=== PATIENT | male | born 1935 ===

== ENCOUNTER 2021-11-11 11:36 | Day surgery (SDC) | payer OTHER ==
[2021-11-06 13:01] LABS: Protime INR 2.13
[2021-11-06 13:19] LABS: Absolute Lymphocytes (CBC) 0.7 K/uL (0.7-4.9); Hematocrit 40.4 % (39.6-49.0); Lymphocytes % 16.7 % (15.3-44.8); MPV 7.4 fL (7.6-11.3); RBC Red Blood Cell Count 4.27 M/uL (4.33-5.43)
--- NOTE | 2021-11-06 13:26 | RAD REPORT ---
EXAM DESCRIPTION: RAD - Chest Pa And Lat (2 Views) - 11/06/2021 1:14 pm CLINICAL HISTORY: pre procedure screening Chest pain. COMPARISON: No comparisons FINDINGS: Prominent diffuse COPD is present. The heart is mildly prominent. Multi lead pacer/defibri llator device. Sternotomy wires present. IMPRESSION: Mild to moderate diffuse COPD.
[2021-11-06 14:21] LABS: Urine Appearance CLEAR (Clear); Urine Bilirubin NEGATIVE (Negative); Urine Color YELLOW (Yellow); Urine Glucose NEGATIVE (Negative)
[2021-11-06 14:22] LABS: Urine Blood NEGATIVE (Negative); Urine Microscopic Reflex NO UMIC; Urine Protein NEGATIVE (Negative)
[2021-11-11] MEDS ORDERED: Ringers Lactate 1,000 ML IV ONE (12:04)
[2021-11-11] MEDS ORDERED: CIPROFLOXACIN HCL 500 MG TAB ONE (14:29)
[2021-11-11] MEDS ORDERED: propofoL 200 MG/20 ML VIAL IV ONE (15:58)
[2021-11-11] MEDS ORDERED: FENTANYL CITR 100 MCG/2 ML ONE (15:58)
[2021-11-11] MEDS ORDERED: LIDOCAINE 1% MPF 5 ML VIAL ONE (15:58)
[2021-11-11] MEDS ORDERED: KETOROLAC 30 MG/ML INJ ONE (16:30)
[2021-11-11] MEDS ORDERED: dexAMETHasone 10 MG/ML VIAL ONE (16:30)
[2021-11-11] MEDS ORDERED: ONDANSETRON 4 MG/2 ML VIAL ONE (16:32)
[2021-11-11] MEDS ORDERED: CODEINE 30MG/APAP 300MG TAB PO PRN (17:36)
[2021-11-11] MEDS ORDERED: OPIUM/BELLADONNA SUPPOS (30-16.2 MG) PR ONE ×2 (17:36→17:50)
[2021-11-11 18:33] VITALS: BP 139/72; O2SAT 100
[2021-11-11] MEDS ORDERED: CODEINE 30MG/APAP 300MG TAB ONE (18:41)
[2021-11-11 19:22] VITALS: TEMP 97
--- NOTE | 2021-11-12 10:31 | OP ---
Surgeon: ALEISHA DACOSTA Preoperative Diagnosis: Benign prostatic hypertrophy with lower urinary tract obstruction. Incontinence, both urge and a sensory incontinence. Postoperative Diagnoses: Benign prostatic hypertrophy with lower urinary tract obstruction. Incontinence, both urge and a sensory incontinence. Principle Procedures: Cystoscopy with bipolar transurethral resection of the prostate. Indication For Procedure: Mr. Lynn is an 86-year-old gentleman with COPD, hypertension, hypercholes terolemia, status post CABG with pacemaker/defibrillator on amiodarone and Xarelto 15 mg as well as a spirin 81 mg and a recent history of endoscopic gastric tumor removed with BPH with lower urinary sym ptoms refractory to finasteride and severe fecal and urinary incontinence with both an urge component as well as lack of sensation. He underwent cystoscopy revealing significant intravesical projecting median lobe along with a mild to moderately trabeculated detrusor which was likely underlying source of his obstruction and incontinence. As a result, I counseled him to improve his incontinence, harmony gement of the obstruction would need to take place first, followed by further treatment of any bladde r dysfunction present. Ultimately, because of the intravesical component of his median lobe, bipolar TURP was recommended. Procedure Note: The patient was consented in the preoperative holding area before being transferred to the operative suite where general anesthesia was induced. He had been given a dose of ciprofloxac in 500 mg orally prior to the procedure for antimicrobial prophylaxis. Pneumo boots were provided fo r DVT prophylaxis. He was placed in the lithotomy position, padded and secured to the table appropri ately. His genitalia were prepped with Hibiclens and draped in standard fashion. His urethral meatu s was dilated using sounds to 30-Turkish, and then I utilized a visual diesel roller operator and a 26-Turkish resect oscope to traverse the urethra and into the bladder. As previously noted on the outpatient cystoscop y, there was a massive intravesical projecting median lobe with elevated median bar and some lateral lobar hypertrophy. So, I began by identifying the ureteral orifices bilaterally and resecting the in travesical component of the median lobe down to the level of the bladder neck with the ureteral orifi jak in direct vision. I then resected the remainder of the median lobe that was intravesically proje cting before then resecting the elevated median trough down to the level of the verumontanum. Once a nice trough had been created, I then continued to resect some of the lateral lobar hypertrophy that was intraluminally projecting beginning at the bladder neck and then extending that to the apex. Thi s was done bilaterally, and with a mild degree of anterior overhang observed, that was similarly rese cted. In the end, there was a widely patent channel from the verumontanum through to the bladder nec k and the lateral lobar tissue with no longer kissing. As a result, I removed all prostate chips fro m his bladder using an Ellik and direct vision grasping of some of the chips before making a careful search for bleeding with his bladder completely decompressed and fulgurating any residual venous ooze . Fulguration was performed along the course of the resection, so there was minimal significant blee ding throughout the entirety of the case. In the end, with his bladder completely decompressed, ther e was a widely patent channel from the verumontanum into the bladder, and there was no bleeding; so, I removed the resectoscope and passed a 22-Turkish 3-way Esparza catheter into his bladder with ease. I placed 40 cc of sterile water in the balloon and connected the catheter to slow drip CBI. The retur nadine efflux was completely clear. I placed the catheter to moderate traction and the patient was elvia en out of the lithotomy position. He was then awakened from general anesthesia, transferred to a multicare healther, and then transferred to the recovery room in good condition. Complications: None. Discharge Disposition: The patient should follow up in the [facility] on Wednesday of next week for active voiding trial. I have given him a prescription for Macrobid to take until after the catheter was removed because of his multiple medications that prohibited more traditional drugs, specifically the amiodarone conflicts with the ciprofloxacin, the JOHNNY inhibitors/ARB conflict with the Bactrim an d he has a penicillin allergy, so our options were limited. Subsequent followup may be established w carlos 1 to 3 months, if he has significant incontinence following the procedure, so that we might manage his anticholinergics. Otherwise, I would see him back in followup in 3 months. PATY/MODL Voice ID: [id number] Report ID: [id number]
== END 2021-11-11 19:10 | disposition home or self-care (01) ==
LOC: OR 11:36
PROVIDERS: ATTEND Urology
PROC: 0VT08ZZ Resection of Prostate, Via Natural or Artificial Opening Endoscopic (ICD-10-PCS; principal; 2021-11-11 14:00)
DX: N40.1 Benign prostatic hyperplasia with lower urinary tract symptoms (principal); N39.41 Urge incontinence; J44.9 Chronic obstructive pulmonary disease, unspecified; I10 Essential (primary) hypertension; E78.00 Pure hypercholesterolemia, unspecified; Z95.1 Presence of aortocoronary bypass graft; Z20.822 Contact with and (suspected) exposure to COVID-19
CPT/HCPCS: 93005; 87088; 85025; 87086; 80048; 36415; 85610; 88305; 85730; 81003; 71046; 52601; U0003; J2704; J3010; J1100; J7120; J2405

== ENCOUNTER 2023-03-29 04:39 | Emergency (ER) | payer OTHER ==
--- OUTSIDE RECORDS SUMMARY | 2023-03-29 04:49 | XMS REPORT | Continuity of Care Document ---
:[address] [facility] t Address [address] [facility]. [address] [place] [address] Care Team Providers Name Role Phone Maggie Hauser Primary Care Physician MATILDA JIMENEZ Attending Clinician Unavailable JUSTIN CAMPBELL Attending Clinician Unavailable Tanner West MD Attending Clinician Ventrua AYOUB, Ida Camacho Attending Clinician Pritesh Ospina Attending Clinician Unavailable Sonu Saez MD Attending Clinician Willie Hollins Attending Clinician Unavailable ANDREW LOFTON Attending Clinician Unavailable Tamiko Farris MD Attending Clinician Colette Caldwell MD Attending Clinician Andrew Lofton MD Attending Clinician PAM JAIN Attending Clinician Unavailable Philippe AYOUB, Clarice Attending Clinician Ahmet AYOUB, Gaye Grimaldo Attending Clinician [phone] Pam Jain MD Attending Clinician [phone] MYLA VARNER Attending Clinician Unavailable Myla Varner MD Attending Clinician IHDE_G Attending Clinician Unavailable Vince AYOUB, Brandi Joel Attending Clinician BRANDI CLARKE Attending Clinician Unavailable Devan Mathew MD Attending Clinician LAURA, GONZALESCARIE ELI Attending Clinician Unavailable Laura, Gonzalescarie Eli Attending Clinician Enrico Taylor MD Attending Clinician Bhavana Alvarado CRNA Attending Clinician [phone] DON, ANSON YORK Attending Clinician Unavailable TAMMI LANDEROS Attending Clinician Unavailable MD TANNER WEST Attending Clinician Unavailable FADY QUINTANILLA Attending Clinician Unavailable MARILIA HOGAN Attending Clinician Unavailable LUX PRATT Attending Clinician Unavailable PIERRE DC Attending Clinician Unavailable Eric Attending Clinician Unavailable CAMDEN AGUILLON Attending Clinician Unavailable MATILDA JIMENEZ Admitting Clinician Unavailable CAMPBELL, JUSTIN Admitting Clinician Unavailable Bhavesh, Mantachie Admitting Clinician Unavailable Willie Hollins Admitting Clinician Unavailable COLETTE CALDWELL Admitting Clinician Unavailable PAM JAIN Admitting Clinician Unavailable MYLA VARNER Admitting Clinician Unavailable IHDE_G Admitting Clinician Unavailable BRANDI CLARKE Admitting Clinician Unavailable LAURA GONZALESCARIE ELI Admitting Clinician Unavailable ANSON RAMIREZ Admitting Clinician Unavailable TANNER WEST Admitting Clinician Unavailable MD TANNER WEST Admitting Clinician Unavailable Eric Admitting Clinician Unavailable CAMDEN AGUILLON Admitting Clinician Unavailable Payers Payer Name Policy Type Policy Number Effective Date Expiration Date Robin moe AETJENNIFER MEDICARE [id number] 2021 HMO POS PPO 00:00:00 AETJENNIFER (MEDICARE [id number] 2021 REPLACEMENT PPO) 00:00:00 AETNA 53 [id number] [facility] AETNA 53 [id number] [facility] Problems Condition Condition Condition Status Onset Resolution Last Treating Co mments Source Name Details Category Date Date Treatment Clinician Date Rectal Rectal Disease Active [facility] Lower Lower Disease Active [facility] gastrointe gastrointe 8-04 Suzanne kes stinal stinal 00:00: Medical bleeding bleeding 00 Center GIB GIB Disease Active [facility] (gastroint (gastroint 8-03 Suzanne kes estinal estinal 00:00: Medical bleeding) bleeding) 00 Cent er Pneumonia Pneumonia Disease Active [facility] due to due to 6 [facility] COVID-19 COVID-19 00:00: Medica l virus virus 00 Center Gastric Gastric Disease Active [facility] polyp polyp 5-27 [facility] 00:[facility]: Medical 00 Center Gastric Gastric Disease Active [facility] lesion lesion 5-27 [facility] 00[facility] Medical 00 Center Status 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 Added automatic ally from request for surgery [id number] OAB Problem Active Common (overactiv Spirit e bladder) [facility] [id number] Urinary Problem Active Commo n incontinen Spirit ce without - [facility] sensory [facility] [id number] Incontinen Problem Active Com mon ce of Spirit feces, - [facility] fecal [facility] incontinen Medica l ce type Center [id number] BPH loc w Problem Active Com mon urin Spirit obs/LUTS [facility] [id number] Urge Problem Active Common incontinen Spirit [facility] Allergies, Adverse Reactions, Alerts Allergy Allergy Status Severity Reaction(s) Onset Inactive Treating Comm ents Source Name Type Date Date Clinician Penicill Propensi Active Rash Method i ins ty to 04-30 st adverse 00:00: Hospita reaction 00 l s to drug Penicill DA Active SV facial 2013-08 [facility] ins 'tightening' 08-23 [facility] with 00:00: Nur generalized 00 Medic al whelps. Center PENICILL Allergy Active High Hives [facility]SL INS 02-16 00:00: 00 Penicill Drug Active Hives, Other [facility] ins Allergy (See 02-16 GetOutfitted Comments), 00:00: Medica l Rash 00 Center Penicill Drug Active Hives, Other [facility] ins Allergy (See 02-16 GetOutfitted Comments), 00:00: Medica l Rash 00 Center penicill penicill Active Unknown Commo n in V in V [facility] Family History Family Member Diagnosis Comments Start Date Stop Date Source Natural father No Known Problems [facility] Natural mother No Known Problems [facility] Natural brother Cancer [facility] Social History Social Habit Start Date Stop Date Quantity Comments Source Gender identity 2020-01-15 Identifies as male M ethodist 10:49:44 gender (finding) [facility] Sexual orientation 2020-01-15 Heterosexual Meth odist 10:49:44 (finding) Hospital History of Tobacco [facility] History SDOH [facility] Alcohol Comment Medical C enter History SDOH [facility] Alcohol Std Drinks Medica l Center History SDOH [facility] Alcohol [facility]inge Medical [facility] History [facility] Transport Non-Med Medical Center History of Social 2023-03-15 2023-03-[address] function 00:00:00 00:00:00 Hospital History [facility] 2022-04-03 2022-04-[address] [facility] Transport Med 00:00:00 00:00:[address] [facility] 2022-04-03 2022-04-[address] [facility] Housing Unable to 00:00:00 00:00:00 Medical Center Pay History [facility] 2022-04-03 2022-04-03 1 BENNY [facility] Places 00:00:00 00:00:00 Medical Ce nter Lived History [facility] 2022-04-03 2022-04-[address] [facility] Homeless 00:00:00 00:00:00 Medical Center Last Year Alcohol intake 2022-04-02 2022-04-02 Ex-drinker BENNY Kellyk es 00:00:00 00:00:00 (finding) Medical Center History [facility] 2021-01-06 2021-01-06 [address] [facility] [address] [place] Alcohol Frequency 00:00:00 00:00:00 Medical Center Cigarettes smoked 2018-07-21 2018-07-[address] current (pack per 00:00:00 00:00:00 Hospita l day) - Reported Cigarette 2018-07-21 2018-07-21 [facility] pack-years 00:00:00 00:00:00 Hospital Tobacco use and 2018-07-21 2018-07-21 Smokeless tobacco Me thodist exposure 00:00:00 00:00:00 non-user Hospital Tobacco Comment 2018-03-17 2018-03-17 Have developed COPD [facility] 00:00:00 00:00:00 Hospital Sex Assigned At [birth year] M BENNY Seguras 00:00:00 00:00:00 [facility] Center Smoking Status Start Date Stop Date Source Never Smoker [facility] Ex-smoker 2018-07-21 00:00:00 2018-07-21 00:00:00 [facility] Medications Ordered Filled Start Stop Current Ordering Indication Dosage Frequency Signature Comments Components Source Medication Medication Date Date Medication? Clinician (SIG) Name Name rivaroxaban Yes Take by [facility] (XARELTO) 8-20 [facility] 15 mg Tab 14:47: daily with Me dical tablet 25 dinner. Center amiodarone Yes 200mg QD Take [address] (PACERONE) 8-20 mg by [facility] 200 MG 14:47: mouth Medical tablet 25 daily. [place] levocetiriz Yes 5mg QD Take [address] ine (XYZAL) 8-20 by mouth Luke s 5 MG tablet 14:47: every Medic al 25 evening. [place] montelukast Yes 10mg QD Take [address] (SINGULAIR) 8-20 by mouth Luke s 10 mg 14:47: daily. Medical tablet 25 [place] TURMERIC Yes 500mg QD Take [address] ORAL 8-20 mg by [facility]ukes 14:47: mouth Medical 25 daily . [place] niacin Yes 1000mg QD Take 1,[address] (NIASPAN) 8-20 mg by [facility] 1000 MG CR 14:47: mouth Medica l tablet 25 nightly. [place] docusate Yes 240mg Q.5D Take [address] calcium 8-20 mg by [facility]ukes (SURFAK) 14:47: mouth 2 Medica l 240 mg 25 (two) Center capsule times daily. lisinopriL Yes 2.5mg QD Take 2.[address] (PRINIVIL,Z 8-20 mg by [facility]ukes ESTRIL) 2.5 14:47: mouth Medic al MG tablet 25 daily. [place] multivitami Yes 1{tbl} QD Take [address] n per 8-20 tablet by [facility] tablet 14:47: mouth Medical 25 daily. [place] finasteride Yes 5mg QD Take [address] (PROSCAR) 5 8-20 by mouth Luke s mg tablet 14:47: daily. Medica l 25 [place] omeprazole Yes 40mg Take [address] (PriLOSEC) 8-20 by mouth [facility] 40 MG 14:47: daily with Medica l capsule 25 breakfast. [place] rosuvastati Yes 10mg QD Take [address] n (CRESTOR) 8-20 by mouth Luke s 10 MG 14:47: nightly. Medical tablet 25 [place] calcium Yes 1{tbl} QD Take [address] carbonate-v 8-20 tablet by Maday es itamin D3 14:47: mouth Medical (calcium-vi 25 daily. [place] tamin D) 500 mg(1,250mg) -200 unit per tablet aspirin 81 Yes 81mg Take [address] MG EC 8-20 by mouth [facility] tablet 14:47: every Medical 25 other day. [place] carvediloL Yes 3.125mg QD Take 3.[address] (COREG) 8-20 mg by [facility]ukes 3.125 MG 14:47: mouth Medical tablet 25 daily. Center ipratropium 0 Yes 3mL QD Take [address] -albuteroL 8-20 by [facility] (DUO-NEB) 14:47: nebulizati Me dical 0.5 mg-3 25 on daily. Center mg(2.5 mg base)/3 mL nebulizer solution tiotropium- Yes 2{puff} QD Inhale [address] olodateroL 8-20 puffs by [facility]ukes (Stiolto 14:47: mouth via Medi breana Respimat) 25 inhaler Center 2.5-2.5 daily. mcg/actuati on Mist cyanocobala Yes QD Place [facility] min, 8-20 under the [facility] vitamin 14:47: tongue Medical B-12, 25 daily Center (VITAMIN 100mcg to B-12 SL) 5000mcg . linaCLOtide Yes Take by [facility] (LINZESS) 8-20 mouth [facility]ukes 145 mcg Cap 14:47: every Medic al 25 morning Center before breakfast. MAGNESIUM 0 Yes 140mg QD Take [address] OXIDE ORAL 8-20 mg by [facility]ukes 14:47: mouth Medical 25 daily. Center nitroglycer Yes .4mg Place 0.[address] in 8-20 mg under [facility]ukes (NITROSTAT) 14:47: the tongue Medical 0.4 MG SL 25 every 5 Center tablet (five) minutes as needed for Chest pain Put 1 pill under tongue every 5min as needed for chest pain.No more than 3 doses in 15min.Call 911 if pain unrelieved 5min after 1st dose . psyllium Yes .52g QD Take 0.[address] 0.52 gram 8-20 g by mouth Luke s capsule 14:47: daily. Medical 25 Center tamsulosin Yes .4mg QD Take 0.[address] (FLOMAX) 8-20 mg by [facility] 0.4 mg Cap 14:47: mouth Medica l 24 hr 25 daily. Center capsule solifenacin 2022-0 Yes 10mg QD Take [address] (VESIcare) 8-20 by mouth [facility]ukes 10 MG 14:47: nightly . Medical tablet 25 [place] cholecalcif Yes 5000U QD Take 5,[address] adry, 8-20 Units by [facility]ukes vitamin D3, 14:47: mouth Medic al 125 mcg 25 daily. [place] (5,000 unit) Tab vitamin E Yes 1000U QD Take 1,[address] 1000 UNIT 8-20 Units by [facility]ukes capsule 14:47: mouth Medical 25 daily. [place] lipase-prot Yes [id number]{ [id number] Take [facility] ease-amylas 8-20 lipase} [id number] 36,000 [facility] e (Creon) 14:47: 3D units of Medi breana 36,000-114, [address] 000- mouth 3 180,000 (three) unit CpDR times capsule daily. ascorbic Yes 500mg QD Take [address] acid, 8-20 mg by [facility] vitamin C, 14:47: mouth Medica l (VITAMIN C) 25 daily. [place] 500 MG tablet fluticasone Yes 1{puff} Q.5D Inhale [address] propionate 8-20 puff by Lukes (FLOVENT 14:47: mouth via Medi breana DISKUS) 50 25 inhaler 2 Cent er mcg/actuati (two) on diskus times inhaler daily. psyllium Yes 1{packe QD Take [address] (METAMUCIL) 8-20 t} packet by Maday es powder 14:47: mouth Medical 25 daily. [place] rivaroxaban Yes Take by [facility] (XARELTO) 8-20 mouth [facility] 15 mg Tab 14:47: daily with Me dical tablet 25 dinner. [place] amiodarone Yes 200mg QD Take [address] (PACERONE) 8-20 mg by [facility] 200 MG 14:47: mouth Medical tablet 25 daily. [place] levocetiriz Yes 5mg QD Take [address] ine (XYZAL) 8-20 by mouth Luke s 5 MG tablet 14:47: every Medic al 25 evening. [place] montelukast Yes 10mg QD Take [address] (SINGULAIR) 8-20 by mouth Luke s 10 mg 14:47: daily. Medical tablet 25 [place] TURMERIC Yes 500mg QD Take [address] ORAL 8-20 mg by Lukes 14:47: mouth Medical 25 daily . [place] niacin Yes 1000mg QD Take 1,[address] (NIASPAN) 8-20 mg by [facility] 1000 MG CR 14:47: mouth Medica l tablet 25 nightly. [place] docusate Yes 240mg Q.5D Take [address] calcium 8-20 mg by Lukes (SURFAK) 14:47: mouth 2 Medica l 240 mg 25 (two) Center capsule times daily. lisinopriL Yes 2.5mg QD Take 2.[address] (PRINIVIL,Z 8-20 mg by Lukes ESTRIL) 2.5 14:47: mouth Medic al MG tablet 25 daily. [place] multivitami Yes 1{tbl} QD Take [address] n per 8-20 tablet by [facility]ukes tablet 14:47: mouth Medical 25 daily. [place] finasteride Yes 5mg QD Take [address] (PROSCAR) 5 8-20 by mouth Luke s mg tablet 14:47: daily. Medica l 25 [place] omeprazole Yes 40mg Take [address] (PriLOSEC) 8-20 by mouth [facility]ukes 40 MG 14:47: daily with Medica l capsule 25 breakfast. [place] rosuvastati Yes 10mg QD Take [address] n (CRESTOR) 8-20 by mouth Luke s 10 MG 14:47: nightly. Medical tablet 25 [place] calcium Yes 1{tbl} QD Take [address] carbonate-v 8-20 tablet by Maday es itamin D3 14:47: mouth Medical (calcium-vi 25 daily. [place] tamin D) 500 mg(1,250mg) -200 unit per tablet aspirin 81 Yes 81mg Take [address] MG EC 8-20 by mouth [facility]ukes tablet 14:47: every Medical 25 other day. [place] carvediloL Yes 3.125mg QD Take 3.[address] (COREG) 8-20 mg by Lukes 3.125 MG 14:47: mouth Medical tablet 25 daily. Center ipratropium 2021-0 Yes 3mL QD Take [address] -albuteroL 8-20 by [facility]ukes (DUO-NEB) 14:47: nebulizati Me dical 0.5 mg-3 25 on daily. Center mg(2.5 mg base)/3 mL nebulizer solution tiotropium- 0 Yes 2{puff} QD Inhale [address] olodateroL 8-20 puffs by [facility]ukes (Stiolto 14:47: mouth via Medi breana Respimat) 25 inhaler Center 2.5-2.5 daily. mcg/actuati on Mist cyanocobala 2021-[address] [facility] min, 8-20 under the [facility]ukes vitamin 14:47: tongue Medical B-12, 25 daily Center (VITAMIN 100mcg to B-12 SL) 5000mcg . linaCLOtide 2021-0 Yes Take by [facility] (LINZESS) 8-20 mouth [facility]ukes 145 mcg Cap 14:47: every Medic al 25 morning Center before breakfast. MAGNESIUM 2021-0 Yes 140mg QD Take [address] OXIDE ORAL 8-20 mg by [facility]ukes 14:47: mouth Medical 25 daily. Center nitroglycer [address] 0[address] in 8-20 mg under Lukes (NITROSTAT) 14:47: the tongue Medical 0.4 MG SL 25 every 5 Center tablet (five) minutes as needed for Chest pain Put 1 pill under tongue every 5min as needed for chest pain.No more than 3 doses in 15min.Call 911 if pain unrelieved 5min after 1st dose . psyllium 2021-0 Yes .52g QD Take 0.[address] 0.52 gram 8-20 g by mouth Luke s capsule 14:47: daily. Medical 25 Center tamsulosin 2021-0 Yes .4mg QD Take 0.[address] (FLOMAX) 8-20 mg by [facility]ukes 0.4 mg Cap 14:47: mouth Medica l 24 hr 25 daily. Center capsule solifenacin 2021-0 Yes 10mg QD Take [address] (VESIcare) 8-20 by mouth Lukes 10 MG 14:47: nightly . Medical tablet 25 Center cholecalcif Yes 5000U QD Take 5,[address] adry, 8-20 Units by Lukes vitamin D3, 14:47: mouth Medic al 125 mcg 25 daily. [place] (5,000 unit) Tab vitamin E Yes 1000U QD Take 1,[address] 1000 UNIT 8-20 Units by Lukes capsule 14:47: mouth Medical 25 daily. [place] lipase-prot Yes [id number]{ [id number] Take [facility] ease-amylas 8-20 lipase} [id number] 36,000 [facility] e (Creon) 14:47: 3D units of Medi breana 36,000-114, [address] 000- mouth 3 180,000 (three) unit CpDR times capsule daily. ascorbic Yes 500mg QD Take [address] acid, 8-20 mg by Lukes vitamin C, 14:47: mouth Medica l (VITAMIN C) 25 daily. [place] 500 MG tablet fluticasone Yes 1{puff} Q.5D Inhale [address] propionate 8-20 puff by Lukes (FLOVENT 14:47: mouth via Medi breana DISKUS) 50 25 inhaler 2 Cent er mcg/actuati (two) on diskus times inhaler daily. psyllium Yes 1{packe QD Take [address] (METAMUCIL) 8-20 t} packet by Maday es powder 14:47: mouth Medical 25 daily. [place] fluticasone Yes 1{puff} Q.5D Inhale [address] propionate 8-20 puff by Lukes (FLOVENT 14:47: mouth via Medi breana DISKUS) 50 25 inhaler 2 Cent er mcg/actuati (two) on diskus times inhaler daily. psyllium Yes 1{packe QD Take [address] (METAMUCIL) 8-20 t} packet by Maday es powder 14:47: mouth Medical 25 daily. [place] rivaroxaban Yes Take by [facility] (XARELTO) 8-20 mouth [facility]ukes 15 mg Tab 14:47: daily with Me dical tablet 25 dinner. [place] amiodarone Yes 200mg QD Take [address] (PACERONE) 8-20 mg by [facility]ukes 200 MG 14:47: mouth Medical tablet 25 daily. [place] levocetiriz Yes 5mg QD Take [address] ine (XYZAL) 8-20 by mouth Luke s 5 MG tablet 14:47: every Medic al 25 evening. [place] montelukast Yes 10mg QD Take [address] (SINGULAIR) 8-20 by mouth Luke s 10 mg 14:47: daily. Medical tablet 25 [place] TURMERIC Yes 500mg QD Take [address] ORAL 8-20 mg by Lukes 14:47: mouth Medical 25 daily . [place] niacin Yes 1000mg QD Take 1,[address] (NIASPAN) 8-20 mg by [facility]ukes 1000 MG CR 14:47: mouth Medica l tablet 25 nightly. [place] docusate Yes 240mg Q.5D Take [address] calcium 8-20 mg by Lukes (SURFAK) 14:47: mouth 2 Medica l 240 mg 25 (two) Center capsule times daily. lisinopriL Yes 2.5mg QD Take 2.[address] (PRINIVIL,Z 8-20 mg by Lukes ESTRIL) 2.5 14:47: mouth Medic al MG tablet 25 daily. [place] multivitami Yes 1{tbl} QD Take [address] n per 8-20 tablet by Lukes tablet 14:47: mouth Medical 25 daily. [place] finasteride Yes 5mg QD Take [address] (PROSCAR) 5 8-20 by mouth Luke s mg tablet 14:47: daily. Medica l 25 [place] omeprazole Yes 40mg Take [address] (PriLOSEC) 8-20 by mouth Lukes 40 MG 14:47: daily with Medica l capsule 25 breakfast. [place] rosuvastati Yes 10mg QD Take [address] n (CRESTOR) 8-20 by mouth Luke s 10 MG 14:47: nightly. Medical tablet 25 [place] calcium Yes 1{tbl} QD Take [address] carbonate-v 8-20 tablet by Maday es itamin D3 14:47: mouth Medical (calcium-vi 25 daily. [place] tamin D) 500 mg(1,250mg) -200 unit per tablet aspirin 81 0 Yes 81mg Take [address] MG EC 8-20 by mouth Lukes tablet 14:47: every Medical 25 other day. Center carvediloL Yes 3.125mg QD Take 3.[address] (COREG) 8-20 mg by [facility]ukes 3.125 MG 14:47: mouth Medical tablet 25 daily. Center ipratropium 0 Yes 3mL QD Take [address] -albuteroL 8-20 by [facility] (DUO-NEB) 14:47: nebulizati Me dical 0.5 mg-3 25 on daily. Center mg(2.5 mg base)/3 mL nebulizer solution tiotropium- Yes 2{puff} QD Inhale [address] olodateroL 8-20 puffs by [facility]ukes (Stiolto 14:47: mouth via Medi breana Respimat) 25 inhaler Center 2.5-2.5 daily. mcg/actuati on Mist cyanocobala [address] [facility] min, 8-20 under the [facility] vitamin 14:47: tongue Medical B-12, 25 daily Center (VITAMIN 100mcg to B-12 SL) 5000mcg . linaCLOtide Yes Take by [facility] (LINZESS) 8-20 mouth [facility]ukes 145 mcg Cap 14:47: every Medic al 25 morning Center before breakfast. MAGNESIUM 0 Yes 140mg QD Take [address] OXIDE ORAL 8-20 mg by [facility]ukes 14:47: mouth Medical 25 daily. Center nitroglycer Yes .4mg Place 0.[address] in 8-20 mg under Lukes (NITROSTAT) 14:47: the tongue Medical 0.4 MG SL 25 every 5 Center tablet (five) minutes as needed for Chest pain Put 1 pill under tongue every 5min as needed for chest pain.No more than 3 doses in 15min.Call 911 if pain unrelieved 5min after 1st dose . psyllium 0 Yes .52g QD Take 0.[address] 0.52 gram 8-20 g by mouth Luke s capsule 14:47: daily. Medical 25 Center tamsulosin 0 Yes .4mg QD Take 0.[address] (FLOMAX) 8-20 mg by [facility]ukes 0.4 mg Cap 14:47: mouth Medica l 24 hr 25 daily. [place] capsule solifenacin 0 Yes 10mg QD Take [address] (VESIcare) 8-20 by mouth Lukes 10 MG 14:47: nightly . Medical tablet 25 [place] cholecalcif 0 Yes 5000U QD Take 5,[address] adry, 8-20 Units by Lukes vitamin D3, 14:47: mouth Medic al 125 mcg 25 daily. [place] (5,000 unit) Tab vitamin E Yes 1000U QD Take 1,[address] 1000 UNIT 8-20 Units by [facility]ukes capsule 14:47: mouth Medical 25 daily. [place] lipase-prot Yes [id number]{ Q.[id number] Take [facility] ease-amylas 8-20 lipase} [id number] 36,000 [facility] e (Creon) 14:47: 3D units of Medi breana 36,000-114, [address] 000- mouth 3 180,000 (three) unit CpDR times capsule daily. ascorbic 0 Yes 500mg QD Take [address] acid, 8-20 mg by Lukes vitamin C, 14:47: mouth Medica l (VITAMIN C) 25 daily. [place] 500 MG tablet levoFLOXaci 0 Yes 500mg QD Take [address] n 6-26 tablet [facility]ukes (LEVAQUIN) 00:00: (500 mg Medi breana 500 MG 00 total) by Center tablet mouth daily. levoFLOXaci 2021-0 Yes 500mg QD Take [address] n 6-26 tablet [facility] (LEVAQUIN) 00:00: (500 mg Medi breana 500 MG 00 total) by Center tablet mouth daily. levoFLOXaci 2021-0 Yes 500mg QD Take [address] n 6-26 tablet [facility] (LEVAQUIN) 00:00: (500 mg Medi breana 500 MG 00 total) by Center tablet mouth daily. Finasteride Finasteride 2021-0 2021- No 1{table QD 5 MG 5 MG 09-18 t} 00:00: 00:00 00 :00 Finasteride Finasteride 2021-0 2022- No 1{table QD Finasterid 5 MG 5 MG 09-18 t} e 5 MG 00:00: 00:00 00 :00 Finasteride Finasteride 2021- No 1{table QD Finasterid 5 MG 5 MG 09-18 t} e 5 MG 00:00: 00:00 00 :00 fluticasone 2021- No Q.5D by Nasal [facility] propionate 08-27 route 2 [facility] (FLONASE 12:04: 00:00 (two) Medical NASAL) 40 :00 times Center daily. fluticasone 2021- No Q.5D by Nasal [facility] propionate 08-27 route 2 [facility] (FLONASE 12:04: 00:00 (two) Medical NASAL) 40 :00 times Center daily. traMADoL 2020-08 50mg Q6H Take 1 Metho di (ULTRAM) 50 10-07 tablet (50 s t mg tablet 00:00: 05:59 mg total) Ho spita 00 :00 by mouth l every 6 (six) hours as needed for moderate pain for up to 30 days .acute pain. traMADoL 2020-0828 50mg Q6H Take 1 Metho di (ULTRAM) 50 10-07- tablet (50 s t mg tablet 00:00: 05:59 mg total) Ho spita 00 :00 by mouth l every 6 (six) hours as needed for moderate pain for up to 30 days .acute pain. traMADoL 2020-08 50mg Q6H Take 1 Metho di (ULTRAM) 50 09-13 tablet (50 s t mg tablet 00:00: 00:00 mg total) Ho spita 00 :00 by mouth l every 6 (six) hours as needed for moderate pain for up to 30 days .acute pain. Flomax 0.4 Flomax 0.4 2020-08- No 1{capsu QD MG MG 08-18 le} 00:00: 00:00 00 :00 Flomax 0.4 Flomax 0.4 2020-08- No 1{capsu QD Flomax 0.4 MG MG 08-18 le} MG 00:00: 00:00 00 :00 Flomax 0.4 Flomax 0.4 2020-08- No 1{capsu QD Flomax 0.4 MG MG 08-18 le} MG 00:00: 00:00 00 :00 VESIcare 5 VESIcare 5 2020-08- No 1{table QD MG MG 08-18 t} 00:00: 00:00 00 :00 rivaroxaban 2019-08 Yes 15mg QD Take 15 mg Methodi (XARELTO) 1-[address] 15 mg 12:40: every Hospita tablet 09 morning. l tiotropium- 2019-08 Yes QD Take 2 Meth monie olodaterol 1-[address] (STIOLTO 12:40: s by mouth Hos dago RESPIMAT) 09 every l 2.5-2.5 evening. mcg/actuati on inhalation solution TURMERIC 2019-08 Yes 500mg Q.5D Take 500 Meth monie ORAL 1-[address] 12:40: mouth 2 Hospita 09 (two) l times a day. cyanocobala 2019-08 Yes 5000ug QD Take 5,000 [facility]i min, 1-[address] vitamin 12:40: mouth Hospita B-12, 09 every l (VITAMIN morning. B-12 ORAL) magnesium 2019-08 Yes 1{tbl} QD Take 1 Meth monie oxide 1-[address] (MAGOX 12:40: mouth Hospita ORAL) 09 every l morning. multivitami 2019-08 Yes 1{tbl} QD Take 1 Me thodi n with 1-[address] minerals 12:40: mouth Hospita tablet 09 daily. l montelukast 2019-08 Yes 10mg QD Take 10 mg Methodi (SINGULAIR) 1-[address] 10 mg 12:40: every Hospita tablet 09 morning. l levocetiriz 2019-08 Yes 1{tbl} QD Take 1 Me thodi ine 1-[address] dihydrochlo 12:40: mouth Hospi ta ride 09 every l (LEVOCETIRI evening. ZINE ORAL) aspirin 2019-08 Yes 81mg Q2D Take 81 mg Meth monie (ECOTRIN) 1-[address] 81 MG 12:40: every Hospita enteric 09 other day. l coated tablet vitamin E 2019-08 Yes 1000U QD Take 1,000 M ethodi acetate 1-[address] (VITAMIN E 12:40: mouth Hospit a ORAL) 09 every l evening. docusate 2020 Yes 100mg Q.5D Take 100 Meth monie sodium 1-[address] (COLACE) 12:40: mouth 2 Hospit a 100 MG 09 (two) l capsule times a day. cholecalcif 2020 Yes 1{tbl} QD Take 1 Me [facility] adry, 1-[address] vitamin D3, 12:40: mouth Hospi ta (Vitamin 09 every l D3) 125 mcg morning. (5,000 unit) tablet calcium 2020 Yes 1{tbl} QD Take 1 Method i carbonate/v 1-[address] itamin D3 12:40: mouth [facility]ospita (CALCIUM 09 every l 600 + D,3, morning. ORAL) simethicone 2019-08 Yes 1{tbl} Q.5D Take 1 Me thodi (GAS-X 1-[address] ORAL) 12:40: mouth 2 Hospita 09 (two) l times a day. ascorbic 2019-08 Yes 500mg QD Take 500 Meth monie acid, 1-[address] vitamin C, 12:40: mouth Hospit a (VITAMIN C) 09 every l 500 MG evening. tablet cycloSPORIN 2019-08 Yes 1[drp] Q.5D Administer Methodi E 1-[address] (RESTASIS) 12:40: both eyes Ho spita 0.05 % 09 2 (two) l ophthalmic times a emulsion day. rivaroxaban 2019-08 Yes 15mg QD Take 15 mg Methodi (XARELTO) 1-[address] 15 mg 12:40: every Hospita tablet 09 morning. l tiotropium- 2020- Yes QD Take 2 Meth monie olodaterol 1-[address] (STIOLTO 12:40: s by mouth Hos dago RESPIMAT) 09 every l 2.5-2.5 evening. mcg/actuati on inhalation solution TURMERIC 2020- Yes 500mg Q.5D Take 500 Meth monie ORAL 1-[address] 12:40: mouth 2 Hospita 09 (two) l times a day. cyanocobala 2020 Yes 5000ug QD Take 5,000 Methodi min, 1-[address] vitamin 12:40: mouth Hospita B-12, 09 every l (VITAMIN morning. B-12 ORAL) magnesium 2020- Yes 1{tbl} QD Take 1 Meth monie oxide 1-20 tablet by (MAGOX 12:40: mouth [facility]ospita ORAL) 09 every l morning. multivitami 2020- Yes 1{tbl} QD Take 1 Me thodi n with 1-20 tablet by minerals 12:40: mouth Hospita tablet 09 daily. l montelukast 2019-08 Yes 10mg QD Take 10 mg Methodi (SINGULAIR) 1-[address] 10 mg 12:40: every Hospita tablet 09 morning. l levocetiriz 2019-08 Yes 1{tbl} QD Take 1 Me thodi ine 1-20 tablet by dihydrochlo 12:40: mouth Hospi ta ride 09 every l (LEVOCETIRI evening. ZINE ORAL) aspirin 2019- Yes 81mg Q2D Take 81 mg Meth monie (ECOTRIN) 1-[address] 81 MG 12:40: every [facility]ospita enteric 09 other day. l coated tablet vitamin E 2019-08 Yes 1000U QD Take 1,000 M ethodi acetate 1-20 Units by (VITAMIN E 12:40: mouth Hospit a ORAL) 09 every l evening. docusate 2019-08 Yes 100mg Q.5D Take 100 Meth monie sodium 1-20 mg by (COLACE) 12:40: mouth 2 Hospit a 100 MG 09 (two) l capsule times a day. cholecalcif 2019-08 Yes 1{tbl} QD Take 1 Me thodi adry, 1-20 tablet by vitamin D3, 12:40: mouth Hospi ta (Vitamin 09 every l D3) 125 mcg morning. (5,000 unit) tablet calcium 2020- Yes 1{tbl} QD Take 1 Method i carbonate/v 1-20 tablet by itamin D3 12:40: mouth Hospita (CALCIUM 09 every l 600 + D,3, morning. ORAL) simethicone 2020- Yes 1{tbl} Q.5D Take 1 Me thodi (GAS-X 1-[address] ORAL) 12:40: mouth 2 Hospita 09 (two) l times a day. ascorbic 2020- Yes 500mg QD Take 500 Meth monie acid, 1-[address] vitamin C, 12:40: mouth Hospit a (VITAMIN C) 09 every l 500 MG evening. tablet cycloSPORIN 2019-08 Yes 1[drp] Q.5D Administer Methodi E 1-[address] (RESTASIS) 12:40: both eyes Ho spita 0.05 % 09 2 (two) l ophthalmic times a emulsion day. rivaroxaban 2019-08 Yes 15mg QD Take 15 mg Methodi (XARELTO) 1-[address] 15 mg 12:40: every Hospita tablet 09 morning. l tiotropium- 2019-08 Yes QD Take 2 Meth monie olodaterol 1-[address] (STIOLTO 12:40: s by mouth Hos dago RESPIMAT) 09 every l 2.5-2.5 evening. mcg/actuati on inhalation solution TURMERIC 2019-08 Yes 500mg Q.5D Take 500 Meth monie ORAL 1-[address] 12:40: mouth 2 [facility]ospita 09 (two) l times a day. cyanocobala 2019-08 Yes 5000ug QD Take 5,000 Methodi min, 1-[address] vitamin 12:40: mouth [facility]ospita B-12, 09 every l (VITAMIN morning. B-12 ORAL) magnesium 2019-08 Yes 1{tbl} QD Take 1 Meth monie oxide 1-[address] (MAGOX 12:40: mouth [facility]ospita ORAL) 09 every l morning. multivitami 2019-08 Yes 1{tbl} QD Take 1 Me thodi n with 1-[address] minerals 12:40: mouth [facility]ospita tablet 09 daily. l montelukast 2019-08 Yes 10mg QD Take 10 mg Methodi (SINGULAIR) 1-[address] 10 mg 12:40: every [facility]ospita tablet 09 morning. l levocetiriz 2019-08 Yes 1{tbl} QD Take 1 Me thodi ine 1-[address] dihydrochlo 12:40: mouth Hospi ta ride 09 every l (LEVOCETIRI evening. ZINE ORAL) aspirin 2019-08 Yes 81mg Q2D Take 81 mg Meth monie (ECOTRIN) 1-[address] 81 MG 12:40: every [facility] enteric 09 other day. l coated tablet vitamin E 2019-08 Yes 1000U QD Take 1,000 M ethodi acetate 1-20 Units by (VITAMIN E 12:40: mouth Hospit a ORAL) 09 every l evening. docusate 2020-1 Yes 100mg Q.5D Take 100 Meth monie sodium 1-20 mg by (COLACE) 12:40: mouth 2 Hospit a 100 MG 09 (two) l capsule times a day. cholecalcif 2020-1 Yes 1{tbl} QD Take 1 Me thodi adry, 1-20 tablet by vitamin D3, 12:40: mouth Hospi ta (Vitamin 09 every l D3) 125 mcg morning. (5,000 unit) tablet calcium 2020-1 Yes 1{tbl} QD Take 1 Method i carbonate/v 1-20 tablet by itamin D3 12:40: mouth Hospita (CALCIUM 09 every l 600 + D,3, morning. ORAL) simethicone 2020-1 Yes 1{tbl} Q.5D Take 1 Me thodi (GAS-X 1-20 tablet by ORAL) 12:40: mouth 2 Hospita 09 (two) l times a day. ascorbic 2020-1 Yes 500mg QD Take 500 Meth monie acid, 1-20 mg by vitamin C, 12:40: mouth Hospit a (VITAMIN C) 09 every l 500 MG evening. tablet cycloSPORIN 2020-1 Yes 1[drp] Q.5D Administer Methodi E 1-[address] (RESTASIS) 12:40: both eyes Ho spita 0.05 % 09 2 (two) l ophthalmic times a emulsion day. amIODarone 2020-0 Yes 200mg QD Take 200 Me thodi (PACERONE) 9-[address] 200 MG 00:00: mouth [facility]osp[facility] tablet 00 every l morning. amIODarone 2020-0 Yes 200mg QD Take 200 Me th[facility] (PACERONE) 9-[address] 200 MG 00:00: mouth [facility]osp[facility] tablet 00 every l morning. amIODarone 2020-0 Yes 200mg QD Take 200 Me th[facility] (PACERONE) 9-[address] 200 MG 00:00: mouth [facility]osp[facility] tablet 00 every l morning. ipratropium 2020-0 Yes 3mL Q.5D Take 3 mL M ethodi -albuteroL 9-10 by (DUO-NEB) 00:00: nebulizati Ho spita 0.5-2.5 00 on 2 (two) l mg/3 mL times a nebulizer day. ipratropium 2020-0 Yes 3mL Q.5D Take 3 mL M ethodi -albuteroL 9-[address] (DUO-NEB) 00:00: nebulizati Ho spita 0.5-2.5 00 on 2 (two) l mg/3 mL times a nebulizer day. ipratropium 2020-0 Yes 3mL Q.5D Take 3 mL M ethodi -albuteroL 9-[address] (DUO-NEB) 00:00: nebulizati Ho spita 0.5-2.5 00 on 2 (two) l mg/3 mL times a nebulizer day. rosuvastati 2018-0 Yes 10mg QD Take 10 mg Methodi n (CRESTOR) 7-[address] 10 MG 00:00: every Hospita tablet 00 evening. l rosuvastati 2018-0 Yes 10mg QD Take 10 mg Methodi n (CRESTOR) 7-[address] 10 MG 00:00: every [facility]ospita tablet 00 evening. l rosuvastati 2018-0 Yes 10mg QD Take 10 mg Methodi n (CRESTOR) 7-[address] 10 MG 00:00: every Hospita tablet 00 evening. l finasteride 2018-0 Yes 5mg QD Take 5 mg M ethodi (PROSCAR) 5 7-[address] mg tablet 00:00: every Hospita 00 morning. l niacin 2018-0 Yes 1000mg QD Take 1,000 Met hodi (NIASPAN) 7-[address] 1000 MG CR 00:00: mouth Hospit a tablet 00 nightly. l finasteride 2018-0 Yes 5mg QD Take 5 mg M ethodi (PROSCAR) 5 7-[address] mg tablet 00:00: every Hospita 00 morning. l niacin 2018-0 Yes 1000mg QD Take 1,000 Met hodi (NIASPAN) 7-[address] 1000 MG CR 00:00: mouth Hospit a tablet 00 nightly. l finasteride 2018-0 Yes 5mg QD Take 5 mg M ethodi (PROSCAR) 5 7-[address] mg tablet 00:00: every Hospita 00 morning. l niacin 2018-0 Yes 1000mg QD Take 1,000 Met hodi (NIASPAN) 7-[address] 1000 MG CR 00:00: mouth Hospit a tablet 00 nightly. l lisinopril 2018-0 Yes 2.5mg QD Take 2.5 Me thodi (PRINIVIL,Z 6-[address] ESTRIL) 2.5 00:00: mouth Hospi ta mg tablet 00 every l morning. lisinopril 2018-0 Yes 2.5mg QD Take 2.5 Me thodi (PRINIVIL,Z 6-[address] ESTRIL) 2.5 00:00: mouth Hospi ta mg tablet 00 every l morning. lisinopril 2018-0 Yes 2.5mg QD Take 2.5 Me thodi (PRINIVIL,Z 6-[address] ESTRIL) 2.5 00:00: mouth Hospi ta mg tablet 00 every l morning. carvedilol 2018-0 Yes 3.125mg QD Take 3.125 Methodi (COREG) 5-[address] 3.125 MG 00:00: mouth [facility]ospita tablet 00 every l morning. carvedilol 2018-0 Yes 3.125mg QD Take 3.125 Methodi (COREG) 5-[address] 3.125 MG 00:00: mouth [facility]ospita tablet 00 every l morning. carvedilol 2018-0 Yes 3.125mg QD Take 3.125 Methodi (COREG) 5-[address] 3.125 MG 00:00: mouth [facility]ospita tablet 00 every l morning. Amiodarone Amiodarone No 1{table QD Amiodarone HCl 200 MG HCl 200 MG t} HCl 200 MG Crestor 10 Crestor 10 No 1{table QD Crestor 10 MG MG t} MG Xarelto 15 Xarelto 15 No 1{table QD Xarelto 15 MG MG t_with_ MG food} Fluticasone Fluticasone No 1{puff} QD Fluticason Furoate 100 Furoate 100 e Furoate MCG/ACT MCG/ACT 100 MCG/ACT Carvedilol Carvedilol No 1{table BID Carvedilol 3.125 MG 3.125 MG t_with_ 3.125 MG food} Finasteride Finasteride No 1{table QD Finasterid 5 MG 5 MG t} e 5 MG Vitamin C Vitamin C No Vitamin C 500 MG 500 MG 500 MG Montelukast Montelukast No 1{table QD Montelukas Sodium 10 Sodium 10 t} t Sodium MG MG 10 MG Vitamin B12 Vitamin B12 No Vitamin 100 MCG 100 MCG B12 100 MCG Omeprazole Omeprazole No QD Omeprazole 40 MG 40 MG 40 MG Lisinopril Lisinopril No 1{table QD Lisinopril 2.5 MG 2.5 MG t} 2.5 MG Fluticasone Fluticasone No 1{puff} QD Fluticason Furoate 100 Furoate 100 e Furoate MCG/ACT MCG/ACT 100 MCG/ACT Multivitami Multivitami No 1{table QD Multivitam n - n - t} in - Stool Stool No 1{capsu QD Stool Softener Softener le_as_n Softener 100 MG 100 MG eeded} 100 MG Lisinopril Lisinopril No 1{table QD Lisinopril 2.5 MG 2.5 MG t} 2.5 MG Restasis Restasis No 1{drop_ BID Restasis 0.05 % 0.05 % into_af 0.05 % fected_ eye} Amiodarone Amiodarone No 1{table QD Amiodarone HCl 200 MG HCl 200 MG t} HCl 200 MG Crestor 10 Crestor 10 No 1{table QD Crestor 10 MG MG t} MG Nitroglycer Nitroglycer No Nitroglyce in 0.3 MG in 0.3 MG rin 0.3 MG Niacin ER Niacin ER No 1{table QD Niacin ER 1000 MG 1000 MG t_with_ 1000 MG food} Vitamin B12 Vitamin B12 No Vitamin 100 MCG 100 MCG B12 100 MCG Magnesium Magnesium No 1{table QD Magnesium Oxide 250 Oxide 250 t_as_ne Oxide 250 MG MG eded} MG Calcium + Calcium + No 1{table QD Calcium + D3 600-800 D3 600-800 t_with_ D3 600-800 MG-UNIT MG-UNIT a_meal} MG-UNIT Montelukast Montelukast No 1{table QD Montelukas Sodium 10 Sodium 10 t} t Sodium MG MG 10 MG Vitamin D3 Vitamin D3 No Vitamin D3 [id number] UNIT/GM UNIT/GM UNIT/GM Omeprazole Omeprazole No QD Omeprazole 40 MG 40 MG 40 MG Vitamin C Vitamin C No Vitamin C 500 MG 500 MG 500 MG Xarelto 15 Xarelto 15 No 1{table QD Xarelto 15 MG MG t_with_ MG food} Finasteride Finasteride No 1{table QD Finasterid 5 MG 5 MG t} e 5 MG Stiolto Stiolto No 2{puffs QD Stiolto Respimat Respimat } Respimat 2.5mcg/2.5m 2.5mcg/2.5m 2.5mcg/2.5 cg cg mcg Carvedilol Carvedilol No 1{table BID Carvedilol 3.125 MG 3.125 MG t_with_ 3.125 MG food} Vitamin E Vitamin E No 1{capsu QD Vitamin E 1000 UNIT 1000 UNIT le} 1000 UNIT Magnesium Magnesium No 1{table QD Oxide 250 Oxide 250 t_as_ne MG MG eded} Lisinopril Lisinopril No 1{table QD 2.5 MG 2.5 MG t} Stiolto Stiolto No 2{puffs QD Respimat Respimat } 2.5mcg/2.5m 2.5mcg/2.5m cg cg Nitroglycer Nitroglycer No in 0.3 MG in 0.3 MG Xarelto 15 Xarelto 15 No 1{table QD MG MG t_with_ food} Niacin ER Niacin ER No 1{table QD 1000 MG 1000 MG t_with_ food} Omeprazole Omeprazole No QD 40 MG 40 MG Montelukast Montelukast No 1{table QD Sodium 10 Sodium 10 t} MG MG Calcium + Calcium + No 1{table QD D3 600-800 D3 600-800 t_with_ MG-UNIT MG-UNIT a_meal} Carvedilol Carvedilol No 1{table BID 3.125 MG 3.125 MG t_with_ food} Vitamin C Vitamin C No 500 MG 500 MG Crestor 10 Crestor 10 No 1{table QD MG MG t} Vitamin B12 Vitamin B12 No 100 MCG 100 MCG Restasis Restasis No 1{drop_ BID 0.05 % 0.05 % into_af fected_ eye} Vitamin E Vitamin E No 1{capsu QD 1000 UNIT 1000 UNIT le} Fluticasone Fluticasone No 1{puff} QD Furoate 100 Furoate 100 MCG/ACT MCG/ACT Stool Stool No 1{capsu QD Softener Softener le_as_n 100 MG 100 MG eeded} Finasteride Finasteride No 1{table QD 5 MG 5 MG t} Amiodarone Amiodarone No 1{table QD HCl 200 MG HCl 200 MG t} Vitamin D3 Vitamin D3 No [id number] UNIT/GM UNIT/GM Multivitami Multivitami No 1{table QD n - n - t} Stiolto Stiolto No 2{puffs QD Stiolto Respimat Respimat } Respimat 2.5mcg/2.5m 2.5mcg/2.5m 2.5mcg/2.5 cg cg mcg Calcium + Calcium + No 1{table QD Calcium + D3 600-800 D3 600-800 t_with_ D3 600-800 MG-UNIT MG-UNIT a_meal} MG-UNIT Multivitami Multivitami No 1{table QD Multivitam n - n - t} in - Restasis Restasis No 1{drop_ BID Restasis 0.05 % 0.05 % into_af 0.05 % fected_ eye} Vitamin D3 Vitamin D3 No Vitamin D3 [id number] UNIT/GM UNIT/GM UNIT/GM Nitroglycer Nitroglycer No Nitroglyce in 0.3 MG in 0.3 MG rin 0.3 MG Vitamin E Vitamin E No 1{capsu QD Vitamin E 1000 UNIT 1000 UNIT le} 1000 UNIT Stool Stool No 1{capsu QD Stool Softener Softener le_as_n Softener 100 MG 100 MG eeded} 100 MG Magnesium Magnesium No 1{table QD Magnesium Oxide 250 Oxide 250 t_as_ne Oxide 250 MG MG eded} MG Niacin ER Niacin ER No 1{table QD Niacin ER 1000 MG 1000 MG t_with_ 1000 MG food} Immunizations Ordered Immunization Filled Immunization Date Status Commen ts Source Name Name [facility] COVID-19 MRNA 2021-05-30 Completed [facility] VACC[facility]ATION 00:00:00 [facility] COVID-19 MRNA 2021-05-30 Completed [facility]ist VACCINATION 00:00:00 [facility] COVID-19 MRNA 2021-05-30 Completed [facility] VACCINATION 00:00:00 [facility] COVID-19 MRNA 2020-09-25 Completed [facility] VACCINATION 00:00:00 [facility] COVID-19 MRNA 2020-09-25 Completed [facility] MRNA 2020-09-25 Completed [facility] VACC[facility]ATION 00:00:00 [facility] COVID-19 MRNA 2020-09-04 Completed [facility] odist VACCINATION 00:00:00 [facility] PFIZER COVID-19 MRNA 2020-09-04 Completed Meth odist VACCINATION 00:00:00 [facility] PFIZER COVID-19 MRNA 2020-09-04 Completed [facility]ist VACCINATION 00:00:00 Hospital Pneumococcal 2020-07-05 Completed [facility] Polys[facility] 00:[facility]:00 [facility] Pneumococcal 2020-07-05 Completed [facility] Polysaccharide 00:00:00 [facility] Pneumococcal 2020-07-05 Completed [facility] Polysaccharide 00:00:00 [facility] Influenza Trivalent 2020-04-23 Completed Meth[facility] dist 00:00:00 [facility] Influenza Trivalent 2020-04-23 Completed [facility] dist 00:00:00 [facility] Influenza Trivalent 2020-04-23 Completed [facility] dist 00:00:00 Hospital Vital Signs Vital Name Observation Time Observation Value Comments Source HEIGHT 2022-04-02 15:11:00 182.9 cm WEIGHT 2022-04-02 15:11:00 64.411 kg HEIGHT 2022-04-02 15:11:00 182.9 cm WEIGHT 2022-04-02 15:11:00 64.411 kg HEIGHT 2022-04-02 15:11:00 182.9 cm WEIGHT 2022-04-02 15:11:00 64.411 kg HEIGHT 2022-03-18 17:09:00 188 cm WEIGHT 2022-03-18 17:09:00 61.553 kg HEIGHT 2022-03-18 17:09:00 188 cm WEIGHT 2022-03-18 17:09:00 61.553 kg HEIGHT 2022-02-03 00:05:00 188 cm WEIGHT 2022-02-03 00:05:00 64.275 kg HEIGHT 2022-02-03 00:05:00 188 cm WEIGHT 2022-02-03 00:05:00 64.275 kg height 2021-10-23 09:00:00 72 [in_i] [facility] weight 2021-10-23 09:00:00 147.6 [lb_av] [facility] temperature 2021-10-23 09:00:00 97.6 [degF] Common [facility] bmi 2021-10-23 09:00:00 20.02 kg/m2 [facility] oximetry 2021-10-23 09:00:00 99 % [facility] respiratory rate 2021-10-23 09:00:00 18 /min [facility] blood pressure 2021-10-23 09:00:00 104 mm[Hg] Common [facility] - systolic [facility] blood pressure 2021-10-23 09:00:00 60 mm[Hg] Common [facility] diastolic [facility] HEIGHT 2021-07-28 14:00:00 188 cm WEIGHT 2021-07-28 14:00:00 65.318 kg HEIGHT 2021-07-28 14:00:00 188 cm WEIGHT 2021-07-28 14:00:00 65.318 kg height 2021-07-24 15:30:00 72 [in_i] [facility] weight 2021-07-24 15:30:00 147 [lb_av] [facility] temperature 2021-07-24 15:30:00 98.4 [degF] [facility] bmi 2021-07-24 15:30:00 19.93 kg/m2 [facility] oximetry 2021-07-24 15:30:00 96 % [facility] respiratory rate 2021-07-24 15:30:00 18 /min [facility] on [facility] blood pressure 2021-07-24 15:30:00 104 mm[Hg] Common [facility] - systolic [facility] blood pressure 2021-07-24 15:30:00 55 mm[Hg] Common [facility] diastolic [facility] HEIGHT 2021-05-22 08:37:00 188 cm WEIGHT 2021-05-22 08:37:00 64.547 kg HEIGHT 2021-05-22 08:37:00 188 cm WEIGHT 2021-05-22 08:37:00 64.547 kg HEIGHT 2021-01-09 14:24:00 180.3 cm WEIGHT 2021-01-09 14:24:00 61.326 kg HEIGHT 2021-01-06 14:20:00 185.4 cm WEIGHT 2021-01-06 14:20:00 61.236 kg HEIGHT 2021-01-09 14:24:00 180.3 cm WEIGHT 2021-01-09 14:24:00 61.326 kg HEIGHT 2021-01-06 14:20:00 185.4 cm WEIGHT 2021-01-06 14:20:00 61.236 kg Systolic blood 2022-04-04 11:35:00 152 mm[Hg] [facility] Diastolic blood 2022-04-04 11:35:00 70 mm[Hg] [facility] Heart rate 2022-04-04 11:35:00 66 /min [facility] Body temperature 2022-04-04 11:35:[address] [facility] Respiratory rate 2022-04-04 11:35:00 18 /min [facility] Oxygen saturation in 2022-04-04 11:35:00 100 /min [facility] Arterial blood by Medical Ce [facility]ter Pulse oximetry Body height 2022-04-02 15:11:00 182.9 cm [facility] Body weight 2022-04-02 15:11:00 64.411 kg [facility] BMI 2022-04-02 15:11:00 19.26 kg/m2 [facility] Systolic blood 2021-08-06 15:14:00 115 mm[Hg] [facility] 2021-08-06 15:14:00 67 mm[Hg[facility] pressure Heart rate 2021-08-06 15:14:00 89 /min [facility] Respiratory rate 2021-08-06 15:14:00 20 /min [facility] Body weight 2021-08-06 15:14:00 66.679 kg [facility] BMI 2021-08-06 15:14:00 19.94 kg/m2 [facility] Procedures Procedure Date / Time Performing Clinician Source Performed [id number] 2023-01-05 00:00:00 [facility] CBC WITH PLATELET AND 2022-10-14 17:45:00 [facility] DIFFERENTIAL COMPREHENSIVE METABOLIC 2022-10-14 17:45:00 [facility] PANEL LDH 2022-10-14 17:45:00 [facility] spital SERUM ELECTROPHORESIS 2022-10-14 17:45:00 [facility] KAPPA LAMBDA FREE LIGHT 2022-10-14 17:45:00 [facility] CHAIN WITH RATIO ESTIMATED GFR 2022-10-14 17:45:00 [facility] spital [id number] 2022-07-01 00:00:00 [facility] [id number] 2022-07-01 00:00:00 [facility] US ABDOMEN COMPLETE 2022-06-29 19:16:00 [facility] COMPREHENSIVE METABOLIC 2022-06-10 21:05:00 [facility] PANEL VITAMIN B12 LEVEL 2022-06-10 21:05:00 [facility] RETICULOCYTE COUNT 2022-06-10 21:05:00 [facility] SERUM ELECTROPHORESIS 2022-06-10 21:05:00 [facility] FOLATE LEVEL 2022-06-10 21:05:00 [facility] spital ESTIMATED GFR 2022-06-10 21:05:00 [facility] spital IMMUNOFIXATION, SERUM 2022-06-10 21:05:00 [facility] CBC WITH PLATELET AND 2022-06-10 21:05:00 [facility] DIFFERENTIAL ECG 12-LEAD 2022-04-03 05:30:20 [facility] ECG 12-LEAD 2022-04-03 05:30:20 Unknown, [facility] ECG 12-LEAD 2022-04-03 05:30:20 Unknown, [facility] BASIC METABOLIC PANEL 2022-04-03 03:55:00 [facility] FUNCTION PANEL 2022-04-03 03:55:00 [facility] PROTHROMBIN TIME/INR 2022-04-03 03:55:00 [facility] MAGNESIUM 2022-04-03 03:55:00 [facility] PHOSPHORUS 2022-04-03 03:55:00 [facility] CBC W/PLT COUNT & AUTO 2022-04-03 03:55:00 [facility] CBC W/PLT COUNT & AUTO 2022-04-03 03:55:00 [facility] CT ABDOMEN/PELVIS WITHOUT 2022-04-02 19:34:00 Tamiko F[facility] SARS-COV2/RT-PCR ([facility] & 2022-04-02 17:55:00 Jamal Kiser [facility] REF LABS) [facility] TYPE AND SCREEN, AUTOMATED 2022-04-02 17:55:00 Jamal Kiser [facility] CBC W/PLT COUNT & AUTO 2022-04-02 17:49:00 Jamal Kiser [facility] DIFFERENTIAL [facility] COMPREHENSIVE METABOLIC 2022-04-02 17:49:00 Jamal Kiser [facility] PANEL [facility] PT/APTT 2022-04-02 17:49:00 Jamal Kiser [facility] HEPATIC FUNCTION PANEL 2022-04-02 17:49:00 Tamiko Farris [facility] CBC W/PLT COUNT & AUTO 2022-04-02 17:49:00 Jamal Kiser [facility] EKG-SCANNED 2022-04-02 00:00:00 Fredy Pineda [facility] CBC W/PLT COUNT & AUTO 2022-03-20 10:13:00 Adilson Guardado [facility] CBC W/PLT COUNT & AUTO 2022-03-20 10:13:00 Adilson Guardado [facility] BASIC METABOLIC PANEL 2022-03-19 03:26:00 Ahmet [facility] CBC W/PLT COUNT & AUTO 2022-03-19 03:26:00 Ahmet [facility] CBC W/PLT COUNT & AUTO 2022-03-19 03:26:00 Ahmet [facility] ABORH, MANUAL 2022-03-18 19:30:[address] [facility] COMPREHENSIVE METABOLIC 2022-03-18 18:41:00 Ahmet [facility] CBC W/PLT COUNT & AUTO 2022-03-18 18:41:00 Ahmet [facility] PROTHROMBIN TIME/INR 2022-03-18 18:41:00 Ahmet [facility] MAGNESIUM 2022-03-18 18:41:[address] [facility] TYPE AND SCREEN, AUTOMATED 2022-03-18 18:41:00 Ahmet [facility] CBC W/PLT COUNT & AUTO 2022-03-18 18:41:00 Ahmet [facility] EKG-SCANNED 2022-03-18 00:00:00 Provider, Fredy [facility] XR CHEST 1 VIEW PORTABLE / 2022-02-06 15:26:00 Shawn [facility] COMPREHENSIVE METABOLIC 2022-02-06 04:53:[address] [facility] CBC W/PLT COUNT & AUTO 2022-02-06 04:53:00 Avery [facility] CBC W/PLT COUNT & AUTO 2022-02-06 04:53:00 [facility] DIFFER[facility] US ABDOMEN COMPLETE 2022-02-05 17:10:00 Suzy, Dora [facility] HEPATITIS A ANTIBODY, IGM 2022-02-05 10:59:00 Suzy, Dora I [facility] HEPATITIS B SURFACE 2022-02-05 10:59:00 Suzy, [facility] ANTIGEN [facility] HEPATITIS B SURFACE 2022-02-05 10:59:00 Suzy, [facility] ANTIBODY [facility] HEPATITIS C ANTIBODY 2022-02-05 10:59:00 Suzy, Dora [facility] COMPREHENSIVE METABOLIC 2022-02-05 03:58:00 [facility] PANEL [facility] CBC W/PLT COUNT & AUTO 2022-02-05 03:58:00 [facility]NY [facility] DIFFERENTIAL [facility] CBC W/PLT COUNT & AUTO 2022-02-05 03:58:00 [place] [facility] DIFFERENTIAL [facility] D-DIMER 2022-02-04 08:54:00 [facility] C-REACTIVE PROTEIN 2022-02-04 08:54:00 [facility] XR CHEST 1 VIEW PORTABLE / 2022-02-04 08:32:00 [facility] SARS-COV2/RT-PCR ([facility] & 2022-02-04 03:50:00 [facility] REF LABS) [facility] HEPATIC FUNCTION PANEL 2022-02-04 03:43:00 BENNY Varela S [facility] PROTHROMBIN TIME/INR 2022-02-04 03:43:[address] [facility] LIPID PANEL 2022-02-04 03:43:[address] [facility] COMPREHENSIVE METABOLIC 2022-02-04 03:43:[address] [facility] PANEL [facility] CBC W/PLT COUNT & AUTO 2022-02-04 03:43:00 Pongdonny [facility]ENNY [facility] DIFFERENTIAL [facility] CBC W/PLT COUNT & AUTO 2022-02-04 03:43:00 PongBENNY hines [facility] DIFFERENTIAL [facility] EKG-SCANNED 2022-02-04 00:00:00 Provider, Default [facility] MANOMETRY, ANORECTAL 2021-08-27 11:44:00 Brandi Clarke [facility] REPORT OF PROCEDURE - 2021-07-30 12:51:44 Laura, [facility] ENDOSCOPY [facility] TISSUE EXAM 2021-07-30 12:09:00 Laura, Gonzales [facility] SIGMOIDOSCOPY, WITH 2021-07-30 11:44:00 Laura, Gonzales [facility] ENDOSCOPIC [facility] SIGMOIDOSCOPY, WITH BIOPSY 2021-07-30 11:44:00 Laura, Gonzales C [facility] XR CERVICAL SPINE 2 OR 3 2021-07-14 16:52:53 Devan Mathew [facility] KATHRYN A. Plan of Care Planned Activity Planned Date Details Comments Source Future Scheduled 2023-04-16 Influenza Vaccine (#1) [facility] 00:00:00 [code = Influenza Medical Ce nter Vaccine (#1)] Future Scheduled 2023-04-02 Tobacco Cessation [facility] 00:00:00 [facility] r Screening (12+) [code = Tobacco Cessation Counseling and Screening (12+)] Future Scheduled 2023-04-[address] [facility] Test 00:00:00 [facility] r Screening (12+) [code = Tobacco Cessation Counseling and Screening (12+)] Future Scheduled 2023-03-17 SHINGLES VACCINES (1 Met [facility] Test 22:07:39 of 2) [code = SHINGLES VACCINES (1 of 2)] Future Scheduled 2023-03-17 65+ PNEUMOCOCCAL Methodi [facility] Test 22:07:39 VACCINE (2 - PCV) [code = 65+ PNEUMOCOCCAL VACCINE (2 - PCV)] Future Scheduled 2023-03-17 COVID-19 VACCINE (6 - Me [facility] Hospital Test 22:07:39 Pfizer series) [code = COVID-19 VACCINE (6 - Pfizer series)] Future Scheduled 2023-03-17 INFLUENZA VACCINE Method [facility] Hospital Test 22:07:39 [code = INFLUENZA VACCINE] Future Scheduled 2022-08-27 SHINGLES VACCINES (1 Met [facility] Hospital Test 11:06:38 of 2) [code = SHINGLES VACCINES (1 of 2)] Future Scheduled 2022-08-27 65+ PNEUMOCOCCAL Methodi Hospital Test 11:06:38 VACCINE (2 - PCV) [code = 65+ PNEUMOCOCCAL VACCINE (2 - PCV)] Future Scheduled 2022-08-27 INFLUENZA VACCINE Method [facility] Hospital Test 11:06:38 [code = INFLUENZA VACCINE] Future Scheduled 2022-08-[address] [facility] Test 00:00:00 (12+) [code = Medical Center DEPRESSION SCREENING (12+)] Future Scheduled 2022-08-16 FALLS RISK SCREENING [facility] Test 00:00:00 [code = FALLS RISK Medical C enter SCREENING] Future Scheduled 2022-08-[address] [facility] Test 00:00:00 (12+) [code = Medical Center DEPRESSION SCREENING (12+)] Future Scheduled 2022-08-16 FALLS RISK SCREENING [facility] Test 00:00:00 [code = FALLS RISK Medical C enter SCREENING] Future Scheduled 2022-07-01 HEPATITIS B VACCINES [facility] Hospital Test 17:16:27 (1 of 3 - 3-dose series) [code = HEPATITIS B VACCINES (1 of 3 - 3-dose series)] Future Scheduled 2022-07-01 SHINGLES VACCINES (1 Met [facility] Hospital Test 17:16:27 of 2) [code = SHINGLES VACCINES (1 of 2)] Future Scheduled 2022-07-01 65+ PNEUMOCOCCAL Methodi Hospital Test 17:16:27 VACCINE (2 - PCV) [code = 65+ PNEUMOCOCCAL VACCINE (2 - PCV)] Future Scheduled 2022-07-01 INFLUENZA VACCINE Method [facility] Hospital Test 17:16:27 [code = INFLUENZA VACCINE] Future Scheduled 2022-04-16 INFLUENZA VACCINE (#1) [facility] 00:00:00 [code = INFLUENZA Medical Ce nter VACCINE (#1)] Future Scheduled 2022-04-16 INFLUENZA VACCINE (#1) [facility] 00:00:00 [code = INFLUENZA Medical Ce nter VACCINE (#1)] Future Scheduled 2021-09-30 COVID-19 VACCINE (4 - [facility] 00:00:00 Booster for Pfizer Medical C enter series) [code = COVID-19 VACCINE (4 - Booster for Pfizer series)] Future Scheduled 2021-09-30 COVID-19 VACCINE (4 - [facility] Test 00:00:00 Booster for Pfizer Medical C enter series) [code = COVID-19 VACCINE (4 - Booster for Pfizer series)] Future Scheduled 2021-08-[address] [facility] Test 00:00:00 (12+) [code = Medical Center DEPRESSION SCREENING (12+)] Future Scheduled 2021-08-16 FALLS RISK SCREENING [facility] Test 00:00:00 [code = FALLS RISK Medical C enter SCREENING] Future Scheduled 2021-07-25 COVID-19 VACCINE (4 - [facility] Test 00:00:00 Booster for Pfizer Medical C enter series) [code = COVID-19 VACCINE (4 - Booster for Pfizer series)] Future Scheduled 2021-07-05 PNEUMOCOCCAL 65+ [facility] Test 00:00:00 (2 - PCV) [code = Medical Ce nter PNEUMOCOCCAL 65+ YRS (2 - PCV)] Future Scheduled 2021-07-05 PNEUMOCOCCAL 65+ [facility] Test 00:00:00 (2 - PCV) [code = Medical Ce nter PNEUMOCOCCAL 65+ YRS (2 - PCV)] Future Scheduled 2017-08-[address] [facility] Test 00:00:00 WELLNESS (YEAR 2 or Medical Center FIRST YEAR if no IPPE) [code = MEDICARE ANNUAL WELLNESS (YEAR 2 or FIRST YEAR if no IPPE)] Future Scheduled 2017-08-[address] [facility] 00:00:00 WELLNESS (YEAR 2 or Medical Center FIRST YEAR if no IPPE) [code = MEDICARE ANNUAL WELLNESS (YEAR 2 or FIRST YEAR if no IPPE)] Future Scheduled 2017-08-[address] [facility] 00:00:00 WELLNESS (YEAR 2 or Medical Center FIRST YEAR if no IPPE) [code = MEDICARE ANNUAL WELLNESS (YEAR 2 or FIRST YEAR if no IPPE)] Future Scheduled 1985 SHINGLES VACCINES ([address] [facility] Test 00:00:00 of 2) [code = SHINGLES Medic al Center VACCINES (1 of 2)] Future Scheduled 1985 SHINGLES VACCINES ([address] [facility] Test 00:00:00 of 2) [code = SHINGLES Medic al Center VACCINES (1 of 2)] Future Scheduled 1983 SHINGLES VACCINES ([address] [facility] Test 00:00:00 of 2) [code = SHINGLES Medic al Center VACCINES (1 of 2)] Future Scheduled 1954 DTAP/TDAP/TD VACCINES [facility] 00:00:00 (1 - Tdap) [code = Medical C enter DTAP/TDAP/TD VACCINES (1 - Tdap)] Future Scheduled 1954 DTAP/TDAP/TD VACCINES [facility] 00:00:00 (1 - Tdap) [code = Medical C enter DTAP/TDAP/TD VACCINES (1 - Tdap)] Future Scheduled 1954 DTAP/TDAP/TD VACCINES [facility] 00:00:00 (1 - Tdap) [code = Medical C enter DTAP/TDAP/TD VACCINES (1 - Tdap)] Encounters Start End Encounter Admission Attending Care Care Encounter Source Date/Time Date/Time Type Type Clinicians Facility Department ID 2022-07-28 Outpatient , [facility] [id number] [facility] 12:42:59 MATILDA 2022-04-28 Outpatient JUSTIN BOYER [facility] Surgery [id number] [facility] 14:05:32 2021-11-13 Outpatient [facility] [id number] Common 09:27:03 [facility] 2021-10-23 Outpatient [facility] [id number] Common 08:38:01 [facility] 2021-09-10 Outpatient [facility] [id number] Common 14:23:05 [id number] [facility] 2021-09-10 Outpatient STLMLC [facility] [id number] Common 14:08:12 [id number] [facility] 2023-03-15 2023-03-15 Office [place] 1.2.840.1 [id number] Methodi 14:50:00 14:50:[address] 27699[address]1.[address] 3.430.2.7 Hospit a .3.392875 l .8 2023-03-15 2023-03-15 Outpatient [facility] [id number] [place] 00:00:00 00:00:[address] 2023-02-05 2023-02-05 Telephone [place], 1.2.840.1 [id number] 2100 [id number] Methodi 00:00:00 00:00:[address] Doug 3.430.2.7 Hospit a .3.521994 l .8 2022-12-31 2023-01-06 Inpatient [facility] [id number] [facility] 12:35:00 21:04:[address] [facility] 2023-01-04 2023-01-04 Travel 1.2.840.1 1.2.737.815 [id number] Methodi 00:00:00 00:00:[address] 3.430.2.7 0.2.7.3.698 Ho spita .3.162388 084.8 l .8 2022-10-14 2022-10-14 Lab Nadja, 1.2.840.1 [id number] Methodi 11:40:00 11:45:[address] 3.430.2.7 Hospit a .3.365378 l .8 2022-10-14 2022-10-14 Outpatient NADJA [facility] [id number] [place] 00:00:00 00:00:00 SONU [address] 2022-10-14 2022-10-14 Travel 1.2.840.1 1.2.327.841 [id number] [id number] Methodi 00:00:00 00:00:[address] 3.430.2.7 0.2.7.3.698 Ho spita .3.257202 084.8 l .8 2022-08-27 2022-08-27 Outpatient BEATRIZ IzaguirreWU SURG [id number] [facility] 11:03:00 11:03:[address] [facility] 2022-07-01 2022-07-02 Inpatient SOLITARIO Malloy TELE [id number] [facility] 18:11:00 12:49:[address] [facility] 2022-06-29 2022-06-29 [facility], 1.2.840.1 [id number] 2100 [id number] Methodi 12:13:42 23:59:00 Encounter Sonu 34833.1.[address] 3.430.2.7 Hospit a .3.646120 l .8 2022-06-29 2022-06-29 [facility], 1.2.840.1 [id number] 2100 [id number] Methodi 12:13:42 23:59:00 Encounter Sonu 48906.1.[address] 3.430.2.7 Hospit a .3.406577 l .8 2022-06-29 2022-06-29 Travel 1.2.840.1 1.2.533.212 0125 [id number] Methodi 00:00:00 00:00:[address] 3.430.2.7 0.2.7.3.698 Ho spita .3.449518 084.8 l .8 2022-06-29 2022-06-29 Travel 1.2.840.1 1.2.011.383 1718 177715 Methodi 00:00:00 00:00:[address] 3.430.2.7 0.2.7.3.698 Ho spita .3.683390 084.8 l .8 2022-06-11 2022-06-11 Transcribe Qurashi, 1.2.840.1 [id number] Methodi 00:00:00 00:00:00 Orders Sonu 40790.1.[address] 3.430.2.7 Hospit a .3.809171 l .8 2022-06-11 2022-06-11 Transcribe Qurashi, 1.2.840.1 [id number] Methodi 00:00:00 00:00:00 Orders Sonu 99541.1.[address] 3.430.2.7 Hospit a .3.298106 l .8 2022-06-10 2022-06-10 Lab Qurashi, 1.2.840.1 [id number] Methodi 15:55:00 16:00:[address] 3.430.2.7 Hospit a .3.147613 l .8 2022-06-10 2022-06-10 Lab Qurashi, 1.2.840.1 [id number] Methodi 15:55:00 16:00:[address] 3.430.2.7 Hospit a .3.641542 l .8 2022-06-10 2022-06-10 Travel 1.2.840.1 1.2.560.372 5780 179283 Methodi 00:00:00 00:00:[address] 3.430.2.7 0.2.7.3.698 Ho spita .3.259653 084.8 l .8 2022-06-10 2022-06-10 Travel 1.2.840.1 1.2.393.725 8326 [id number] Methodi 00:00:00 00:00:[address] 3.430.2.7 0.2.7.3.698 Ho spita .3.025064 084.8 l .8 2022-04-02 2022-04-04 Outpatient ER ROLLY, ANDREW [facility] Emergency 20 [id number] [facility] 15:36:00 14:18:00 2022-04-02 2022-04-04 Emergency ER Tamiko Farris [facility] [id number] 15:36:00 14:18:00 [facility] Rolly, Andrew [facility] 2022-04-02 2022-04-04 Emergency Tamiko Farris [facility] [id number] [facility] 15:36:00 14:18:00 [facility] Rolly, Andrew Medic [facility] 2022-04-03 2022-04-03 Orders [facility] [id number] 00:00:00 00:00:00 Only [facility] 2022-04-03 2022-04-03 Travel [facility] [id number] [facility] 00:[facility]00 00[facility]00 [facility] 2022-04-03 2022-04-03 Orders [facility] [id number] 00:00:00 00:00:00 Only [facility] 2022-04-03 2022-04-03 Travel [facility] [id number] [facility] 00:00:00 00:00[facility]00 [facility] 2022-04-02 2022-04-02 Travel [facility] [id number] [facility] 00:00[facility]00 00:00[facility]00 [facility] 2022-04-02 2022-04-02 Travel [facility] [id number] [facility] 00:00:00 00:00[facility]00 [facility] 2022-03-18 2022-03-20 Outpatient ER MARCO ANTONIO, [facility] [id number] SLE 16:53:00 13:15:00 [facility] 2022-03-18 2022-03-20 [facility] ER Jesika Paezr [facility] [id number] 16:53:00 13:15:00 [facility] 2022-03-18 2022-03-18 Travel [facility] [id number] [facility] 00:00:00 00:00:00 [facility] 2022-02-04 2022-02-08 Inpatient MYLA SHAY [facility] Med [id number] [facility] 00:05:00 14:11:00 2022-02-04 2022-02-08 [facility] Myla Shay [facility] [id number] [id number] 00:05:00 14:11:00 Encounter [facility] 2022-02-04 2022-02-04 Travel [facility] [id number] [facility] 00:00:00 00:00[facility]00 [facility] 2021-10-23 2021-10-23 Outpatient IHDE_G MMG MMG [id number] [place] 12:15:00 12:15:00 0310 [facility] 2021-10-23 2021-10-23 [facility] [id number] Co mmon 00:00:00 00:00:00 VISIT [facility] - CHI LEVEL 4 [facility] 2021-09-18 2021-09-18 (TEL) [facility] [id number] Co mmon 00:00:00 00:00:00 [facility] 2021-08-27 2021-08-27 Surgery [facility] [id number] 11:30:00 13:20:00 [facility] 2021-08-27 2021-08-27 Outpatient [facility], [facility] Surgery [id number] SLE 10:03:00 13:10:00 [facility] 2021-08-27 2021-08-27 [facility] [id number] 10:03:00 13:10:00 Encounter [facility] 2021-08-06 2021-08-06 Office Braunreiter 1.2.840.1 [id number] [place] 09:20:00 10:05:03 Visit Devan. 67456.1.1 525 s t 3.430.2.7 Hospit a .3.473108 l .8 2021-08-06 2021-08-06 Travel 1.2.840.1 1.2.267.519 8654 [id number] Methodi 00:00:00 00:00:[address] 3.430.2.7 0.2.7.3.698 Ho spita .3.888305 084.8 l .8 2021-07-30 2021-07-30 Outpatient [facility], [facility] Surgery [id number] [facility] 10:26:00 13:40:00 [facility] 2021-07-30 2021-07-30 Hospital [facility] [id number] 10:26:00 13:40:[address] [facility] 2021-07-30 2021-07-30 Surgery [facility] [id number] 12:30:00 13:25:00 [facility] 2021-07-30 2021-07-30 Anesthesia [facility], Enrico Gustafsonoine [facility] [id number] 11:59:00 12:40:00 Event Christiano Bhavna[facility] 2021-07-30 2021-07-30 Travel [facility] [id number] [facility] 00:00:00 00:00[facility]00 [facility] 2021-07-28 2021-07-28 Outpatient EL [facility] SLE [id number] [facility]H 14:23:12 23:59:00 2021-07-28 2021-07-28 [facility] [id number] 13:35:00 23:59:00 Encounter [facility] 2021-07-28 2021-07-28 Travel [facility] [id number] [facility] 00:00:00 00:00:00 [facility] 2021-07-24 2021-07-24 OFFICE [facility] [id number] Co mmon 00:00:00 00:00:00 VISIT Rashid ESTAB PT - CHI LEVEL 2 [facility] 2021-07-14 2021-07-14 Office Margot 1.2.840.1 [id number] Methodi 09:50:00 11:18:33 Visit Devan 71943.1.1 175 s t 3.430.2.7 Hospit a .3.008456 l .8 2021-07-14 2021-07-14 Outpatient MARGOT [facility] [id number] [place] 00:00:00 00:00:00 , DEVAN [address] 2021-07-14 2021-07-14 Travel 1.2.840.1 1.2.466.589 9641 [id number] Methodi 00:00:00 00:00:[address] 3.430.2.7 0.2.7.3.698 Ho spita .3.033419 084.8 l .8 2021-05-30 2021-05-30 Outpatient [facility] [id number] [place] 00:00:00 00:00:[address] 2021-05-22 2021-05-22 Outpatient CINDA RAMIREZ, [facility] Surgery [id number] [facility] 08:13:00 11:57:00 MOHAMED 2021-05-19 2021-05-19 Outpatient [facility] [id number] SLE 14:53:17 23:59:00 2021-01-22 2021-01-22 Outpatient TANNER [facility] [id number] [place] 00:00:00 00:00:[address] 2021-01-22 2021-01-22 Outpatient [facility] [id number] [place] 00:00:00 00:00:[address] 2021-01-09 2021-01-09 Outpatient EL MARCO ANTONIO, [facility] Surgery [id number] SLE 13:37:00 13:37:00 PAM 2021-01-06 2021-01-06 Outpatient [facility] [id number] SLE 00:00:00 00:00:00 2020-10-24 2020-10-24 Outpatient LETI, [facility] [id number] [place] 00:00:00 00:00:[address] TAMMI [address] 2020-10-09 2020-10-09 Outpatient WEST, TANNER [facility] [id number] [place] 00:00:00 00:00:[address] 2020-09-25 2020-09-25 Outpatient [facility] [id number] [place] 00:00:00 00:00:[address] 2020-09-04 2020-09-04 Outpatient [facility] [id number] [place] 00:00:00 00:00:[address] 2020-08-19 2020-08-19 Outpatient WEST, TANNER [facility] [id number] [place] 00:00:00 00:00:[address] 2020-07-15 2020-07-15 Outpatient WEST, TANNER [facility] [id number] [place] 00:00:00 00:00:[address] 2020-07-15 2020-07-15 Outpatient WEST, TANNER [facility] [id number] [place] 00:00:00 00:00:[address] 2020-07-02 2020-07-05 Inpatient WEST, [place]NER [place] [id number] [place] 00:00:00 00:00:[address] 2020-06-27 2020-06-27 Outpatient WEST, TANNER [facility] [id number] [place] 00:00:00 00:00:[address] 2020-05-29 2020-05-29 Outpatient WEST, TANNER [facility] [id number] [place] 00:00:00 00:00:[address] 2020-05-29 2020-05-29 Outpatient WEST, TANNER [facility] [id number] [place] 00:00:00 00:00:[address] 2020-03-26 2020-03-26 Outpatient QUINTANILLA, FADY [facility] [id number] [place] 00:00:00 00:00:[address] 2020-03-20 2020-03-20 Outpatient WEST, TANNER [facility] [id number] [place] 00:00:00 00:00:[address] 2020-03-20 2020-03-20 Outpatient TANNER [facility] [id number] [place] 00:00:00 00:00:00 231 Method i 2020-03-08 2020-03-08 Outpatient SAMIRA, [facility] [id number] [place] 00:00:00 00:00:00 MARILIA 715 Method i 2020-03-07 2020-03-07 Outpatient SANTA, [facility] [id number] [place] 00:00:00 00:00:00 LUX 768 Method i 2020-01-16 2020-01-16 Outpatient VANDA, [facility] [id number] [place] 00:00:00 00:00:00 PIERRE 908 Method i 2020-01-16 2020-01-16 Outpatient VANDA [facility] [id number] [place] 00:00:00 00:00:00 PIERRE 291 Method i 2019-12-14 2019-12-14 Outpatient Shield MMG MMG [id number] [place] 11:37:00 11:37:00 0430 Medical Group 2016-10-27 2016-11-27 Outpatient C YAGABO, [facility] [id number] [facility] 10:30:00 23:59:00 [facility] Results Test Description Test Time Test Comments Results Result Comments Source COVID 19 Asymptomatic IH AG 2023-01-06 16:58:00 Test Item Value Reference Range Interpretation Comme nts COVID 19 Asymptomatic IH AG NEGATIVE Negative "Negative results from patients (test code = COVNONPUIAG) wi th symptom onset beyondfive days, should be treat ed as presumptive, andconfirmation with a molecular assay, if neces anthony forpatient management may be performed. Negative result s do notrule out COVID-19 and sh ould not be used as the sole basisf or treatment or patient managem ent decisions, includinginfect ion control decisions. Nega tive results should beconsidered in the context of a patients recent exposures,history, and the presenc e of clinical signs and symptomscon sistent with COVID-19.This t est detects both viable andnon-v iable SARS-CoV and SARS CoV-2.Test performance dependson the a mount of virus (antigen) in th e sample." - XR [id number] 15:58:00 [facility] 1935 Sex: M PatientName: ROM LYNN Unit No: [id number] EXAMS: CPT CODE: [id number] XR ESOPHAGUS [id number] EXAMINATION: - XR ESOPHAGUS. LOCATION: B2. HISTORY: dysphagia, esophageal stricture. COMPARISON: None. TECHNIQUE: Esophagram examination was performed with the oral administration of barium. Fluoroscopy time was 2.5 minutes with a total of 12 saved frames. FINDINGS: The esophagus has a corkscrew appearance with significantly delayed esophageal motility. There was no evidence of focal mass or stricture. Gastroesophageal reflux was identified during the examination. IMPRESSION: Corkscrew esophagus consistent withdiffuse esophageal spasm. Delayed esophageal motility. Gastroesophageal reflux. at 1558 Reported and signed by: Nai Roche MD CC: Pritesh Ospina MD; Armida Deluca MD; Willie Hollins Technologist: Kim Caputo RT (R) Transcrpt Date/Tm/Trnsp: 01/06/2023 (1558) [email or web address] Orig Print D/T: S: 01/06/2023 (0572) [facility] NAME: ROM LYNN [id number] PHYS: SUZANNETArmida Cantrell MD [address] [place] [address] : 1935 AGE: 87 SEX: M LOC: [id number] A PHONE #: [phone] EXAM DATE: 01/06/2023 STATUS: ADM IN FAX #: [phone] RADIOLOGY NO: PAGE 1 Signed ReportCOMPREHENSIVE METABOLIC [id number] 07:54:00 Test Item Value Reference Range Interpretation Comments SODIUM (test code 134 MMOL/L 137-145 L = NA) POTASSIUM (test 4.5 MMOL/L 3.5-5.1 N code = K) CHLORIDE (test 102 MMOL/L 98-107 N code = CL) CARBON DIOXIDE 28 MMOL/L 22-30 N (test code = CO2) ANION GAP (test 9 MMOL/L 14-24 L code = GAP) GLUCOSE (test 98 MG/DL 74-106 N code = GLU) BLOOD UREA 18 MG/DL 9-20 N NITROGEN (test code = BUN) GLOMERULAR > 60 The Glomerular Filtration FILTRATION RATE Rate is a ca lculated (test code = GFR) parameterb ased on serum Creatinine, pat ient age and sex. GFR values less than 60 mL/min/1.73 squ are meters are indicative ofChronic Kidney Disease. Values less than 15 mL/min/ 1.73square meters indicate Kidney failure. The ca lculation forGFR is based on the CKD-EPI (2020) calculation. This formulais race indifferent and is the recommended for shiv for GFRby the [facility] for Adults.The GFR will not ca lculate if the sex is unkn own or if thepatient's ag e is <18 years. CREATININE (test 0.70 MG/DL 0.66-1.25 N code = CREAT) TOTAL PROTEIN 6.1 G/DL 6.2-7.6 L [facility] Clinical Diagnostic (test code = has made us autumn re of PROT) newinformation regarding the potential i nterference ofEltrombopag ( a bone marrow stimulan t used to treatthrombocyt onmenia and aplastic anemia ) with specific assays on the Vitros 5600 of which Total Protein is one of thoseassays per formed in our lab.Interfe rence testing perform ed at Ortho determined that Eltrombopag does interfere with Vitros Total Protein asfollowsEltrom bopag Interference fo r Vitros Product Total Protein:======= Eltrombopag Max Observed Av g. BiasConcentrati on Concentration Concentration== ==== 2.5 mg/dl 6.0 g/dl +0.41 +0.34 3.5 mg/dl 6.0 g /dl +0.50 +0.45 5 mg/dl 6.0 g/dl +0.73 +0.65 2.5 mg/dl 8.0 g/dl +0.44 +0.4 1 3.5 mg/dl 8.0 g/dl +0.55 +0.52 5 mg/dl 8.0 g/dl +0.86 +0.77 ALBUMIN (test 3.3 G/DL 3.5-5.0 L code = ALB) CALCIUM (test 8.6 MG/DL 8.4-10.2 N code = CA) BILIRUBIN TOTAL 1.0 MG/DL 0.2-1.3 N Eltrombopag Interference (test code = for Vitros Prod uct TBil, BILT) BuBc: Assa y Eltrombopag Dalia lyte/ Max Observed Avg. B ias Concentration C oncentration Concentration== ====TBil 7mg/dl TBil/ 1. 2mg/dl +0.23mg.dl +0.2 0mg/dlBuBc 3.5mg/dl Bu/0.8 mg/dl +0.25mg/dl +0.2 4mg/dlBuBc 7 mg/dl Bu/14.2mg /dl +0.38mg/dl +0.2 5mg/dlBuBc 5mg/dl Bc/0mg/d l +0.25mg/dl +0.15mg/dlBuBc 3.5mg/dl Bc/2.8mg/dl +0. 25mg/dl +0.23mg/dl SGOT/AST (test 96 UNITS/L 17-59 H code = AST) SGPT/ALT (test 155 UNITS/L 0-49 H code = ALT) ALKALINE 189 UNITS/L 38-126 H PHOSPHATASE (test code = ALKP) COMPREHENSIVE METABOLIC [id number] 07:27:00 Test Item Value Reference Range Interpretation Comments SODIUM (test code 137 MMOL/L 137-145 N = NA) POTASSIUM (test 4.4 MMOL/L 3.5-5.1 N code = K) CHLORIDE (test 103 MMOL/L 98-107 N code = CL) CARBON DIOXIDE 28 MMOL/L 22-30 N (test code = CO2) ANION GAP (test 10 MMOL/L 14-24 L code = GAP) GLUCOSE (test 92 MG/DL 74-106 N code = GLU) BLOOD UREA 16 MG/DL 9-20 N NITROGEN (test code = BUN) GLOMERULAR > 60 The Glomerular Filtration FILTRATION RATE Rate is a ca lculated (test code = GFR) parameterb ased on serum Creatinine, pat ient age and sex. GFR values less than 60 mL/min/1.73 squ are meters are indicative ofChronic Kidney Disease. Values less than 15 mL/min/ 1.73square meters indicate Kidney failure. The ca lculation forGFR is based on the CKD-EPI (202) calculation. This formulais race indifferent and is the recommended for shiv for GFRby the [facility] for Ad[facility].The GFR will not ca lculate if the sex is unkn own or if thepatient's ag e is <18 years. CREATININE (test 0.60 MG/DL 0.66-1.25 L code = CREAT) TOTAL PROTEIN 6.3 G/DL 6.2-7.6 N [facility] Clinical Diagnostic (test code = has made us autumn re of PROT) newinformation regarding the potential i nterference ofEltrombopag ( a bone marrow stimulan t used to treatthrombocyt onmenia and aplastic anemia ) with specific assays on the Vitros 5600 of which Total Protein is one of thoseassays per formed in our lab.Marse margy testing perform ed at Ortho determined that Eltrombopag does interfere with Vitros Total Protein asfollowsEltrom bopag Interference fo r Vitros Product Total Protein:======= Eltrombopag Max Observed Av g. BiasConcentrati on Concentration Concentration== ==== 2.5 mg/dl 6.0 g/dl +0.41 +0.34 3.5 mg/dl 6.0 g /dl +0.50 +0.45 5 mg/dl 6 .0 g/dl +0.73 +0.65 2.5 mg/dl 8.0 g/dl +0.44 +0.4 1 3.5 mg/dl 8.0 g/dl +0.55 +0.52 5 mg/dl 8.0 g/dl +0.86 +0.77 ALBUMIN (test 3.4 G/DL 3.5-5.0 L code = ALB) CALCIUM (test 8.9 MG/DL 8.4-10.2 N code = CA) BILIRUBIN TOTAL 0.9 MG/DL 0.2-1.3 N Eltrombopag Interference (test code = for Vitros Prod uct TBil, BILT) BuBc: Assa y Eltrombopag Dalia lyte/ Max Observed Avg. B ias Concentration C oncentration Concentration== ====TBil 7mg/dl TBil/ 1. 2mg/dl +0.23mg.dl +0.2 0mg/dlBuBc 3.5mg/dl Bu/0.8 mg/dl +0.25mg/dl +0.2 4mg/dlBuBc 7 mg/dl Bu/14.2mg /dl +0.38mg/dl +0.2 5mg/dlBuBc 5mg/dl Bc/0mg/d l +0.25mg/dl +0.15mg/dlBuBc 3.5mg/dl Bc/2.8mg/dl +0. 25mg/dl +0.23mg/dl SGOT/AST (test 131 UNITS/L 17-59 H code = AST) SGPT/ALT (test 181 UNITS/L 0-49 H code = ALT) ALKALINE 229 UNITS/L 38-126 H PHOSPHATASE (test code = ALKP) - MRI BRAIN W/O [id number] 13:44:00 [facility] 1935 Sex: M Patient Name: ROM LYNN Unit No: [id number] EXAMS: CPT CODE: [id number] MRI BRAIN W/O CONTRAST 26861 EXAM: - MRI BRAIN W/O CONTRAST CLINICAL INDICATION: weakness, concern for stroke TECHNIQUE: Multiplanar,multisequence MR imaging of the brain was performed utilizing the following imaging sequences: AxialT1, T2, FLAIR, GRE, and DWI; sagittal and coronal T1-weighted images. COMPARISON: CT head 01/02/2023 LOCATION: H65 FINDINGS: Few punctate areas of restricted diffusion are noted in the right parietal subcortical and deep white matter areas. No acute intracranial hemorrhage or extra-axial fluid collections identified. Mild periventricular and scattered deep white matter T2 hyperintensities are present, representing sequelae of chronic microvascular ischemic disease. No cerebral volume loss or hydrocephalus. No space-occupying mass, midline shift, or herniation. The major arterial vessel T2 flow-voidsare well-maintained throughout the brain. There is loss of the left internal jugular vein flow void, which is a nonspecific finding and may represent slow flow versus occlusion. The globes are intact and symmetric in volume with evidence of prior cataract surgery. The paranasal sinuses and mastoid air cells are clear. IMPRESSION: Few punctate areas of restricted diffusion noted in the right parietalsubcortical and deep white matter areas, representing acute infarct. This may represent watershed ischemic event. No hemorrhagic transformation. Mild sequelae of chronic microvascular ischemic disease noted. There is loss of the left internal jugular vein flow void, which is a nonspecific finding and may represent slow flow versus occlusion. The arterial flow-voids are well- maintained. at 1344 Reported and signed by: Pratik Bean MD [facility] NAME: ROM LYNN [address] PHYS: [id number] - Armida Deluca MD [address] [place] [address] : 1935 AGE: 87 SEX: M LOC: Z.350 A PHONE #: [phone] EXAM DATE: 01/04/2023 STATUS: ADM IN FAX #: [phone] RADIOLOGY NO: PAGE 1 Signed Report (CONTINUED) Patient Name: ROM LYNN Unit No: [id number] EXAMS: CPT CODE: [id number] MRI BRAIN W/O CONTRAST 56868 (Continued) CC: Armida Deluca MD; Willie Hollins Technologist: Leigh Castaneda (RT)(R) Transcrpt Date/Tm/T rnsp: 01/04/2023 (1344) [id number] Orig Print D/T: S: 01/04/2023 (9731) [facility] NAME: ROM LYNN [address] PHYS: [id number] Armida Pollard MD [address] [address] : 1935 AGE: 87 SEX: M LOC: Z.350 A PHONE #: [phone] EXAM DATE: 01/04/2023 STATUS: ADM IN FAX #: [phone] RADIOLOGY NO: PAGE 2 Signed Report- XR C-SPINE 2-3 [id number] 15:39:00 [facility] 1935 Sex: M Patient Name: ROM LYNN Unit No: [id number] EXAMS: CPT CODE: [id number] XR C-SPINE 2-3 VIEWS 93209 Cervical spine 3 views Location code: B2 CLINICAL INDICATION: Neck pain FINDINGS: There is normal alignment of the cervical spine without fractures or subluxations. There is reversal of the cervical lordosis. Degenerative retrolisthesis of C3 on 4. The vertebral body heights are unremarkable. Moderate multilevel disc space narrowing throughout with uncinate arthrosis. The prevertebral soft tissues and atlanto-dental interspace are normal. The facet joint, spinolaminar line and spinous process alignment is normal. OPINION: 1. Moderate multilevel spondylotic changes throughout. 2. No definite acute osseous abnormality detected. at 1539 Reported and signed by: Stalin Perdomo M.D. CC: Sandip Cespedes MD; Willie Hollins Technologist: Leila Bar (RTR) Transcrpt Date/Tm/Trnsp: 01/03/2023 (6459) [email or web address] Orig Print D/T: S: 01/03/2023 (1784) [facility] NAME: ROM LYNN [address] PHYS: KHSandip Mcneil MD [address] [address] : 1935 AGE: 87 SEX: M LOC: Z.350 A PHONE #: [phone] EXAM DATE: 01/03/2023 STATUS: ADM IN FAX #: [phone] RADIOLOGY NO: PAGE 1 Signed Report- CT HEAD/BRAIN W/O [id number] 11:19:00 [facility] 1935 Sex: M Patient Name: ROM LYNN Unit No: [id number] EXAMS: CPT CODE: [id number] CT HEAD/BRAIN W/O CONT 95725 EXAM: CT Head without contrast Location: T18 HISTORY: CVA, weakness COMPARISON: None available. TECHNIQUE: Multiple transaxial images of the brain were obtained without intravenous contrast. Images were reformatted to create coronal and sagittal reconstructions. One or more of the following dose reductiontechniques were used: Automated exposure control, adjustment of the mA and/or kV according to patient size, and/or utilization of iterative reconstruction technique. DLP: 727 mGy-cm. FINDINGS: There isno acute intracranial hemorrhage. There is no mass, mass effect, midline shift or extra- axial fluid collection. Brain parenchymal volume and ventricular caliber are within normal limits. Roberts-white differentiation is maintained. There is no evidence for acute major vessel infarct. There are areas of decreased attenuation within subcortical and deep white matter which are nonspecific. Paranasal sinuses, mastoid air cells and visualized orbital contents are within normal limits. Note is made of bilateral lens replacements. Osseous structures are within normal limits. IMPRESSION: 1. No acute intracranial abnormality. No acute hemorrhage, mass lesion or infarct. 2. Chronic small vessel ischemic white matter disease. at 1119 Reported and signed by: Goyo Interiano M.D. CC: Qing Daley MD; Willie Hollins Technologist: Cody Lafleur (RT) (R) CTDI: DLP: Trnscrpt: 01/02/2023 (1119) [email or web address] [facility] NAME: ROM LYNN [address] PHYS:[place] [address] : 1935 AGE: 87 SEX: M LOC:Z.350 A PHONE #: [phone] EXAM DATE: 01/02/2023 STATUS: ADM IN FAX #: [phone] RAD #: D/C DT PAGE 1 Signed Report Patient Name: ROM LYNN Unit No: [id number] EXAMS: CPT CODE: [id number] CT HEAD/BRAIN W/O CONT 84648 (Continued) Orig Print D/T: S: 01/02/2023 (1439) [facility] NAME: ROM LYNN [address] PHYS: [place] [address] : 1935 AGE: 87 SEX:M LOC: Z.350 A PHONE #: [phone] EXAM DATE: 01/02/2023 STATUS: ADM IN FAX #: [phone] RAD #: D/C DT PAGE 2 Signed [id number] 15:45:00 Test Item Value Reference Range Interpretation Comments TROPONIN-I (test code = TROPI) < 0.012 NG/ML 0.012-0.033 L [id number] 11:27:00 Test Item Value Reference Range Interpretation Comments PHOSPHOROUS (test code = PHOS) 3.6 MG/DL 2.5-4.5 N Comments to Property Disposal Officer: use blood sample collected from this morningMAGNESIUM 2023-01-01 11:27:00 Test Item Value Reference Range Interpretation Comments MAGNESIUM (test code = MAG) 2.0 MG/DL 1.6-2.3 N Comments to Property Disposal Officer: use blood sample collected from this morningTROPONIN-I 2023-01-01 11:27:00 Test Item Value Reference Range Interpretation Comments TROPONIN-I (test code = TROPI) < 0.012 NG/ML 0.012-0.033 L Comments to Property Disposal Officer: use blood sample collected from this morningURINALYSIS [id number] 07:04:00 Test Item Value Reference Range Interpretation Comments UA COLOR (test code = COLU) YELLOW YELLOW UA APPEARANCE (test code = CLEAR CLEAR APPU) UA GLUCOSE DIPSTICK (test code NORMAL MG/DL NORMAL = DGLUU) UA BILIRUBIN DIPSTICK (test NEGATIVE MG/DL NEGATIVE code = BILU) UA KETONE DIPSTICK (test code 5 MG/DL NEGATIVE = KETU) UA SPECIFIC GRAVITY (test code 1.020 1.003-1.030 N = SGU) UA BLOOD DIPSTICK (test code = 250 Chaka/mm3 NEGATIVE A RYNE) UA PH DIPSTICK (test code = 5.0 5.0-9.0 N SULTANA) UA PROTEIN DIPSTICK (test code 30 MG/DL NEGATIVE A = PROU) UA UROBILINIOGEN DIPSTICK 1 MG/DL NORMAL A (test code = URO) UA NITRITE DIPSTICK (test code NEGATIVE NEGATIVE = SALUD) UA LEUKOCYTE ESTERASE DIPSTICK NEGATIVE /mm3 NEGATIVE (test code = LEUU) SOURCE OF URINE: CLEAN CATCHUA [id number] 07:04:00 Test Item Value Reference Range Interpretation Comments UA RBC (test code = RBCU) 40-50 RBC/HPF 0-3 A UA WBC (test code = XWBCU) 0-3 WBC/HPF 0-5 UA EPITHELIAL CELLS (test code RARE EPI/HPF FEW = EPIU) UA BACTERIA (test code = XBACU) RARE NONE SOURCE OF URINE: CLEAN CATCHCOMPREHENSIVE METABOLIC [id number] 06:21:00 Test Item Value Reference Range Interpretation Comments SODIUM (test code 136 MMOL/L 137-145 L = NA) POTASSIUM (test 4.2 MMOL/L 3.5-5.1 N code = K) CHLORIDE (test 105 MMOL/L 98-107 N code = CL) CARBON DIOXIDE 26 MMOL/L 22-30 N (test code = CO2) ANION GAP (test 9 MMOL/L 14-24 L code = GAP) GLUCOSE (test 87 MG/DL 74-106 N code = GLU) BLOOD UREA 15 MG/DL 9-20 N NITROGEN (test code = BUN) GLOMERULAR > 60 The Glomerular Filtration FILTRATION RATE Rate is a ca lculated (test code = GFR) parameterb ased on serum Creatinine, pat ient age and sex. GFR values less than 60 mL/min/1.73 squ are meters are indicative ofChronic Kidney Disease. Values less than 15 mL/min/ 1.73square meters indicate Kidney failure. The ca lculation forGFR is based on the CKD-EPI (2020) calculation. This formulais race indifferent and is the recommended for hsiv for GFRby the [facility] for Ad[facility].The GFR will not ca lculate if the sex is unkn own or if thepatient's ag e is <18 years. CREATININE (test 0.60 MG/DL 0.66-1.25 L code = CREAT) TOTAL PROTEIN 6.0 G/DL 6.2-7.6 L [facility] Clinical Diagnostic (test code = has made us autumn re of PROT) newinformation regarding the potential i nterference ofEltrombopag ( a bone marrow stimulan t used to treatthrombocyt onmenia and aplastic anemia ) with specific assays on the Vitros 5600 of which Total Protein is one of thoseassays per formed in our lab.Interfe rence testing perform ed at Ortho determined that Eltrombopag does interfere with Vitros Total Protein asfollowsEltrom bopag Interference fo r Vitros Product Total Protein:======= Eltrombopag Max Observed Av g. BiasConcentrati on Concentration Concentration== ==== 2.5 mg/dl 6.0 g/dl +0.41 +0.34 3.5 mg/dl 6.0 g /dl +0.50 +0.45 5 mg/dl 6 .0 g/dl +0.73 +0.65 2.5 mg/dl 8.0 g/dl +0.44 +0.4 1 3.5 mg/dl 8.0 g/dl +0.55 +0.52 5 mg/dl 8.0 g/dl +0.86 +0.77 ALBUMIN (test 3.4 G/DL 3.5-5.0 L code = ALB) CALCIUM (test 8.7 MG/DL 8.4-10.2 N code = CA) BILIRUBIN TOTAL 1.0 MG/DL 0.2-1.3 Eltrombopag Interference (test code = for Vitros Prod uct TBil, BILT) BuBc: Assa y Eltrombopag Dalia lyte/ Max Observed Avg. B ias Concentration C oncentration Concentration== ====TBil 7mg/dl TBil/ 1. 2mg/dl +0.23mg.dl +0.2 0mg/dlBuBc 3.5mg/dl Bu/0.8 mg/dl +0.25mg/dl +0.2 4mg/dlBuBc 7 mg/dl Bu/14.2mg /dl +0.38mg/dl +0.2 5mg/dlBuBc 5mg/dl Bc/0mg/d l +0.25mg/dl +0.15mg/dlBuBc 3.5mg/dl Bc/2.8mg/dl +0. 25mg/dl +0.23mg/dl SGOT/AST (test 63 UNITS/L 17-59 H code = AST) SGPT/ALT (test 56 UNITS/L 0-49 H code = ALT) ALKALINE 75 UNITS/L 38-126 N PHOSPHATASE (test code = ALKP) LIPID PROFILE (CORONARY RISK)2023-01-01 06:21:00 Test Item Value Reference Range Interpretation Comments TRIGLYCERIDES (test 105 MG/DL 150-199 L TRIGLYCE RIDES code = TRIG) REFERENCE RANGE:Normal: < 150 mg/dLBorderline High: 150-199 mg/dLHi gh: 200-499 mg/dLVe ry High: >=500 mg/ dL CHOLESTEROL (test code 119 MG/DL <200 = CHOL) HDL CHOLESTEROL (test 44 MG/DL 40-59 N code = HDL) LIPOPROTEIN LDL (test 37 MG/DL 0-99 N OPTIM AL.........<100 code = LDL) mg/dLNEAR OPTIMAL/ABOVE OPTIMAL........ .100-12 9 mg/dL BORDERL INE HIGH.........13 0-159 mg/dL HIGH.........16 0-189 mg/dL VERY HIGH.........>/ = 190 mg/dL GLYCOSYLATED HEMOGLOBIN [id number] 06:05:00 Test Item Value Reference Range Interpretation Comments GLYCOSYLATED 5.3 % 4.8-5.9 N Any condition t hat HEMOGLOBIN (HA1C) shortens e rythocyte (test code = survival or dec reasesmean GLYHGB) erythrocyte age (e.g., recovery from a cute blood loss,hemolytic anemia) will falsely lo wer HGBA1c resultsregardle ss of the method used. HG BA1c results from [place] HbSS, HbCC, and HbSc must be interpreted with cautiongiven th e pathological pr ocesses, including anemia,increase d red cell turnover, trans fusion requirements, thatadversely i mpact HGBA1c as a mar ker of long-term glycemiccontrol . Alternative for ms of testing such as fructosaminesho uld be considered for these patients. MEAN BLOOD GLUCOSE 105 MG/DL 70-110 N (test code = MBG) CBC W/AUTO [id number] 06:01:00 Test Item Value Reference Range Interpretation Comments WHITE BLOOD CELL (test code = 5.9 K/MM3 3.8-9.8 N WBC) RED BLOOD CELL (test code = 4.14 M/MM3 3.95-5.67 N RBC) HEMOGLOBIN (test code = HGB) 12.8 G/DL 12.4-16.7 N HEMATOCRIT (test code = HCT) 38.4 % 35.9-49.5 N MEAN CELL VOLUME (test code = 93 fL 81.7-96.1 N MCV) MEAN CELL HGB (test code = MCH) 30.9 pg 27.6-33.2 N MEAN CELL HGB CONCETRATION 33.3 % 32.9-35.5 N (test code = MCHC) RED CELL DISTRIBUTION WIDTH 15.1 % 12.1-15.2 N (test code = RDW) PLATELET COUNT (test code = 119 K/MM3 129-368 L PLT) MEAN PLATELET VOLUME (test code 9.1 fl 7.4-10.4 N = MPV) NEUTROPHIL % (test code = NT%) 73.7 % 43-75 N IMMATURE GRANULOCYTE % (test 0.3 % 0.0-2.0 N code = IG%) LYMPHOCYTE % (test code = LY%) 12.6 % 14-44 L MONOCYTE % (test code = MO%) 10.9 % 4-13 N EOSINOPHIL % (test code = EO%) 2.0 % 0-6 N BASOPHIL % (test code = BA%) 0.5 % 0-2 N NUCLEATED RBC % (test code = 0.0 % 0-1.0 N NRBC%) NEUTROPHIL # (test code = NT#) 4.37 K/mm3 2.0-7.6 N IMMATURE GRANULOCYTE # (test 0.02 x10 3/uL 0-0.03 N code = IG#) LYMPHOCYTE # (test code = LY#) 0.75 K/mm3 1.0-3.8 L MONOCYTE # (test code = MO#) 0.65 K/mm3 0.1-0.8 N EOSINOPHIL # (test code = EO#) 0.12 K/mm3 0.0-0.2 N BASOPHIL # (test code = BA#) 0.03 K/mm3 0.0-0.2 N NUCLEATED RBC # (test code = 0.00 K/mm3 0.0-0.1 N NRBC#) - CT ANGIO NECK W WO [id number] 19:14:00 [facility] 1935 Sex: M Patient Name: ROM LYNN Unit No: [id number] EXAMS: CPT CODE: [id number] CT ANGIO NECK W WO CONT 23357 Location: [facility] Exam: CT ANGIO HEAD, - CT ANGIO NECK W WO CONT HISTORY: ischemic stroke TECHNIQUE: AxialCT images were obtained from the aortic arch to the skull vertex after intravenous contrast utilizing CTA protocol. Maximum intensity projection images were created from the data set. One or more of the following dose reduction techniques were used: Automated exposure control, adjustment of the mA and/or kV according to patient size, and/or iterative reconstruction. COMPARISON: None FINDINGS: CTA NECK: Bovine arch.. The origins of the brachiocephalic, bilateral common carotid, bilateral subclavian, and bilateral vertebral arteries demonstrate no significant stenosis. The bilateral internal and external carotid arteries are patent. There is mixed plaque at the origin of the right ICA resulting in approximately 60% stenosis by NASCET criteria. There is mixed plaque in the left carotid bulb with no s ignificant stenosis. There is high-grade stenosis in the proximal left ICA, approximately 2 cm fromits origin. The cervical vertebral arteries are patent. The left vertebral artery is dominant. CTA HEAD: The petrous, cavernous, and supraclinoid segments of the bilateral internal carotid arteries are patent. Atheromatous calcification of the carotid siphons.. The ophthalmic artery origins are visualized and normal. origin of the left DISTILLERY MILLER. Anterior and middle cerebral arteries are normal bilaterally. The anterior communicating artery is patent. Both posterior cerebral arteries are normal. The vertebral arteries are patent and codominant. The basilar artery and origins of the bilateral posterior inferior cerebellar arteries, anterior inferior cerebellar arteries, and superior cerebellar arteries are normal. No AV malformation or aneurysms.. 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 [facility] NAME: ROM LYNN [address] [address] PHYS: Armida Bourgeois MD [address] [address] : 1935 AGE: 87 SEX: M LOC: Z.350 A PHONE #: [phone] EXAM DATE: 12/31/2022 STATUS: ADM IN FAX #: [phone] RAD #: D/C DT PAGE 1 Signed Report (CONTINUED) Patient Name: ROM LYNN Unit No: [id number] EXAMS: CPT CODE: [id number] CT ANGIO NECK W WO CONT 16332 (Continued) High-grade stenosis in the proximal left ICA (above the carotid bulb). No intracranial proximal branch occlusion or flow- limiting stenosis. All qualitative and quantitative assessments of carotid bifurcation and proximal internal carotid artery stenosis are made referencing the distal internal carotid artery {NASCET criteria}.) at 1914 Reported and signed by: Val Rosario MD CC: Armida Deluca MD; Willie Hollins Technologist: RT Gentry(R)(CT); Brando Sandoval CTDI: DLP: Trnscrpt: 12/31/2022(1913) [facility] NAME: ROM LYNN [address] [address] PHYS: Armida Bourgeois MD [address] [address] : 1935 AGE: 87 SEX: M LOC: Z.350 A PHONE #: [phone] EXAM DATE: 12/31/2022 STATUS: ADM IN FAX #: [phone] RAD #: D/C DT PAGE 2 Signed Report Patient Name: ROM LYNN Unit No: [id number] EXAMS: CPT CODE: [id number] CT ANGIO NECK W WO CONT 93681 ( Continued) Orig Print D/T: S: 12/31/2022 (8) [facility] NAME: ROM LYNN [address] [address] PHYS: Armida Bourgeois MD [address] [address] : 1935 AGE: 87 SEX: M [facility] NO: [id number] LOC: Z.350 A PHONE #: [phone] EXAM DATE: 12/31/2022 STATUS: ADM IN FAX #: [phone] RAD #: D/C DT PAGE 3 Signed Report- CT ANGIO [id number] 19:14:00 [facility] 1935 Sex: M Patient Name: ROM LYNN Unit No: [id number] EXAMS: CPT CODE: [id number] CT ANGIO HEAD [address] Location: H77 Exam: CT ANGIO HEAD, - CT ANGIO NECK W WO CONT HISTORY: ischemic stroke TECHNIQUE: Axial CT images were obtained from the aortic arch to the skull vertex after intravenous contrast utilizing CTA protocol. Maximum intensity projection images were created from the data set. One or more of the following dose reduction techniques were used: Automated exposure control, adjustment of the mA and/or kV according to patient size, and/or iterative reconstruction. COMPARISON: None FINDINGS: CTA NECK: Bovinearch.. The origins of the brachiocephalic, bilateral common carotid, bilateral subclavian, and bilate ral vertebral arteries demonstrate no significant stenosis. The bilateral internal and external carotid arteries are patent. There is mixed plaque at the origin of the right ICA resulting in approximately 60% stenosis by NASCET criteria. There is mixed plaque in the left carotid bulb with no significant stenosis. There is high-grade stenosis in the proximal left ICA, approximately 2 cm from its origin. The cervical vertebral arteries are patent. The left vertebral artery is dominant. CTA HEAD: Thepetrous, cavernous, and supraclinoid segments of the bilateral internal carotid arteries are patent.Atheromatous calcification of the carotid siphons.. The ophthalmic artery origins are visualized andnormal. origin of the left DISTILLERY MILLER. Anterior and middle cerebral arteries are normal bilaterally.The anterior communicating artery is patent. Both posterior cerebral arteries are normal. The vertebral arteries are patent and codominant. The basilar artery and origins of the bilateral posterior inferior cerebellar arteries, anterior inferior cerebellar arteries, and superior cerebellar arteries are normal. No AV malformation or aneurysms.. IMPRESSION: 60% stenosis by NASCET criteria in the rightcarotid bulb. [facility] NAME: ROM LYNN [id number] [address] PHYS: [id number] - Armida Deluca [place] [facility] [address] : 1935 AGE: 87 SEX: M [facility] [id number] LOC: ZSujey350 A PHONE #: [phone] DATE: 12/31/2022 STATUS: ADM IN FAX #: [phone] RAD #: D/C DT PAGE 1 Signed Report (CONTINUED) Patient Name: ROM LYNN Unit No: [id number] EXAMS: CPT CODE: [id number] CT ANGIO HEAD [address](Continued) High-grade stenosis in the proximal left ICA (above the carotid bulb). No intracranial proximal branch occlusion or flow-limiting stenosis. All qualitative and quantitative assessments ofcarotid bifurcation and proximal internal carotid artery stenosis are made referencing the distal internal carotid artery {NASCET criteria}.) at 1914 Reported and signed by: Val Rosario MD CC: Armida Deluca MD; Willie Hollins Technologist: Lily Warren, RT(R)(CT); Brando Sandoval CTDI: DLP: Trnscrpt: 12/31/2022 (1913) [facility] NAME: ROM LYNN [address] [address] PHYS: Armida Bourgeois MD [address] [address] : 1935 AGE: 87 SEX: M LOC: Z.350 A PHONE #: [phone] EXAM DATE: 12/31/2022 STATUS: ADM IN FAX #: [phone] RAD #: D/C DT PAGE 2 Signed Report Patient Name: RAMON LYNN Unit No: [id number] EXAMS: CPT CODE: [id number] CT ANGIO HEAD [address] (Continued) Orig Print D/T:S: 12/31/2022 (1917) [facility] NAME: ROM LYNN [address] [address] Station PHYS: Armida Bourgeois [place] [id number] : 1935 AGE: 87 SEX: M LOC: Z.350 A PHONE #: [phone] EXAM DATE: 12/31/2022 STATUS: ADM IN FAX #: [phone] RAD #: D/C DT PAGE 3 Signed ReportCOMPREHENSIVE METABOLIC [id number] 16:32:00 Test Item Value Reference Range Interpretation Comments SODIUM (test code 138 MMOL/L 137-145 N = NA) POTASSIUM (test 3.9 MMOL/L 3.5-5.1 N code = K) CHLORIDE (test 104 MMOL/L 98-107 N code = CL) CARBON DIOXIDE 26 MMOL/L 22-30 N (test code = CO2) ANION GAP (test 12 MMOL/L 14-24 L code = GAP) GLUCOSE (test 83 MG/DL 74-106 N code = GLU) BLOOD UREA 14 MG/DL 9-20 N NITROGEN (test code = BUN) GLOMERULAR > 60 The Glomerular Filtration FILTRATION RATE Rate is a ca lculated (test code = GFR) parameterb ased on serum Creatinine, pat ient age and sex. GFR values less than 60 mL/min/1.73 squ are meters are indicative ofChronic Kidney Disease. Values less than 15 mL/min/ 1.73square meters indicate Kidney failure. The ca lculation forGFR is based on the CKD-EPI (2021) calculation. This formulais race indifferent and is the recommended for shiv for GFRby the [facility] for Adults.The GFR will not ca lculate if the sex is unkn own or if thepatient's ag e is <18 years. CREATININE (test 0.60 MG/DL 0.66-1.25 L code = CREAT) TOTAL PROTEIN 6.5 G/DL 6.2-7.6 N [facility] Clinical Diagnostic (test code = has made us autumn re of PROT) newinformation regarding the potential i nterference ofEltrombopag ( a bone marrow stimulan t used to treatthrombocyt onmenia and aplastic anemia ) with specific assays on the Vitros 5600 of which Total Protein is one of thoseassays per formed in our lab.Interfe rence testing perform ed at Ortho determined that Eltrombopag does interfere with Vitros Total Protein asfollowsEltrom bopag Interference fo r Vitros Product Total Protein:======= Eltrombopag Max Observed Av g. BiasConcentrati on Concentration Concentration== ==== 2.5 mg/dl 6.0 g/dl +0.41 +0.34 3.5 mg/dl 6.0 g /dl +0.50 +0.45 5 mg/dl 6 .0 g/dl +0.73 +0.65 2.5 mg/dl 8.0 g/dl +0.44 +0. 41 3.5 mg/dl 8.0 g/dl +0.55 +0.52 5 mg/dl 8.0 g/dl +0.86 +0.77 ALBUMIN (test 3.4 G/DL 3.5-5.0 L code = ALB) CALCIUM (test 8.7 MG/DL 8.4-10.2 N code = CA) BILIRUBIN TOTAL 0.9 MG/DL 0.2-1.3 N Eltrombopag Interference (test code = for Vitros Prod uct TBil, BILT) BuBc: Assa y Eltrombopag Dalia lyte/ Max Observed Avg. B ias Concentration C oncentration Concentration== ====TBil 7mg/dl TBil/ 1. 2mg/dl +0.23mg.dl +0.2 0mg/dlBuBc 3.5mg/dl Bu/0.8 mg/dl +0.25mg/dl +0.2 4mg/dlBuBc 7 mg/dl Bu/14.2mg /dl +0.38mg/dl +0.2 5mg/dlBuBc 5mg/dl Bc/0mg/ dl +0.25mg/dl +0.1 5mg/dlBuBc 3.5mg/dl Bc/2.8 mg/dl +0.25mg/dl +0.2 3mg/dl SGOT/AST (test 42 UNITS/L 17-59 N code = AST) SGPT/ALT (test 41 UNITS/L 0-49 N code = ALT) ALKALINE 80 UNITS/L 38-126 N PHOSPHATASE (test code = ALKP) CBC W/AUTO [id number] 16:26:00 Test Item Value Reference Range Interpretation Comments WHITE BLOOD CELL (test code = 6.1 K/MM3 3.8-9.8 N WBC) RED BLOOD CELL (test code = 4.05 M/MM3 3.95-5.67 N RBC) HEMOGLOBIN (test code = HGB) 12.7 G/DL 12.4-16.7 N HEMATOCRIT (test code = HCT) 38.6 % 35.9-49.5 N MEAN CELL VOLUME (test code = 95 fL 81.7-96.1 N MCV) MEAN CELL HGB (test code = MCH) 31.4 pg 27.6-33.2 N MEAN CELL HGB CONCETRATION 32.9 % 32.9-35.5 N (test code = MCHC) RED CELL DISTRIBUTION WIDTH 15.4 % 12.1-15.2 H (test code = RDW) PLATELET COUNT (test code = 114 K/MM3 129-368 L PLT) MEAN PLATELET VOLUME (test code 8.9 fl 7.4-10.4 N = MPV) NEUTROPHIL % (test code = NT%) 69.7 % 43-75 N IMMATURE GRANULOCYTE % (test 0.3 % 0.0-2.0 N code = IG%) LYMPHOCYTE % (test code = LY%) 16.1 % 14-44 N MONOCYTE % (test code = MO%) 12.0 % 4-13 N EOSINOPHIL % (test code = EO%) 1.6 % 0-6 N BASOPHIL % (test code = BA%) 0.3 % 0-2 N NUCLEATED RBC % (test code = 0.0 % 0-1.0 N NRBC%) NEUTROPHIL # (test code = NT#) 4.25 K/mm3 2.0-7.6 N IMMATURE GRANULOCYTE # (test 0.02 x10 3/uL 0-0.03 N code = IG#) LYMPHOCYTE # (test code = LY#) 0.98 K/mm3 1.0-3.8 L MONOCYTE # (test code = MO#) 0.73 K/mm3 0.1-0.8 N EOSINOPHIL # (test code = EO#) 0.10 K/mm3 0.0-0.2 N BASOPHIL # (test code = BA#) 0.02 K/mm3 0.0-0.2 N NUCLEATED RBC # (test code = 0.00 K/mm3 0.0-0.1 N NRBC#) GLUCOSE BEDSIDE [id number] 15:35:00 Test Item Value Reference Range Interpretation Comments GLUCOSE BEDSIDE TESTING (test code = 83 MG/DL 60-99 N GLUBED) BASIC METABOLIC [id number] 12:00:00 Test Item Value Reference Range Interpretation Comments SODIUM (test code = 139 MMOL/L 137-145 N NA) POTASSIUM (test code 4.0 MMOL/L 3.5-5.1 N = K) CHLORIDE (test code 106 MMOL/L 98-107 N = CL) CARBON DIOXIDE (test 30 MMOL/L 22-30 N code = CO2) ANION GAP (test code 7 MMOL/L 14-24 L = GAP) GLUCOSE (test code = 88 MG/DL 74-106 N GLU) BLOOD UREA NITROGEN 16 MG/DL 9-20 N (test code = BUN) GLOMERULAR > 60 The Glomerular FILTRATION RATE Filtration R ate is a (test code = GFR) calculated parameterbased on serum Creatinine, pat ient age and sex. GFR va luesless than 60 mL/min/ 1.73 square meters a re indicative ofCh ronic Kidney Disease. Values less than 15 mL/min/1.73squa re meters indicate Kidney failure. The calculation for GFR is based on the CK D-EPI (2020) calculat ion. This formulais race indifferent and is the recommended for shiv for GFRby the [facility] for Ad[facility].The GFR will not calculate if th e sex is unknown or if thepatient's ag e is <18 years. CREATININE (test 0.80 MG/DL 0.66-1.25 N code = CREAT) CALCIUM (test code = 9.3 MG/DL 8.4-10.2 N CA) [id number] 12:00:00 Test Item Value Reference Range Interpretation Comments MAGNESIUM (test code = MAG) 2.1 MG/DL 1.6-2.3 N PROTHROMBIN [id number] 11:57:00 Test Item Value Reference Range Interpretation Comments PROTHROMBIN TIME 12.5 SECONDS 9.4-12.7 N PATIENT (test code = PTP) INTERNATIONAL NORMAL 1.1 0.86-1.14 N The INR is to be RATIO (test code = used only for INR) monitoring oral anticoagulantth erap y. INDICATION I NR VALUE ---- ---- ---- -------1. Prophylaxis, de ep venous thrombos is, including high risk surgery. 2.0 - 3.0 2. Prophylaxis, deep venous thrombosis, hip surgery, treatm ent for deep venous thrombosis or pulmonary prevention of systemic emboli sm in patients wit h valvular heart disease, atrial fibrillation, tissue heart va lve, or acute myocar dial infarction. 2.0 - 3.[address] Vendor al prosthesis hear t valves, recurre nt systemic emboli sm. 3.0 - 4.5 PTT [id number] 11:57:00 Test Item Value Reference Range Interpretation Comments PTT ACTIVATED (test code = APTT) 33.2 SECONDS 26.2-35.4 N CBC W/AUTO [id number] 11:41:00 Test Item Value Reference Range Interpretation Comments WHITE BLOOD CELL (test code = 7.7 K/MM3 3.8-9.8 N WBC) RED BLOOD CELL (test code = 4.32 M/MM3 3.95-5.67 N RBC) HEMOGLOBIN (test code = HGB) 13.4 G/DL 12.4-16.7 N HEMATOCRIT (test code = HCT) 41.4 % 35.9-49.5 N MEAN CELL VOLUME (test code = 96 fL 81.7-96.1 N MCV) MEAN CELL HGB (test code = MCH) 31.0 pg 27.6-33.2 N MEAN CELL HGB CONCETRATION 32.4 % 32.9-35.5 L (test code = MCHC) RED CELL DISTRIBUTION WIDTH 14.9 % 12.1-15.2 N (test code = RDW) PLATELET COUNT (test code = 144 K/MM3 129-368 N PLT) MEAN PLATELET VOLUME (test code 8.7 fl 7.4-10.4 N = MPV) NEUTROPHIL % (test code = NT%) 69.3 % 43-75 N IMMATURE GRANULOCYTE % (test 0.4 % 0.0-2.0 N code = IG%) LYMPHOCYTE % (test code = LY%) 14.6 % 14-44 N MONOCYTE % (test code = MO%) 10.1 % 4-13 N EOSINOPHIL % (test code = EO%) 4.9 % 0-6 N BASOPHIL % (test code = BA%) 0.7 % 0-2 N NUCLEATED RBC % (test code = 0.0 % 0-1.0 N NRBC%) NEUTROPHIL # (test code = NT#) 5.33 K/mm3 2.0-7.6 N IMMATURE GRANULOCYTE # (test 0.03 x10 3/uL 0-0.03 N code = IG#) LYMPHOCYTE # (test code = LY#) 1.12 K/mm3 1.0-3.8 N MONOCYTE # (test code = MO#) 0.78 K/mm3 0.1-0.8 N EOSINOPHIL # (test code = EO#) 0.38 K/mm3 0.0-0.2 H BASOPHIL # (test code = BA#) 0.05 K/mm3 0.0-0.2 N NUCLEATED RBC # (test code = 0.00 K/mm3 0.0-0.1 N NRBC#) CBC W/AUTO [id number] 05:51:00 Test Item Value Reference Range Interpretation Comments WHITE BLOOD CELL (test code = 6.3 K/MM3 3.8-9.8 N WBC) RED BLOOD CELL (test code = 3.69 M/MM3 3.95-5.67 L RBC) HEMOGLOBIN (test code = HGB) 11.6 G/DL 12.4-16.7 L HEMATOCRIT (test code = HCT) 35.9 % 35.9-49.5 MEAN CELL VOLUME (test code = 97 fL 81.7-96.1 H MCV) MEAN CELL HGB (test code = MCH) 31.4 pg 27.6-33.2 N MEAN CELL HGB CONCETRATION 32.3 % 32.9-35.5 L (test code = MCHC) RED CELL DISTRIBUTION WIDTH 14.1 % 12.1-15.2 N (test code = RDW) PLATELET COUNT (test code = 100 K/MM3 129-368 L PLT) MEAN PLATELET VOLUME (test code 9.4 fl 7.4-10.4 N = MPV) NEUTROPHIL % (test code = NT%) 78.3 % 43-75 H IMMATURE GRANULOCYTE % (test 0.2 % 0.0-2.0 N code = IG%) LYMPHOCYTE % (test code = LY%) 12.0 % 14-44 L MONOCYTE % (test code = MO%) 8.6 % 4-13 N EOSINOPHIL % (test code = EO%) 0.6 % 0-6 N BASOPHIL % (test code = BA%) 0.3 % 0-2 N NUCLEATED RBC % (test code = 0.0 % 0-1.0 N NRBC%) NEUTROPHIL # (test code = NT#) 4.90 K/mm3 2.0-7.6 N IMMATURE GRANULOCYTE # (test 0.01 x10 3/uL 0-0.03 N code = IG#) LYMPHOCYTE # (test code = LY#) 0.75 K/mm3 1.0-3.8 L MONOCYTE # (test code = MO#) 0.54 K/mm3 0.1-0.8 N EOSINOPHIL # (test code = EO#) 0.04 K/mm3 0.0-0.2 N BASOPHIL # (test code = BA#) 0.02 K/mm3 0.0-0.2 N NUCLEATED RBC # (test code = 0.00 K/mm3 0.0-0.1 N NRBC#) [id number] 17:36:00 Test Item Value Reference Range Interpretation Comments ACT-ISTAT (test code = ACTI) 233 SEC 74-137 H [id number] 16:15:00 Test Item Value Reference Range Interpretation Comments ACT-ISTAT (test code = ACTI) 305 SEC 74-137 H BASIC METABOLIC [id number] 09:42:00 Test Item Value Reference Range Interpretation Comments SODIUM (test code = 142 MMOL/L 137-145 N NA) POTASSIUM (test code 4.3 MMOL/L 3.5-5.1 N = K) CHLORIDE (test code 105 MMOL/L 98-107 N = CL) CARBON DIOXIDE (test 28 MMOL/L 22-30 N code = CO2) GLUCOSE (test code = 98 MG/DL 74-106 N GLU) BLOOD UREA NITROGEN 18 MG/DL 9-20 N (test code = BUN) GLOMERULAR > 60 The Glomerular FILTRATION RATE Filtration R ate is a (test code = GFR) calculated parameterbased on serum Creatinine, pat ient age and sex. GFR va luesless than 60 mL/min/ 1.73 square meters a re indicative ofCh ronic Kidney Disease. Values less than 15 mL/min/1.73squa re meters indicate Kidney failure. The calculation for GFR is based on the CK D-EPI (2020) calculat ion. This formulais race indifferent and is the recommended for shiv for GFRby the [facility] Ad[facility].The GFR will not calculate if th e sex is unknown or if thepatient's ag e is <18 years. CREATININE (test 0.80 MG/DL 0.66-1.25 N code = CREAT) CALCIUM (test code = 9.0 MG/DL 8.4-10.2 N CA) [id number] 09:42:00 Test Item Value Reference Range Interpretation Comments MAGNESIUM (test code = MAG) 2.3 MG/DL 1.6-2.3 N PROTHROMBIN [id number] 09:29:00 Test Item Value Reference Range Interpretation Comments PROTHROMBIN TIME 12.9 SECONDS 9.4-12.7 H PATIENT (test code = PTP) INTERNATIONAL NORMAL 1.1 0.86-1.14 N The INR is to be RATIO (test code = used only for INR) monitoring oral anticoagulantth erap y. INDICATION I NR VALUE ---- ---- ---- -------1. Prophylaxis, de ep venous thrombos is, including high risk surgery. 2.0 - 3.0 2. Prophylaxis, deep venous thrombosis, hip surgery, treatm ent for deep venous thrombosis or pulmonary prevention of systemic emboli sm in patients wit h valvular heart disease, atrial fibrillation, tissue heart va lve, or acute myocar dial infarction. 2.0 - 3.[address] Vendor al prosthesis hear t valves, recurre nt systemic emboli sm. 3.0 - 4.5 PTT [id number] 09:29:00 Test Item Value Reference Range Interpretation Comments PTT ACTIVATED (test code = APTT) 33.0 SECONDS 26.2-35.4 N CBC W/AUTO [id number] 09:08:00 Test Item Value Reference Range Interpretation Comments WHITE BLOOD CELL (test code = 6.2 K/MM3 3.8-9.8 N WBC) RED BLOOD CELL (test code = 4.55 M/MM3 3.95-5.67 N RBC) HEMOGLOBIN (test code = HGB) 14.0 G/DL 12.4-16.7 N HEMATOCRIT (test code = HCT) 44.5 % 35.9-49.5 N MEAN CELL VOLUME (test code = 98 fL 81.7-96.1 H MCV) MEAN CELL HGB (test code = MCH) 30.8 pg 27.6-33.2 N MEAN CELL HGB CONCETRATION 31.5 % 32.9-35.5 L (test code = MCHC) RED CELL DISTRIBUTION WIDTH 14.5 % 12.1-15.2 N (test code = RDW) PLATELET COUNT (test code = 119 K/MM3 129-368 L PLT) MEAN PLATELET VOLUME (test code 9.1 fl 7.4-10.4 N = MPV) NEUTROPHIL % (test code = NT%) 71.2 % 43-75 N IMMATURE GRANULOCYTE % (test 0.3 % 0.0-2.0 N code = IG%) LYMPHOCYTE % (test code = LY%) 17.4 % 14-44 N MONOCYTE % (test code = MO%) 9.3 % 4-13 N EOSINOPHIL % (test code = EO%) 1.5 % 0-6 N BASOPHIL % (test code = BA%) 0.3 % 0-2 N NUCLEATED RBC % (test code = 0.0 % 0-1.0 N NRBC%) NEUTROPHIL # (test code = NT#) 4.39 K/mm3 2.0-7.6 N IMMATURE GRANULOCYTE # (test 0.02 x10 3/uL 0-0.03 N code = IG#) LYMPHOCYTE # (test code = LY#) 1.07 K/mm3 1.0-3.8 N MONOCYTE # (test code = MO#) 0.57 K/mm3 0.1-0.8 N EOSINOPHIL # (test code = EO#) 0.09 K/mm3 0.0-0.2 N BASOPHIL # (test code = BA#) 0.02 K/mm3 0.0-0.2 N NUCLEATED RBC # (test code = 0.00 K/mm3 0.0-0.1 N NRBC#) [id number] 04:35:50 Test Item Value Reference Range Interpretation Comments PHOSPHORUS (BEAKER) (test code = 3.5 mg/dL 2.3-4.7 604) Glass Mechanic ID - MACKENZIE EPATIC FUNCTION [id number] 04:35:50 Test Item Value Reference Range Interpretation Comments TOTAL PROTEIN (BEAKER) (test code = 6.0 gm/dL 6.0-8.3 770) ALBUMIN (BEAKER) (test code = 1145) 3.4 g/dL 3.5-5.0 L BILIRUBIN TOTAL (BEAKER) (test code 0.5 mg/dL 0.2-1.2 = 377) BILIRUBIN DIRECT (BEAKER) (test 0.3 mg/dL 0.1-0.5 code = 706) ALKALINE PHOSPHATASE (BEAKER) (test 90 U/L 40-150 code = 346) AST (SGOT) (BEAKER) (test code = 21 U/L 5-34 353) ALT (SGPT) (BEAKER) (test code = 16 U/L 6-55 347) Glass Mechanic ID - MACKENZIE MBASIC METABOLIC [id number] 04:35:49 Test Item Value Reference Range Interpretation Comments SODIUM (BEAKER) 138 meq/L 136-145 (test code = 381) POTASSIUM 4.0 meq/L 3.5-5.1 (BEAKER) (test code = 379) CHLORIDE (BEAKER) 106 meq/L 98-107 (test code = 382) CO2 (BEAKER) 25 meq/L 22-29 (test code = 355) BLOOD UREA 16 mg/dL 7-21 NITROGEN (BEAKER) (test code = 354) CREATININE 0.69 mg/dL 0.57-1.25 (BEAKER) (test code = 358) GLUCOSE RANDOM 104 mg/dL 70-105 (BEAKER) (test code = 652) CALCIUM (BEAKER) 8.8 mg/dL 8.4-10.2 (test code = 697) EGFR (BEAKER) 89 Interpretatio n of eGFR (test code = mL/min/1.73 values Stage De scription 1092) sq m Result G1 Mimi l or high >=90 G2 Mildly decreased 60-89 G3a Mildl y to moderately 45-5 9 G3b Moderately to s everely 30-44 G4 Severl y decreased 15-29 G5 Kidney failure <15Reported eGF R is based on the CKD-EPI 2020 equation that d oes not use a race coefficientEsti mated GFR is not as accur ate as Creatinine Lizett simon in predicting glom erular filtration rate . Estimated GFR is not appl icable for dialysis patien ts Glass Mechanic ID - MACKENZIE [id number] 04:35:49 Test Item Value Reference Range Interpretation Comments MAGNESIUM (BEAKER) (test code = 2.0 mg/dL 1.6-2.6 627) Glass Mechanic ID - MACKENZIE MPROTHROMBIN [id number] 04:18:01 Test Item Value Reference Range Interpretation Comments PROTIME (BEAKER) 17.9 seconds 11.9-14.2 H (test code = 759) INR (BEAKER) (test 1.52 See_Comment [Automat ed message] code = 370) The system [employer] generated this result transmitted ref erence range: <=5.90. The reference range was not used to int erpret this result as normal/abnormal . RECOMMENDED COUMADIN/WARFARIN INR THERAPY RANGESSTANDARD DOSE: 2.0 - 3.0 Includes: PROPHYLAXIS for venous thrombosis, systemic embolization; TREATMENT for venous thrombosis and/or pulmonary embolus.HIGH RISK: Target INR is 2.5-3.5 for patients with mechanical heart valves.CBC W/PLT COUNT & AUTO [id number] 04:13:20 Test Item Value Reference Range Interpretation Comments WHITE BLOOD CELL COUNT (BEAKER) 5.7 K/ L 3.5-10.5 (test code = 775) RED BLOOD CELL COUNT (BEAKER) 3.98 M/ L 4.63-6.08 L (test code = 761) HEMOGLOBIN (BEAKER) (test code = 12.4 GM/DL 13.7-17.5 L 410) HEMATOCRIT (BEAKER) (test code = 38.2 % 40.1-51.0 L 411) MEAN CORPUSCULAR VOLUME (BEAKER) 96.0 fL 79.0-92.2 H (test code = 753) MEAN CORPUSCULAR HEMOGLOBIN 31.2 pg 25.7-32.2 (BEAKER) (test code = 751) MEAN CORPUSCULAR HEMOGLOBIN CONC 32.5 GM/DL 32.3-36.5 (BEAKER) (test code = 752) RED CELL DISTRIBUTION WIDTH 15.5 % 11.6-14.4 H (BEAKER) (test code = 412) PLATELET COUNT (BEAKER) (test 126 K/CU MM 150-450 L code = 756) MEAN PLATELET VOLUME (BEAKER) 9.2 fL 9.4-12.4 L (test code = 754) NUCLEATED RED BLOOD CELLS 0 /100 WBC 0-0 (BEAKER) (test code = 413) NEUTROPHILS RELATIVE PERCENT 69 % (BEAKER) (test code = 429) LYMPHOCYTES RELATIVE PERCENT 18 % (BEAKER) (test code = 430) MONOCYTES RELATIVE PERCENT 10 % (BEAKER) (test code = 431) EOSINOPHILS RELATIVE PERCENT 3 % (BEAKER) (test code = 432) BASOPHILS RELATIVE PERCENT 0 % (BEAKER) (test code = 437) NEUTROPHILS ABSOLUTE COUNT 3.89 K/ L 1.78-5.38 (BEAKER) (test code = 670) LYMPHOCYTES ABSOLUTE COUNT 0.99 K/ L 1.32-3.57 L (BEAKER) (test code = 414) MONOCYTES ABSOLUTE COUNT (BEAKER) 0.58 K/ L 0.30-0.82 (test code = 415) EOSINOPHILS ABSOLUTE COUNT 0.17 K/ L 0.04-0.54 (BEAKER) (test code = 416) BASOPHILS ABSOLUTE COUNT (BEAKER) 0.02 K/ L 0.01-0.08 (test code = 417) IMMATURE GRANULOCYTES-RELATIVE 0 % 0-1 PERCENT (BEAKER) (test code = 2801) HEPATIC FUNCTION [id number] 20:58:28 Test Item Value Reference Range Interpretation Comments TOTAL PROTEIN (BEAKER) (test code = 7.0 gm/dL 6.0-8.3 770) ALBUMIN (BEAKER) (test code = 1145) 3.9 g/dL 3.5-5.0 BILIRUBIN TOTAL (BEAKER) (test code 0.7 mg/dL 0.2-1.2 = 377) BILIRUBIN DIRECT (BEAKER) (test 0.3 mg/dL 0.1-0.5 code = 706) ALKALINE PHOSPHATASE (BEAKER) (test 101 U/L 40-150 code = 346) AST (SGOT) (BEAKER) (test code = 26 U/L 5-34 353) ALT (SGPT) (BEAKER) (test code = 17 U/L 6-55 347) Glass Mechanic ID - [place], [id number] 20:18:00Unlisted Reason for Exam - Click Yes and Enter Reason Below->YesUnlisted Reason for Exam->BRPR, weaknessIs this for enterography?->NoPlease specify:->LiverWill this procedure require oral contrast?->No [facility] 1935 Sex: MFINAL REPORT CLINICAL HISTORY: Unlisted Reason for ExamBRPR, weakness FINDINGS: Multiple axial images of the abdomen and pelvis were performed without intravenous contrast. Oral contrast was not given. This exam was performed according to our departmental dose-optimization program, which includes automated exposure control, adjustment of the mA and/or kV according to patient size and/or use of the iterative reconstruction technique. The examination is limited by lack of IV contrast. Comparison:None. Lower chest: Trace left pleural effusion. Curvilinear atelectasis versus scarring in the lung bases. Cardiomegaly. Partially visualized ICD leads. Subcentimeter calcified granuloma in the left lower lobe. Liver: Multiple punctate calcified granulomas. Gallbladder and biliary tree: Previous cholecystectomy. Severe intrahepatic biliary ductal dilatation. Dilated common bile duct, measuringgreater than 2 cm in diameter. No radiopaque choledocholithiasis. Spleen: Multiple calcified granulomas in the spleen. Adrenal Glands: No significant findings. Kidneys and ureters: Punctate calcified stone in the inferior right kidney. No hydronephrosis. Stomach and Duodenum: Small hiatal hernia. Pancreas: No significant findings. Bowel: Moderate fecal burden in normal caliber colon. No bowel obstruction or pneumatosis intestinalis. Left colonic diverticulosis without evidence for diverticulitis. Appendix: Nonvisualized Bladder: No significant findings. Major vascular structures: Atherosclerotic calcifications. Reproductive organs: Previous hysterectomy. Other: Postsurgical changes of right lower quadrant hernia repair. No free air, fluid or adenopathy Skeleton: Diffuse osteopenia. Age indeterminate compression deformity of the vertebral body of L3. Rotary levoscoliosis of the thoracolumbar spine. Extensive spinal degenerative changes. Partially visualized right hip arthroplasty hardware. IMPRESSION: Examination is limited by lack of IV and enteric contrast. Moderate fecal burden, possibly reflecting constipation or a high output state. Left colonic diverticulosis without CT evidence for diverticulitis. Severe ileus or ductal dilatation. No radiopaque choledocholithiasis. The degree of ductal dilatation appears more than expected for postcholecystectomy reservoir effect. An obstructing lesion, including the possibility of neoplasm, is not excluded. Please correlate with LFTs. The patient may not be due to for MRCP given the presence of an AICD. ERCP can be performed, if indicated. Cardiomegaly. Trace left pleural effusion. Evidence of previous granulomatous exposure. Small hiatal hernia.Atherosclerosis. Age indeterminate compression deformity of the vertebral body of L3. Please correlate with history. Comparison to previous imaging would be helpful, if available elsewhere. Signed: Carlos Manuel Dacosta MDReport Verified Date/Time: 04/02/2022 20:18:08 SARS-CoV2/RT-PCR (Asymptomatic ONLY)2022-04-02 19:19:11 Test Item Value Reference Interpretation Comments Range SARS-COV2/RT-PCR Negative Negative The SARS-Co V-2 (test code = target nucleic 84462-5) acids are not detected in thi s specimen. Negat lucy results do not preclude SARS-C oV-2 infection and should not be u sed as the sole bas is for patient management decisions. Nega tive results must be combined with clinical observations, patient history , and epidemiolog ical information. A false negative result may occu r if a specimen is improperly collected, transported or handled. This S ARS CoV-2 test is a rapid, real-isreal e RT-PCR test intended for e qualitative detection of nucleic acid fr om SARS-CoV-2 in a nasopharyngeal swab specimen collec bridget from individual s suspected of COVID-19 by the ir healthcare provider. EVER (test code = This test has been EVER) authorized by FDA under an EUA for use by authorized laboratories. This test is only authorized for the duration of the declaration that circumstances exist justifying the authorization of emergency use of in vitro diagnostic tests for detection and/or diagnosis of COVID-19 under Section 564(b)(1) of the Federal Food, Drug and Cosmetic Act, 21 U.S.C. 360bbb-3(b)(1), unless the authorization is terminated or revoked sooner. Fact Sheet for Healthcare Providers: https://www.[employer]/Documents/Xp ert%20Xpress%20SAR S%20CoV-2/Fact%20S heets/302-3802%20S ARS-COV-2%20HEALTH CARE%20PROVIDERS%2 0FACT%20SHEET.pdf Fact Sheet for Healthcare Patients: https://www.[employer]/Documents/Xp ert%20Xpress%20SAR S%20CoV-2/Fact%20S heets/302-3801%20S ARS-COV-2%20PATIEN T%20FACT%20SHEET.p df Lab Interpretation Normal (test code = 58284-4) [facility]-02 19:19:11 Test Item Value Reference Interpretation Comments Range SARS-COV2/RT-PCR Negative Negative The SARS-Co V-2 (test code = target nucleic 90403-5) acids are not detected in thi s specimen. Negat lucy results do not preclude SARS-C oV-2 infection and should not be u sed as the sole bas is for patient management decisions. Nega tive results must be combined with clinical observations, patient history , and epidemiolog ical information. A false negative result may occu r if a specimen is improperly collected, transported or handled. This S ARS CoV-2 test is a rapid, real-isreal e RT-PCR test intended for th e qualitative detection of nucleic acid fr om SARS-CoV-2 in a nasopharyngeal swab specimen collec bridget from individual s suspected of COVID-19 by the ir healthcare provider. EVER (test code = This test has been EVER) authorized by FDA under an EUA for use by authorized laboratories. This test is only authorized for the duration of the declaration that circumstances exist justifying the authorization of emergency use of in vitro diagnostic tests for detection and/or diagnosis of COVID-19 under Section 564(b)(1) of the Federal Food, Drug and Cosmetic Act, 21 U.S.C. 360bbb-3(b)(1), unless the authorization is terminated or revoked sooner. Fact Sheet for Healthcare Providers: https://www.[employer]/Documents/Xp ert%20Xpress%20SAR S%20CoV-2/Fact%20S heets/302-3802%20S ARS-COV-2%20HEALTH CARE%20PROVIDERS%2 0FACT%20SHEET.pdf Fact Sheet for Healthcare Patients: https://wwwBiddingForGood/Documents/Xp ert%20Xpress%20SAR S%20CoV-2/Fact%20S heets/302-3801%20S ARS-COV-2%20PATIEN T%20FACT%20SHEET.p df Lab Interpretation Normal (test code = 14369-9) [facility] 19:19:11 Test Item Value Reference Interpretation Comments Range SARS-COV2/RT-PCR Negative Negative The SARS-Co V-2 (test code = target nucleic 91221-9) acids are not detected in thi s specimen. Negat lucy results do not preclude SARS-C oV-2 infection and should not be u sed as the sole bas is for patient management decisions. Nega tive results must be combined with clinical observations, patient history , and epidemiolog ical information. A false negative result may occu r if a specimen is improperly collected, transported or handled. This S ARS CoV-2 test is a rapid, real-isreal e RT-PCR test intended for th e qualitative detection of nucleic acid fr om SARS-CoV-2 in a nasopharyngeal swab specimen collec bridget from individual s suspected of COVID-19 by the ir healthcare provider. EVER (test code = This test has been EVER) authorized by FDA under an EUA for use by authorized laboratories. This test is only authorized for the duration of the declaration that circumstances exist justifying the authorization of emergency use of in vitro diagnostic tests for detection and/or diagnosis of COVID-19 under Section 564(b)(1) of the Federal Food, Drug and Cosmetic Act, 21 U.S.C. 360bbb-3(b)(1), unless the authorization is terminated or revoked sooner. Fact Sheet for Healthcare Providers: https://www.[employer]/Documents/Xp ert%20Xpress%20SAR S%20CoV-2/Fact%20S heets/302-3802%20S ARS-COV-2%20HEALTH CARE%20PROVIDERS%2 0FACT%20SHEET.pdf Fact Sheet for Healthcare Patients: https://www.[employer]/Documents/Xp ert%20Xpress%20SAR S%20CoV-2/Fact%20S heets/302-3801%20S ARS-COV-2%20PATIEN T%20FACT%20SHEET.p df Lab Interpretation Normal (test code = 01303-9) [facility]2022-04-02 19:19:11 Test Item Value Reference Range Interpretation Comments SARS-COV2/RT-PCR Negative Negative The SARS-Co V-2 target (test code = nucleic acids a re not 5104500) detected in thi s specimen. Negative result s do not preclude SARS-C oV-2 infection and s hould not be used as the jadyn e basis for patient managem ent decisions. Nega tive results must be combine d with clinical observ ations, patient history , and epidemiological information. A false negativ e result may occur if a spec imen is improperly johan ected, transported or handled. This SARS CoV-2 test is a rapid, real-time RT-PC R test intended for th e qualitative detection of nu cleic acid from SARS-CoV-2 in a nasopharyngeal swab specimen collected from individuals suspected of CO VID-19 by their healthcar e provider. This test has been authorized by FDA under an EUA for use by authorized laboratories. This test is only authorized for the duration of the declaration that circumstances exist justifying the authorization of emergency use of in vitro diagnostic tests for detection and/or diagnosis of COVID-19 under Section 564(b)(1) of the Federal Food, Drug and Cosmetic Act, 21 U.S.C. 360bbb-3(b)(1), unless the authorization is terminated or revoked sooner. Fact Sheet for Healthcare Providers: https://www.[employer]/Documents/Xpert%20Xpress%20SARS%20CoV-2/Fact%20Sheets/302-3802%09FIUD-AGO-6%20 HEALTHCARE%20PROVIDERS%20FACT%20SHEET.pdf Fact Sheet for Healthcare Patients: https://www.[employer]/Documents/Xpert%20Xp ress%20SARS%20CoV-2/Fact%20Sheets/302-3801%49AYLB-SHP-4%20PATIENT%20FACT%20SHEET .pdfCOMPREHENSIVE METABOLIC [id number] 19:08:50 Test Item Value Reference Range Interpretation Comments TOTAL PROTEIN 6.9 gm/dL 6.0-8.3 Specimen sligh tly (BEAKER) (test hemolyzed code = 770) ALBUMIN (BEAKER) 3.9 g/dL 3.5-5.0 Specimen sl ightly (test code = 1145) hemolyzed ALKALINE 90 U/L 40-150 PHOSPHATASE (BEAKER) (test code = 346) BILIRUBIN TOTAL 0.7 mg/dL 0.2-1.2 Specimen sli ghtly (BEAKER) (test hemolyzed code = 377) SODIUM (BEAKER) 140 meq/L 136-145 (test code = 381) POTASSIUM (BEAKER) 4.5 meq/L 3.5-5.1 Specimen slightly (test code = 379) hemolyzed CHLORIDE (BEAKER) 105 meq/L 98-107 (test code = 382) CO2 (BEAKER) (test 25 meq/L 22-29 code = 355) BLOOD UREA 18 mg/dL 7-21 NITROGEN (BEAKER) (test code = 354) CREATININE 0.82 mg/dL 0.57-1.25 Specimen slight ly (BEAKER) (test hemolyzed code = 358) GLUCOSE RANDOM 95 mg/dL 70-105 (BEAKER) (test code = 652) CALCIUM (BEAKER) 9.5 mg/dL 8.4-10.2 (test code = 697) AST (SGOT) 26 U/L 5-34 Specimen slight ly (BEAKER) (test hemolyzed code = 353) ALT (SGPT) 18 U/L 6-55 Specimen slight ly (BEAKER) (test hemolyzed code = 347) EGFR (BEAKER) 85 Interpretatio n of eGFR (test code = 1092) mL/min/1.[address] age Description sq m Result G1 Mimi l or high >=90 G2 Mildly decreased 60-89 G3a Mildl y to moderately 45-5 9 G3b Moderately to s everely 30-44 G4 Severl y decreased 15-29 G5 Kidney failure <15Reported eGF R is based on the CKD-EPI 2020 equation that d oes not use a race coefficientEsti mated GFR is not as accur ate as Creatinine Lizett alfred in predicting glom erular filtration rate . Estimated GFR is not appl icable for dialysis patien ts Glass Mechanic ID - ONDINA DCBC W/PLT COUNT & AUTO [id number] 18:20:18 Test Item Value Reference Range Interpretation Comments WHITE BLOOD CELL COUNT (BEAKER) 7.3 K/ L 3.5-10.5 (test code = 775) RED BLOOD CELL COUNT (BEAKER) 4.36 M/ L 4.63-6.08 L (test code = 761) HEMOGLOBIN (BEAKER) (test code = 13.5 GM/DL 13.7-17.5 L 410) HEMATOCRIT (BEAKER) (test code = 40.9 % 40.1-51.0 411) MEAN CORPUSCULAR VOLUME (BEAKER) 93.8 fL 79.0-92.2 H (test code = 753) MEAN CORPUSCULAR HEMOGLOBIN 31.0 pg 25.7-32.2 (BEAKER) (test code = 751) MEAN CORPUSCULAR HEMOGLOBIN CONC 33.0 GM/DL 32.3-36.5 (BEAKER) (test code = 752) RED CELL DISTRIBUTION WIDTH 15.7 % 11.6-14.4 H (BEAKER) (test code = 412) PLATELET COUNT (BEAKER) (test 140 K/CU MM 150-450 L code = 756) MEAN PLATELET VOLUME (BEAKER) 9.5 fL 9.4-12.4 (test code = 754) NUCLEATED RED BLOOD CELLS 0 /100 WBC 0-0 (BEAKER) (test code = 413) NEUTROPHILS RELATIVE PERCENT 74 % (BEAKER) (test code = 429) LYMPHOCYTES RELATIVE PERCENT 15 % (BEAKER) (test code = 430) MONOCYTES RELATIVE PERCENT 9 % (BEAKER) (test code = 431) EOSINOPHILS RELATIVE PERCENT 2 % (BEAKER) (test code = 432) BASOPHILS RELATIVE PERCENT 0 % (BEAKER) (test code = 437) NEUTROPHILS ABSOLUTE COUNT 5.35 K/ L 1.78-5.38 (BEAKER) (test code = 670) LYMPHOCYTES ABSOLUTE COUNT 1.06 K/ L 1.32-3.57 L (BEAKER) (test code = 414) MONOCYTES ABSOLUTE COUNT (BEAKER) 0.66 K/ L 0.30-0.82 (test code = 415) EOSINOPHILS ABSOLUTE COUNT 0.13 K/ L 0.04-0.54 (BEAKER) (test code = 416) BASOPHILS ABSOLUTE COUNT (BEAKER) 0.03 K/ L 0.01-0.08 (test code = 417) IMMATURE GRANULOCYTES-RELATIVE 0 % 0-1 PERCENT (BEAKER) (test code = 2801) [id number] 18:20:02 Test Item Value Reference Range Interpretation Comments PROTIME (BEAKER) (test 25.1 seconds 11.9-14.2 H code = 759) INR (BEAKER) (test 2.46 See_Comment [Automat ed code = 370) message] The sy stem which generated this result transmitted reference range : <=5.90. The reference range was not used to interpret this result as normal/abnormal . PARTIAL THROMBOPLASTIN 42.4 seconds 22.5-36.0 H TIME (BEAKER) (test code = 760) RECOMMENDED COUMADIN/WARFARIN INR THERAPY RANGESSTANDARD DOSE: 2.0 - 3.0 Includes: PROPHYLAXIS for venous thrombosis, systemic embolization; TREATMENT for venous thrombosis and/or pulmonary embolus.HIGH RISK: Target INR is 2.5-3.5 for patients with mechanical heart valves.CBC W/PLT COUNT & AUTO [id number] 10:31:52 Test Item Value Reference Range Interpretation Comments WHITE BLOOD CELL COUNT (BEAKER) 4.8 K/ L 3.5-10.5 (test code = 775) RED BLOOD CELL COUNT (BEAKER) 3.69 M/ L 4.63-6.08 L (test code = 761) HEMOGLOBIN (BEAKER) (test code = 11.6 GM/DL 13.7-17.5 L 410) HEMATOCRIT (BEAKER) (test code = 35.9 % 40.1-51.0 L 411) MEAN CORPUSCULAR VOLUME (BEAKER) 97.3 fL 79.0-92.2 H (test code = 753) MEAN CORPUSCULAR HEMOGLOBIN 31.4 pg 25.7-32.2 (BEAKER) (test code = 751) MEAN CORPUSCULAR HEMOGLOBIN CONC 32.3 GM/DL 32.3-36.5 (BEAKER) (test code = 752) RED CELL DISTRIBUTION WIDTH 16.4 % 11.6-14.4 H (BEAKER) (test code = 412) PLATELET COUNT (BEAKER) (test code 99 K/CU MM 150-450 L = 756) MEAN PLATELET VOLUME (BEAKER) 9.2 fL 9.4-12.4 L (test code = 754) NUCLEATED RED BLOOD CELLS (BEAKER) 0 /100 WBC 0-0 (test code = 413) NEUTROPHILS RELATIVE PERCENT 74 % (BEAKER) (test code = 429) LYMPHOCYTES RELATIVE PERCENT 14 % (BEAKER) (test code = 430) MONOCYTES RELATIVE PERCENT 9 % (BEAKER) (test code = 431) EOSINOPHILS RELATIVE PERCENT 3 % (BEAKER) (test code = 432) BASOPHILS RELATIVE PERCENT 0 % (BEAKER) (test code = 437) NEUTROPHILS ABSOLUTE COUNT 3.58 K/ L 1.78-5.38 (BEAKER) (test code = 670) LYMPHOCYTES ABSOLUTE COUNT 0.67 K/ L 1.32-3.57 L (BEAKER) (test code = 414) MONOCYTES ABSOLUTE COUNT (BEAKER) 0.43 K/ L 0.30-0.82 (test code = 415) EOSINOPHILS ABSOLUTE COUNT 0.12 K/ L 0.04-0.54 (BEAKER) (test code = 416) BASOPHILS ABSOLUTE COUNT (BEAKER) 0.01 K/ L 0.01-0.08 (test code = 417) IMMATURE GRANULOCYTES-RELATIVE 0 % 0-1 PERCENT (BEAKER) (test code = 2801) BASIC METABOLIC [id number] 04:39:18 Test Item Value Reference Range Interpretation Comments SODIUM (BEAKER) 139 meq/L 136-145 (test code = 381) POTASSIUM 3.9 meq/L 3.5-5.1 (BEAKER) (test code = 379) CHLORIDE (BEAKER) 107 meq/L 98-107 (test code = 382) CO2 (BEAKER) 25 meq/L 22-29 (test code = 355) BLOOD UREA 8 mg/dL 7-21 NITROGEN (BEAKER) (test code = 354) CREATININE 0.73 mg/dL 0.57-1.25 (BEAKER) (test code = 358) GLUCOSE RANDOM 84 mg/dL 70-105 (BEAKER) (test code = 652) CALCIUM (BEAKER) 8.4 mg/dL 8.4-10.2 (test code = 697) EGFR (BEAKER) 87 Interpretatio n of eGFR (test code = mL/min/1.73 values Stage De scription 1092) sq m Result G1 Mimi l or high >=90 G2 Mildly decreased 60-89 G3a Mildl y to moderately 45-5 9 G3b Moderately to s everely 30-44 G4 Severl y decreased 15-29 G5 Kidney failure <15Reported eGF R is based on the CKD-EPI 2020 equation that d oes not use a race coefficientEsti mated GFR is not as accur ate as Creatinine Lizett simon in predicting glom erular filtration rate . Estimated GFR is not appl icable for dialysis patien ts Glass Mechanic ID - MACKENZIE MCBC W/PLT COUNT & AUTO [id number] 04:34:32 Test Item Value Reference Range Interpretation Comments WHITE BLOOD CELL COUNT (BEAKER) 5.1 K/ L 3.5-10.5 (test code = 775) RED BLOOD CELL COUNT (BEAKER) 3.87 M/ L 4.63-6.08 L (test code = 761) HEMOGLOBIN (BEAKER) (test code = 12.0 GM/DL 13.7-17.5 L 410) HEMATOCRIT (BEAKER) (test code = 37.7 % 40.1-51.0 L 411) MEAN CORPUSCULAR VOLUME (BEAKER) 97.4 fL 79.0-92.2 H (test code = 753) MEAN CORPUSCULAR HEMOGLOBIN 31.0 pg 25.7-32.2 (BEAKER) (test code = 751) MEAN CORPUSCULAR HEMOGLOBIN CONC 31.8 GM/DL 32.3-36.5 L (BEAKER) (test code = 752) RED CELL DISTRIBUTION WIDTH 16.5 % 11.6-14.4 H (BEAKER) (test code = 412) PLATELET COUNT (BEAKER) (test 105 K/CU MM 150-450 L code = 756) MEAN PLATELET VOLUME (BEAKER) 9.3 fL 9.4-12.4 L (test code = 754) NUCLEATED RED BLOOD CELLS 0 /100 WBC 0-0 (BEAKER) (test code = 413) NEUTROPHILS RELATIVE PERCENT 65 % (BEAKER) (test code = 429) LYMPHOCYTES RELATIVE PERCENT 22 % (BEAKER) (test code = 430) MONOCYTES RELATIVE PERCENT 10 % (BEAKER) (test code = 431) EOSINOPHILS RELATIVE PERCENT 3 % (BEAKER) (test code = 432) BASOPHILS RELATIVE PERCENT 0 % (BEAKER) (test code = 437) NEUTROPHILS ABSOLUTE COUNT 3.28 K/ L 1.78-5.38 (BEAKER) (test code = 670) LYMPHOCYTES ABSOLUTE COUNT 1.10 K/ L 1.32-3.57 L (BEAKER) (test code = 414) MONOCYTES ABSOLUTE COUNT (BEAKER) 0.50 K/ L 0.30-0.82 (test code = 415) EOSINOPHILS ABSOLUTE COUNT 0.15 K/ L 0.04-0.54 (BEAKER) (test code = 416) BASOPHILS ABSOLUTE COUNT (BEAKER) 0.01 K/ L 0.01-0.08 (test code = 417) IMMATURE GRANULOCYTES-RELATIVE 0 % 0-1 PERCENT (BEAKER) (test code = 2801) COMPREHENSIVE METABOLIC [id number] 19:24:55 Test Item Value Reference Range Interpretation Comments TOTAL PROTEIN 6.0 gm/dL 6.0-8.3 (BEAKER) (test code = 770) ALBUMIN (BEAKER) 3.4 g/dL 3.5-5.0 L (test code = 1145) ALKALINE 94 U/L 40-150 PHOSPHATASE (BEAKER) (test code = 346) BILIRUBIN TOTAL 0.8 mg/dL 0.2-1.2 (BEAKER) (test code = 377) SODIUM (BEAKER) 142 meq/L 136-145 (test code = 381) POTASSIUM (BEAKER) 3.6 meq/L 3.5-5.1 (test code = 379) CHLORIDE (BEAKER) 109 meq/L 98-107 H (test code = 382) CO2 (BEAKER) (test 27 meq/L 22-29 code = 355) BLOOD UREA 10 mg/dL 7-21 NITROGEN (BEAKER) (test code = 354) CREATININE 0.77 mg/dL 0.57-1.25 (BEAKER) (test code = 358) GLUCOSE RANDOM 106 mg/dL 70-105 H (BEAKER) (test code = 652) CALCIUM (BEAKER) 8.7 mg/dL 8.4-10.2 (test code = 697) AST (SGOT) 20 U/L 5-34 (BEAKER) (test code = 353) ALT (SGPT) 20 U/L 6-55 (BEAKER) (test code = 347) EGFR (BEAKER) 86 Interpretatio n of eGFR (test code = 1092) mL/min/1.[address] age Description sq m Result G1 Mimi l or high >=90 G2 Mildly decreased 60-89 G3a Mildl y to moderately 45-5 9 G3b Moderately to s everely 30-44 G4 Severl y decreased 15-29 G5 Kidney failure <15Reported eGF R is based on the CKD-EPI 2020 equation that d oes not use a race coefficientEsti mated GFR is not as accur ate as Creatinine Lizett alfred in predicting glom erular filtration rate . Estimated GFR is not appl icable for dialysis patien ts Glass Mechanic ID - [id number] 19:24:55 Test Item Value Reference Range Interpretation Comments MAGNESIUM (BEAKER) (test code = 1.9 mg/dL 1.6-2.6 627) Glass Mechanic ID - BSPROTHROMBIN [id number] 19:11:51 Test Item Value Reference Range Interpretation Comments PROTIME (BEAKER) 25.0 seconds 11.9-14.2 H (test code = 759) INR (BEAKER) (test 2.44 See_Comment [Automat ed message] code = 370) The system [employer] generated this result transmitted ref erence range: <=5.90. The reference range was not used to int erpret this result as normal/abnormal . RECOMMENDED COUMADIN/WARFARIN INR THERAPY RANGESSTANDARD DOSE: 2.0 - 3.0 Includes: PROPHYLAXIS for venous thrombosis, systemic embolization; TREATMENT for venous thrombosis and/or pulmonary embolus.HIGH RISK: Target INR is 2.5-3.5 for patients with mechanical heart valves.CBC W/PLT COUNT & AUTO [id number] 19:03:12 Test Item Value Reference Range Interpretation Comments WHITE BLOOD CELL COUNT (BEAKER) 5.6 K/ L 3.5-10.5 (test code = 775) RED BLOOD CELL COUNT (BEAKER) 3.99 M/ L 4.63-6.08 L (test code = 761) HEMOGLOBIN (BEAKER) (test code = 12.7 GM/DL 13.7-17.5 L 410) HEMATOCRIT (BEAKER) (test code = 38.9 % 40.1-51.0 L 411) MEAN CORPUSCULAR VOLUME (BEAKER) 97.5 fL 79.0-92.2 H (test code = 753) MEAN CORPUSCULAR HEMOGLOBIN 31.8 pg 25.7-32.2 (BEAKER) (test code = 751) MEAN CORPUSCULAR HEMOGLOBIN CONC 32.6 GM/DL 32.3-36.5 (BEAKER) (test code = 752) RED CELL DISTRIBUTION WIDTH 16.8 % 11.6-14.4 H (BEAKER) (test code = 412) PLATELET COUNT (BEAKER) (test 124 K/CU MM 150-450 L code = 756) MEAN PLATELET VOLUME (BEAKER) 9.3 fL 9.4-12.4 L (test code = 754) NUCLEATED RED BLOOD CELLS 0 /100 WBC 0-0 (BEAKER) (test code = 413) NEUTROPHILS RELATIVE PERCENT 67 % (BEAKER) (test code = 429) LYMPHOCYTES RELATIVE PERCENT 21 % (BEAKER) (test code = 430) MONOCYTES RELATIVE PERCENT 9 % (BEAKER) (test code = 431) EOSINOPHILS RELATIVE PERCENT 3 % (BEAKER) (test code = 432) BASOPHILS RELATIVE PERCENT 0 % (BEAKER) (test code = 437) NEUTROPHILS ABSOLUTE COUNT 3.71 K/ L 1.78-5.38 (BEAKER) (test code = 670) LYMPHOCYTES ABSOLUTE COUNT 1.16 K/ L 1.32-3.57 L (BEAKER) (test code = 414) MONOCYTES ABSOLUTE COUNT (BEAKER) 0.51 K/ L 0.30-0.82 (test code = 415) EOSINOPHILS ABSOLUTE COUNT 0.17 K/ L 0.04-0.54 (BEAKER) (test code = 416) BASOPHILS ABSOLUTE COUNT (BEAKER) 0.01 K/ L 0.01-0.08 (test code = 417) IMMATURE GRANULOCYTES-RELATIVE 0 % 0-1 PERCENT (BEAKER) (test code = 2801) RAD, CHEST, 1 VIEW, NON [id number] 15:37:00Reason for exam:->pnaShould this be performed at the bedside?->Yes [facility] 1935 Sex: MFINAL REPORT Chest, 1 view. History: Pneumonia. Comparison: 02/04/2022. IMPRESSION: Left-sided AICD identified in stable position. Postsurgical changes from median sternotomy again noted. Stable appearing left basilar opacities noted suggestive of atelectasis. There is no evidence for new large focal consolidation, pneumothorax, or significant volume pleural effusion. The cardiomediastinal silhouette is stable in appearance. No acute osseous abnormalities identified. Signed: Jose Eduardo Avila MDReport Verified Date/Time: 02/06/2022 15:37:28 Reading Location: [facility] Radiology Reading Room Elec tronically signed by: JOSE EDUARDO AVILA MD on 02/06/2022 03:37 PMCOMPREHENSIVE METABOLIC [id number] 05:39:04 Test Item Value Reference Range Interpretation Comments TOTAL PROTEIN 5.6 gm/dL 6.0-8.5 L (BEAKER) (test code = 770) ALBUMIN (BEAKER) 3.0 g/dL 3.5-5.0 L (test code = 1145) ALKALINE PHOSPHATASE 165 U/L 30-115 H (BEAKER) (test code = 346) BILIRUBIN TOTAL 1.2 mg/dL 0.1-1.2 (BEAKER) (test code = 377) SODIUM (BEAKER) (test 137 meq/L 135-148 code = 381) POTASSIUM (BEAKER) 3.8 meq/L 3.6-5.5 (test code = 379) CHLORIDE (BEAKER) 104 meq/L 98-106 (test code = 382) CO2 (BEAKER) (test 26 meq/L 20-29 code = 355) BLOOD UREA NITROGEN 17 mg/dL 10-26 (BEAKER) (test code = 354) CREATININE (BEAKER) 0.66 mg/dL 0.50-1.20 (test code = 358) GLUCOSE RANDOM 110 mg/dL 70-110 (BEAKER) (test code = 652) CALCIUM (BEAKER) 8.5 mg/dL 8.5-10.5 (test code = 697) AST (SGOT) (BEAKER) 99 U/L 5-40 H (test code = 353) ALT (SGPT) (BEAKER) 304 U/L 5-50 H (test code = 347) EGFR (BEAKER) (test 114 ESTIMATE D GFR IS code = 1092) mL/min/1.73 sq NOT ACCURA TE m CREATININE CLEARANCE IN PREDICTING GLOMERULAR FILTRATION RATE . ESTIMATED GFR I S NOT APPLICABLE FOR DIALYSIS PATIEN TS. Glass Mechanic ID - LITOOperator ID - LITOOperator ID - LITOOperator ID - LITOOperator ID - LITOOperator ID - LITOOperator ID - LITOOperator ID - LITOOperator ID - LITOOperator ID - LITOOperator ID - LITOOperator ID - LITOOperator ID - LITOOperator ID - LITOOperator ID - LITOOperator ID - LITOOperator ID - L ITOOperator ID - LITOOperator ID - LITOCBC W/PLT COUNT & AUTO DIFFERENTIAL 2022-02-06 05:10:53 Test Item Value Reference Range Interpretation Comments WHITE BLOOD CELL COUNT (BEAKER) 4.9 K/ L 4.0-10.0 (test code = 775) RED BLOOD CELL COUNT (BEAKER) 3.75 M/ L 4.20-5.80 L (test code = 761) HEMOGLOBIN (BEAKER) (test code = 11.6 GM/DL 13.0-16.8 L 410) HEMATOCRIT (BEAKER) (test code = 35.0 % 36.0-50.0 L 411) MEAN CORPUSCULAR VOLUME (BEAKER) 93.3 fL 82.0-99.0 (test code = 753) MEAN CORPUSCULAR HEMOGLOBIN 30.9 pg 27.0-33.0 (BEAKER) (test code = 751) MEAN CORPUSCULAR HEMOGLOBIN CONC 33.1 GM/DL 32.0-36.0 (BEAKER) (test code = 752) RED CELL DISTRIBUTION WIDTH 14.2 % 12.0-15.0 (BEAKER) (test code = 412) PLATELET COUNT (BEAKER) (test code 89 K/CU MM 150-430 L = 756) MEAN PLATELET VOLUME (BEAKER) 9.0 fL 6.0-11.5 (test code = 754) NUCLEATED RED BLOOD CELLS (BEAKER) 0 /100 WBC 0-0 (test code = 413) NEUTROPHILS RELATIVE PERCENT 73 % (BEAKER) (test code = 429) LYMPHOCYTES RELATIVE PERCENT 14 % (BEAKER) (test code = 430) MONOCYTES RELATIVE PERCENT 10 % (BEAKER) (test code = 431) EOSINOPHILS RELATIVE PERCENT 2 % (BEAKER) (test code = 432) BASOPHILS RELATIVE PERCENT 0 % (BEAKER) (test code = 437) NEUTROPHILS ABSOLUTE COUNT 3.59 K/ L 1.80-8.00 (BEAKER) (test code = 670) LYMPHOCYTES ABSOLUTE COUNT 0.69 K/ L 1.48-4.50 L (BEAKER) (test code = 414) MONOCYTES ABSOLUTE COUNT (BEAKER) 0.50 K/ L 0.00-1.30 (test code = 415) EOSINOPHILS ABSOLUTE COUNT 0.10 K/ L 0.00-0.50 (BEAKER) (test code = 416) BASOPHILS ABSOLUTE COUNT (BEAKER) 0.01 K/ L 0.00-0.20 (test code = 417) IMMATURE GRANULOCYTES-RELATIVE 0 % 0-0 PERCENT (BEAKER) (test code = 2801) U/S, ABDOMINAL, [id number] 02:32:00Reason for exam:->abnormal LFTs [facility] 1935 Sex: MFINAL REPORT History: abnormal LFTs Abdominal ultrasound dated 02/05/2022 Comparison: None Comment: Real-time transabdominal ultrasound of the abdomen was performed. Liver: 15.7 cm , normal. Normal echogenicity. No focal lesions. Gallbladder: Absent. Biliary tree: Intrahepatic biliary ductal dilatation. CBD: Dilated to 1.6 cm. No visualized choledocholithiasis. MPV: 1.1 cm Spleen: Normal size and echogenicity. Pancreas: Obscured by overlying bowel gas. Right kidney: 9.7 x 3.8 x 4.8 cm. Normal echogenicity.Left kidney: 10.9 x 4.8 x 4.5 cm. Normal echogenicity. No ascites is present in the abdomen. The visualized abdominal aorta is normal in caliber. The IVC and Hepatic veins are patent.Impression: Previous cholecystectomy. Intrahepatic biliary ductal dilatation and dilated common bileduct. No visualized choledocholithiasis. Findings could relate to a nonvisualized obstructing commonbile duct stone, a ductal lesion or an extrinsic obstructing lesion. Further evaluation with MRCP orERCP is recommended. Signed: Carlos Manuel Dacosta MDReport Verified Date/Time: 02/06/2022 02:32:41 HEPATITIS C ANTIBODY 2022-02-05 17:02:39 Test Item Value Reference Range Interpretation Comments HEPATITIS C ANTIBODY (BEAKER) Nonreactive Nonreactive (test code = 367) Glass Mechanic ID - BSHEPATITIS A ANTIBODY, [id number] 17:02:39 Test Item Value Reference Range Interpretation Comments HEPATITIS A IGM ANTIBODY (BEAKER) Nonreactive Nonreactive (test code = 498) Glass Mechanic ID - BSHEPATITIS B SURFACE [id number] 17:02:38 Test Item Value Reference Range Interpretation Comments HEPATITIS B SURFACE ANTIBODY 247.0 mIU/mL <8.0 H (BEAKER) (test code = 647) Glass Mechanic ID - BSHEPATITIS B SURFACE [id number] 11:52:18 Test Item Value Reference Range Interpretation Comments HEPATITIS B SURFACE ANTIGEN (2) Nonreactive Nonreactive (BEAKER) (test code = 2585) Glass Mechanic ID - DSENSONCOMPREHENSIVE METABOLIC [id number] 05:07:32 Test Item Value Reference Range Interpretation Comments TOTAL PROTEIN 5.9 gm/dL 6.0-8.5 L Specimen moder ately (BEAKER) (test code = hemoly zed 770) ALBUMIN (BEAKER) 3.0 g/dL 3.5-5.0 L Specimen mo derately (test code = 1145) hemolyzed ALKALINE PHOSPHATASE 170 U/L 30-115 H (BEAKER) (test code = 346) BILIRUBIN TOTAL 1.6 mg/dL 0.1-1.2 H Specimen mod erately (BEAKER) (test code = hemoly zed 377) SODIUM (BEAKER) (test 136 meq/L 135-148 code = 381) POTASSIUM (BEAKER) 4.2 meq/L 3.6-5.5 Specimen moderately (test code = 379) hemolyzed CHLORIDE (BEAKER) 103 meq/L 98-106 (test code = 382) CO2 (BEAKER) (test 24 meq/L 20-29 code = 355) BLOOD UREA NITROGEN 16 mg/dL 10-26 (BEAKER) (test code = 354) CREATININE (BEAKER) 0.69 mg/dL 0.50-1.20 Specimen moderately (test code = 358) hemolyzed GLUCOSE RANDOM 91 mg/dL 70-110 (BEAKER) (test code = 652) CALCIUM (BEAKER) 8.3 mg/dL 8.5-10.5 L (test code = 697) AST (SGOT) (BEAKER) 228 U/L 5-40 H Specimen moderately (test code = 353) hemolyzed ALT (SGPT) (BEAKER) 383 U/L 5-50 H Specimen moderately (test code = 347) hemolyzed EGFR (BEAKER) (test 108 ESTIMATE D GFR IS code = 1092) mL/min/1.73 sq NOT ACCURA TE m CREATININE CLEARANCE IN PREDICTING GLOMERULAR FILTRATION RATE . ESTIMATED GFR I S NOT APPLICABLE FOR DIALYSIS PATIEN TS. Glass Mechanic ID - [id number] ID - [id number] ID - [id number] ID - [id number] ID - [id number] ID - [id number] ID - [id number] ID - [id number] ID - [id number] ID - [id number] ID - [id number] ID - [id number] ID - [id number] ID - [id number] ID - [id number] ID - [id number] ID - [id number] ID - [id number] ID - [id number] W/PLT COUNT & AUTO [id number] 04:40:08 Test Item Value Reference Range Interpretation Comments WHITE BLOOD CELL COUNT (BEAKER) 5.4 K/ L 4.0-10.0 (test code = 775) RED BLOOD CELL COUNT (BEAKER) 3.73 M/ L 4.20-5.80 L (test code = 761) HEMOGLOBIN (BEAKER) (test code = 11.6 GM/DL 13.0-16.8 L 410) HEMATOCRIT (BEAKER) (test code = 34.8 % 36.0-50.0 L 411) MEAN CORPUSCULAR VOLUME (BEAKER) 93.3 fL 82.0-99.0 (test code = 753) MEAN CORPUSCULAR HEMOGLOBIN 31.1 pg 27.0-33.0 (BEAKER) (test code = 751) MEAN CORPUSCULAR HEMOGLOBIN CONC 33.3 GM/DL 32.0-36.0 (BEAKER) (test code = 752) RED CELL DISTRIBUTION WIDTH 14.3 % 12.0-15.0 (BEAKER) (test code = 412) PLATELET COUNT (BEAKER) (test 113 K/CU MM 150-430 L code = 756) MEAN PLATELET VOLUME (BEAKER) 10.4 fL 6.0-11.5 (test code = 754) NUCLEATED RED BLOOD CELLS 0 /100 WBC 0-0 (BEAKER) (test code = 413) NEUTROPHILS RELATIVE PERCENT 73 % (BEAKER) (test code = 429) LYMPHOCYTES RELATIVE PERCENT 16 % (BEAKER) (test code = 430) MONOCYTES RELATIVE PERCENT 10 % (BEAKER) (test code = 431) EOSINOPHILS RELATIVE PERCENT 1 % (BEAKER) (test code = 432) BASOPHILS RELATIVE PERCENT 0 % (BEAKER) (test code = 437) NEUTROPHILS ABSOLUTE COUNT 3.98 K/ L 1.80-8.00 (BEAKER) (test code = 670) LYMPHOCYTES ABSOLUTE COUNT 0.84 K/ L 1.48-4.50 L (BEAKER) (test code = 414) MONOCYTES ABSOLUTE COUNT (BEAKER) 0.52 K/ L 0.00-1.30 (test code = 415) EOSINOPHILS ABSOLUTE COUNT 0.05 K/ L 0.00-0.50 (BEAKER) (test code = 416) BASOPHILS ABSOLUTE COUNT (BEAKER) 0.01 K/ L 0.00-0.20 (test code = 417) IMMATURE GRANULOCYTES-RELATIVE 0 % 0-0 PERCENT (BEAKER) (test code = 2801) [id number] 10:15:26 Test Item Value Reference Range Interpretation Comments D-DIMER QUANTITATIVE 1.53 MG/L FEU <0.50 H Final Information (BEAKER) (test code = (Auto Output) 671) REGARDING D-DIMER RESULTS: The 98% NPV (Negative Predictive Value) for DVT/PE exclusion is 0.50 mg/LFEU as suggested by the supervisor print line and as approved by the FDA.C-REACTIVE [id number] 09:45:15 Test Item Value Reference Range Interpretation Comments C-REACTIVE PROTEIN (BEAKER) (test 9.39 mg/dL 0.00-0.50 H code = 676) Glass Mechanic ID - LITORAD, CHEST, 1 VIEW, NON [id number] 08:30:00Reason for exam:->pnaShould this be performed at the bedside?->Yes [facility] 1935 Sex: MFINAL REPORT CHEST AP PORTABLE SEMIERECT History provided: Pneumonia Heart size normal. Left subclavian ICD in place. Lungs grossly free of acute disease and vascularity normal. Signed: Matt Banda Verified Date/Time: 02/04/2022 08:30:38 Reading Location: [facility] Diagnostic Imaging Reading Room [place] [address] HEPATIC FUNCTION [id number] 06:23:09 Test Item Value Reference Range Interpretation Comments TOTAL PROTEIN (BEAKER) 5.9 gm/dL 6.0-8.5 L Speci men slightly (test code = 770) hemolyzed ALBUMIN (BEAKER) (test 3.2 g/dL 3.5-5.0 L Speci men slightly code = 1145) hemolyzed BILIRUBIN TOTAL 3.0 mg/dL 0.1-1.2 H Specimen sli ghtly (BEAKER) (test code = hemoly zed 377) BILIRUBIN DIRECT 1.9 mg/dL 0.0-0.4 H Specimen sl ightly (BEAKER) (test code = hemoly zed 706) ALKALINE PHOSPHATASE 185 U/L 30-115 H (BEAKER) (test code = 346) AST (SGOT) (BEAKER) 520 U/L 5-40 H Specimen slightly (test code = 353) hemolyzed ALT (SGPT) (BEAKER) 598 U/L 5-50 H Specimen slightly (test code = 347) hemolyzed Glass Mechanic ID - LITOOperator ID - LITOOperator ID - LITOOperator ID - LITOOperator ID - LITOOperator ID - LITOOperator ID - LITOSpecimen slightly icteric COMPREHENSIVE METABOLIC [id number] 06:22:57 Test Item Value Reference Range Interpretation Comments TOTAL PROTEIN 5.9 gm/dL 6.0-8.5 L Specimen sligh tly (BEAKER) (test code = hemoly zed 770) ALBUMIN (BEAKER) 3.2 g/dL 3.5-5.0 L Specimen sl ightly (test code = 1145) hemolyzed ALKALINE PHOSPHATASE 185 U/L 30-115 H (BEAKER) (test code = 346) BILIRUBIN TOTAL 3.0 mg/dL 0.1-1.2 H Specimen sli ghtly (BEAKER) (test code = hemoly zed 377) SODIUM (BEAKER) (test 137 meq/L 135-148 code = 381) POTASSIUM (BEAKER) 4.1 meq/L 3.6-5.5 Specimen slightly (test code = 379) hemolyzed CHLORIDE (BEAKER) 103 meq/L 98-106 (test code = 382) CO2 (BEAKER) (test 25 meq/L 20-29 code = 355) BLOOD UREA NITROGEN 16 mg/dL 10-26 (BEAKER) (test code = 354) CREATININE (BEAKER) 0.67 mg/dL 0.50-1.20 Specimen slightly (test code = 358) hemolyzed GLUCOSE RANDOM 86 mg/dL 70-110 (BEAKER) (test code = 652) CALCIUM (BEAKER) 8.1 mg/dL 8.5-10.5 L (test code = 697) AST (SGOT) (BEAKER) 520 U/L 5-40 H Specimen slightly (test code = 353) hemolyzed ALT (SGPT) (BEAKER) 598 U/L 5-50 H Specimen slightly (test code = 347) hemolyzed EGFR (BEAKER) (test 112 ESTIMATE D GFR IS code = 1092) mL/min/1.73 sq NOT ACCURA TE m CREATININE CLEARANCE IN PREDICTING GLOMERULAR FILTRATION RATE . ESTIMATED GFR I S NOT APPLICABLE FOR DIALYSIS PATIEN TS. Glass Mechanic ID - LITOOperator ID - LITOOperator ID - LITOOperator ID - LITOOperator ID - LITOOperator ID - LITOOperator ID - LITOOperator ID - LITOOperator ID - LITOOperator ID - LITOSpecimen slightly ictericLIPID [id number] 06:20:18 Test Item Value Reference Range Interpretation Comments TRIGLYCERIDES (BEAKER) 59 mg/dL Speci men slightly (test code = 540) hemolyzed CHOLESTEROL (BEAKER) 99 mg/dL Specime n slightly (test code = 631) hemolyzed HDL CHOLESTEROL (BEAKER) 43 mg/dL (test code = 976) LDL CHOLESTEROL 44 mg/dL CALCULATED (BEAKER) (test code = 633) Triglyceride Reference Range: Low Risk <150 Borderline 150-199 High Risk 200- 499 Very High Risk >=500Cholesterol Reference Range: Low Risk <200 Borderline 200-239 High Risk >240HDL Cholesterol Reference Range: Low Risk >=60 High Risk <40LDL Cholesterol Reference Range: Optimal <100 Near Optimal 100-129 Borderline 130-159 High 160-189 Very High >=190 Glass Mechanic ID - LITOOperatorID - LITOOperator ID - LITOOperator ID - LITOOperator ID - LITOOperator ID - LITOSpecimen slightly ictericCBC W/PLT COUNT & AUTO [id number] 05:56:02 Test Item Value Reference Range Interpretation Comments WHITE BLOOD CELL COUNT (BEAKER) 5.8 K/ L 4.0-10.0 (test code = 775) RED BLOOD CELL COUNT (BEAKER) 3.81 M/ L 4.20-5.80 L (test code = 761) HEMOGLOBIN (BEAKER) (test code = 11.9 GM/DL 13.0-16.8 L 410) HEMATOCRIT (BEAKER) (test code = 35.2 % 36.0-50.0 L 411) MEAN CORPUSCULAR VOLUME (BEAKER) 92.4 fL 82.0-99.0 (test code = 753) MEAN CORPUSCULAR HEMOGLOBIN 31.2 pg 27.0-33.0 (BEAKER) (test code = 751) MEAN CORPUSCULAR HEMOGLOBIN CONC 33.8 GM/DL 32.0-36.0 (BEAKER) (test code = 752) RED CELL DISTRIBUTION WIDTH 14.5 % 12.0-15.0 (BEAKER) (test code = 412) PLATELET COUNT (BEAKER) (test code 94 K/CU MM 150-430 L = 756) MEAN PLATELET VOLUME (BEAKER) 10.4 fL 6.0-11.5 (test code = 754) NUCLEATED RED BLOOD CELLS (BEAKER) 0 /100 WBC 0-0 (test code = 413) NEUTROPHILS RELATIVE PERCENT 72 % (BEAKER) (test code = 429) LYMPHOCYTES RELATIVE PERCENT 16 % (BEAKER) (test code = 430) MONOCYTES RELATIVE PERCENT 12 % (BEAKER) (test code = 431) EOSINOPHILS RELATIVE PERCENT 0 % (BEAKER) (test code = 432) BASOPHILS RELATIVE PERCENT 0 % (BEAKER) (test code = 437) NEUTROPHILS ABSOLUTE COUNT 4.20 K/ L 1.80-8.00 (BEAKER) (test code = 670) LYMPHOCYTES ABSOLUTE COUNT 0.92 K/ L 1.48-4.50 L (BEAKER) (test code = 414) MONOCYTES ABSOLUTE COUNT (BEAKER) 0.67 K/ L 0.00-1.30 (test code = 415) EOSINOPHILS ABSOLUTE COUNT 0.01 K/ L 0.00-0.50 (BEAKER) (test code = 416) BASOPHILS ABSOLUTE COUNT (BEAKER) 0.01 K/ L 0.00-0.20 (test code = 417) IMMATURE GRANULOCYTES-RELATIVE 0 % 0-0 PERCENT (BEAKER) (test code = 2801) PROTHROMBIN TIME/[id number] 05:55:07 Test Item Value Reference Range Interpretation Comments PROTIME (BEAKER) 13.4 seconds 9.3-12.0 H Final Infor mation (test code = 759) (Auto Outp ut) INR (BEAKER) (test 1.24 See_Comment Final Inf ormation code = 370) (Auto Output) [Automated mess age] The system [facility] [employer] generated this result transmitted ref erence range: <=5.90. The reference range was not used to int erpret this result as normal/abnormal . RECOMMENDED COUMADIN/WARFARIN INR THERAPY RANGESSTANDARD DOSE: 2.0 - 3.0 Includes: PROPHYLAXIS for venous thrombosis, systemic embolization; TREATMENT for venous thrombosis and/or pulmonary embolus.HIGH RISK: Target INR is 2.5-3.5 for patients with mechanical heart valves.SARS-COV2/RT-PCR ([facility]) 2022-02-04 05:04:31 Test Item Value Reference Range Interpretation Comments SARS-COV2/RT-PCR Positive Negative AA The SARS-Co V-2 target (test code = nucleic acids a re detected [id number]) in this specime n. The presence SARS-C oV-2 nucleic acids cannot ru le out co-infections o r disease caused by other viral or bacterial patho gens. As with any molecular t est, mutations withi n the target regions of the Xpert Xpress SARS-CoV-2 test could affect primer and/or p robe binding resulting in fa ilure to detect the pres ence of virus or the virus be ing detected less predictabl y. False negative result s may occur if virus is pre sent at levels below th e analytical limit of detect ion. This SARS CoV-2 test is a rapid, real-time RT-PC R test intended for e qualitative detection of nu cleic acid from SARS-CoV-2 in a nasopharyngeal swab specimen collected from individuals suspected of CO VID-19 by their [facility] provider. Results from e Xpert Xpress SARS-CoV -2 test should be corre lated with the clinical hi story, epidemiological data, and other data avai lable to the clinician evalu ating the patient. Viral nucleic acid may persist in vivo, independent of virus viability. Dete ction of analyte target( s) does not imply that the corresponding virus(es) are i nfectious or are the causati ve agents for clinical sympto ms. This test has been authorized by FDA under an EUA for use by authorized laboratories. This test is only authorized for the duration of the declaration that circumstances exist justifying the authorization of emergency use of in vitro diagnostic tests for detection and/or diagnosis of COVID-19 under Section 564(b)(1) of the Federal Food, Drug and Cosmetic Act, 21 U.S.C. 360bbb-3(b)(1), unless the authorization is terminated or revoked sooner. Fact Sheet for Healthcare Providers: https://www.cepheid.co m/Documents/Xpert%20Xpress%20SARS%20CoV-2/Fact%20Sheets/696-4795%02KYZX-PZX-2%20 HEALTHCARE%20PROVIDERS%20FACT%20SHEET.pdf Fact Sheet for Healthcare Patients: https://www.[employer]/Documents/Xpert%20Xp ress%20SARS%20CoV-2/Fact%20Sheets/3023801%99NJEI-CYV-1%20PATIENT%20FACT%20SHEET .pdfTissue [id number] 14:01:26 Test Item Value Reference Range Interpretation Comments Case Report (test code Surgical Pathology = 104) Report Case: [id number] Authorizing Provider: Gonzales Sanchez Collected: 07/30/2021 12:09 PM Ordering Location: [facility] Endoscopy Received: 07/30/2021 04:04 PM Services Pathologist: Priscilla Mark MD Specimens: A) - Large Intestine, Colon - Sigmoid, bxs B) - Rectum, bxs DIAGNOSIS (test code = [id number] 3220) FuZzEwMzNcZnRuYmpcdWMx IHtccnRmMVxlcGljOTYwMV evsuNpSHIcpHOmI3Rzcxyd ADdlYX0dZQ5qfTycaJTwjS NxUMSzHnLgj8zjh472fVVh x6hxIWCGroipcKu5aBpkD7 1wh7H9NxugG8qyNWUyPKzy whQcrtO1TXVarKLqUKw8PG BhcGVydzEyMjQwXHBhcGVy bDZ9WDJhII0rvuboUZxeAI khRXVuxcT8WPPrmEJiA0Pf JTHbET5lyikvVPB9TJuvKF QbXXL1RqEvEOLxp9Rgtoc1 MjBccGFyZFxwbGFpblxmcz HxJAWkZWXYUD6AMNYUUUjM I5kUVGLRCI6ZJ2f5LYCrru SrAUTxECSFI4rMVtnLDF9P P41QBXKZCUWTILmiErSiYl 3zV0bUHbbXCNYKAvOnCJmB V56BB2XDBiMWUBLJMnHYSF 8FYujuYIKkZ9NxKDYpIMTf AJ4NI4THUMYJHWZNEyEACY FIYHYTLJOcE5OkYCJHIWkD JK1XXM2wqXXxKCJnxgVVPz JPFUZVVZ4cCEUJE0YEQUzb jQGcPXGaCKVqSLDYS7ZOBN HBOCJSL8XjA6kRTREkZ1Pr FVhQQ8sENGxELIVTKGNLOk YRNxicDTAxM1XpKUUkXNSg IK7EG2DSJNRVFLCYQjUJOT ERWXDJFFJyC6PnUBRFOVpM PL7ANJ5meTYdfPtqspArQF hzr9AfNWtuLMNwRF4fiPad UEJwBY9yEWGtH3svgN8ldh z9QzIbPRXvSvX7QFNzveY0 Gwr1VBLfRLoiz2jdh8NiEK QlDSk1jErlPoWtNIFzl1ll cyBcZmNoYXJzZXQwIEFyaW HeK749s7hjg1ycaxNdvZP5 IJYfTVQ8CMmzotCmvaX6YL xqeKFkShP8LAszvwNmNKum hhLqzhYmOhu0WYYaH323IJ N8xSnpp2umPEL2WGUfNUNy SbIqNw5tyKRhI025OWYaOB JMAENarGd6PWCtrcVvokUa kOTGk726Y829e5elKXQjob PaoFxKuwilf4aeJ975NBYn cGVydzEyMjQwXHBhcGVyaD F3ZQAwWU5gucqfNDarEInb VVRjptG8BDVojASgW6MyZG HtMV6fflbvVLX5XCrsGQYa OGK1LuKqLILnz7Moevk1No Junm4mij58AQA6s7CbbPop UAL0KAG4WgTiJi5goHPaAM VgAT1mIeEvxGNsYZOkjl77 rJprLDbnJCH2KLStzrVbw3 Iiu7jmMmLkaaWsT5efJ7Nq ZHJoZWFkXHBnYnJkcmZvb3 Avj3FwrXFnpJz9q4jbICWh QOFbbXrzo6ikCOY8JMUbnC QvS0qscP9gJZLkPS0vbnhq l7ecFHahUBwvLPTanGG6jv Y4ZUSjnNNtZ6BtkB8dHPWv MPsoHHKghmm0MyOwOx4dpA VyeTcyMFxzYmtwYWdlXHBn bmNvbnRccGduZGVjXHBsYW luXHBsYWluXGYwXGZzMjRc cWxcbGFuZzEwMzNcaGljaF pnUWozCiUcWFZnKExtK6ij UvJeXwFjMsy5MLCddIVcPJ UoXot7ORGqgTCvFEAOkRxg hN7mRDCdqZpqiA7cbZA2BU VsmiZgiWLVqY0qEHINnD6u GpU0AnMqUbE1MSU5ROpeuB FyfX0= COMMENT (test code = q6wxcMSfIZFlbGB4KdMnGN 1557) Uan1vlb6QiiKCxcHLiEUmz jNLjjpCzez27zIC2aJ36MU 6kOFVxVoF4PQGgrsK6Ess0 UTLcFMRlmGFpH892m1aco0 uvazTroYM5aLvsQASveloh VdO1ULcpBVVwuthmMUp2JS hjLICsaBZ0CDXsjDZhM6Vp PMIxNT1gpdl9MDT2VPczNY LgEbF9KJSrhCOlFOGiqDba MXabd864RML4XlOcVGLyuu LsgJcbeF7bDoZyWUQRTBU6 TSCnXSDlI4Eil59cFGAmx1 cfwYSzsYGetFAtaFKzn7Cr rESmqPPrL5GtYUihlClxIy 9jYWwgcHNldWRvbWVtYnJh ouWuMq7ljBZ9iQ2lEzUNtG YvHCjhEdVbHY47bEEaLFob T6r7YEZhGEsvN3nejZpgBS XufAp1fAPwRL3rHHApj1U4 jwchvTAmTJHlVwJsS7tkMV Yuf9thsEtnSbNLmMyfiBNw zLCkn6FqLCjtrHfhssYkav TuuKkhQPO1VJXdWPOyob2= CPT Code(s) (test code l6buhRUdNNTgsNP6TgVzJB = 3357) Bbe2svi7XtyANoaOZhWMpu sCZlieUyam92sQZ9rA69MZ 8yJIPfJuI4XVVkxoE6Ezb9 HKDjRHBrfUWfU064l8cdm9 xolfNnhEE5zNfaRQEnapcb ZbI7JLuiGAKkpytlZRy3KI zaEHAjyFP8ZPKkiZQdV6Nb HVUbNQ3awkh9VOW6ELsyQM LrKvN4DRWxzIAnEZGxnEqv VGeti587LBU0SlIgWSMhfv YqzNmcvQ9rBaBaJDH5ZNZb NSBYIDJccGFyfQ== CLINICAL HISTORY (test q6skhVWsQVTseOO2IqWxKL code = 3356) Fwv1oid2MwwDShgNLmPSna qWQgclAwsv44xNQ5iN08KL 4qXDFnWaJ2MHVervZ7Ymx0 NGPuOTAwaYStB092p7tmd8 bjzgGpmMU3jGflYYLeuein IeQ9DQjfSVQnuilkSQr9VI cmGKWsmGS5YHDisGNkT2Jj CWYnAF4ycvx4SAQ7YHfhZZ ArJgF6SIKdcYVaFCMyvFqk BSqrk734WPI6FtQnSFPngj PmyRkjlB6fXlMjFXZDwIal LBmnV31thDtnPD0vNPNgQy PjZKIko0xqYXG4 SPECIMEN SOURCE (test m7stwNLtGSGlcIQ9OeWeZB code = 3377) Pcr1knz7VlrORnzYElMIps fQAmdwTtai56gLE1iD02XN 5uGNExNdH0SLPnpjM8Iya2 YAOiEAEkqOZuL727q7xie5 umtqXlfFW2wZhbWRNomrhy LgO2HDosDLImfqiuKDv6QF roKDEcbKU4ACOhpDTdK8Xw ZPYqMD9sxsq1ZLI3ZMoiSI CzOeO6RVJepWDvULDpyAvu VEmon597TBO5InPuRENwxq OzyOdtiL8qYqCjDROGDqTu I78ic37eFTPhIAAOIFN0gX 1ccGFyfQ== GROSS DESCRIPTION (test v7frtQUlVBBppYS8QuIqZH code = 3366) Qbx3nyj0FmyWBwbCDdIYaj uFUcgsKxlx62gAE6iW15ZS 9tVOJmWwX3HKRmlrG5Wwm1 WSLdQKOfcCAcR816e6eax9 dcwpBisPR4kFrsCYCmqhap PmU2KPgmGIGwbqnqJFo0KP kfIDHjxWU8PVMytHBbV8Ee OIRfBQ6zxfx3FQX3ISmeFJ TyXgX1DGXfrKXeLZOqbTgk VZayo266TKH5DaIfNBJrns SjfMrtoV2xRoAwSCGAQhYW IEMfaJTfORVyzfTxu5CeND xpbiBsYWJlbGVkIHdpdGgg dOkjOOWuhCirvwDxG6T5ic YoXJ5kNZQfMNEyP6VhKAQh K16lLPRfqJ8bJWHkEA6lPF LspPaxa2vvTZAvvF1vJARm f0MdfQVoOG1jLFRfuuBqz8 QlCF8oHXCkYWT5FHFaNZN7 SHXkVcWoxUEhY1quFYvyyV Umc8DkChJifEQtUKYjo4Fp xQKvWRNlXpJcoSizc2CxEY K6Rc0pgXGwULHnlcW1y3Cp IGluIEExLlxwYXJccGFyIE FnBMYtU8WlzbUgEQpfPLLa ir3qoWklVCevNmRbVKHwb7 w9mWO2lMWetQV0dMNntJwj TbCsRF1twYPrOK4nIYvqJC ialgQlu3SeUO59dOTyfiUt voDlLnRyH3O1bVAnjW7dr9 cdahHwJN1pCKNbioLol9Pl JB5sSKCiQmJ0KHGaUcH2OC JjFsSgfCEwZ8kmRRwwzARy b2RfWlVwaSKeDZKgy2DpfT YhZIMeDiJyjYsrj1EnZAU6 Wd8bcTVhCIXvtpD2i5CmIC luIEIxLlxwYXJccGFyZFxw VRZiD7Qcg4T7GHk2gW0gpO jlZN4ksMFgxO== MICROSCOPIC DESCRIPTION k5rvlCTfWEDhqQD9WzDhBS (test code = 3371) Azq0tli0QszYYufNNiHDvb dNApwiRmzz77nWA8vF26XX 7jBWDjTiS7SMAzsxK5Bdr5 GFThXJOjsIJrQ471q1pxo9 wiobNewMZ2kAefQRYbfjbt QkD6MLavGGMspsryTPt6GV wbCRCyqAP4HDKpoASwZ3Qd EJEtGG6mmnp3VVV1NSkmAX FzXeN5QQIcgACiJWDodLnh VBqyj134BHK9YuIjIRZkvx EutTmxsG9uRhLxGDJJMRCw q4TcTPSuDUIatm0= Gross assessment was [facility] performed at ([facility], = 3268) Department of Pathology, [address] [place], [place] [address], Technical component was [facility] performed at ([facility], = 1226) Department of Pathology, [address] [place], [place] [address], Professional component [facility]'s was performed at ([facility], code = 2779) Department of Pathology, [address] [place] [address], [address] [id number] 14:01:26Surgical Pathology Report Case: [id number] Authorizing Provider: Gonzales Sanchez Collected: 07/30/2021 12:09 PM Ordering Location: [facility] Endoscopy Received: 07/30/2021 04:04 PM Services Pathologist: Priscilla Mark MD Specimens: A) - Large Intestine, Colon - Sigmoid, bxs B) - Rectum, bxs A. COLON, SIGMOID, BIOPSY: - COLONIC MUCOSA WITH NO SIGNIFICANT DIAGNOSTIC ALTERATION. - NEGATIVE FOR DYSPLASIA OR MALIGNANCY.B. RECTUM, BIOPSY: - RECTAL MUCOSA WITH ISCHEMIC FEATURES. - NEGATIVE FOR DYSPLASIA OR MALIGNANCY. Signing Pathologist Direct Phone Line: [phone] signed by Priscilla Mark MD on 07/31/2021 at 2:01 PMPart B. Sections show ischemic mucosal changes with focal pseudomembrane formation. The differential includes ischemic colitis and Clostridium difficile colitis. Clinicalcorrelation is suggested.[id number] X 2Full incontinence of fecesA. Colon, B. RectumA. Received in formalin labeled with the patient's name, medical record number and "sigmoid colon biopsy" and consists of 0.4 x 0.4 x 0.3 cm aggregate of 3 pieces of gonzalez soft tissue submitted in toto in A1.B. Received in formalin labeled with the patient's name, medical record number and "rectum biopsies" and consists of 0.3 x 0.3 x 0.2 cm aggregate of 3 pieces of gonzalez soft tissue submitted in toto in B1.Leti Landeros.[facility], Department of Pathology, [address] [place] [address], [facility], [address] [place] [address], [facility], [facility] of [facility]ology, [address] [place], [place] [address], NZISKI [id number] 18:51:56Surgical Pathology Report Case: [id number] Authorizing Provider: Anson Ramirez Collected: 05/22/2021 09:27 AM MD Franci Ordering Location: [facility] Endoscopy Received: 05/22/2021 11:33 AM Services Pathologist: Barbra Katz MD Specimens: A) - Stomach, Body, bx of scar of prior emr B) - Biopsy, Gastric, biopsy of polyp next to the scar of prior emr C) - Duodenum, bx of duodenal papilla A. STOMACH, BODY, SCAR OF PRIOR EMR, BIOPSY- CHRONIC INACTIVE GASTRITIS, MINIMAL-MILD- NO INTESTINAL METAPLASIA, DYSPLASIA OR CARCINOMA IDENTIFIED- NO HELICOBACTER PYLORI LIKE ORGANISMS IDENTIFIED ON WARTHIN STARRY STAINB. STOMACH, POLYP NEAR SCAR OF PRIOR EMR, BIOPSY- ACUTE AND CHRONIC INFLAMMATION, MODERATE- NO INTESTINAL METAPLASIA, DYSPLASIA OR CARCINOMA IDENTIFIED- NO HELICOBACTER PYLORI LIKE ORGANISMS IDENTIFIED ON WARTHIN STARRY OR IMMUNOHISTOCHEMICAL STAINSC. DUODENUM, PAPILLA, BIOPSY- NO DIAGNOSTIC ALTERATION Signing Pathologist Direct Phone Line: [phone] signed by Barbra Katz MD on 05/23/2021 at 6:51 [id number] X 3, [id number] X 2, [id number] adenocarcinoma A. Stomach, bodyB. GastricC. DuodenumA. Received in formalin labeled the patient's name, accession number and "stomach, body" are 2 gonzalez soft tissue fragments measuring up to 0.3 cm in greatest dimension which are filteredand submitted in toto in A1.B. Received in formalin labeled the patient's name, accession number and"gastric biopsy" are 2 gonzalez soft tissue fragments measuring up to 0.2 cm in greatest dimension which are filtered and submitted in toto in B1.C. Received in formalin labeled the patient's name, accession number and "duodenum" are 2 gonzalez soft tissue fragments measuring up to 0.2 cm in greatest dimension which are filtered and submitted in toto in C1.AZALIA Murdock, HT (ASCP)Performed.The interpretation of this case included the use of immunohistochemistry or special stains.Control Slides Examined:In-house known positive controls were evaluated along with the test tissue. These control slides runalongside of the patients sample show appropriate staining. Internal positive and negative controls when available are evaluated Immunohistochemistry technical testing was performed at [facility], [facility]ology Laboratory where it was developed and its performance characteristics were determined. It has not been cleared or approved by the U.S. Food and Drug Administration. The FDA has determined that such clearance or approval is not necessary. The test is used for clinical purposes. It should not be regarded as investigational or for research. This laboratory is certified under the Clinical Laboratory Improvement Amendments of 1988 (CLIA-88) as qualified to perform high complexity clinical laboratory testing.[facility], Department of Pathology, [address] [place] [id number], [facility] , [address] [place] [id number], [facility], [address] [place] [id number], ZMPPCO [id number] 21:06:00Surgical Pathology Report Case: [id number] Authorizing Provider: Anson Ramirez Collected: 01/09/2021 07:50 PM MD Franci Ordering Location: [facility] Received: 01/10/2021 09:05 AM Pathologist: Lili Mcclure MD Specimen: Gastric, gastric mass via EMR in saline A. GASTRIC MASS, ENDOSCOPIC SUBMUCOSAL DISSECTION: - MUCOSAL LAYER WITH MARKED AUTOLYSIS - NO TUMOR CELLS SEEN IN THE SUBMUCOSA - PLEASE SEE IN THE COMMENT SECTION Signing Pathologist Direct Phone Line: [phone] lly signed by Lili Mcclure MD on 01/20/2021 at 9:06 PMPreliminary result electronically signed by Lili Mcclure MD on 01/20/2021 at 12:50 PMThe case show features of marked autolysis which hamper the accurate evaluation of dysplasia or superficial carcinoma. No tumor cell are identified in submucosa.Clinician notified: The findings were discussed with on 01/17/21 on telephonic call SJ/ew [id number] t3Upmifwm adenocarcinomaStomachA. Received in saline labeled with the patient's name, medical record number and "gastric" is a 3.1 x 3.0 x 0.1 cm irregular portion of pink mucosa pinned to a piece of foam. The surface of the mucosa displays an ill-defined, slightly raised, gonzalez-pink to maroon polypoid lesion measuring 2.7 x 1.7 x 0.2 cm. The lesion approaches the radial margin and abuts the deep margin.A gross photograph is taken. Ink code:Blue: Radial marginBlack: Deep marginSection code:A1-A 11: 1 cross-section in each cassetteA 12-A 15: Lesion to closest radial margin, perpendicular sections, radial margin only on one edge of each pieceALETHA Moura PA ([facility])cmPerformedPOCT-GLUCOSE [id number] 05:46:00 Test Item Value Reference Range Interpretation Comments POC-GLUCOSE METER 76 mg/dL 70-110 : TESTED A T [facility] 6720 (BEAKER) (test code = LANCE NUR SD, 1538) [address]: Glass Mechanic/Techni ac ID = [id number] for Quks Neris jordan HEMOGLOBIN AND [id number] 04:23:00 Test Item Value Reference Range Interpretation Comments HEMOGLOBIN (BEAKER) (test code = 12.2 GM/DL 13.7-17.5 L 410) HEMATOCRIT (BEAKER) (test code = 38.8 % 40.1-51.0 L 411) Glass Mechanic ID - [id number] (COVID-19) RNA [Presence] in Respiratory specimen by DANA with probe [id number] 18:46:39 Test Item Value Reference Range Interpretation Comments SARS-CoV-2 (COVID-19) RNA Not detected Not-Detected [Presence] in Respiratory specimen by DANA with probe detection (test code = 53848-8) [facility] Notes Date/Time Note Provider Source 2023-01-06 HCAWU 17:05:00-00:00 [facility] ([facility]) Hospitalist Discharge Summary REPORT#:[id number] REPORT STATUS: Signed DATE:01/06/23 TIME: 1705 PATIENT: ROM LYNN UNIT #: [id number] ROOM/BED: [address] : [birth year] AGE: 87 SEX: M ATTEND: Pritesh Ospina MD ADM AUTHOR: Armida Deluca MD R1 * ALL edits or amendments must be made on the el ectronic/computer document * Armida Deluca 01/06/23 1705: General Information Problem List/A P: 1. Acute ischemic stroke 2. Left-sided weakness 3. Carotid artery stenosis 4. Unstable angina 5. Chronic systolic heart failure 6. Paroxysmal atrial fibrillation 7. Osteoarthritis, multiple sites 8. BPH (benign prostatic hyperplasia) 9. Coronary artery disease 10. HLD (hyperlipidemia) 11. HTN (hypertension) 12. H/O two vessel coronary artery bypass graft 13. S/P implantation of automatic cardioverter/ defibrillator (AICD) 14. Thrombocytopenia 15. Dysphonia Date of admission: Observation Start Date: Date of admission: 12/31/22 Discharge date: 01/06/23 Admission diagnosis: Left sided weakness Discharge diagnosis: see problem list above Hospital course: The patient is an 87-year-old male with a PMH of coronary artery disease s/p cardiac bypass, CHF s/p AICD placement, BPH, paroxysmal atrial fibrillation s/p watchmen, HLD, HTN, COPD, former smoker, and osteoarthritis who presented from an outside facility with left sided weakness. Th e patient also had dysphonic voice on arrival, but explained that this s tarted in November and is being evaluated by his ENT. He was admitted for stroke work-up and evaluation. The patient was given full dose aspirin and atorvast atin on arrival and continued aspirin 81, plavix and atorvastatin. The patient 's CT scan at the outside facility did not reveal any acute abnorm alities. CTA head/neck 60% stenosis in the right carotid bulb and high-grade st enosis in the proximal left ICA (above the carotid bulb).Neurology, CV surgery, and car diology (Dr. Nguyen) were consulted. PT/OT and speech therapy were consulted. CV surgery recommended that patient recover from stoke b efore left carotid endarterectomy. Of note, carotid ultrasound was done later in hospitalization and revealed no evidence of stenosis involving the right common carotid veronica ry, right internal carotid artery, left common carotid artery, and left int ernal carotid artery. Echocardiogram revealed EF od 40-44%, grade I di astolic dysfunction, mild to moderate aortic regurgitation, moderate to sever e calfication of the mitral valve with severe regurgitation, and mil d to moderate tricuspid regurgitation. The patient did have an epis ode of chest pain on day 2, but serial troponin were negative. EKG did not show a ny acute ST changes. The patient underwent repeat CT head while awaiting MRI. MRI was delayed due to patient's pacemaker which needed evaluation by [employer] rep to be placed in MRI safe mode. Repeat CT on day 3 showed no acute intracranial abnormality and no acute hemorrhage, mass lesion or infarct. It did show chronic small vesse l ischemic white matter disease. Brain MRI showed acute infarctt of right parietal subc ortical and deep white matter areas as well as mild sequel ae of chronic microvascular ischemic disease. There was a concern for embolic stroke. Dr. Hollins att empted to do KRISTY to evaluate watchman device. However, attempt was unsuccessf ul; there was a concern for esophageal stricture. Esophagram revealed corksc rew esophagus consistent with diffuse esophageal spasm, delayed esophageal mot lity, and gastroesophageal reflux. The patient was on PPI during hospitaliz ation. Throughout the hospitalization, patient continued aspirin and p lavix daily. However, atorvastatin was later discontinued due to eleva tion of liver enzymes. The patient participated in PT, OT, and ST and made significant improvements in his left sided weakness. Of note, the patient endors ed neck pain due to chronic osteoarthritis. The patient's x-ray revealed mod erate multilevel spondylotic changes throughout, but no definite acut e osseous abnormality. The patient was given PRN pain medications as well as li doderm patch which helped. The patient and his expressed karine e to go to fpc facility ([facility] ) to continue rehab/therapy for stroke r ecovery. Case management was consulted to arrange SNF. The patient was discharged to [facility] in stable and improved condition. Consultants: cardiology, cardiovascular surgery, neurology Pt. condition on discharge: improved, stable Allergies: Allergies: Penicillins (Coded, Severe, facial 'tightening' with generalized whelps., ) Med Rec Med Rec Discharge meds: Stop taking the following medications: ROSUVASTATIN (CRESTOR) 10 MG TAB 10 MILLIGRAM ORAL BEDTIME. Continue taking these medications: MULTIVITAMIN (MULTIPLE VITAMIN) 1 TAB TAB 1 TABLET ORAL DAILY. ASCORBIC ACID (VITAMIN C) 500 MG TAB 500 MILLIGRAM ORAL DAILY. CHOLECALCIFEROL (VITAMIN D3) (VITAMIN D3) 125 MC G (5,000 UNIT) TAB 5,000 UNITS ORAL DAILY. CARVEDILOL (COREG) 3.125 MG TAB 3.125 MILLIGRAM ORAL TWICE DAILY. ASPIRIN (ASPIRIN) 81 MG TAB.CHEW 81 MILLIGRAM ORAL EVERY OTHER DAY VITAMIN E (VITAMIN E) 450 MG (1,000 UNIT) CAP 1,000 UNITS ORAL DAILY. MAGNESIUM OXIDE (MAG-OXIDE) 400 MG TAB 400 MILLIGRAM ORAL DAILY. DOCUSATE SODIUM (COLACE) 100 MG CAP 100 MILLIGRAM ORAL DAILY. as needed for CONSTIP ATION IPRATROPIUM (ATROVENT 0.06% NASAL) 15 ML SPRAY 2 SPRAY NASAL THREE TIMES A DAY. as needed for ALLERGIES AMIODARONE (PACERONE) 200 MG TAB 200 MILLIGRAM ORAL TWICE DAILY. NIACIN ER (NIACIN ER) 1,000 MG TAB.SA 1,000 MILLIGRAM ORAL DAILY. FEXOFENADINE (BRETT ALLERGY) 180 MG TAB 180 MILLIGRAM ORAL DAILY. LISINOPRIL (ZESTRIL) 2.5 MG TAB 2.5 MILLIGRAM ORAL DAILY. SOLIFENACIN (VESICARE) 10 MG TAB 10 MILLIGRAM ORAL DAILY. MONTELUKAST (SINGULAIR) 10 MG TAB 10 MILLIGRAM ORAL DAILY. OMEPRAZOLE ER (PriLOSEC) 40 MG CAP.DR 40 MILLIGRAM ORAL DAILY. Qty = 90 Comments: Please disregard the previous Rx CALCIUM CARBONATE/VIT D3 (CALTRATE-600 + D 600 MG/800 UNITS) 600 MG CALCIUM-20 MCG (800 UNIT) TAB 1 TABLET ORAL DAILY. TIOTROPIUM BR/OLODATEROL HCL (STIOLTO RESPIMAT (4 GM)) 2.5 MCG-2.5 MCG/ACTUATION INHALER 2 PUFF INHALATION RT - DAILY. CLOPIDOGREL (PLAVIX) 75 MG TAB 75 MILLIGRAM ORAL DAILY. Qty = 60 cycloSPORINE (RESTASIS 0.05% OPHTH EMULSION) 0.0 5 % OPHTH.EMUL 1 DROPS EACH EYE EVERY 12 HOURS. IPRATROPIUM/ALBUTEROL (DUONEB 0.5 MG-3/3 ML) 0.5 MG-3 MG (2.5 MG BASE)/3 ML NEB 3 MILLILITERS NEB RT - EVERY 6 HOURS NEEDED. as needed for shortness of breath FINASTERIDE (PROSCAR) 5 MG TAB 5 MILLIGRAM ORAL DAILY. Objective VS/I O Last Documented: Result Date Time Pulse Ox 97 01/06 1513 B/P 144/74 01/06 1513 B/P Mean 97.3 01/06 1513 O2 Delivery Room air 01/06 151 Temp 36.7 01/06 1513 Pulse 59 01/06 1513 Resp 16 01/06 1513 FiO2 21 01/05 1854 O2 Flow Rate 5 01/04 0809 24 hour I O ending at 0700: 01/06 0700 01/05 1900 Intake Total Output Total 720 Balance -720 Output, Urine 720 General appearance: alert, awake, no acute distr ess, pleasant, no respiratory distress Head/Eyes: atraumatic, clear cornea, normocephal ic ENT: moist mucosal membranes, normal nose, mimi l pharynx Cardiovascular: pacemaker, normal heart sounds, regular rate rhythm Respiratory: aerating well, clear to auscultatio n, symmetric expansion, no distress Abdomen: non-tender, soft, no distention Extremities: moves all, no cyanosis, no edema Neuro/RV REPAIRER: abnormal speech (soft and hoarse; dys phonic), alert, oriented X 3, normal sensation to light touch in all extremiti es. 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 4/5 strength in LLE, 5/5 strength in RLE 5/5 strength in BUE Skin: dry, normal temperature Psychiatry: normal affect, normal judgment/insig ht Discharge Instructions PCP PCP follow-up: PCP: Willie Hollins MD Discharge to: Snf Facility Additional Discharge Routines: PCP Follow-Up, Co nsultant Follow-Up Diet: Cardiac Activity: As Tolerated Prescriptions: on chart Discharge management: greater than 30 mins, face to face encounter Time spent: Time spent on patient care (minutes): 38 Follow-up Appointments PCP follow-up: PCP: Willie Hollins MD PCP follow up timeframe: In 1-2 weeks Consulting provider 1: Provider 1: Kali Nguyen MD Cardiology Specialty: CardiologyInterventional Consulting provider 2: Provider 2: Joesph Kruse MD Specialty: Thoracic Surgery Quality: Discharge Advanced Care Plan 65 or Older Discussed with: patient, other (family) Current Medications Current medication review: I attest that the foregoing medication list in t he medical record is true, accurate, and complete to the best of my knowled ge. Ischemic Stroke/IVThrombolytic Presented w/in 2 hrs of last known normal: no; t marian: Received IV Thrombolytics: no: rationale (> 4 ho urs after symptom onset) Attestations Attestation needed: teaching physician Pritesh Ospina 01/06/231951: Quality: Discharge Advanced Care Plan 65 or Older Discussion included: code status Attestations Teaching Physician Attestation F/U visit w/ resident: I saw the patient with the resident, Juanjose Guerra, PGY1 during rounds on 2022 and agree with the resident's findings and plan. Electronically Signed by Armida Deluca MD R1 on 0 01/06/23 at 1837 Electronically Signed by Pritesh Ospina MD on 01/06 at 1953 RPT #:[id number] END OF REPORT 2023-01-06 [facility] 06:18:00-00:00 [facility] ([facility] Hospitalist Progress Note REPORT#:[id number] REPORT STATUS: Signed DATE:01/06/23 TIME: 617 PATIENT: ROM LYNN UNIT #: [id number] ROOM/BED: [address] : [birth year] AGE: 87 SEX: M ATTEND: Pritesh Ospina MD ADM AUTHOR: Armida Deluca MD R1 * ALL edits or amendments must be made on the Deenty/computer document * Armida Deluca 01/06/23 0618: Subjective Chief complaint: L sided weakness HPI: There were no acute overnight events. KRISTY was at tempted yesterday, but the procedure was not successful . The patient's left sided weakness has improved. He had bowel movements yesterday. He denies chest p ain, SOB, and abdominal pain. Review of Systems Constitutional: Denies: chills, fatigue, fever, generalized weak ness, lethargy, malaise. Respiratory: Denies: MIR (dyspnea on exertion), hemoptysis, n on productive cough, parox nocturnal dyspnea, pleurisy, pleuritic pain, pneumonia, productive cough (sputum ), SOB, wheezing. Cardiovascular: Denies: chest pain, edema. GI: Reports: dysphagia. Denies: abdominal pain, cons tipation, nausea, vomiting. All systems rev neg: except as noted Objective General VS/I O: Vital Signs: Date Time Temp Pulse Resp B/P B/P Pulse O2 O2 F low FiO2 Mean Ox Delivery Rate 01/06 1139 36.7 78 16 121/71 87.4 98 Room air 01/06 0706 36.6 59 16 127/70 89.2 96 Room air 01/06 0435 36.6 60 16 132/56 81.4 96 Room air 01/06 0131 36.6 60 16 123/67 85.9 97 Room air 01/05 1955 36.3 60 16 109/62 77.3 98 Room air 01/05 1854 94 Room air 21 01/05 1709 36.7 61 11 120/63 82 98 Room air 24 hour I O ending at 0700: 01/06 0700 01/05 1900 Intake Total Output Total 720 Balance -720 Output, Urine 720 PATIENT WEIGHT: Weight (lb): 140 Weight (oz): 3.42 Weight (kg): 63.503 Medications: Active Meds + DC'd Last 24 Hrs Atropine Sulfate (ATROPINE SULFATE) 0 .STK-MED O NE .ROUTE (DC) Lidocaine HCl (LIDOCAINE HCL) 0 .STK-MED ONE .RO [place] (DC) Lidocaine HCl (Glydo 2% JELLY) 0 .STK-MED ONE .R OUTE (DC) Benzocaine (HURRICAINE) 0 .STK-MED ONE .ROUTE (D C) Fentanyl Citrate (SUBLIMAZE (C-II)) 0 .STK-MED O NE .ROUTE (DC) Flumazenil (ROMAZICON) 0 .STK-MED ONE .ROUTE (DC ) Lidocaine HCl (Lidocaine 2% Viscous) 0 .STK-MED ONE .ROUTE (DC) Midazolam HCl (VERSED (C-IV)) 0 .STK-MED ONE .RO [place] (DC) Naloxone HCl (NARCAN) 0 .STK-MED ONE .ROUTE (DC) Pantoprazole (PROTONIX) 40 MG DAILY PO Hydrocodone Bitart/Acetaminophen (NORCO 5/325 TA BLET (C-II)) 1 TAB Q4H PRN PRN PO Lactulose (CHRONULAC) 20 GM BID PO Nitroglycerin (NITROSTAT) 0.4 MG Q5M PRN PRN SL Lidocaine (LIDODERM 5% PATCH) 1 PATCH DAILY TOPI BREANA Polyethylene Glycol (MIRALAX) 17 GM DAILY PO Docusate Sodium (COLACE) 100 MG DAILY PO Meloxicam (MOBIC) 7.5 MG DAILY PO Ascorbic Acid (ASCORBIC ACID, VIT C) 500 MG BILLY Y PO Aspirin (CHILDREN'S ASPIRIN) 81 MG DAILY PO Clopidogrel Bisulfate (PLAVIX) 75 MG DAILY PO Finasteride (PROSCAR) 5 MG DAILY PO Lisinopril (PRINIVIL) 2.5 MG DAILY PO Loratadine (CLARITIN) 10 MG DAILY PO Enoxaparin Sodium (LOVENOX) 40 MG 0600 SUBQ Amiodarone HCl (CORDARONE) 200 MG BID PO Carvedilol (COREG) 3.125 MG BID PO Hydralazine HCl (APRESOLINE) 10 MG Q4H PRN PRN I V Albuterol/Ipratropium (DUONEB 2.5-0.5 MG/[address]) 3 ML RTQ6H PRN PRN INH Acetaminophen (TYLENOL) 650 MG Q6H PRN PRN PO Acetaminophen (TYLENOL) 650 MG Q6H PRN PRN RECTA L Sodium Chloride (SODIUM CHLORIDE 0.9%) 250 ML HORACE AMANDA PRN IV Dietitian nutrition assessment The data set between the solid lines has been im ported from the dietitian's assessment. BMI Calculated: 20.1 Nutrition related diagnosis: Nutrition diagnosis details: Nutrition problem: Nutrition etiology: Nutrition signs and symptoms: Nutrition prescription: Dietitian name: Assessment completed: Physical Exam General appearance: alert, awake, no acute distr ess, no respiratory distress Head/Eyes: atraumatic, clear cornea, normocephal ic ENT: moist mucosal membranes, normal nose, mimi l pharynx Cardiovascular: pacemaker, normal heart sounds, regular rate rhythm Respiratory: aerating well, clear to auscultatio n, symmetric expansion, no distress Abdomen: non-tender, soft, no distention Extremities: moves all, no cyanosis, no edema Neuro/RV REPAIRER: abnormal speech (soft and hoarse; dys phonic), alert, oriented X 3, normal sensation to light touch in all extremiti es. 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 4/5 strength in LLE, 5/5 strength in RLE 5/5 strength in BUE Skin: dry, normal temperature Psychiatry: normal affect, normal judgment/insig ht Results Findings/Data: Laboratory Tests 01/06 0710 Chemistry Sodium (137 - 145 MMOL/L) 134 L Potassium (3.5 - 5.1 MMOL/L) 4.5 Chloride (98 - 107 MMOL/L) 102 Carbon Dioxide (22 - 30 MMOL/L) 28 Anion Gap (14 - 24 MMOL/L) 9 L BUN (9 - 20 MG/DL) 18 Creatinine (0.66 - 1.25 MG/DL) 0.70 Glomerular Filtr Rate > 60 Glucose (74 - 106 MG/DL) 98 Calcium (8.4 - 10.2 MG/DL) 8.6 Total Bilirubin (0.2 - 1.3 MG/DL) 1.0 AST (17 - 59 UNITS/L) 96 H ALT (0 - 49 UNITS/L) 155 H Total Alk Phosphatase (38 - 126 UNITS/L) 189 H Total Protein (6.2 - 7.6 G/DL) 6.1 L Albumin (3.5 - 5.0 G/DL) 3.3 L Results: labs reviewed, vital signs reviewed Diagnosis, Assessment Plan Problem List/A P: 1. Acute ischemic stroke 2. Left-sided weakness 3. Carotid artery stenosis 4. Unstable angina 5. Chronic systolic heart failure 6. Paroxysmal atrial fibrillation 7. Osteoarthritis, multiple sites 8. BPH (benign prostatic hyperplasia) 9. Coronary artery disease 10. HLD (hyperlipidemia) 11. HTN (hypertension) 12. H/O two vessel coronary artery bypass graft 13. S/P implantation of automatic cardioverter/ defibrillator (AICD) 14. Thrombocytopenia 15. Dysphonia Free Text DxA P Notes Free text DxA P notes: The patient is an 87-year-old male with a PMH of coronary artery disease s/p cardiac bypass, CHF s/p AICD placement, BPH, paroxysmal atrial fibrillation s/p watchmen, HLD, HTN, COPD, former smoker, and ost eoarthritis who is presenting with L sided weakness. He was admitted for strok e work-up and evaluation. Plan: 12/31/2022 - admit to IMU with telemetry monitoring - CT head at outside facility did not reveal any acute abnormalities - MRI brain and CTA head/neck ordered and pendin g - echo and carotid doppler ultrasound ordered an d pending - Neurology, Dr. Paredes, and cardiology, Dr. Ibarra consulted - full dose asprin 325 and statin ordered - PT/OT/ST consulted - Lipid profile and HbA1c pending - continue home medications 01/01/2023 - episode of chest pain this morning, possibly u nstable angina - troponin negative, follow-up on repeat troponi n - EKG revealed no ST changes - will hold off on giving full dose therapeutic lovenox due to concern for possible ischemic stroke - CTA head/neck 60% stenosis in the righ t carotid bulb and high-grade stenosis in the proximal left ICA (above the carotid bulb ). - continue aspirin, reduce dose of atorvasatin t o 40 mg daily due to elevated liver enzymes - Dr. Kruse consulted for possible carotid end arartectomy - MRI brain, carotid doppler and echocardiogram pending - Dr. Paredes (neurology) following - miralax and colace ordered for constipation - lidoderm patch ordered for neck pain 01/02/2023: - patient continues to have some L sided weakness, but has improved on physical examination - no additional episodes of chest pain today, se rial troponins negative, EKG showed no acute changes - Repeat CT ordered by neurology and it showed n o acute intracranial abnormality. No acute hemorrhage, mass l esion or infarct; chronic small vessel ischemic white matter disease. - MRI pending, [employer]tronic rep coming on Wednesday si nce patient has a pacemaker - carotid ultrasound pending - lactulose x1 for constipation, continue colace and miralax - dc esparza and place condom cath to mini angelica infection risk; patient unsure if will be able to void in urinal due to weakness - CM consulted for SNF; would like for henry ent to go to [facility] - continue aspirin, statin, and plavix - continue PT/OT - appreciate any additional recommendations from neurology Dr. Paredes 01/03/2023: - Patient still constipated. Will start Lactulos e BID. - Will start [place] PRN for neck pain - Left sided weakness improving but still presen t (now 11/18) - MRI tomorrow pending changing AICD to MRI mode by rep - Esparza discontinued yesterday with normal voids today. - Pending Carotid US - Did not work with PT/OT. Will give [place] and e ncourage PT. - Anticipiate d/c to SNF 01/04/2023: - Patient still constipated. continue lactulose. milk of magnesia and mag citarate ordered, continue lactulose BID, colace daily, and miralax daily. Consider enema if patient still not able to have a B< - left sided weakness improved since admission - Neck x-ray showed moderate multilevel spondylotic changes throughout, but no definite acute osseous abnormality - Brain MRI showed acute infart of right parietl al subcortical and deep white matter areas as well as mild sequelae of chronic microvascular ischemic disease - pending carotid US - continue PT/OT 01/05/2023: - condom catheter removed du ring transfer from IMU to 5th floor, ordered new one to be placed as patient is not able to urinate i n urinal independently - KRISTY by Dr. Hollins today to assess watchmen - carotid ultrasound pending - discontinue atorvastatin due to elevated LFTs, will consider resuming or switching to another statin upon improvement of liver function - continue PT/OT/ST and all other treatments 01/06/2023 - left sided weakness improved - Carotid ultrasound reveale d no evidence of stenosis involving the right common carotid artery, right internal carotid a rtery, left common carotid artery, and left internal carotid artery. - KRISTY attempted yesterday, but unsuccessful; pos sible esophageal stricture?, esophagram ordered to further evaluate - improvement in liver enzymes - pending approval for SNF, will dc once insuran ce approves Diet: cardiac (minced and moist) DVT prophylaxis: lovenox Code: DNI Dispo: d/c to SNF ([facility]) Quality: Gen Med Crit Care VTE Prophylaxis VTE prophylaxis initiated: yes Current Medications Current medication review: I attest that the foregoing medication list in t he medical record is true, accurate, and complete to the best of my knowled ge. Advanced Care Plan 65 or Older Discussed with: patient, other (family) Discussion included: code status Attestations Attestation needed: teaching physician Pritesh Ospina 01/06/23 1424: Attestations Teaching Physician Attestation F/U visit w/ resident: I saw the patient with the resident, Juanjose Guerra, PGY1 during rounds on 2022 and agree with the resident's findings and plan. Electronically Signed by Armida Deluca MD R1 on 0 01/06/23 at 1502 Electronically Signed by Pritesh Ospina MD on 01/06 at 1951 RPT #:[id number] END OF REPORT 2023-01-06 [facility] 05:47:00-00:00 [facility] ([facility] Cardiology Progress Note REPORT#:[id number] REPORT STATUS: Signed DATE:01/06/23 TIME: 0547 PATIENT: ROM LYNN UNIT #: [id number] ROOM/BED: [address] : [birth year] AGE: 87 SEX: M ATTEND: Pritesh Ospina MD ADM AUTHOR: Willie Hollins MD * ALL edits or amendments must be made on the Deenty/computer document * Subjective Chief complaint: stroke Patient reports: No: chest pain, palpitations, shortness of breat h. Objective General VS/I O: 24 hour I O ending at 0700: 01/06 0700 01/05 1900 Intake Total Output Total 720 Balance -720 Output, Urine 720 Vital Signs: Date Time Temp Pulse Resp B/P B/P Pulse O2 O2 F low FiO2 Mean Ox Delivery Rate 01/06 0435 97.9 60 16 132/56 81.4 96 Room air 01/06 0131 97.9 60 16 123/67 85.9 97 Room air 01/05 1955 97.3 60 16 109/62 77.3 98 Room air 01/05 1854 94 Room air 01/05 1709 98.1 61 11 120/63 82 98 Room air 01/05 1124 97.7 60 18 126/64 84.6 99 01/05 0757 98.8 59 18 111/61 77.5 97 PATIENT WEIGHT: Weight (lb): 140 Weight (oz): 3.42 Weight (kg): 63.503 Medications: Active Meds + DC'd Last 24 Hrs Atropine Sulfate (ATROPINE SULFATE) 0 .STK-MED O NE .ROUTE (DC) Lidocaine HCl (LIDOCAINE HCL) 0 .STK-MED ONE .RO [place] (DC) Lidocaine HCl (Glydo 2% JELLY) 0 .STK-MED ONE .R OUTE (DC) Benzocaine (HURRICAINE) 0 .STK-MED ONE .ROUTE (D C) Fentanyl Citrate (SUBLIMAZE (C-II)) 0 .STK-MED O NE .ROUTE (DC) Flumazenil (ROMAZICON) 0 .STK-MED ONE .ROUTE (DC ) Lidocaine HCl (Lidocaine 2% Viscous) 0 .STK-MED ONE .ROUTE (DC) Midazolam HCl (VERSED (C-IV)) 0 .STK-MED ONE .RO [place] (DC) Naloxone HCl (NARCAN) 0 .STK-MED ONE .ROUTE (DC) Pantoprazole (PROTONIX) 40 MG DAILY PO Hydrocodone Bitart/Acetaminophen (NORCO 5/325 TA BLET (C-II)) 1 TAB Q4H PRN PRN PO Lactulose (CHRONULAC) 20 GM BID PO Nitroglycerin (NITROSTAT) 0.4 MG Q5M PRN PRN SL Atorvastatin Calcium (LIPITOR) 40 MG BEDTIME PO (DC) Lidocaine (LIDODERM 5% PATCH) 1 PATCH DAILY TOPI BREANA Polyethylene Glycol (MIRALAX) 17 GM DAILY PO Docusate Sodium (COLACE) 100 MG DAILY PO Meloxicam (MOBIC) 7.5 MG DAILY PO Ascorbic Acid (ASCORBIC ACID, VIT C) 500 MG BILLY Y PO Aspirin (CHILDREN'S ASPIRIN) 81 MG DAILY PO Clopidogrel Bisulfate (PLAVIX) 75 MG DAILY PO Finasteride (PROSCAR) 5 MG DAILY PO Lisinopril (PRINIVIL) 2.5 MG DAILY PO Loratadine (CLARITIN) 10 MG DAILY PO Enoxaparin Sodium (LOVENOX) 40 MG 0600 SUBQ Amiodarone HCl (CORDARONE) 200 MG BID PO Carvedilol (COREG) 3.125 MG BID PO Hydralazine HCl (APRESOLINE) 10 MG Q4H PRN PRN I V Albuterol/Ipratropium (DUONEB 2.5-0.5 MG/[address]) 3 ML RTQ6H PRN PRN INH Acetaminophen (TYLENOL) 650 MG Q6H PRN PRN PO Acetaminophen (TYLENOL) 650 MG Q6H PRN PRN RECTA L Sodium Chloride (SODIUM CHLORIDE 0.9%) 250 ML HORACE AMANDA PRN IV Physical Exam General appearance: alert, awake, oriented Head/Eyes: atraumatic, normocephalic ENT: moist mucosal membranes Neck: no JVD Cardiovascular: CV assessment: regular rate and rhythm Respiratory: clear to auscultation Lower extremity: LE assessment: no edema Musculoskeletal: full range of motion Neuro/RV REPAIRER: alert, oriented X 3, CN II-XII intact Skin: dry, intact Wound/incision: Site condition: dressing clean dry Psychiatry: normal affect, normal judgment/insig ht, normal mood Results Findings/Data: Laboratory Tests 01/06 644 Chemistry Sodium (137 - 145 MMOL/L) 137 Potassium (3.5 - 5.1 MMOL/L) 4.4 Chloride (98 - 107 MMOL/L) 103 Carbon Dioxide (22 - 30 MMOL/L) 28 Anion Gap (14 - 24 MMOL/L) 10 L BUN (9 - 20 MG/DL) 16 Creatinine (0.66 - 1.25 MG/DL) 0.60 L Glomerular Filtr Rate > 60 Glucose (74 - 106 MG/DL) 92 Calcium (8.4 - 10.2 MG/DL) 8.9 Total Bilirubin (0.2 - 1.3 MG/DL) 0.9 AST (17 - 59 UNITS/L) 131 H ALT (0 - 49 UNITS/L) 181 H Total Alk Phosphatase (38 - 126 UNITS/L) 229 H Total Protein (6.2 - 7.6 G/DL) 6.3 Albumin (3.5 - 5.0 G/DL) 3.4 L Diagnosis, Assessment Plan Free Text DxA P Notes Free Text DxA P Notes: The patient is an 87-year-old male with a histor y of coronary artery disease status post CABG, ischemic cardiomyopathy status post AICD, paroxysmal atrial fibrillation status post watchman in July 05, hypertension, COPD who is admitted for arm weakness concerning for stroke IMP: PAF s/p Watchman 06/2022 Ischemic CMP s/p AICD COPD HTN CVA Attempted KRISTY unsuccessful - ? esophogeal stricture PLAN: ASA/Plavix Continue other CV rx. at 0718 RPT #:[id number] END OF REPORT 2023-01-05 [id number] [facility] 21:42:00-00:[address] [place] [address] PATIENT NAME: ROM LYNN ADMIT DATE: ACCOUNT NO: [id number] ROOM NO: [id number] AGE: 87 REPORT TYPE: eCAROTID ULTRASOUND SEX: M ADMITTING PHYSICIAN:Pritesh Ospina MD ATTENDING PHYSICIAN:Pritesh Ospina MD *[facility]* [address] [place], [place] [id number] Carotid Duplex Study Patient: Rom Lynn Study Date: 01/05/2023 BP: Location: [facility] URN: [id number] : 1935 Age: 87 Height: 69.7 in / 177 cm Gender: M Weight: 138 .6 lb / 63 kg BMI/BSA: 20.1 kg/m 2 / 1.75 m 2 *Ordering Physician: * Kali Nguyen MD *Interpreting Physician: * Kali Nguyen MD Indications: Stroke. Study data: Carotid duplex study. Bilateral eval uation with grayscale 2D imaging, color Doppler imaging, and spectral Doppler analysis. Location: Bedside. Patient status: Inpatient. Azalia syed room number: 512. Procedure: A vascular evaluation was perfor med. Images were obtained using a ThromboVision vascular ultrasound machine. Study status: Routine. Arterial flow: Location PSV* EDV* PSV ratio Location PSV* EDV* PSV ratio R CCA, prox 96 9 --------- L CCA, prox 76 9 ---- ----- R CCA, mid 74 7 --------- L CCA, mid 67 10 ---- ----- R CCA, distal 46 ---- --------- L CCA, distal 48 11 --------- R carotid bulb 56 11 --------- L carotid bulb 52 12 --------- R ICA, prox 51 5 0.53 L ICA, prox 47 10 0.62 R ICA, mid 87 19 0.91 L ICA, mid 119 28 1.56 PATIENT NAME: ROM LYNN [id number] R ICA, distal 99 22 1.03 L ICA, distal 125 23 1. 65 R ECA 56 ---- --------- L ECA 93 6 --------- R vertebral 17 8 --------- L vertebral 94 17 --- ------ R vertebral, 63 ---- --------- L vertebral, 94 - --- --------- prox prox R vertebral, ---- 94 --------- - --- ---- --------- mid R vertebral, 17 ---- --------- - --- ---- --------- distal ---- ---- --------- L subclavian 8 ---- --------- *Velocities are expressed in cm/sec, Diameters are expressed in cm Conclusions 1. No evidence of stenosis involving the right c ommon carotid artery, right internal carotid artery, left common orantes tid artery, and left internal carotid artery. 2. Study suggests antegrade flow involving the r ight vertebral artery and left vertebral artery. Prepared and electronically signed by Kali Nguyen MD 01/05/2023 21:41 at 2142 PATIENT NAME: ROM LYNN [id number] 2023-01-05 [id number] [facility] 19:49:00-00:[address] [place] [address] PATIENT NAME: ROM LYNN ADMIT DATE: ACCOUNT NO: [id number] ROOM NO: [facility] AGE: 87 REPORT TYPE: PROGRESS NOTE SEX: M ADMITTING PHYSICIAN:Pritesh Ospina MD ATTENDING PHYSICIAN:Pritesh Ospina MD DATE: 01/05/2023 NEUROLOGY PROGRESS NOTE SUBJECTIVE: He is doing well, has no new complai nts. He had an attempted transesophageal echocardiogram today, but it was unsuccessful. It will be repeated tomorrow. Once completed, he will be di scharged to fpc. OBJECTIVE: Physical examination is otherwise ove rall unchanged. LABORATORY DATA: There have been no pertinent la bs since I last saw him. ASSESSMENT AND RECOMMENDATIONS: In summary, this 87-year-old man with past medical history of multiple medical problems, de veloped the sudden onset of left-sided weakness as he woke up on the day of admission. He has been slowly improving, very near his normal strength on the left. He was on clopidogrel at home and aspirin was added to his regimen. An MR I of the brain revealed scattered areas of acute isc hemia in the posterior aspect of the right parietal white matter, compatible with what seems to be an embolic phenomenon. I am not necessarily certain that swi tching to an anticoagulant at this time would be of any benefit, may have a risk of bleeding given his age, making him a high risk of falling. I will defer to the mid wife [facility] regarding that option. As already mentioned, I am comfortable keeping him on aspirin and clopidogrel at this time. From my standpoint, whenever cleared by Cardiology, he may be discharged to fpc. Dictated By: Qing Daley MD Date Dictated: 01/05/2023 19:49:52 Date Transcribed: 01/05/2023 19:56:18 /ISABELLA Receipt ID: [id number] Authenticated by Qing Daley MD On 09:35:20 PM Electronically Signed by Qing Daley MD on 0 02/14/23 at 0935 PATIENT NAME: ROM LYNN [id number] 2023-01-05 [id number] [facility] 17:19:00-00:[address] [place] [address] PATIENT NAME: ROM LYNN ADMIT DATE: ACCOUNT NO: [id number] ROOM NO: [facility] AGE: 87 REPORT TYPE: CARDIAC CATHETERIZATION REPORT SEX: M ADMITTING PHYSICIAN:Pritesh Ospina MD ATTENDING PHYSICIAN:Pritesh Ospina MD PROCEDURE DATE: 01/05/2023 Mr. Lynn was brought to the cardiac catheteriza tion holding area for transesophageal echocardiogram. Attempts at esophageal intubation for the echo were again unsuccessful. The procedure was termi nated. We will consider possible repeat of the procedure with video-assi sted laryngoscopy with anesthesia. Dictated By: Willie Hollins MD Date Dictated: 01/05/2023 17:19:38 Date Transcribed: 01/05/2023 17:41:26 P/ROV Receipt ID: [id number] Authenticated by Willie Hollins MD On 01/06/20 06:14:29 PM at 0614 PATIENT NAME: ROM LYNN [id number] 3067-05-23 [facility] 06:11:00-00:00 [facility] Hospitalist Progress Note REPORT#:[id number] REPORT STATUS: Signed DATE:01/05/23 TIME: 610 PATIENT: ROM LYNN UNIT #: [id number] ROOM/BED: [address] : [birth year] AGE: 87 SEX: M ATTEND: Pritesh Ospina MD ADM AUTHOR: Armida Deluca MD R1 * ALL edits or amendments must be made on the [email or web address] document * Armida Deluca 01/05/23 0611: Subjective Chief complaint: L sided weakness HPI: There were no acute overnigh t events. The patient is doing well and is currently NPO for KRISTY procedure by Dr. Kruse. His left sided weakness has improved since admission. He has been participating in PT/OT/ST . He was able to have a bowel movement after receiving the mag citrate and linus ma yesterday. He denies chest pain, SOB, and palpitations. Review of Systems Constitutional: Denies: chills, fever. Respiratory: Denies: SOB. Cardiovascular: Denies: chest pain, MIR (dyspnea on exer tion), edema, orthopnea, palpitations, parox nocturnal dyspnea. GI: Denies: abdominal pain, constipation, nausea, vo miting. Neuro: Reports: focal weakness (L-side). All systems rev neg: except as noted Objective General VS/I O: Vital Signs: Date Time Temp Pulse Resp B/P B/P Pulse O2 O2 F low FiO2 Mean Ox Delivery Rate 01/05 1124 36.5 60 18 126/64 84.6 99 01/05 0757 37.1 59 18 111/61 77.5 97 01/05 0422 36.7 60 14 113/59 76.7 96 01/05 0045 36.7 60 16 125/67 86.3 97 01/05 0009 36.8 01/04 2200 60 16 125/60 87 98 01/04 2101 60 95 99 01/04 2007 36.7 01/04 2000 60 19 126/60 87 100 01/04 1951 63 24 137/61 88 01/04 1815 60 26 136/64 92 99 01/04 1800 60 27 99 01/04 1700 60 26 99 01/04 1653 36.7 01/04 1600 60 16 99 01/04 1500 60 20 99 01/04 1448 61 27 136/68 94 99 01/04 1436 67 25 113/59 82 01/04 1429 60 32 118/58 83 97 01/04 1400 60 24 141/63 91 98 24 hour I O ending at 0700: 01/05 0700 01/04 1900 Intake Total 700 Output Total 850 Balance -150 Intake, Oral 700 Number 2 Bowel Movements Output, Urine 850 PATIENT WEIGHT: Weight (lb): 140 Weight (oz): 3.42 Weight (kg): 63.503 Medications: Active Meds + DC'd Last 24 Hrs Magnesium Citrate (CITRATE OF MAGNESIA) 300 ML N OW ONE PO (DC) Pantoprazole (PROTONIX) 40 MG DAILY PO Hydrocodone Bitart/Acetaminophen (NORCO 5/325 TA BLET (C-II)) 1 TAB Q4H PRN PRN PO Lactulose (CHRONULAC) 20 GM BID PO Nitroglycerin (NITROSTAT) 0.4 MG Q5M PRN PRN SL Atorvastatin Calcium (LIPITOR) 40 MG BEDTIME PO (DC) Lidocaine (LIDODERM 5% PATCH) 1 PATCH DAILY TOPI BREANA Polyethylene Glycol (MIRALAX) 17 GM DAILY PO Docusate Sodium (COLACE) 100 MG DAILY PO Meloxicam (MOBIC) 7.5 MG DAILY PO Ascorbic Acid (ASCORBIC ACID, VIT C) 500 MG BILLY Y PO Aspirin (CHILDREN'S ASPIRIN) 81 MG DAILY PO Clopidogrel Bisulfate (PLAVIX) 75 MG DAILY PO Finasteride (PROSCAR) 5 MG DAILY PO Lisinopril (PRINIVIL) 2.5 MG DAILY PO Loratadine (CLARITIN) 10 MG DAILY PO Enoxaparin Sodium (LOVENOX) 40 MG 0600 SUBQ Amiodarone HCl (CORDARONE) 200 MG BID PO Carvedilol (COREG) 3.125 MG BID PO Hydralazine HCl (APRESOLINE) 10 MG Q4H PRN PRN I V Albuterol/Ipratropium (DUONEB 2.5-0.5 MG/[address]) 3 ML RTQ6H PRN PRN INH Acetaminophen (TYLENOL) 650 MG Q6H PRN PRN PO Acetaminophen (TYLENOL) 650 MG Q6H PRN PRN RECTA L Sodium Chloride (SODIUM CHLORIDE 0.9%) 250 ML HORACE AMANDA PRN IV Dietitian nutrition assessment The data set between the solid lines has been im ported from the dietitian's assessment. BMI Calculated: 20.1 Nutrition related diagnosis: Nutrition diagnosis details: Nutrition problem: Nutrition etiology: Nutrition signs and symptoms: Nutrition prescription: Dietitian name: Assessment completed: Physical Exam General appearance: alert, awake, no acute distr ess, pleasant, no respiratory distress Head/Eyes: atraumatic, clear cornea, normocephal ic ENT: moist mucosal membranes, normal nose, mimi l pharynx Cardiovascular: pacemaker, normal heart sounds, regular rate rhythm Respiratory: aerating well, clear to auscultatio n, symmetric expansion, no distress Abdomen: non-tender, soft, no distention Extremities: moves all, no cyanosis, no edema Neuro/RV REPAIRER: abnormal speech (soft and hoarse; dys phonic), alert, oriented X 3, normal sensation to light touch in all extremiti es. 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 4/5 strength in LLE, 5/5 strength in RLE 5/5 strength in BUE Skin: dry, normal temperature Psychiatry: normal affect, normal judgment/insig ht Results Findings/Data: Laboratory Tests 01/05 0644 Chemistry Sodium (137 - 145 MMOL/L) 137 Potassium (3.5 - 5.1 MMOL/L) 4.4 Chloride (98 - 107 MMOL/L) 103 Carbon Dioxide (22 - 30 MMOL/L) 28 Anion Gap (14 - 24 MMOL/L) 10 L BUN (9 - 20 MG/DL) 16 Creatinine (0.66 - 1.25 MG/DL) 0.60 L Glomerular Filtr Rate > 60 Glucose (74 - 106 MG/DL) 92 Calcium (8.4 - 10.2 MG/DL) 8.9 Total Bilirubin (0.2 - 1.3 MG/DL) 0.9 AST (17 - 59 UNITS/L) 131 H ALT (0 - 49 UNITS/L) 181 H Total Alk Phosphatase (38 - 126 UNITS/L) 229 H Total Protein (6.2 - 7.6 G/DL) 6.3 Albumin (3.5 - 5.0 G/DL) 3.4 L Results: labs reviewed, vital signs reviewed Diagnosis, Assessment Plan Problem List/A P: 1. Acute ischemic stroke 2. Left-sided weakness 3. Carotid artery stenosis 4. Unstable angina 5. Chronic systolic heart failure 6. Paroxysmal atrial fibrillation 7. Osteoarthritis, multiple sites 8. BPH (benign prostatic hyperplasia) 9. Coronary artery disease 10. HLD (hyperlipidemia) 11. HTN (hypertension) 12. H/O two vessel coronary artery bypass graft 13. S/P implantation of automatic cardioverter/ defibrillator (AICD) 14. Thrombocytopenia 15. Dysphonia Free Text DxA P Notes Free text DxA P notes: The patient is an 87-year-old male with a PMH of coronary artery disease s/p cardiac bypass, CHF s/p AICD placement, BPH, paroxysmal atrial fibrillation s/p watchmen, HLD, HTN, COPD, former smoker, and ost eoarthritis who is presenting with L sided weakness. He was admitted for strok e work-up and evaluation. Plan: 12/31/2022 - admit to IMU with telemetry monitoring - CT head at outside facility did not reveal any acute abnormalities - MRI brain and CTA head/neck ordered and pendin g - echo and carotid doppler ultrasound ordered an d pending - Neurology, Dr. Paredes, and cardiology, Dr. Ibarra consulted - full dose asprin 325 and statin ordered - PT/OT/ST consulted - Lipid profile and HbA1c pending - continue home medications 01/01/2023 - episode of chest pain this morning, possibly u nstable angina - troponin negative, follow-up on repeat troponi n - EKG revealed no ST changes - will hold off on giving full dose therapeutic lovenox due to concern for possible ischemic stroke - CTA head/neck 60% stenosis in the righ t carotid bulb and high-grade stenosis in the proximal left ICA (above the carotid bulb ). - continue aspirin, reduce dose of atorvasatin t o 40 mg daily due to elevated liver enzymes - Dr. Kruse consulted for possible carotid end arartectomy - MRI brain, carotid doppler and echocardiogram pending - Dr. Paredes (neurology) following - miralax and colace ordered for constipation - lidoderm patch ordered for neck pain 01/02/2023: - patient continues to have some L sided weakness, but has improved on physical examination - no additional episodes of chest pain today, se rial troponins negative, EKG showed no acute changes - Repeat CT ordered by neurology and it showed n o acute intracranial abnormality. No acute hemorrhage, mass l esion or infarct; chronic small vessel ischemic white matter disease. - MRI pending, medtr[employer] rep coming on Wednesday si nce patient has a pacemaker - carotid ultrasound pending - lactulose x1 for constipation, continue colace and miralax - dc esparza and place condom cath to mini angelica infection risk; patient unsure if will be able to void in urinal due to weakness - CM consulted for SNF; would like for henry ent to go to [facility] - continue aspirin, statin, and plavix - continue PT/OT - appreciate any additional recommendations from neurology Dr. Paredes 01/03/2023: - Patient still constipated. Will start Lactulos e BID. - Will start [place] PRN for neck pain - Left sided weakness improving but still presen t (now 11/18) - MRI tomorrow pending changing AICD to MRI mode by rep - Esparza discontinued yesterday with normal voids today. - Pending Carotid US - Did not work with PT/OT. Will give [place] and e ncourage PT. - Anticipiate d/c to SNF 01/04/2023: - Patient still constipated. continue lactulose. milk of magnesia and mag citarate ordered, continue lactulose BID, colace daily, and miralax daily. Consider enema if patient still not able to have a B< - left sided weakness improved since admission - Neck x-ray showed moderate multilevel spondylotic changes throughout, but no definite acute osseous abnormality - Brain MRI showed acute infart of right parietl al subcortical and deep white matter areas as well as mild sequelae of chronic microvascular ischemic disease - pending carotid US - continue PT/OT 01/05/2023: - condom catheter removed du ring transfer from IMU to 5th floor, ordered new one to be placed as patient is not able to urinate i n urinal independently - KRISTY by Dr. Hollins today to assess watchmen - carotid ultrasound pending - discontinue atorvastatin due to elevated LFTs, will consider resuming or switching to another statin upon improvement of liver function - continue PT/OT/ST and all other treatments Diet: cardiac (minced and moist) DVT prophylaxis: lovenox Code: DNI Dispo: d/c to [facility] ([facility]) Quality: Gen Med Crit Care VTE Prophylaxis VTE prophylaxis initiated: yes Current Medications Current medication review: I attest that the foregoing medication list in t he medical record is true, accurate, and complete to the best of my knowled ge. Advanced Care Plan 65 or Older Discussed with: patient, other (family) Discussion included: code status Attestations Attestation needed: teaching physician Pritesh Ospina 01/05/23 1613: Attestations Teaching Physician Attestation F/U visit w/ resident: I saw the patient with the resident, Juanjose Guerra, PGY1 during rounds on 2022 and agree with the resident's findings and plan. Electronically Signed by Armida Deluca MD R1 on 0 01/05/23 at 1351 Electronically Signed by Pritesh Ospina MD on 01/05 at 1614 [facility] #:[id number] END OF REPORT 2023-01-04 [id number] [facility] 20:46:00-00:00 [address] [place] [address] PATIENT NAME: ROM LYNN ADMIT DATE: ACCOUNT NO: [id number] ROOM NO: Z.512 AGE: 87 REPORT TYPE: PROGRESS NOTE SEX: M ADMITTING PHYSICIAN:Pritesh Ospina MD ATTENDING PHYSICIAN:Pritesh Ospina MD DATE: 01/04/2023 NEUROLOGY PROGRESS NOTE SUBJECTIVE: There have been no new events since I last saw him. OBJECTIVE: His examination is otherwise overall unchanged. Pertinent labs since I last saw him include an M RI of the brain without contrast. I reviewed the images. There are scatt ered areas of acute ischemia in the posterior right parietal white matter, re presenting either a watershed ischemic event or also possibly an embolic event . ASSESSMENT AND RECOMMENDATIONS: In summary, this is an 87-year-old man with past medical history of mult iple medical problems, developed the sudden onset of left-sided weakness as he woke up on the day of admission. He has been slowly improving, very near his normal strength in the left. He was on clopidogrel at home and aspirin was added to the regimen. An MR I of the brain reveals scattered areas of acute isc hemia in the posterior aspect of the right parietal white matter, possibly an em bolic phenomenon. I am not necessarily certain that switching him to an anticoag ulant at this time would be of any benefit, may add to the risk bleeding from his high risk of falli ng. I will also defer to the mid wife input regarding that. I am comfortable keeping him on aspirin and clopidogrel at this time. Fr om my standpoint, he may be discharged to inpatient rehabilitation if approved. Dictated By: Qing Daley MD Date Dictated: 01/04/2023 20:46:45 Date Transcribed: 01/04/2023 20:59:03 /CHEO Receipt ID: [id number] Authenticated by Qing Daley MD On 3 09:35:17 PM Electronically Signed by Qing Daley MD on 0 02/14/23 at 0935 PATIENT NAME: ROM LYNN [id number] 2023-01-04 [facility] 18:31:00-00:00 [facility] ([facility]) Cardiology Progress Note REPORT#:[id number] REPORT STATUS: Signed DATE:01/04/23 TIME: 183 PATIENT: ROM LYNN UNIT #: [id number] ROOM/BED: [address] : [birth year] AGE: 87 SEX: M ATTEND: Pritesh Ospina MD ADM AUTHOR: Willie Hollins MD * ALL edits or amendments must be made on the [employer] document * See Addendum Subjective Chief complaint: stroke Patient reports: No: chest pain, palpitations, shortness of breat h. Objective General VS/I O: 24 hour I O ending at 0700: 01/04 0700 01/03 1900 Intake Total 482 Output Total 950 Balance -468 Intake, Oral 482 Output, Urine 950 Vital Signs: Date Time Temp Pulse Resp B/P B/P Pulse O2 O2 Fl ow FiO2 Mean Ox Delivery Rate 01/04 1653 98.1 01/04 1038 60 23 98 01/04 1000 60 8 136/70 97 100 01/04 0900 60 16 106/56 75 98 01/04 0809 98 5 28 Tracheostomy collar 01/04 0801 60 18 119/59 84 97 01/04 0751 97 Room air 21 01/04 0718 97.9 01/04 0700 60 13 130/61 88 97 01/04 0600 60 15 136/65 91 97 01/04 0500 60 30 116/65 86 99 01/04 0411 97.5 01/04 0400 60 16 107/59 79 96 01/04 0300 60 19 128/71 94 94 01/04 0200 60 15 131/71 96 97 01/04 0100 60 14 124/68 91 95 01/04 0000 60 15 130/69 94 95 01/03 2343 97.3 01/03 2200 60 20 141/71 98 95 01/03 2100 60 28 136/73 99 97 01/04 2000 60 19 149/76 106 95 01/03 1920 99.0 01/03 1900 60 17 143/75 103 95 PATIENT WEIGHT: Weight (lb): 140 Weight (oz): 3.42 Weight (kg): 63.503 Medications: Active Meds + DC'd Last 24 Hrs Magnesium Citrate (CITRATE OF MAGNESIA) 300 ML N OW ONE PO (DC) Pantoprazole (PROTONIX) 40 MG DAILY PO Magnesium Hydroxide (MILK OF MAGNESIA) 30 ML NOW ONE PO (DC) Hydrocodone Bitart/Acetaminophen (NORCO 5/325 TA BLET (C-II)) 1 TAB Q4H PRN PRN PO Lactulose (CHRONULAC) 20 GM BID PO Nitroglycerin (NITROSTAT) 0.4 MG Q5M PRN PRN SL Atorvastatin Calcium (LIPITOR) 40 MG BEDTIME PO Lidocaine (LIDODERM 5% PATCH) 1 PATCH DAILY TOPI BREANA Polyethylene Glycol (MIRALAX) 17 GM DAILY PO Docusate Sodium (COLACE) 100 MG DAILY PO Meloxicam (MOBIC) 7.5 MG DAILY PO Ascorbic Acid (ASCORBIC ACID, VIT C) 500 MG BILLY Y PO Aspirin (CHILDREN'S ASPIRIN) 81 MG DAILY PO Clopidogrel Bisulfate (PLAVIX) 75 MG DAILY PO Finasteride (PROSCAR) 5 MG DAILY PO Lisinopril (PRINIVIL) 2.5 MG DAILY PO Loratadine (CLARITIN) 10 MG DAILY PO Enoxaparin Sodium (LOVENOX) 40 MG 0600 SUBQ Amiodarone HCl (CORDARONE) 200 MG BID PO Carvedilol (COREG) 3.125 MG BID PO Hydralazine HCl (APRESOLINE) 10 MG Q4H PRN PRN I V Albuterol/Ipratropium (DUONEB 2.5-0.5 MG/[address]) 3 ML RTQ6H PRN PRN INH Acetaminophen (TYLENOL) 650 MG Q6H PRN PRN PO Acetaminophen (TYLENOL) 650 MG Q6H PRN PRN RECTA L Sodium Chloride (SODIUM CHLORIDE 0.9%) 250 ML HORACE AMANDA PRN IV Physical Exam General appearance: alert, awake, oriented Head/Eyes: atraumatic, normocephalic ENT: moist mucosal membranes Neck: no JVD Cardiovascular: CV assessment: regular rate and rhythm Respiratory: clear to auscultation Lower extremity: LE assessment: no edema Musculoskeletal: full range of motion Neuro/RV REPAIRER: alert, oriented X 3, CN II-XII intact Skin: dry, intact Wound/incision: Site condition: dressing clean dry Results Radiology data: Recent Impressions: MAGNETIC RESONANCE IMAGING - MRI BRAIN W/O CONTR AST 01/04 1120 Report Impression - Status: SIGNED Entered: 01/04/2023 1347 IMPRESSION: Few punctate areas of restricted diffusion noted in the right parietal subcortical and deep white matter areas, represe nting acute infarct. This may represent watershed ischemic event. No hemorrhagic transformation. Mild sequelae of chronic microvascular ischemic disease noted. There is loss of the left internal jugular vein flow void, which is a nonspecific finding and may represent slow flow versus occlusion. The arterial flow-voids are well-maintained. Impression By: [email or web address] Jesus Alberto Bean MD Diagnosis, Assessment Plan Free Text DxA P Notes Free Text DxA P Notes: The patient is an 87-year-old male with a histor y of coronary artery disease status post CABG, ischemic cardiomyopathy status post AICD, paroxysmal atrial fibrillation status post watchman in July 05, hypertension, COPD who is admitted for arm weakness concerning for stroke Patient no longer has any chest pain If the patient continues to have angina could c onsider increasing carvedilol to 6.25 mg twice daily Agree with antiplatelets and statin Continue amiodarone 200 mg twice daily at 1839 Addendum 1: 01/05/23 1515 by Willie Hollins MD KRISTY to evaluate Watchman. Procedure, risks, bene fits discussed. All questions answered, and he elects to proceed. at 1516 RPT #:[id number] END OF REPORT 2023-01-04 [id number] [facility] 10:17:00-00:[address] [place] [address] PATIENT NAME: ROM LYNN ADMIT DATE: ACCOUNT NO: [id number] ROOM NO: Z.512 AGE: 87 REPORT TYPE: PROGRESS NOTE SEX: M ADMITTING PHYSICIAN:Pritesh Ospina MD ATTENDING PHYSICIAN:Pritesh Ospina MD DATE: 01/03/2023 The patient is seen at the bedside in the IM. The patient currently is stable. The patient is status post left-sided CV A. The patient does have high-grade left internal carotid artery stenosis. The patient plans to go to a rehab facility near their home following when he recovers adequately. We will see the patient in the office as scheduled for a left carotid endarterectomy after that. I discussed with the patient and edwardo nolasco in detail at the bedside. Dictated By: Joesph Kruse MD Date Dictated: 01/04/2023 10:17:39 Date Transcribed: 01/04/2023 11:20:57 LENY/EVER Receipt ID: [id number] Authenticated by Joesph Kruse MD On 023 11:47:42 AM at 1147 PATIENT NAME: ROM LYNN [id number] 2023-01-04 [facility] 06[facility]26[facility]00-00:00 [facility] REPORT#:[id number] REPORT STATUS: Signed DATE:01/04/23 TIME: 625 PATIENT: ROM LYNN UNIT #: [id number] [facility] [birth year] AGE: 87 SEX: M ATTEND: Pritesh Ospina MD ADM AUTHOR: Armida Deluca MD R1 * ALL edits or amendments must be made on the [employer]/computer document * Armida Deluca 01/04/23 0626: Subjective Chief complaint: L sided weakness HPI: There were no acute overnight events. Th e patient is still constipated for the past week. He reports that h is left sided weakness has improved since admission. However, he still feels like he can't keep his left arm lifted for a long period of time. He continues to have some neck pain due to osteoarthritis, but the pain medication and lidoderm patch are h elping. The patient denies chest pain, shortness of breath, abdominal pain, nausea, and vomiting. Review of Systems Constitutional: Reports: recent wt loss. Denies: chills, fatigue, fever, generalized weakness, lethargy, malaise. Respiratory: Denies: SOB. Cardiovascular: Denies: chest pain. GI: Reports: constipation. Denies: abdominal pain, n ausea, vomiting. Neuro: Reports: focal weakness (L-sided). All systems rev neg: except as noted Objective General VS/I O: Vital Signs: Date Time Temp Pulse Resp B/P B/P Pulse O2 O2 F low FiO2 Mean Ox Delivery Rate 01/04 0411 36.4 01/04 0400 60 16 107/59 79 96 01/04 0300 60 19 128/71 94 94 01/04 0200 60 15 131/71 96 97 01/04 0100 60 14 124/68 91 95 01/04 0000 60 15 130/69 94 95 01/03 2343 36.3 01/03 2200 60 20 141/71 98 95 01/03 2100 60 28 136/73 99 97 01/03 2000 60 19 149/76 106 95 01/03 1920 37.2 01/03 1900 60 17 143/75 103 95 01/03 1800 60 20 137/70 96 91 / 1700 60 21 146/69 99 97 01/03 1611 36.5 01/03 1600 60 20 143/72 101 97 01/03 1500 60 27 128/70 91 96 01/03 1400 60 21 127/65 90 97 01/03 1300 60 27 108/57 78 97 / 1200 60 20 121/62 86 98 01/03 1109 36.4 01/03 1100 60 16 122/64 87 99 05/ 1000 60 16 124/62 88 99 01/03 0900 60 32 116/58 81 98 / 0800 60 22 122/63 86 95 01/03 0700 60 23 138/67 97 98 01/03 0653 36.4 24 hour I O ending at 0700: 01/04 0700 01/03 1900 Intake Total 482 Output Total 950 Balance -468 Intake, Oral 482 Output, Urine 950 PATIENT WEIGHT: Weight (lb): 140 Weight (oz): 3.42 Weight (kg): 63.503 Medications: Active Meds + DC'd Last 24 Hrs Magnesium Hydroxide (MILK OF MAGNESIA) 30 ML NOW ONE PO (DC) Hydrocodone Bitart/Acetaminophen (NORCO 5/325 TA BLET (C-II)) 1 TAB Q4H PRN PRN PO Lactulose (CHRONULAC) 20 GM BID PO Hydrocodone Bitart/Acetaminophen (NORCO 5/325 TA BLET (C-II)) 1 TAB NOW ONE PO (DC) Hydrocodone Bitart/Acetaminophen (NORCO 5/325 TA BLET (C-II)) 1 TAB Q8H PRN PRN PO (DC) Nitroglycerin (NITROSTAT) 0.4 MG Q5M PRN PRN SL Atorvastatin Calcium (LIPITOR) 40 MG BEDTIME PO Lidocaine (LIDODERM 5% PATCH) 1 PATCH DAILY TOPI BREANA Polyethylene Glycol (MIRALAX) 17 GM DAILY PO Docusate Sodium (COLACE) 100 MG DAILY PO Meloxicam (MOBIC) 7.5 MG DAILY PO Ascorbic Acid (ASCORBIC ACID, VIT C) 500 MG BILLY Y PO Aspirin (CHILDREN'S ASPIRIN) 81 MG DAILY PO Clopidogrel Bisulfate (PLAVIX) 75 MG DAILY PO Finasteride (PROSCAR) 5 MG DAILY PO Lisinopril (PRINIVIL) 2.5 MG DAILY PO Loratadine (CLARITIN) 10 MG DAILY PO Enoxaparin Sodium (LOVENOX) 40 MG 0600 SUBQ Amiodarone HCl (CORDARONE) 200 MG BID PO Carvedilol (COREG) 3.125 MG BID PO Hydralazine HCl (APRESOLINE) 10 MG Q4H PRN PRN I V Albuterol/Ipratropium (DUONEB 2.5-0.5 MG/[address]) 3 ML RTQ6H PRN PRN INH Acetaminophen (TYLENOL) 650 MG Q6H PRN PRN PO Acetaminophen (TYLENOL) 650 MG Q6H PRN PRN RECTA L Sodium Chloride (SODIUM CHLORIDE 0.9%) 250 ML HORACE AMANDA PRN IV Dietitian nutrition assessment The data set between the solid lines has been im ported from the dietitian's assessment. BMI Calculated: 20.1 Nutrition related diagnosis: Nutrition diagnosis details: Nutrition problem: Nutrition etiology: Nutrition signs and symptoms: Nutrition prescription: Dietitian name: Assessment completed: Physical Exam General appearance: alert, awake, no acu te distress, pleasant, conversational, no respiratory distress Head/Eyes: atraumatic, clear cornea, normocephal ic ENT: moist mucosal membranes, normal nose, mimi l pharynx Cardiovascular: pacemaker, normal heart sounds, regular rate rhythm Respiratory: aerating well, clear to auscultatio n, symmetric expansion, no distress Abdomen: non-tender, soft, no distention Extremities: moves all, no cyanosis, no edema Neuro/RV REPAIRER: abnormal speech (soft and hoarse; dys phonic), alert, oriented X 3, normal sensation to light touch in all extremiti es. 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 This may represent watershed ischemic event. No hemorrhagic transformation. Mild sequelae of chronic microvascular ischemic disease noted. There is loss of the left internal jugular vein flow void, which is a nonspecific finding and may represent slow flow versus occlusion. The arterial flow-voids are well-maintained. Impression By: [email or web address] Jesus Alberto Bean MD Results: vital signs reviewed Diagnosis, Assessment Plan Problem List/A P: 1. Acute ischemic stroke 2. Left-sided weakness 3. Carotid artery stenosis 4. Unstable angina 5. Chronic systolic heart failure 6. Paroxysmal atrial fibrillation 7. Osteoarthritis, multiple sites 8. BPH (benign prostatic hyperplasia) 9. Coronary artery disease 10. HLD (hyperlipidemia) 11. HTN (hypertension) 12. H/O two vessel coronary artery bypass graft 13. S/P implantation of automatic cardioverter/ defibrillator (AICD) 14. Thrombocytopenia 15. Dysphonia Orders: Procedure Date/time Status FUNCTIONAL TRAINING 15 M 64511 01/03 1627 Activ e SPEECH/LANG/VOICE TX COMP 01/03 1505 Active DYSPHAGIA TX COMPREHENSIVE 01/03 1505 Active Free Text DxA P Notes Free text DxA P notes: The patient is an 87-year-old male with a PMH of coronary artery disease s/p cardiac bypass, CHF s/p AICD placement, BPH, paroxysmal atrial fibrillation s/p watchmen, HLD, HTN, COPD, former smoker, and ost eoarthritis who is presenting with L sided weakness. He was admitted for strok e work-up and evaluation. Plan: 12/31/2022 - admit to IMU with telemetry monitoring - CT head at outside facility did not reveal any acute abnormalities - MRI brain and CTA head/neck ordered and pendin g - echo and carotid doppler ultrasound ordered an d pending - Neurology, Dr. Paredes, and cardiology, Dr. Ibarra consulted - full dose asprin 325 and statin ordered - PT/OT/ST consulted - Lipid profile and HbA1c pending - continue home medications 01/01/2023 - episode of chest pain this morning, possibly u nstable angina - troponin negative, follow-up on repeat troponi n - EKG revealed no ST changes - will hold off on giving full dose therapeutic lovenox due to concern for possible ischemic stroke - CTA head/neck 60% stenosis in the righ t carotid bulb and high-grade stenosis in the proximal left ICA (above the carotid bulb ). - continue aspirin, reduce dose of atorvasatin t o 40 mg daily due to elevated liver enzymes - Dr. Kruse consulted for possible carotid end arartectomy - MRI brain, carotid doppler and echocardiogram pending - Dr. Paredes (neurology) following - miralax and colace ordered for constipation - lidoderm patch ordered for neck pain 01/02/2023: - patient continues to have some L sided weakness, but has improved on physical examination - no additional episodes of chest pain today, se rial troponins negative, EKG showed no acute changes - Repeat CT ordered by neurology and it showed n o acute intracranial abnormality. No acute hemorrhage, mass l esion or infarct; chronic small vessel ischemic white matter disease. - MRI pending, [employer] rep coming on Wednesday si nce patient has a pacemaker - carotid ultrasound pending - lactulose x1 for constipation, continue colace and miralax - dc esparza and place condom cath to mini angelica infection risk; patient unsure if will be able to void in urinal due to weakness - CM consulted for SNF; would like for henry ent to go to [facility] - continue aspirin, statin, and plavix - continue PT/OT - appreciate any additional recommendations from neurology Dr. Paredes 01/03/2023: - Patient still constipated. Will start Lactulos e BID. - Will start [place] PRN for neck pain - Left sided weakness improving but still presen t (now 4/) - MRI tomorrow pending changing AICD to MRI mode by rep - Esparza discontinued yesterday with normal voids today. - Pending Carotid US - Did not work with PT/OT. Will give [place] and e ncourage PT. - Anticipiate d/c to SNF 01/04/2023: - Patient still constipated. continue lactulose. milk of magnesia and mag citarate ordered, continue lactulose BID, colace daily, and miralax daily. Consider enema if patient still not able to have a B< - left sided weakness improved since admission - Neck x-ray showed moderate multilevel spondylotic changes throughout, but no definite acute osseous abnormality - Brain MRI showed acute infart of right parietl al subcortical and deep white matter areas as well as mild sequelae of chronic microvascular ischemic disease - pending carotid US - continue PT/OT Diet: cardiac (minced and moist) DVT prophylaxis: lovenox Code: DNI Dispo: d/c to SNF ([facility]) Quality: Gen Med Crit Care VTE Prophylaxis VTE prophylaxis initiated: yes Current Medications Current medication review: I attest that the foregoing medication list in t he medical record is true, accurate, and complete to the best of my knowled ge. Advanced Care Plan 65 or Older Discussed with: patient, other (family) Discussion included: code status Attestations Attestation needed: teaching physician Pritesh Ospina 01/04/23 1726: Attestations Teaching Physician Attestation F/U visit w/ resident: I saw the patient with the resident, Juanjose Guerra, PGY1 during rounds on 2022 and agree with the resident's findings and plan. Electronically Signed by Armida Deluca MD R1 on 0 01/04/23 at 1625 Electronically Signed by Pritesh Ospina MD on 01/04 at 1726 RPT #:[id number] END OF REPORT 2023-01-03 [id number] [facility] 16:35:00-00:00 [id number] [place] [id number] PATIENT NAME: ROM LYNN ADMIT DATE: ACCOUNT NO: [id number] ROOM NO: Z.512 AGE: 87 REPORT TYPE: PROGRESS NOTE SEX: M ADMITTING PHYSICIAN:Pritesh Ospina MD ATTENDING PHYSICIAN:Pritesh Ospina MD DATE: 01/03/2023 NEUROLOGY PROGRESS NOTE SUBJECTIVE: He has remained overall unch anged. He tells me he took a few steps with physical therapy today. OBJECTIVE: On examination, t he weakness in upper extremity is nearly completely resolved. There remains minimal left lower extre mity weakness, graded 4+ to 5-/5. LABORATORY DATA: There have been no pertinent la bs since I last saw him. ASSESSMENT AND RECOMMENDATIONS: In summary, this 87-year-old man with past medical history of multiple medical problems, de veloped the sudden onset of left-sided weakness as he woke up on the day of admission. He has been slowly improving, very near his normal strength on the left. He was on clopidogrel at home and aspirin was added to his regimen. An MR I of the brain has been ordered, but has not been do ne, pending a legal technician from [employer] to come with the pacemaker in MRI safe mode. Repeat C T scan of the brain did not reveal any acute changes. The MRI hopefully be done tomorro w. If the MRI was delayed and the patient is accepted in inpatient jason abilitation, I suggest we transfer him out and not wait for the MRI as it will not nowak ge our management anyway. Dictated By: Qing Daley MD Date Dictated: 01/03/2023 16:35:35 Date Transcribed: 01/03/2023 17:18:27 /[facility] Receipt ID: [id number] Authenticated by Qing Daley MD On 09:35:12 PM Electronically Signed by Qing Daley MD on 0 02/14/23 at 0935 PATIENT NAME: ROM LYNN [id number] 2023-01-03 [facility] 12:55:00-00:00 [facility] ([facility]) Hospitalist Progress Note REPORT#:[id number] REPORT STATUS: Signed DATE:01/03/23 TIME: 1255 PATIENT: ROM LYNN UNIT #: [id number] ROOM/BED: [address] : [birth year] AGE: 87 SEX: M ATTEND: Pritesh Ospina MD ADM AUTHOR: Sandip Cespedes MD R1 * ALL edits or amendments must be made on the Deenty/computer document * Sandip Cespedes 01/03/23 1255: Subjective Chief complaint: L sided weakness HPI: No acute overnight events. P atient reports being constipated still and has left uppeer extremity weakness although it has improv ed. He also reports not being able to work with PT yesterd ay due to right sided neck pain. He reports the neck pain is due to osteoarthriti s and was evaluated by a neurosurgeon who recomended against surgery. Denies any headache, visual changes, new focal deficits. States his Esparza cath was taken out yesterday and he was able to pee without problems. Review of Systems Constitutional: Denies: chills, fever. Respiratory: Denies: productive cough (sputum), SOB, wheezing . GI: Denies: abdominal pain, constipation, vomiting. Musculoskeletal: Reports: neck pain. All systems rev neg: except as noted Objective General VS/I O: Vital Signs: Date Time Temp Pulse Resp B/P B/P Pulse O2 O2 F low FiO2 Mean Ox Delivery Rate 01/03 1109 36.4 01/03 0653 36.4 01/03 0600 60 15 135/71 97 97 01/03 0500 60 22 148/77 107 98 01/03 0400 59 12 138/70 98 95 01/03 0345 36.6 01/03 0300 60 17 146/76 105 97 01/03 0200 60 27 132/69 95 95 01/03 0100 60 26 135/71 97 95 01/03 0000 60 19 141/68 98 97 01/02 2339 36.5 01/02 2300 60 26 146/79 106 97 01/02 2200 60 16 152/78 109 97 01/02 2100 60 16 141/69 98 98 01/02 2000 60 2 142/73 102 97 01/02 1951 37.1 01/02 1900 60 12 149/72 100 93 01/02 1800 60 21 136/65 93 98 01/02 1700 60 20 133/64 90 81 / 1602 36.4 01/02 1600 60 27 127/58 84 99 05 1500 60 23 123/61 87 98 24 hour I O ending at 0700: 01/03 0700 01/02 1900 Intake Total 604 Output Total 500 1100 Balance -500 -496 Intake, Oral 604 Output, Urine 500 1100 PATIENT WEIGHT: Weight (lb): 140 Weight (oz): 3.42 Weight (kg): 63.503 Medications: Active Meds + DC'd Last 24 Hrs Lactulose (CHRONULAC) 20 GM BID PO Hydrocodone Bitart/Acetaminophen (NORCO 5/325 TA BLET (C-II)) 1 TAB NOW ONE PO (DC) Hydrocodone Bitart/Acetaminophen (NORCO 5/325 TA BLET (C-II)) 1 TAB Q8H PRN PRN PO Nitroglycerin (NITROSTAT) 0.4 MG Q5M PRN PRN SL Atorvastatin Calcium (LIPITOR) 40 MG BEDTIME PO Lidocaine (LIDODERM 5% PATCH) 1 PATCH DAILY TOPI BREANA Polyethylene Glycol (MIRALAX) 17 GM DAILY PO Docusate Sodium (COLACE) 100 MG DAILY PO Meloxicam (MOBIC) 7.5 MG DAILY PO Ascorbic Acid (ASCORBIC ACID, VIT C) 500 MG BILLY Y PO Aspirin (CHILDREN'S ASPIRIN) 81 MG DAILY PO Clopidogrel Bisulfate (PLAVIX) 75 MG DAILY PO Finasteride (PROSCAR) 5 MG DAILY PO Lisinopril (PRINIVIL) 2.5 MG DAILY PO Loratadine (CLARITIN) 10 MG DAILY PO Enoxaparin Sodium (LOVENOX) 40 MG 0600 SUBQ Amiodarone HCl (CORDARONE) 200 MG BID PO Carvedilol (COREG) 3.125 MG BID PO Hydralazine HCl (APRESOLINE) 10 MG Q4H PRN PRN I V Albuterol/Ipratropium (DUONEB 2.5-0.5 MG/[address]) 3 ML RTQ6H PRN PRN INH Acetaminophen (TYLENOL) 650 MG Q6H PRN PRN PO Acetaminophen (TYLENOL) 650 MG Q6H PRN PRN RECTA L Sodium Chloride (SODIUM CHLORIDE 0.9%) 250 ML HORACE AMANDA PRN IV Dietitian nutrition assessment The data set between the solid lines has been im ported from the dietitian's assessment. BMI Calculated: 20.1 Nutrition related diagnosis: Nutrition diagnosis details: Nutrition problem: Nutrition etiology: Nutrition signs and symptoms: Nutrition prescription: Dietitian name: Assessment completed: Physical Exam General appearance: frail, alert, awake, oriente d Head/Eyes: atraumatic, clear cornea, normocephal ic ENT: moist mucosal membranes, normal nose, mimi l pharynx Cardiovascular: pacemaker, normal heart sounds, regular rate rhythm Respiratory: aerating well, clear to auscultatio n, symmetric expansion, no distress Abdomen: non-tender, soft, no distention Extremities: moves all, no cyanosis, no edema Neuro/RV REPAIRER: abnormal speech (soft and hoarse; dys phonic), alert, oriented X 3, decreased sensation in LUE, LLE, and L side of the face; 5/5 strength in RUE. 3/ 5 in LUE. , 5-/5 strength in LLE, 5/5 strength i n RLE Skin: dry, normal temperature Psychiatry: normal affect, normal judgment/insig ht Diagnosis, Assessment Plan Problem List/A P: 1. Left-sided weakness 2. Carotid artery stenosis 3. Unstable angina 4. Chronic systolic heart failure 5. Paroxysmal atrial fibrillation 6. Osteoarthritis, multiple sites 7. BPH (benign prostatic hyperplasia) 8. Coronary artery disease 9. HLD (hyperlipidemia) 10. HTN (hypertension) 11. H/O two vessel coronary artery bypass graft 12. S/P implantation of automatic cardioverter/ defibrillator (AICD) 13. Thrombocytopenia Free Text DxA P Notes Free text DxA P notes: The patient is an 87-year-old male with a PMH of coronary artery disease s/p cardiac bypass, CHF s/p AICD placement, BPH, paroxysmal atrial fibrillation s/p watchmen, HLD, HTN, COPD, former smoker, and ost eoarthritis who is presenting with L sided weakness. He was admitted for strok e work-up and evaluation. Plan: 12/31/2022 - admit to IMU with telemetry monitoring - CT head at outside facility did not reveal any acute abnormalities - MRI brain and CTA head/neck ordered and pendin g - echo and carotid doppler ultrasound ordered an d pending - Neurology, Dr. Paredes, and cardiology, Dr. Ibarra consulted - full dose asprin 325 and statin ordered - PT/OT/ST consulted - Lipid profile and HbA1c pending - continue home medications 01/01/2023 - episode of chest pain this morning, possibly u nstable angina - troponin negative, follow-up on repeat troponi n - EKG revealed no ST changes - will hold off on giving full dose therapeutic lovenox due to concern for possible ischemic stroke - CTA head/neck 60% stenosis in the righ t carotid bulb and high-grade stenosis in the proximal left ICA (above the carotid bulb ). - continue aspirin, reduce dose of atorvasatin t o 40 mg daily due to elevated liver enzymes - Dr. Kruse consulted for possible carotid end arartectomy - MRI brain, carotid doppler and echocardiogram pending - Dr. Paredes (neurology) following - miralax and colace ordered for constipation - lidoderm patch ordered for neck pain 01/02/2023: - patient continues to have some L sided weakness, but has improved on physical examination - no additional episodes of chest pain today, se rial troponins negative, EKG showed no acute changes - Repeat CT ordered by neurology and it showed n o acute intracranial abnormality. No acute hemorrhage, mass l esion or infarct; chronic small vessel ischemic white matter disease. - MRI pending, [employer] rep coming on Wednesday si nce patient has a pacemaker - carotid ultrasound pending - lactulose x1 for constipation, continue colace and miralax - dc esparza and place condom cath to mini angelica infection risk; patient unsure if will be able to void in urinal due to weakness - CM consulted for SNF; would like for henry ent to go to [facility] - continue aspirin, statin, and plavix - continue PT/OT - appreciate any additional recommendations from neurology Dr. Paredes 01/03/2023: - Patient still constipated. Will start Lactulos e BID. - Will start [place] PRN for neck pain - Left sided weakness improving but still presen t (now 11/18) - MRI tomorrow pending changing AICD to MRI mode by rep - Esparza discontinued yesterday with normal voids today. - Pending Carotid US - Did not work with PT/OT. Will give [place] and e ncourage PT. - Anticipiate d/c to SNF Diet: cardiac (minced and moist) DVT prophylaxis: lovenox Code: DNI Quality: Gen Med Crit Care VTE Prophylaxis VTE prophylaxis initiated: yes Current Medications Current medication review: I attest that the foregoing medication list in t he medical record is true, accurate, and complete to the best of my knowled ge. Advanced Care Plan 65 or Older Discussed with: patient, other (family) Discussion included: code status Attestations Attestation needed: teaching physician Cuate Richard 01/03/23 1354: Attestations Teaching Physician Attestation F/U visit w/ resident: I saw the patient with the resident and . . . agree with the resident's findings and plan. CT head did nt show stroke on repeat scan, MRI head scheduled tomorrow w [employer]. Pt also C/O neck pain, not improved w Lidocaine pat ch or mobjemima bojorquez added. Apparently his Ortho says no injection or surgery poss ible at this time. DW therapist about getting pt out of bed as requested by the w nat. Awaiting SNF transfer. May transfer out of [facility] Electronically Signed by Sandip Cespedes MD R1 on at 1423 Electronically Signed by Cuate Richard MD on at 1409 RPT #:[id number] END OF REPORT 2023-01-03 [facility] 12:02:00-00:00 [facility] Cardiology Progress Note REPORT#:[id number] REPORT STATUS: Signed DATE:01/03/23 TIME: 1202 PATIENT: ROM LYNN UNIT #: [id number] ROOM/BED: [address] : [birth year] AGE: 87 SEX: M ATTEND: Cuate Richard MD ADM AUTHOR: Devan Batista MD * ALL edits or amendments must be made on the Deenty/computer document * Subjective Chief complaint: stroke HPI: The patient is an 87-year-old male with a histor y of coronary artery disease status post CABG, ischemic cardiomyopathy status post AICD, paroxysmal atrial fibrillation status post watchman in July 05, hypertension, COPD who is admitted for arm weakness concerning for stroke Free Text Subj Notes Free Text Subj Notes: No chest pain today Objective Physical Exam Cardiovascular: CV assessment: regular rate and rhythm Respiratory: clear to auscultation Lower extremity: LE assessment: no edema Wound/incision: Site condition: dressing clean dry Diagnosis, Assessment Plan Free Text DxA P Notes Free Text DxA P Notes: The patient is an 87-year-old male with a histor y of coronary artery disease status post CABG, ischemic cardiomyopathy status post AICD, paroxysmal atrial fibrillation status post watchman in July 05, hypertension, COPD who is admitted for arm weakness concerning for stroke Patient no longer has any chest pain If the patient continues to have angina could c onsider increasing carvedilol to 6.25 mg twice daily Agree with antiplatelets and statin Continue amiodarone 200 mg twice daily Electronically Signed by Devan Batista MD on 12/15 09/07 at 1203 RPT #:[id number] END OF REPORT 2023-01-03 [id number] [facility] 05:40:00-00:[address] [place] [id number] PATIENT NAME: ROM LYNN ADMIT DATE: ACCOUNT NO: [id number] ROOM NO: Z.350 AGE: 87 REPORT TYPE: ELECTROCARDIOGRAM SEX: M ADMITTING PHYSICIAN:Cuate Richard MD ATTENDING PHYSICIAN:Cuate Richard MD Order: [id number] Test Reason : CHEST PAIN Test Date/Time Stamp: WedJan 03 2023 05:40:38 Blood Pressure : / mmHG Vent. Rate : 060 BPM Atrial Rate : 061 BPM P-R Int : 122 ms QRS Dur : 194 ms QT Int : 546 ms P-R-T Axes : 000 -82 115 degree s QTc Int : 546 ms AV dual-paced rhythm Abnormal ECG When compared with ECG of 03-JAN-2023 05:39, No significant change was found Confirmed by KALI NGUYEN ([id number]) on 01/03/2023 9:12:45 AM Referred By: Self Referred Confirmed by:KALI CADE at 0912 PATIENT NAME: ROM LYNN [id number] 2023-01-03 [id number] [facility] 05:39:00-00:[address] [place] [address] PATIENT NAME: ROM LYNN ADMIT DATE: 12/31 ACCOUNT NO: [id number] ROOM NO: Z.350 AGE: 87 REPORT TYPE: ELECTROCARDIOGRAM SEX: M ADMITTING PHYSICIAN:Cuate Richard MD ATTENDING PHYSICIAN:Cuate Richard MD Order: [id number] Test Reason : CAD Test Date/Time Stamp: WedJan 03 2023 05:39:33 Blood Pressure : / mmHG Vent. Rate : 060 BPM Atrial Rate : 300 BPM P-R Int : 124 ms QRS Dur : 194 ms QT Int : 528 ms P-R-T Axes : 000 -83 115 degree s QTc Int : 528 ms AV dual-paced rhythm Abnormal ECG When compared with ECG of 02-JAN-2023 20:24, No significant change was found Confirmed by KALI NGUYEN ([id number]) on 01/03/2023 9:12:19 AM Referred By: Self Referred Confirmed by:KALI CADE at 0912 PATIENT NAME: ROM LYNN [id number] 2023-01-02 [id number] [facility] 20:24:00-00:[address] [place] [address] PATIENT NAME: ROM LYNN ADMIT DATE: ACCOUNT NO: [id number] ROOM NO: Z.350 AGE: 87 REPORT TYPE: ELECTROCARDIOGRAM SEX: M ADMITTING PHYSICIAN:Cuate Richard MD ATTENDING PHYSICIAN:Cuate Richard MD Order: [id number] Test Reason : CAD Test Date/Time Stamp: WedJan 02 2023 20:24:06 Blood Pressure : / mmHG Vent. Rate : 060 BPM Atrial Rate : 060 BPM P-R Int : 122 ms QRS Dur : 196 ms QT Int : 546 ms P-R-T Axes : 000 -67 124 degree s QTc Int : 546 ms AV dual-paced rhythm Abnormal ECG When compared with ECG of 01-JAN-2023 11:43, No significant change was found Confirmed by KALI NGUYEN ([id number]) on 01/03/2023 9:12:06 AM Referred By: Self Referred Confirmed by:KALI CADE at 0912 PATIENT NAME: ROM LYNN [id number] 2023-01-02 [id number] [facility] 15:21:00-00:[address] [place], [place] [id number] PATIENT NAME: ROM LYNN ADMIT DATE: ACCOUNT NO: [id number] ROOM NO: Z.512 AGE: 87 REPORT TYPE: PROGRESS NOTE SEX: M ADMITTING PHYSICIAN:Pritesh Ospina MD ATTENDING PHYSICIAN:Pritesh Ospina MD DATE: 01/02/2023 NEUROLOGY PROGRESS NOTE SUBJECTIVE: He continues to do well, has not had any new complaints. He did not work with physical therapy today as their ev aluation of him coincide with him going to CT scan of the brain. OBJECTIVE: On examination, his left side continu es to get better. He has now near normal strength in the left upper extremity , very mild weakness of left lower extremity, graded 4+/5. LABORATORY DATA: Pertinent labs since I last saw him include a CT scan of the brain. I reviewed the images. There continues to be no acute changes. ASSESSMENT AND RECOMMENDATIONS: In summary, this 87-year-old man with past medical history of multiple medical problems, de veloped the sudden onset of left-sided weakness as he woke up on the day of admission. He has been slowly improving, now near normal. He was on clopidogrel at home and aspirin was added to his regimen. An MRI of the brain has been ordered, but has not been done. I repeated a CT scan of the br ain to see if we can identify any new lacunar stroke to explain his symptoms, but none was found. I e xplained to him that if he remains here over the weekend, we will attempt t o get the MRI on Wednesday to document the stroke. Should there be no need to keep him in the hospital, I am fine with him being discharged to go home or to a rehab facility to remain on aspirin and Plavix for the time being. Dictated By: Qing Daley MD Date Dictated: 01/02/2023 15:21:26 Date Transcribed: 01/02/2023 16:10:41 /[facility] Receipt ID: [id number] Authenticated by Qing Daley MD On 3 09:35:08 PM at 0935 PATIENT NAME: ROM LYNN [id number] 2023-01-02 [facility] 11:35:00-00:00 [facility] ([facility]) Cardiology Progress Note REPORT#:[id number] REPORT STATUS: Signed DATE:01/02/23 TIME: 1135 PATIENT: ROM LYNN UNIT #: [id number] ROOM/BED: [facility] : [birth year] AGE: 87 SEX: M ATTEND: Cuate Richard MD ADM AUTHOR: Devan Batista MD * ALL edits or amendments must be made on the el [employer]/computer document * Subjective Chief complaint: stroke HPI: The patient is an 87-year-old male with a histor y of coronary artery disease status post CABG, ischemic cardiomyopathy status post AICD, paroxysmal atrial fibrillation status post watchman in July 05, hypertension, COPD who is admitted for arm weakness concerning for stroke Free Text Subj Notes Free Text Subj Notes: No further episodes of chest pain Objective General VS/I O: 24 hour I O ending at 0700: 01/02 0700 01/01 1900 Intake Total 690 Output Total 2049 Balance -1360 Intake, Oral 690 Number 0 Bowel Movements Output, Urine 2049 Patient 63.503 kg Weight Weight Bed scale Measurement Method Vital Signs: Date Time Temp Pulse Resp B/P B/P Pulse O2 O2 F low FiO2 Mean Ox Delivery Rate 01/02 0805 36.4 01/02 0600 60 29 145/72 97 96 01/02 0500 60 21 135/71 98 96 01/02 0400 60 16 137/72 99 96 01/02 0300 60 14 142/68 98 96 01/02 0200 60 21 137/67 96 96 01/02 0100 60 18 149/72 104 98 01/02 0000 60 32 152/77 109 98 01/01 2200 60 18 141/70 100 97 01/01 2100 60 27 145/68 98 98 05 2000 60 26 141/70 96 97 01/01 1950 36.6 05/ 1900 60 21 139/69 99 98 01/01 1800 60 31 141/70 99 97 01/01 1700 60 23 133/62 89 98 01/01 1620 36.6 / 1600 60 21 136/67 96 99 01/01 1500 60 20 152/76 108 100 05 1400 60 20 139/74 101 99 01/01 1300 60 20 127/61 88 98 01/01 1200 60 26 119/62 84 97 01/01 1148 98 Room air 21 PATIENT WEIGHT: Weight (lb): 140 Weight (oz): 3.42 Weight (kg): 63.503 Physical Exam General appearance: alert, awake Cardiovascular: CV assessment: regular rate and rhythm Respiratory: clear to auscultation Lower extremity: LE assessment: no edema Wound/incision: Site condition: dressing clean dry Diagnosis, Assessment Plan Free Text DxA P Notes Free Text DxA P Notes: The patient is an 87-year-old male with a histor y of coronary artery disease status post CABG, ischemic cardiomyopathy status post AICD, paroxysmal atrial fibrillation status post watchman in July 05, hypertension, COPD who is admitted for arm weakness concerning for stroke Patient no longer has any chest pain If the patient continues to have angina could c onsider increasing carvedilol to 6.25 mg twice daily Agree with antiplatelets and statin Continue amiodarone 200 mg twice daily Electronically Signed by Devan Batista MD on 12/15 at 1137 RPT #:[id number] END OF REPORT 2023-01-02 [facility] 07:22:00-00:00 [facility] ([facility] Hospitalist Progress Note REPORT#:[id number] REPORT STATUS: Signed DATE:01/02/23 TIME: 721 PATIENT: ROM LYNN UNIT #: [id number] ROOM/BED: [address] : [birth year] AGE: 87 SEX: M ATTEND: Cuate Richard MD ADM AUTHOR: Armida Deluca MD R1 * ALL edits or amendments must be made on the [employer]/computer document * Armida Deluca 01/02/23 0722: Subjective Chief complaint: L sided weakness HPI: The patient reports that he still has some L jan ed weakness. When he tries to lift his left arm, he is not able to keep it up for long. He has been participating in PT/OT He re ports that the lidoderm patches are helping with his neck pain. He has not had a bowel moveme nt despite the laxative medications he has been taking. He denies chest pain, SOB, abdo david pain, nausea, and vomiting. Review of Systems Constitutional: Denies: chills, fever. Respiratory: Denies: SOB. Cardiovascular: Denies: chest pain. GI: Reports: constipation. Denies: abdominal pain, n ausea, vomiting. All systems rev neg: except as noted Objective General VS/I O: Vital Signs: Date Time Temp Pulse Resp B/P B/P Pulse O2 O2 F low FiO2 Mean Ox Delivery Rate 01/02 1205 36.9 01/02 0805 36.4 01/02 0600 60 29 145/72 97 96 01/02 0500 60 21 135/71 98 96 01/02 0400 60 16 137/72 99 96 01/02 0300 60 14 142/68 98 96 01/02 0200 60 21 137/67 96 96 01/02 0100 60 18 149/72 104 98 01/02 0000 60 32 152/77 109 98 01/01 2200 60 18 141/70 100 97 01/01 2100 60 27 145/68 98 98 01/01 2000 60 26 141/70 96 97 01/01 1950 36.6 01/01 1900 60 21 139/69 99 98 01/01 1800 60 31 141/70 99 97 01/01 1700 60 23 133/62 89 98 01/01 1620 36.6 01/01 1600 60 21 136/67 96 99 01/01 1500 60 20 152/76 108 100 24 hour I O ending at 0700: 01/02 0700 01/01 1900 Intake Total 690 Output Total 2049 Balance -1360 Intake, Oral 690 Number 0 Bowel Movements Output, Urine 2049 Patient 63.503 kg Weight Weight Bed scale Measurement Method PATIENT WEIGHT: Weight (lb): 140 Weight (oz): 3.42 Weight (kg): 63.503 Medications: Active Meds + DC'd Last 24 Hrs Lactulose (CHRONULAC) 20 GM NOW ONE PO (DC) Nitroglycerin (NITROSTAT) 0.4 MG Q5M PRN PRN SL Atorvastatin Calcium (LIPITOR) 40 MG BEDTIME PO Lidocaine (LIDODERM 5% PATCH) 1 PATCH DAILY TOPI BREANA Polyethylene Glycol (MIRALAX) 17 GM DAILY PO Docusate Sodium (COLACE) 100 MG DAILY PO Meloxicam (MOBIC) 7.5 MG DAILY PO Ascorbic Acid (ASCORBIC ACID, VIT C) 500 MG BILLY Y PO Aspirin (CHILDREN'S ASPIRIN) 81 MG DAILY PO Clopidogrel Bisulfate (PLAVIX) 75 MG DAILY PO Finasteride (PROSCAR) 5 MG DAILY PO Lisinopril (PRINIVIL) 2.5 MG DAILY PO Loratadine (CLARITIN) 10 MG DAILY PO Enoxaparin Sodium (LOVENOX) 40 MG 0600 SUBQ Amiodarone HCl (CORDARONE) 200 MG BID PO Carvedilol (COREG) 3.125 MG BID PO Hydralazine HCl (APRESOLINE) 10 MG Q4H PRN PRN I V Albuterol/Ipratropium (DUONEB 2.5-0.5 MG/[address]) 3 ML RTQ6H PRN PRN INH Acetaminophen (TYLENOL) 650 MG Q6H PRN PRN PO Acetaminophen (TYLENOL) 650 MG Q6H PRN PRN RECTA L Sodium Chloride (SODIUM CHLORIDE 0.9%) 250 ML HORACE AMANDA PRN IV Dietitian nutrition assessment The data set between the solid lines has been im ported from the dietitian's assessment. BMI Calculated: 20.1 Nutrition related diagnosis: Nutrition diagnosis details: Nutrition problem: Nutrition etiology: Nutrition signs and symptoms: Nutrition prescription: Dietitian name: Assessment completed: Physical Exam General appearance: alert, awake, no acute distr ess, pleasant, conversational Head/Eyes: atraumatic, clear cornea, normocephal ic ENT: moist mucosal membranes, normal nose, mimi l pharynx Cardiovascular: pacemaker, normal heart sounds, regular rate rhythm Respiratory: aerating well, clear to auscultatio n, symmetric expansion, no distress Abdomen: non-tender, soft, no distention Extremities: moves all, no cyanosis, no edema Neuro/RV REPAIRER: abnormal speech (soft and hoarse; dys phonic), alert, oriented X 3, decreased sensation in LUE, LLE, and L side of the face; 5/5 strength in BUE, 5- /5 strength in LLE, 5/5 strength in RLE Skin: dry, normal temperature Psychiatry: normal affect, normal judgment/insig ht Results Findings/Data: Laboratory Tests 01/01 1512 Chemistry Troponin I (0.012 - 0.033 NG/ML) < 0.012 L Radiology data: Recent Impressions: CAT SCAN - CT HEAD/BRAIN W/O CONT 01/02 1100 Report Impression - Status: SIGNED Entered: 01/02/2023 2279 IMPRESSION: 1. No acute intracranial abnormality. No acute h emorrhage, mass lesion or infarct. 2. Chronic small vessel ischemic white matter di sease. Impression By: Alvarez Interiano M.D. Results: labs reviewed, vital signs reviewed Diagnosis, Assessment Plan Problem List/A P: 1. Left-sided weakness 2. Carotid artery stenosis 3. Unstable angina 4. Chronic systolic heart failure 5. Paroxysmal atrial fibrillation 6. Osteoarthritis, multiple sites 7. BPH (benign prostatic hyperplasia) 8. Coronary artery disease 9. HLD (hyperlipidemia) 10. HTN (hypertension) 11. H/O two vessel coronary artery bypass graft 12. S/P implantation of automatic cardioverter/ defibrillator (AICD) 13. Thrombocytopenia Free Text DxA P Notes Free text DxA P notes: The patient is an 87-year-old male with a PMH of coronary artery disease s/p cardiac bypass, CHF s/p AICD placement, BPH, paroxysmal atrial fibrillation s/p watchmen, HLD, HTN, COPD, former smoker, and ost eoarthritis who is presenting with L sided weakness. He was admitted for strok e work-up and evaluation. Plan: 12/31/2022 - admit to IMU with telemetry monitoring - CT head at outside facility did not reveal any acute abnormalities - MRI brain and CTA head/neck ordered and pendin g - echo and carotid doppler ultrasound ordered an d pending - Neurology, Dr. Paredes, and cardiology, Dr. Ibarra consulted - full dose asprin 325 and statin ordered - PT/OT/ST consulted - Lipid profile and HbA1c pending - continue home medications 01/01/2023 - episode of chest pain this morning, possibly u nstable angina - troponin negative, follow-up on repeat troponi n - EKG revealed no ST changes - will hold off on giving full dose therapeutic lovenox due to concern for possible ischemic stroke - CTA head/neck 60% stenosis in the righ t carotid bulb and high-grade stenosis in the proximal left ICA (above the carotid bulb ). - continue aspirin, reduce dose of atorvasatin t o 40 mg daily due to elevated liver enzymes - Dr. Kruse consulted for possible carotid end arartectomy - MRI brain, carotid doppler and echocardiogram pending - Dr. Paredes (neurology) following - miralax and colace ordered for constipation - lidoderm patch ordered for neck pain 01/02/2023: - patient continues to have some L sided weakness, but has improved on physical examination - no additional episodes of chest pain today, se rial troponins negative, EKG showed no acute changes - Repeat CT ordered by neurology and it showed n o acute intracranial abnormality. No acute hemorrhage, mass l esion or infarct; chronic small vessel ischemic white matter disease. - MRI pending, [employer] rep coming on Wednesday si nce patient has a pacemaker - carotid ultrasound pending - lactulose x1 for constipation, continue colace and miralax - dc esparza and place condom cath to mini angelica infection risk; patient unsure if will be able to void in urinal due to weakness - consulted for SNF; would like for henry ent to go to [facility] - continue aspirin, statin, and plavix - continue PT/OT - appreciate any additional recommendations from neurology Dr. Paredes Diet: cardiac (minced and moist) DVT prophylaxis: lovenox Code: DNI Quality: Gen Med Crit Care VTE Prophylaxis VTE prophylaxis initiated: yes Current Medications Current medication review: I attest that the foregoing medication list in t he medical record is true, accurate, and complete to the best of my knowled ge. Advanced Care Plan 65 or Older Discussed with: patient, other (family) Discussion included: code status Attestations Attestation needed: teaching physician Cuate Richard 01/02/23 1500: Objective Results Radiology data: Recent Impressions: CAT SCAN - CT HEAD/BRAIN W/O CONT 01/02 1100 Report Impression - Status: SIGNED Entered: 01/02/2023 6169 IMPRESSION: 1. No acute intracranial abnormality. No acute h emorrhage, mass lesion or infarct. 2. Chronic small vessel ischemic white matter di sease. Impression By: Alvarez Interiano M.D. Attestations Teaching Physician Attestation F/U visit w/ resident: I saw the patient with the resident and . . . agree with the resident's fi ndings and plan. MRI head could not be arranged due too [employer] tech's availability. Famil y wants SNF at [facility]. Repeat CT head no obvios stroke, but pt still has feeli ng of heaviness LUE.> LLE. Dysphonia stable, DW Electronically Signed by Armida Deluca MD R1 on 0 01/02/23 at 1457 Electronically Signed by Cuate Richard MD on at 1502 RPT #:[id number] END OF REPORT 2023-01-01 [id number] [facility] 20:35:00-00:00 [address] [place] [address] PATIENT NAME: ROM LYNN ADMIT DATE: ACCOUNT NO: [id number] ROOM NO: [facility] AGE: 87 REPORT TYPE: PROGRESS NOTE SEX: M ADMITTING PHYSICIAN:Pritesh Ospina MD ATTENDING PHYSICIAN:Pritesh Ospina MD DATE: 01/01/2023 SUBJECTIVE: He is doing well, seems slig htly improved, tells me his left-sided weakness is also improved. OBJECTIVE: On examination, he is indeed stronger on the left, now graded 4+/5. LABORATORY DATA: There have been no pertinent la bs since I last saw him. His MRI could not be completed a s the [employer] technicians could not come to assist with his pacemaker today. ASSESSMENT AND RECOMMENDATIONS: In summary, this 87-year-old man with a past medical history of multiple medical problems, de veloped the sudden onset of left-sided weakness as he woke up on the day of admission. He is slowly improving. He was on clopidogrel and aspirin was added to his regimen. An MRI of the brain has been ordered, but likely would not be done until 3 days from now when the [employer] rep can come and assist w ith the pacemaker. I will obtain a CT scan of the brai n. I am hoping that this will visualize the stroke. He and his seemed to be eager to return rasheeda e. He is doing well enough that I think we should be able to do that over t he weekend. His high-grade carotid stenosis can be managed as an outpatient . Dictated By: Qing Daley MD Date Dictated: 01/01/2023 20:35:05 Date Transcribed: 01/01/2023 21:21:12 /[facility] Receipt ID: [id number] Authenticated and Edited by Qing Daley MD O n 02/14/23 9:35:02 PM Electronically Signed by Qing Daley MD on 0 02/14/23 at 0937 PATIENT NAME: ROM LYNN [id number] 2023-01-01 [id number] [facility] 17:37:00-00:[address] [place] [address] PATIENT NAME: ROM LYNN ADMIT DATE: ACCOUNT NO: [id number] ROOM NO: [facility] AGE: 87 REPORT TYPE: ECHOCARDIOGRAM SEX: M ADMITTING PHYSICIAN:Cuate Richard MD ATTENDING PHYSICIAN:Cuate Richard MD *[facility]* [address] [place] [address] Transthoracic Echocardiogram Patient: Rom Lynn Study Date: 01/01/2023 BP: 139 / 67 Location: [facility] URN: [id number] : 1935 Age: 87 Height: / Gender: M Weight: / BMI/BSA: / *Ordering Physician: * Kali Nguyen MD *Interpreting Physician: * Kali Nguyen MD *Cullet Washer: Albertina Irwin Indications: CAD,CVA. Study data: Transthoracic echocardiogram. Proced ure: Transthoracic echocardiography was performed. Images were obta ined using a ThromboVision cardiac ultrasound machine. Image quality was adequate. M-mode, complete 2D, complete spectral Doppler, and color Doppler. Lo cation: Bedside. Patient status: Inpatient. Patient room number: 350. Study status: Routine. Findings Left ventricle: The cavity size is mildly dilate d. Wall thickness is normal. Systolic function is mildly reduced. The estimated ejection fraction is 40-44%. Mild diffuse hypokinesis. Do ppler parameters are consistent with abnormal left ventricular relaxa tion (grade 1 diastolic dysfunction). Right ventricle: Well visualized. The cavity siz e is normal. Wall thickness is normal. Systolic function is normal . Ventricular septum: Well visualized. PATIENT NAME: ROM LYNN [id number] Left atrium: Well visualized. The atrium is mild ly dilated. Right atrium: Well visualized. The atrium is mil dly dilated. Atrial septum: Well visualized. No defect or pat ent foramen ovale is identified. Aorta: The aorta is well visualized. Aortic valve: Well visualized. The valve is tril eaflet. The leaflets are severely calcified. There is no evidence of stenosis. There is mild to moderate regurgitation. Mitral valve: Well visualized. The annulus is mo derately to severely calcified. The leaflets are normal thickness. Th ere is no evidence of stenosis. There is severe regurgitation. Tricuspid valve: Well visualized. The leaflets a re normal thickness. There is no evidence of stenosis. There is mild- moderate regurgitation. Pulmonic valve: Well visualized. The leaflets ar e normal thickness. There is no evidence of stenosis. There is mild regurgitation. Pericardium: There is no pericardial effusion. N o evidence of pleural fluid accumulation. Systemic veins: Inferior vena cava: Poorly visualized. Measurements Left ventricle Value Ref GEMMA, LAX 5.9 cm 4.2 - 5.8 ESD, LAX 4.7 cm 2.5 - 4.0 FS, LAX 20 % 25 - 43 PW, ED 1.1 cm 0.6 - 1.0 PW, ES 1.5 cm IVS/PW, ED 1.05 EF 40 % 52 - 72 E/e', avg, TDI 24 <=14 LVOT Value Ref Diam, S 2.23 cm Area 3.9 cm 2 Peak jessica, S 0.75 m/sec Mean jessica, S 0.44 m/sec VTI, S 15.3 cm Peak grad, S 2 mm Hg Mean grad, S 1 mm Hg SV 60 ml Qs 3.52 L/min Ventricular septum Value Ref IVS, ED 1.2 cm 0.6 - 1.0 IVS, ES 1.5 cm Right ventricle Value Ref GEMMA, LAX 3.3 cm Pressure, S 10 mm Hg RVOT Value Ref PATIENT NAME: ROM LYNN [id number] Peak v, S 0.58 m/sec Peak grad, S 1 mm Hg Left atrium Value Ref AP dim, ES 4.17 cm 3.00 - 4.00 AP dim, ES MM 4.6 cm 3.0 - 4.0 LA/Ao root ratio, MM 1.25 Aortic valve Value Ref Leaflet sep, MM 1.99 cm Peak v, S 1.81 m/sec Mean v, S 1.22 m/sec VTI, S 42.4 cm Mean grad, S 6.7 mm Hg Peak grad, S 13.1 mm Hg LVOT/AV, VTI ratio 0.36 YAZMIN, VTI 1.41 cm 2 LVOT/AV, Vpeak ratio 0.42 YAZMIN, Vmax 1.62 cm 2 AR peak v 2.75 m/sec AR decel 228 cm/s 2 AR decel time 1204 ms AR PHT 349 ms AR peak grad 30 mm Hg Mitral valve Value Ref Peak E 1.2 m/sec Peak A 0.21 m/sec Mean v, D 0.61 m/sec VTI leaflet coapt 32.1 cm Decel time 327 ms PHT 85 ms Mean grad, D 1.9 mm Hg Peak grad, D 6.4 mm Hg Peak E/A ratio 5.8 MVA, PHT 2.6 cm 2 MR peak v 4.56 m/sec Pulmonic valve Value Ref GA peak v 2.37 m/sec GA peak grad 22 mm Hg GA v, ED 0.59 m/sec GA decel time 1239 ms GA PHT 359 ms Tricuspid valve Value Ref TR peak v 2.66 m/sec <=2.8 Peak RV-RA grad, S 28 mm Hg Aortic root Value Ref Root diam 3.7 cm Root diam, ED MM 3.68 cm Pulmonary artery Value Ref PATIENT NAME: ROM LYNN [id number] Pressure, S 3.9 mm Hg Systemic veins Value Ref Estimated CVP 10 mm Hg Conclusions Summary: 1. Left ventricle: The cavity size is mildly dil ated. Wall thickness is normal. Systolic function is mildly reduced. Th e estimated ejection fraction is 40-44%. Mild diffuse hypokinesis. D oppler parameters are consistent with abnormal left ventricular relax ation (grade 1 diastolic dysfunction). 2. Left atrium: The atrium is mildly dilated. 3. Right atrium: The atrium is mildly dilated. 4. Atrial septum: No defect or patent foramen ov emil is identified. 5. Aortic valve: There is mild to moderate regur gitation. 6. Mitral valve: The annulus is moderately to se verely calcified. The leaflets are normal thickness. There is severe regurgitation. 7. Tricuspid valve: There is mild-moderate regur gitation. Prepared and electronically signed by Kali Nguyen MD 01/01/2023 17:36 at 1737 PATIENT NAME: ROM LYNN [id number] 2023-01-01 [id number] [facility] 11:43:00-00:[address] [place], [place] [id number] PATIENT NAME: ROM LYNN ADMIT DATE: ACCOUNT NO: [id number] ROOM NO: Z.350 AGE: 87 REPORT TYPE: ELECTROCARDIOGRAM SEX: M ADMITTING PHYSICIAN:Cuate Richard MD ATTENDING PHYSICIAN:Cuate Richard MD Order: [id number] Test Reason : CAD Test Date/Time Stamp: WedJan 01 2023 11:43:39 Blood Pressure : / mmHG Vent. Rate : 060 BPM Atrial Rate : 051 BPM P-R Int : 122 ms QRS Dur : 184 ms QT Int : 556 ms P-R-T Axes : 000 -76 122 degree s QTc Int : 556 ms AV dual-paced rhythm Abnormal ECG No significant change was found Confirmed by KALI NGUYEN ([id number]) on 01/01/2023 2:01:42 PM Referred By: Cuate Richard Confirmed by:KALI EAST at 1401 PATIENT NAME: ROM LYNN [id number] 2023-01-01 [id number] [facility] 08:20:00-00:[address] [place] [address] PATIENT NAME: ROM LYNN ADMIT DATE: ACCOUNT NO: [id number] ROOM NO: Z.350 AGE: 87 REPORT TYPE: CONSULTATION REPORT SEX: M ADMITTING PHYSICIAN:Pritesh Ospina MD ATTENDING PHYSICIAN:Pritesh Ospina MD CONSULTATION DATE: 01/01/2023 REFERRING PHYSICIAN: Cuate Richard MD REASON FOR CONSULTATION: I was asked to evaluate this patient for cardiac issues. HISTORY OF PRESENT ILLNESS: 1. This is an 87-year-old male with a history of coronary artery disease, status post aortocoronary bypass, ischemic cardi omyopathy, status post AICD. 2. Paroxysmal atrial fibrillation, status post W atchman in June 2022. 3. Hyperlipidemia. 4. Hypertension. 5. Chronic obstructive pulmonary disease . The patient stated he woke yesterday morning at approximately 06: 30 a.m. and noted weakness on his left side. He had trouble getting out of bed. He could not brick picker objects. He currently feels somewhat better. He has no leg weakness now. He still has difficulty grasping objects with his left hand or nose pointing with his left finger. He had no chest pain or shortness of breath. He initially presented to the [facility], a CT head showed no significant findin gs. PAST MEDICAL HISTORY: 1. Coronary artery disease, status post aortocor onary bypass. 2. Ischemic cardiomyopathy, status post AICD. 3. Paroxysmal atrial fibrillation, status post W atchman device June 2022. A 6-week post-Watchman KRISTY could not be performed due to inability to pass the transesophageal probe. 4. Hyperlipidemia. 5. Hypertension. 6. COPD. 7. Osteoarthritis. 8. The patient also complains of vocal hoarsenes s. He states approximately 6 weeks ago, he had acute onset of difficulty spea alyssa. He only speaks in a whisper now. He is following ENT for evaluation. PAST SURGICAL HISTORY: 1. Status post TURP, status post bilateral catar act extraction. 2. Status post right hip replacement. 3. Status post laparoscopic cholecystectomy. 4. Status post AICD. FAMILY HISTORY: Positive for abdominal aortic an eurysm rupture in his father. PATIENT NAME: ROM LYNN [id number] SOCIAL HISTORY: Former smoker. No alcohol. ALLERGIES: PENICILLIN. HOME MEDICATIONS: Fexofenadine, DuoNeb, tiotropi um, , clopidogrel 75 mg daily, amiodarone 200 mg twice daily, carvedilol 3.125 mg twice daily, lisinopril 2.5 mg daily, niacin, rosuvastatin, a spirin, Singulair, Restasis, omeprazole, magnesium, VESIcare, ascorbic acid, multivitamin, vitamin E, finasteride, and loratadine. PHYSICAL EXAMINATION: GENERAL: Elderly male, in no acute distress. VITAL SIGNS: Blood pressure of 139/67, p ulse of 60, respiratory rate of 21, O2 sats of 97%, and temperature of 97.7. ENMT: Atraumatic and normocephalic. RESPIRATORY: Normal effort. Clear to auscultatio n bilaterally. CARDIOVASCULAR: Normal S1 and S2. No S3 or S4. NECK: JVP is normal. There is no carotid bruits. EXTREMITIES: No edema. NEUROLOGIC: There is left upper extremity weakne ss. Left lower extremity appears to have normal strength. LABORATORY DATA AND DIAGNOSTIC STUDIES: White bl ood cell count of 5.9, hemoglobin of 12.8, and platelets of 119. Sodium of 136, potassium of 4.2, chloride of 105, CO2 of 26, BUN of 15, creatinine of 0.6, and glucose of 87. LDL of 37 and triglycerides of 105. CTA of the neck shows a high-grade stenosis of t he proximal left internal carotid artery. A 60% stenosis of the right orantes tid bulb. No intracranial proximal branch occlusion or flow-limiting steno sis. IMPRESSION: Probable cerebrovascular accident. D iscussion with the patient and his revealed they were not taki ng the recommended regimen of aspirin 81 mg daily with clopidogrel 75 mg daily , post-Watchman implant. The aspirin was not being taken daily. RECOMMENDATIONS: 1. Aspirin 81 mg daily with clopidogrel 75 mg da uziel. 2. Home medications. 3. Neurology followup. Dictated By: Willie Hollins MD Date Dictated: 01/01/2023 08:20:14 Date Transcribed: 01/01/2023 09:29:06 P/[place] [place]: [id number] Authenticated by Willie Hollins MD On 01/05/20 12:42:57 PM PATIENT NAME: ROM LYNN [id number] at 1242 PATIENT NAME: ROM LYNN [id number] 2023-01-01 [facility] 06:46:00-00:00 [facility] ([facility]) Hospitalist Progress Note REPORT#:[id number] REPORT STATUS: Signed DATE:01/01/23 TIME: 06 PATIENT: ROM LYNN UNIT #: [id number] ROOM/BED: [address] : [birth year] AGE: 87 SEX: M ATTEND: Cuate Richard MD ADM AUTHOR: Armida Deluca MD R1 * ALL edits or amendments must be made on the Deenty/computer document * Armida Deluca 01/01/23 0646: Subjective Chief complaint: L sided weakness HPI: The patient reports that he had an episode of ch est pain this morning that lasted about 10-15 minutes. He ofelia SOB. The patient states that he still feels weakness on his left side. However, on examinati on, the patient's strength on the left side has improved and is simila r to the right side. He is also having neck pain due to his arthritis. He also has not had a bowel movement in 3 days and is constipated. Review of Systems Constitutional: Denies: chills, fatigue, fev er, generalized weakness, lethargy, malaise, recent wt loss. Respiratory: Denies: SOB. Cardiovascular: Reports: chest pain. GI: Reports: constipation. Denies: abdominal pain, n ausea, vomiting. Musculoskeletal: Reports: neck pain. Neuro: Reports: focal weakness (L-sided). All systems rev neg: except as noted Objective General VS/I O: Vital Signs: Date Time Temp Pulse Resp B/P B/P Pulse O2 O2 F low FiO2 Mean Ox Delivery Rate 01/01 1129 36.7 01/01 0608 60 15 95 01/01 0600 60 21 139/67 97 97 01/01 0500 60 24 130/70 95 96 01/01 0400 60 23 124/60 87 93 01/01 0324 36.5 01/01 0300 60 22 123/61 85 95 01/01 0208 60 20 96 01/01 0200 60 127/61 88 96 01/01 0100 60 13 112/55 79 94 01/01 0045 60 18 94 01/01 0000 60 28 131/63 90 96 12/31 2318 37.0 12/31 2300 60 17 133/63 91 95 12/31 2200 60 15 128/63 90 96 12/31 2129 60 15 96 12/31 2100 60 16 120/62 85 96 12/31 2000 60 19 135/66 95 97 12/31 1916 36.5 12/31 1900 60 18 131/62 89 97 12/31 1854 94 Room air 21 12/31 1806 60 21 133/63 90 98 12/31 1700 60 15 147/68 98 98 12/31 1601 60 21 151/67 96 99 12/31 1500 60 22 157/76 109 99 24 hour I O ending at 0700: 01/01 0700 12/31 1900 Intake Total 100 1000 Output Total 1000 1025 Balance -900 -25 Intake, Oral 100 1000 Output, Urine 1000 1025 PATIENT WEIGHT: Weight (lb): 140 Weight (oz): 3.42 Weight (kg): 63.600 Medications: Active Meds + DC'd Last 24 Hrs Lidocaine (LIDODERM 5% PATCH) 1 PATCH DAILY TOPI BREANA (DC) Atorvastatin Calcium (LIPITOR) 40 MG BEDTIME PO Lidocaine (LIDODERM 5% PATCH) 1 PATCH DAILY TOPI BREANA Polyethylene Glycol (MIRALAX) 17 GM DAILY PO Docusate Sodium (COLACE) 100 MG DAILY PO Meloxicam (MOBIC) 7.5 MG DAILY PO Ascorbic Acid (ASCORBIC ACID, VIT C) 500 MG BILLY Y PO Aspirin (CHILDREN'S ASPIRIN) 81 MG DAILY PO Clopidogrel Bisulfate (PLAVIX) 75 MG DAILY PO Finasteride (PROSCAR) 5 MG DAILY PO Lisinopril (PRINIVIL) 2.5 MG DAILY PO Loratadine (CLARITIN) 10 MG DAILY PO Enoxaparin Sodium (LOVENOX) 40 MG 0600 SUBQ Amiodarone HCl (CORDARONE) 200 MG BID PO Atorvastatin Calcium (LIPITOR) 80 MG BEDTIME PO (DC) Carvedilol (COREG) 3.125 MG BID PO Rosuvastatin Calcium (CRESTOR) 10 MG BEDTIME PO (CAN) Hydralazine HCl (APRESOLINE) 10 MG Q4H PRN PRN I V Albuterol/Ipratropium (DUONEB 2.5-0.5 MG/[address]) 3 ML RTQ6H PRN PRN INH Aspirin (CHILDREN'S ASPIRIN) 81 MG DAILY PO (DC) Aspirin (ASPIRIN) 325 MG NOW ONE PO (DC) Iopamidol (ISOVUE-370) 0 .STK-MED ONE IV (DC) Iopamidol (ISOVUE-300) 0 .STK-MED ONE IV (DC) Acetaminophen (TYLENOL) 650 MG Q6H PRN PRN PO Acetaminophen (TYLENOL) 650 MG Q6H PRN PRN RECTA L Sodium Chloride (SODIUM CHLORIDE 0.9%) 250 ML HORACE AMANDA PRN IV Dietitian nutrition assessment The data set between the solid lines has been im ported from the dietitian's assessment. BMI Calculated: 20.1 Nutrition related diagnosis: Nutrition diagnosis details: Nutrition problem: Nutrition etiology: Nutrition signs and symptoms: Nutrition prescription: Dietitian name: Assessment completed: Physical Exam General appearance: frail, alert, awake, no acut e distress, no respiratory distress Head/Eyes: atraumatic, clear cornea, normocephal ic ENT: moist mucosal membranes, normal nose, mimi l pharynx Cardiovascular: pacemaker, normal heart sounds, regular rate rhythm Respiratory: aerating well, clear to auscultatio n, symmetric expansion, no distress Abdomen: non-tender, soft, no distention Extremities: moves all, no cyanosis, no edema, l imited ROM of LLE Neuro/RV REPAIRER: abnormal speech (soft and hoarse; dys phonic), alert, oriented X 3, decreased sensation in LUE, LLE, and L side of the face; increased tone in LLE; 5/5 strength in BUE, 5/5 strength in BLE Skin: dry, normal temperature Psychiatry: normal affect, normal judgment/insig ht Results Findings/Data: Laboratory Tests 01/01 0440 1609 Chemistry Sodium (137 - 145 MMOL/L) 136 L 138 Potassium (3.5 - 5.1 MMOL/L) 4.2 3.9 Chloride (98 - 107 MMOL/L) 105 104 Carbon Dioxide (22 - 30 MMOL/L) 26 26 Anion Gap (14 - 24 MMOL/L) 9 L 12 L BUN (9 - 20 MG/DL) 15 14 Creatinine (0.66 - 1.25 MG/DL) 0.60 L 0.60 L Glomerular Filtr Rate > 60 > 60 Glucose (74 - 106 MG/DL) 87 83 Mean Blood Glucose (70 - 110 MG/DL) 105 Hemoglobin A1c (4.8 - 5.9 %) 5.3 Calcium (8.4 - 10.2 MG/DL) 8.7 8.7 Phosphorus (2.5 - 4.5 MG/DL) 3.6 Magnesium (1.6 - 2.3 MG/DL) 2.0 Total Bilirubin (0.2 - 1.3 MG/DL) 1.0 0.9 AST (17 - 59 UNITS/L) 63 H 42 ALT (0 - 49 UNITS/L) 56 H 41 Total Alk Phosphatase (38 - 126 UNITS/L) 75 80 Troponin I (0.012 - 0.033 NG/ML) < 0.012 L Total Protein (6.2 - 7.6 G/DL) 6.0 L 6.5 Albumin (3.5 - 5.0 G/DL) 3.4 L 3.4 L Triglycerides (150 - 199 MG/DL) 105 L Cholesterol (<200 MG/DL) 119 LDL Cholesterol Measurd (0 - 99 MG/DL) 37 HDL Cholesterol (40 - 59 MG/DL) 44 12/31 1531 Chemistry POC Glucose (60 - 99 MG/DL) 83 Laboratory Tests 01/010 1609 Hematology WBC (3.8 - 9.8 K/MM3) 5.9 6.1 RBC (3.95 - 5.67 M/MM3) 4.14 4.05 Hgb (12.4 - 16.7 G/DL) 12.8 12.7 Hct (35.9 - 49.5 %) 38.4 38.6 MCV (81.7 - 96.1 fL) 93 95 MCH (27.6 - 33.2 pg) 30.9 31.4 MCHC (32.9 - 35.5 %) 33.3 32.9 RDW (12.1 - 15.2 %) 15.1 15.4 H Plt Count (129 - 368 K/MM3) 119 L 114 L MPV (7.4 - 10.4 fl) 9.1 8.9 Neut % (Auto) (43 - 75 %) 73.7 69.7 Lymph % (Auto) (14 - 44 %) 12.6 L 16.1 Bremer % (Auto) (4 - 13 %) 10.9 12.0 Eos % (Auto) (0 - 6 %) 2.0 1.6 Baso % (Auto) (0 - 2 %) 0.5 0.3 Neut # (Auto) (2.0 - 7.6 K/mm3) 4.37 4.25 Lymph # (Auto) (1.0 - 3.8 K/mm3) 0.75 L 0.98 L Bremer # (Auto) (0.1 - 0.8 K/mm3) 0.65 0.73 Eos # (Auto) (0.0 - 0.2 K/mm3) 0.12 0.10 Baso # (Auto) (0.0 - 0.2 K/mm3) 0.03 0.02 Immature Gran % (0.0 - 2.0 %) 0.3 0.3 Nucleated RBC % (0 - 1.0 %) 0.0 0.0 Nucleated RBCs # (Man) (0.0 - 0.1 K/mm3) 0.00 0 .00 Laboratory Tests 01/01 0650 Urines Urine Color (YELLOW) YELLOW Urine Appearance (CLEAR) CLEAR Urine pH (5.0 - 9.0) 5.0 Ur Specific Bena (1.003 - 1.030) 1.020 Urine Protein (NEGATIVE MG/DL) 30 H Urine Glucose (UA) (NORMAL MG/DL) NORMAL Urine Ketones (NEGATIVE MG/DL) 5 Urine Blood (NEGATIVE Chaka/mm3) 250 H Urine Nitrite (NEGATIVE) NEGATIVE Urine Bilirubin (NEGATIVE MG/DL) NEGATIVE Urine Urobilinogen (NORMAL MG/DL) 1 H Ur Leukocyte Esterase (NEGATIVE /mm3) NEGATIVE Urine RBC (0 - 3 RBC/HPF) 40-50 H Urine WBC (0 - 5 WBC/HPF) 0-3 Ur Epithelial Cells (FEW EPI/HPF) RARE Urine Bacteria (NONE) RARE Radiology data: Recent Impressions: CAT SCAN - CT ANGIO NECK W WO CONT 01/01 1740 Report Impression - Status: SIGNED Entered: 12/31/20221917 IMPRESSION: 60% stenosis by NASCET criteria in the right car otid bulb. High-grade stenosis in the proximal left ICA (ab ove the carotid bulb). No intracranial proximal branch occlusion or shaniqua w-limiting stenosis. All qualitative and quantitative assessments of carotid bifurcation and proximal internal carotid artery stenosis ar e made referencing the distal internal carotid artery {NASCET criteria} .) Impression By: Chandan Rosario MD CAT SCAN - CT ANGIO HEAD 01/01 1740 Report Impression - Status: SIGNED Entered: 12/31/20221917 IMPRESSION: 60% stenosis by NASCET criteria in the right car otid bulb. High-grade stenosis in the proximal left ICA (ab ove the carotid bulb). No intracranial proximal branch occlusion or shaniqua w-limiting stenosis. All qualitative and quantitative assessments of carotid bifurcation and proximal internal carotid artery stenosis ar e made referencing the distal internal carotid artery {NASCET criteria} .) Impression By: Chandan Rosario MD Results: labs reviewed, vital signs reviewed Diagnosis, Assessment Plan Problem List/A P: 1. Left-sided weakness 2. Carotid artery stenosis 3. Unstable angina 4. Chronic systolic heart failure 5. Paroxysmal atrial fibrillation 6. Osteoarthritis, multiple sites 7. BPH (benign prostatic hyperplasia) 8. Coronary artery disease 9. HLD (hyperlipidemia) 10. HTN (hypertension) 11. H/O two vessel coronary artery bypass graft 12. S/P implantation of automatic cardioverter/ defibrillator (AICD) 13. Thrombocytopenia Free Text DxA P Notes Free text DxA P notes: The patient is an 87-year-old male with a PMH of coronary artery disease s/p cardiac bypass, CHF s/p AICD placement, BPH, paroxysmal atrial fibrillation s/p watchmen, HLD, HTN, COPD, former smoker, and ost eoarthritis who is presenting with L sided weakness. He was admitted for strok e work-up and evaluation. Plan: 12/31/2022 - admit to IMU with telemetry monitoring - CT head at outside facility did not reveal any acute abnormalities - MRI brain and CTA head/neck ordered and pendin g - echo and carotid doppler ultrasound ordered an d pending - Neurology, Dr. Paredes, and cardiology, Dr. Ibarra consulted - full dose asprin 325 and statin ordered - PT/OT/ST consulted - Lipid profile and HbA1c pending - continue home medications 01/01/2023 - episode of chest pain this morning, possibly u nstable angina - troponin negative, follow-up on repeat troponi n - EKG revealed no ST changes - will hold off on giving full dose therapeutic lovenox due to concern for possible ischemic stroke - CTA head/neck 60% stenosis in the righ t carotid bulb and high-grade stenosis in the proximal left ICA (above the carotid bulb ). - continue aspirin, reduce dose of atorvasatin t o 40 mg daily due to elevated liver enzymes - Dr. Kruse consulted for possible carotid end arartectomy - MRI brain, carotid doppler and echocardiogram pending - Dr. Paredes (neurology) following - miralax and colace ordered for constipation - lidoderm patch ordered for neck pain Diet: cardiac (minced and moist) DVT prophylaxis: lovenox Code: DNI Quality: Gen Med Crit Care VTE Prophylaxis VTE prophylaxis initiated: yes Current Medications Current medication review: I attest that the foregoing medication list in t he medical record is true, accurate, and complete to the best of my knowled ge. Advanced Care Plan 65 or Older Discussed with: patient, other (family) Discussion included: code status Attestations Attestation needed: teaching physician Cuate Richard 01/01/23 1320: Attestations Teaching Physician Attestation F/U visit w/ resident: I saw the patient with the resident and . . . agree with the resident's findings and p li. 87 y/o male admitted w left sided weakness CTA noted. DR kruse consulted, caromavis ds pend. C/O chest pain today trop pend. Thrombocytopenia at baseline Electronically Signed by Armida Deluca MD R1 on 0 01/01/23 at 1434 Electronically Signed by Cuate Richard MD on at 1502 [facility] #:[id number] END OF REPORT 2023-01-01 [id number] [facility] 00:12:00-00:[address] [place] [id number] PATIENT NAME: ROM LYNN ADMIT DATE: ACCOUNT NO: [id number] ROOM NO: Z.512 AGE: 87 REPORT TYPE: PROGRESS NOTE SEX: M ADMITTING PHYSICIAN:Pritesh Ospina MD ATTENDING PHYSICIAN:Pritesh Ospina MD DATE: 12/31/2022 CARDIAC SURGERY SERVICE The patient is seen at the bedside in the IM. The patient currently is stable. The patient admitted to the hosp ital with left sided stroke on imaging of the carotid artery. 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 We evaluated the patient. The patient will need to recover from his CVAs. With his adequate functional r ecovery, we will plan for left carotid endarterectomy. This was discussed with the henry ent's family at the bedside. Dictated By: Joesph Kruse MD Date Dictated: 01/01/2023 00:12:47 Date Transcribed: 01/01/2023 01:10:21 LENY/MONICA/THAD Receipt ID: [id number] Authenticated by Joesph Kruse MD On 023 11:47:01 AM at 1147 PATIENT NAME: ROM LYNN [id number] 2022-12-31 [id number] [facility] 20:34:00-00:[address] [place] [address] PATIENT NAME: ROM LYNN ADMIT DATE: ACCOUNT NO: [id number] ROOM NO: Z.512 AGE: 87 REPORT TYPE: CONSULTATION REPORT SEX: M ADMITTING PHYSICIAN:Pritesh Ospina MD ATTENDING PHYSICIAN:Pritesh Ospina MD CONSULTATION DATE: 12/31/2022 REFERRING PHYSICIAN: Cuate Richard MD REASON FOR CONSULTATION: Left-sided weakness. HISTORY OF PRESENT ILLNESS: The patient is an 87 -year-old man, with a past medical history of coronary artery disease, hypertension, hyperlipidemia, COPD, history of paroxysmal atrial fibrillation, statu s post Watchman procedure. He also has a defibrillator and pacemaker. Six joyce hs ago, he developed severe hoarseness of his voice and was seen by ENT. He was diagnosed with some type of abnormality in his vocal cords and was advised t o go get some injections by a physician in the [facility]. He has not done that yet. He was feeling fine last night and went to bed about 9 or 9: 30 p.m. When he awoke this morning, he could not get independently out of bed, felt his left side to be exceedingly weak. His called 911 and he was transported to an outside hospital where he was transferred here for higher level of care . A CT scan of the brain was unrevealing. PAST MEDICAL HISTORY: As above. PAST SURGICAL HISTORY: Noncontributory. MEDICATIONS: Please see medication list. ALLERGIES: HE IS ALLERGIC TO PENICILLIN. SOCIAL HISTORY: Otherwise noncontributory. FAMILY HISTORY: Noncontributory. PHYSICAL EXAMINATION: VITAL SIGNS: Blood pressure is 131/62, pulse is 60, respirations are 18, temperature is 36.5. GENERAL APPEARANCE: Elderly male, lying in bed, in no acute distress. HEENT: Head is atraumatic, normocephalic. NECK: Supple. LUNGS: Clear and resonant to auscultation. HEART: Reveals normal S1, S2 with no murmur, rub , or gallop. ABDOMEN: Soft. EXTREMITIES: Without cyanosis, clubbing, or eva a. NEUROLOGIC: He is alert and oriented. His speech is very hoarse, intelligible PATIENT NAME: ROM LYNN [id number] with difficulty. He maintained adequate attentio n span and short-term memory throughout this interview. C ranial nerve examination reveals normal extraocular range of motion. No facial asymmetry or paresis, normal sensation in all 3 branches of trigeminal nerve. Motor examination reveals normal strength throughout the right side. He has mild weakness throughout the left, graded 4/5. Sensory examination does not reveal any hem isensory loss. There is no reflex asymmetry. PERTINENT LABORATORY DATA: His initial CBC is un remarkable. His initial comprehensive metabolic profile reveals fairly n ormal electrolytes. CT of the head and the neck were done and revealed 60% stenosis in the right carotid bulb. There is high-grade stenosis in the proximal lef t internal carotid artery. ASSESSMENT AND RECOMMENDATIONS: In summary, this 87-year-old man with past medical history of multiple medical problems, de veloped the sudden onset of left-sided weakness as he woke up this morning. He seems to be improving. His examination reveals some weakness on the left side, graded about 4/5. He is on clopidogrel. I suspect a small lacunar s troke, possibly in the pascual. An MRI of the brain has been ordered. His pacemaker is glory te likely MRI compatible. He has been started on aspirin in addition to his clopidogrel. He may end up being a good inpatient rehab candidate. Thank you for this consultation. Dictated By: Qing Daley MD Date Dictated: 12/31/2022 20:34:00 Date Transcribed: 12/31/2022 20:47:41 /EVER Receipt ID: [id number] Authenticated and Edited by Qing Daley MD O n 02/14/23 9:34:56 PM Electronically Signed by Qing Daley MD on 0 02/14/23 at 0937 PATIENT NAME: ROM LYNN [id number] 2022-12-31 [id number] [facility] 14:38:00-00:[address] [place] [address] PATIENT NAME: ROM LYNN ADMIT DATE: ACCOUNT NO: [id number] ROOM NO: Z.350 AGE: 87 REPORT TYPE: ELECTROCARDIOGRAM SEX: M ADMITTING PHYSICIAN:Cuate Richard MD ATTENDING PHYSICIAN:Cuate Richard MD Order: [id number] Test Reason : concern for stroke Test Date/Time Stamp: WedDec 31 2022 14:38:00 Blood Pressure : / mmHG Vent. Rate : 060 BPM Atrial Rate : 038 BPM P-R Int : 122 ms QRS Dur : 186 ms QT Int : 556 ms P-R-T Axes : 000 -76 118 degree s QTc Int : 556 ms AV dual-paced rhythm Abnormal ECG When compared with ECG of 02-JUL-2022 08:49, No significant change was found Confirmed by KALI NGUYEN ([id number]) on 12/31/2022 4:22:12 PM Referred By: Self Referred Confirmed by:KALI CADE at 1622 PATIENT NAME: ROM LYNN [id number] 2022-12-31 [facility] 13:44:00-00:00 [facility] ([facility]) Hospitalist History Physical REPORT#:[id number] REPORT STATUS: Signed DATE:12/31/22 TIME: 1343 PATIENT: ROM LYNN UNIT #: [id number] ROOM/BED: [address] : [birth year] AGE: 87 SEX: M ATTEND: Ingrid Richard i, MD ADM AUTHOR: Armida Deluca MD R1 * ALL edits or amendments must be made on the Deenty/computer document * Armida Deluca 12/31/22 1344: History of Present Illness HPI Chief complaint: L sided weakness PCP: Dr. Maggie Campo HPI: The patient is an 87-year-old male with a PMH of coronary artery disease s/p cardiac bypass, CHF s/p AICD placement, BPH, paroxysmal atrial fibrillation s/p watchmen, HLD, HTN, COPD, former smoker, and ost eoarthritis who is presenting with L sided weakness. He states that he noticed the weakness when he woke up this morning at 6:30 am. He had difficulty getti ng out of bed.He also noticed that he was havign difficult y and reaching for objects with his L arm. He states everything was normal at 9:00 pm last ni ght. He denies similar symptoms in the past. He has not been able to walk since yesterd ay due to his symptoms. He denies facial droop or loss of consiciousness. T he patient normally ambulates with a walker and needs assi stance with ADLs. Of note, the patient notes he has had voice hoarseness since November and has been evaluated by his doctor. Per the family, work-up revealed some abnormalit y of his liver, but nothing to explain the sudden voice change. The patient went to [facility]. CT head at the outside hospital showed no intracranial abnormalities. Labs at the other hospital were significant for NT pro BNP 1,965, WBC 5.3, Hb 12.3, Hct 37.1, D-dim er 802.9, and Plt 126. UA revealed trace blood, 6-10 RBCs, 1+ bacteria. The patient was admitted for stroke work-up and evaluation. Informant/historian: patient, family/other at dside History Past Medical Surgical Hx Patient History: 1. H/O two vessel coronary artery bypass graft 2. S/P TURP 3. S/P bilateral cataract extraction 4. Status post right hip replacement 5. S/P laparoscopic cholecystectomy 6. S/P implantation of automatic cardioverter/d efibrillator (AICD) Additional medical history: coronary artery disease s/p cardiac bypass, CHF s/p AICD placement, BPH, paroxysmal atrial fibrillati on s/p watchmen, HLD, HTN, COPD, former smoker, and osteoarthritis Family History Additional family history: Father of AAA rupture; mother at the a ge of 103. Social History Alcohol use: Denies EtOH use Drug use: Denies recreational drugs Smoking status for patients 13 years old or olde r: Former Smoker Date last smoked: 01/08/60 Packs per day: 0.5 Years smoked: 4 Pack years: 2.0 Other social history: Retired, Local resident, G ood social support Additional social history: ; lives with . Has 2 daughters. Medication/Allergy-Vaccine Hx Medications: Home Medications: CARVEDILOL (COREG) 6.25 MG PO BID MEALS AMIODARONE (PACERONE) 200 MG PO BID NIACIN ER 1,000 MG PO DAILY FEXOFENADINE (BRETT ALLERGY) 180 MG PO DAILY CYANOCOBALAMIN (VITAMIN B-12) 1,000 MCG PO DAILY LISINOPRIL (ZESTRIL) 2.5 MG PO DAILY SOLIFENACIN (VESICARE) 10 MG PO DAILY ASPIRIN 81 MG PO EVERY OTHER DAY VITAMIN E 1,000 UNITS PO DAILY ASCORBIC ACID (VITAMIN C) 500 MG PO DAILY CHOLECALCIFEROL (VITAMIN D3) (VITAMIN D3) 5,000 UNITS PO DAILY DOCUSATE SODIUM (COLACE) 100 MG PO DAILY PRN CON STIPATION MONTELUKAST (SINGULAIR) 10 MG PO DAILY cycloSPORINE (RESTASIS 0.05% OPHTH EMULSION) 1 D ROP EACH EYE Q12H MAGNESIUM OXIDE (MAG-OXIDE) 400 MG PO DAILY IPRATROPIUM (ATROVENT 0.06% NASAL) 2 SPRAY NASAL TID PRN ALLERGIES CALCIUM CARBONATE/VIT D3 (CALTRATE-600 + D 600 M G/800 UNITS) 1 TAB PO DAILY TIOTROPIUM BR/OLODATEROL HCL (STIOLTO RESPIMAT ( 4 GM)) 2 PUFF INH RTDAILY ROSUVASTATIN (CRESTOR) 10 MG PO BEDTIME MULTIVITAMIN (MULTIPLE VITAMIN) 1 TAB PO DAILY OMEPRAZOLE ER (PriLOSEC) 40 MG PO DAILY CLOPIDOGREL (PLAVIX) 75 MG PO DAILY Allergies: Coded Allergies: Penicillins (Severe, facial 'tightening' with ge neralized whelps. 06/23/14) Review of Systems Constitutional: Denies: chills, fatigue, fev er, generalized weakness, lethargy, malaise, recent wt loss. OBJECTIVE VS/I O: Patient Weight and BMI Weight (kg): BMI: Medications: Active Meds + DC'd Last 24 Hrs Enoxaparin Sodium (LOVENOX) 40 MG 0600 SUBQ Atorvastatin Calcium (LIPITOR) 80 MG BEDTIME PO Acetaminophen (TYLENOL) 650 MG Q6H PRN PRN RECTA L Sodium Chloride (SODIUM CHLORIDE 0.9%) 250 ML HORACE AMANDA PRN IV General appearance: frail, alert, awake, pleasan t, conversational Head/Eyes: atraumatic, clear cornea, normocephal ic ENT: moist mucosal membranes, normal nose, mimi l pharynx Cardiovascular: pacemaker, normal heart sounds, regular rate rhythm Respiratory: aerating well, clear to auscultatio n, symmetric expansion, no distress Abdomen: non-tender, soft, no distention Extremities: moves all, no cyanosis, no edema, l imited ROM of LLE Neuro/RV REPAIRER: abnormal speech (soft and hoarse; dys phonic), alert, oriented X 3, decreased sensation in LUE, LLE, and L side of the face; increased tone in LLE; 5/5 strength in BUE, 4-/5 strength in LLE, 5/5 s trength in RLE Skin: dry, normal temperature Psychiatry: normal affect, normal judgment/insig ht Results Findings/Data: Laboratory Tests: 12/31 12/31 1609 1531 Chemistry Sodium (137 - 145 MMOL/L) 138 Potassium (3.5 - 5.1 MMOL/L) 3.9 Chloride (98 - 107 MMOL/L) 104 Carbon Dioxide (22 - 30 MMOL/L) 26 Anion Gap (14 - 24 MMOL/L) 12 L BUN (9 - 20 MG/DL) 14 Creatinine (0.66 - 1.25 MG/DL) 0.60 L Glomerular Filtr Rate > 60 Glucose (74 - 106 MG/DL) 83 POC Glucose (60 - 99 MG/DL) 83 Calcium (8.4 - 10.2 MG/DL) 8.7 Total Bilirubin (0.2 - 1.3 MG/DL) 0.9 AST (17 - 59 UNITS/L) 42 ALT (0 - 49 UNITS/L) 41 Total Alk Phosphatase (38 - 126 UNITS/L) 80 Total Protein (6.2 - 7.6 G/DL) 6.5 Albumin (3.5 - 5.0 G/DL) 3.4 L Hematology WBC (3.8 - 9.8 K/MM3) 6.1 RBC (3.95 - 5.67 M/MM3) 4.05 Hgb (12.4 - 16.7 G/DL) 12.7 Hct (35.9 - 49.5 %) 38.6 MCV (81.7 - 96.1 fL) 95 MCH (27.6 - 33.2 pg) 31.4 MCHC (32.9 - 35.5 %) 32.9 RDW (12.1 - 15.2 %) 15.4 H Plt Count (129 - 368 K/MM3) 114 L MPV (7.4 - 10.4 fl) 8.9 Neut % (Auto) (43 - 75 %) 69.7 Lymph % (Auto) (14 - 44 %) 16.1 Bremer % (Auto) (4 - 13 %) 12.0 Eos % (Auto) (0 - 6 %) 1.6 Baso % (Auto) (0 - 2 %) 0.3 Neut # (Auto) (2.0 - 7.6 K/mm3) 4.25 Lymph # (Auto) (1.0 - 3.8 K/mm3) 0.98 L Bremer # (Auto) (0.1 - 0.8 K/mm3) 0.73 Eos # (Auto) (0.0 - 0.2 K/mm3) 0.10 Baso # (Auto) (0.0 - 0.2 K/mm3) 0.02 Immature Gran % (0.0 - 2.0 %) 0.3 Nucleated RBC % (0 - 1.0 %) 0.0 Nucleated RBCs # (Man) (0.0 - 0.1 K/mm3) 0.00 Laboratory Tests 12/31/22 1609: [Embedded Image Not Available] Results: labs reviewed, vital signs reviewed Diagnosis, Assessment Plan Problem List/A P: 1. Left-sided weakness 2. Chronic systolic heart failure 3. Paroxysmal atrial fibrillation 4. Osteoarthritis, multiple sites 5. BPH (benign prostatic hyperplasia) 6. Coronary artery disease 7. HLD (hyperlipidemia) 8. HTN (hypertension) 9. H/O two vessel coronary artery bypass graft 10. S/P implantation of automatic cardioverter/ defibrillator (AICD) Free Text A P: The patient is an 87-year-old male with a PMH of coronary artery disease s/p cardiac bypass, CHF s/p AICD placement, BPH, paroxysmal atrial fibrillation s/p watchmen, HLD, HTN, COPD, former smoker, and ost eoarthritis who is presenting with L sided weakness. He was admitted for strok e work-up and evaluation. Plan: - admit to IMU with telemetry monitoring - CT head at outside facility did not reveal any acute abnormalities - MRI brain and CTA head/neck ordered and pendin g - echo and carotid doppler ultrasound ordered an d pending - Neurology, Dr. Paredes, and cardiology, Dr. Ibarra consulted - full dose asprin 325 and statin ordered - PT/OT/ST consulted - Lipid profile and HbA1c pending - continue home medications Diet: cardiac (minced and moist) DVT prophylaxis: lovenox Code: DNI Resuscitation discussion: Discussed with: patient, family Code status: limited interventions (DO NOT INTUB ATE) Quality: Gen Med Crit Care VTE Prophylaxis VTE prophylaxis initiated: yes Current Medications Current medication review: I attest that the foregoing medication list in t he medical record is true, accurate, and complete to the best of my knowled ge. Advanced Care Plan 65 or Older Discussed with: patient, other (family) Discussion included: code status Attestations Attestation needed: teaching physician Cuate Richard 12/31/222038: Attestations Teaching Physician Attestation 1st visit w/ resident: I was present with the resident during the histo ry and exam. I discussed the case with the resident and . . . agree with the findings and plan as documented i n the resident's note. DW Dr Hollins and then Dr sheila cook egarding the cta , carotids are ordered, pt is 87 y/ o h/o a fib post Watchman woke up w Left UE weak ness, [facility] at [facility] negative, stroke orderd set started, diet ordered, w PT/OT a Electronically Signed by Armida Deluca MD R1 on 0 12/31/22 at 1840 Electronically Signed by Cuate Richard MD on at 204 RPT #:[id number] END OF REPORT 2022-10-13 [id number] [facility] 08:39:00-00:00 [address] [place] [id number] PATIENT NAME: ROM LYNN ADMIT DATE: ACCOUNT NO: [id number] ROOM NO: Z.344 AGE: 87 REPORT TYPE: CARDIAC CATHETERIZATION REPORT SEX: M ADMITTING PHYSICIAN:Pritesh Ospina MD ATTENDING PHYSICIAN:Pritesh Ospina MD PROCEDURE DATE: 07/01/2022 ADDENDUM TO THE CARDIAC CATHETERIZATIONREPORT: , RID #[id number]. An intravenous heparin bolus was initially given after femoral venous access was obtained. An additional therapeutic dose of intr avenous heparin was administered after the transseptal puncture. Dictated By: Willie Hollins MD Date Dictated: 10/13/2022 08:39:50 Date Transcribed: 10/13/2022 09:01:17 NEHA/LISA Receipt ID: [id number] Authenticated by Willie Hollins MD On 10/13/19 02:11:20 PM at 0211 PATIENT NAME: ROM LYNN [id number] 2022-09-01 [id number] [facility] 15:08:00-00:00 [address] [place] [address] PATIENT NAME: ROM LYNN ADMIT DATE: ACCOUNT NO: [id number] ROOM NO: AGE: 87 REPORT TYPE: OPERATIVE REPORT SEX: M ADMITTING PHYSICIAN: ATTENDING PHYSICIAN:Willie Hollins MD OPERATION DATE: 08/27/2022 DATE: 09/01/2022 CHART NOTE Mr. Lynn was scheduled for a transesophageal echocardiogram on 08/27/2022. Due to limited neck mobility, the transesophageal ec hocardiogram probe was unable to be passed into the esophagus. The procedure w as canceled. Dictated By: Willie Hollins MD Date Dictated: 09/01/2022 15:08:27 Date Transcribed: 09/01/2022 21:32:08 GSP/LRS Receipt ID: [id number] Authenticated and Edited by Willie Hollins MD On 09/02/22 8:39:23 AM at 0841 PATIENT NAME: ROM LYNN [id number] 2022-07-02 [facility] 17:27:00-00:00 [facility] ([facility]) Hospitalist Discharge Summary REPORT#:[id number] REPORT STATUS: Signed DATE:07/02/22 TIME: 1726 PATIENT: ROM LYNN UNIT #: [id number] ROOM/BED: [address] : [birth year] AGE: 87 SEX: M ATTEND: Pritesh Ospina MD ADM AUTHOR: Pritesh Ospina MD * ALL edits or amendments must be made on the el ectronic/computer document * General Information Problem List/A P: 1. Paroxysmal atrial fibrillation 2. H/O: GI bleed 3. Chronic systolic heart failure 4. Coronary artery disease 5. HLD (hyperlipidemia) 6. Osteoarthritis, multiple sites 7. BPH (benign prostatic hyperplasia) Date of admission: Observation Start Date: 07/01/22 Date of admission: 07/01/22 Discharge date: 07/02/22 Discharge diagnosis: Same as problem list Hospital course: Patient is an 87 year-old male with know n paroxysmal atrial fibrillation along with multiple other health p roblems leading to a chads vascular score of 4, and h/o recurrent GI bleed who underwent left atrial appendage closure device insertion on July 01, [address] Willie Watson ppejoey. He was admitted for overnight observation; he was noted to binta nolasco doing well the following morning and was discharged to home in stable condition. Consultants: electrophysiology Pt. condition on discharge: stable Med Rec Med Rec Discharge meds: Continue taking these medications: ROSUVASTATIN (CRESTOR) 10 MG TAB 10 MILLIGRAM ORAL BEDTIME. MULTIVITAMIN (MULTIPLE VITAMIN) 1 TAB TAB 1 TABLET ORAL DAILY. ASCORBIC ACID (VITAMIN C) 500 MG TAB 500 MILLIGRAM ORAL DAILY. CHOLECALCIFEROL (VITAMIN D3) (VITAMIN D3) 125 MC G (5,000 UNIT) TAB 5,000 UNITS ORAL DAILY. CARVEDILOL (COREG) 6.25 MG TAB 6.25 MILLIGRAM ORAL TWICE DAILY WITH MEALS. ASPIRIN (ASPIRIN) 81 MG TAB.CHEW 81 MILLIGRAM ORAL EVERY OTHER DAY VITAMIN E (VITAMIN E) 450 MG (1,000 UNIT) CAP 1,000 UNITS ORAL DAILY. MAGNESIUM OXIDE (MAG-OXIDE) 400 MG TAB 400 MILLIGRAM ORAL DAILY. cycloSPORINE (RESTASIS 0.05% OPHTH EMULSION) 0.0 5 % OPHTH.EMUL 1 DROPS EACH EYE EVERY 12 HOURS. DOCUSATE SODIUM (COLACE) 100 MG CAP 100 MILLIGRAM ORAL DAILY. as needed for CONSTIP ATION IPRATROPIUM (ATROVENT 0.06% NASAL) 15 ML SPRAY 2 SPRAY NASAL THREE TIMES A DAY. as needed for ALLERGIES AMIODARONE (PACERONE) 200 MG TAB 200 MILLIGRAM ORAL TWICE DAILY. NIACIN ER (NIACIN ER) 1,000 MG TAB.SA 1,000 MILLIGRAM ORAL DAILY. FEXOFENADINE (BRETT ALLERGY) 180 MG TAB 180 MILLIGRAM ORAL DAILY. CYANOCOBALAMIN (VITAMIN B-12) 1,000 MCG TAB 1,000 MICROGRAM ORAL DAILY. LISINOPRIL (ZESTRIL) 2.5 MG TAB 2.5 MILLIGRAM ORAL DAILY. SOLIFENACIN (VESICARE) 10 MG TAB 10 MILLIGRAM ORAL DAILY. MONTELUKAST (SINGULAIR) 10 MG TAB 10 MILLIGRAM ORAL DAILY. Start taking the following new medications: OMEPRAZOLE ER (PriLOSEC) 40 MG CAP.DR 40 MILLIGRAM ORAL DAILY. Qty = 90 No Refills Comments: Please disregard the previous Rx CLOPIDOGREL (PLAVIX) 75 MG TAB 75 MILLIGRAM ORAL DAILY. Qty = 60 No Refills Objective VS/I O Last Documented: Result Date Time Pulse Ox 95 07/02 1200 B/P 122/65 07/02 1200 B/P Mean 88 07/02 1200 Pulse 60 07/02 1200 Resp 26 07/02 1200 Temp 98.8 07/02 1056 24 hour I O ending at 0700: 07/02 0700 07/01 1900 Intake Total Output Total 300 Balance -300 Output, Urine 300 Patient 140 lb Weight Weight Stated/Reported Measurement Method Head/Eyes: atraumatic, clear cornea, nor mal conjunctiva/sclera, normocephalic, PERRL ENT: moist mucosal membranes, normal ear left, n ormal ear right Cardiovascular: normal heart sounds, regular rat e rhythm Respiratory: aerating well, clear to auscultatio n, symmetric expansion, no distress Abdomen: non-tender, normal bowel sounds, soft, no distention, no guarding Extremities: moves all, no calf tenderne ss, no clubbing, no cyanosis, no edema Musculoskeletal: normal inspection, no muscle sp asm Neuro/RV REPAIRER: alert, oriented X 3, normal speech, n o motor deficits Psychiatry: normal affect, normal judgment/insig ht, normal mood Free Text Obj Notes Free Text Obj Notes: EKG: Paced rhythm Discharge Instructions PCP PCP follow-up: PCP: Willie Hollins MD Discharge to: Home/Self Care Additional Discharge Routines: White Spooler Follow -Up, Fluid Restrictions Diet: Cardiac, Fluid Restrictions Fluid restriction(mls/day): 1000 Activity: As Tolerated Prescriptions: e-prescribe Discharge management: less than 30 mins, face to face encounter Follow-up Appointments Consulting provider 1: Provider 1: Willie Hollins MD Specialty: Cardiology Consult follow up timeframe: In 1-2 weeks Special instructions: CALL TO MAKE YOUR APPOINTMENT Quality: Discharge Advanced Care Plan 65 or Older Discussed with: patient Discussion included: code status (full code) Current Medications Current medication review: I attest that the foregoing medication list in t he medical record is true, accurate, and complete to the best of my knowled ge. Electronically Signed by Pritesh Ospina MD on 07/20 at 1822 RPT #:[id number] END OF REPORT 2022-07-02 [id number] [facility] 08:49:00-00:[address] [place], [place] [id number] PATIENT NAME: ROM LYNN ADMIT DATE: 07/01 ACCOUNT NO: [id number] ROOM NO: Z.344 AGE: 87 REPORT TYPE: ELECTROCARDIOGRAM SEX: M ADMITTING PHYSICIAN:Pritesh Ospina MD ATTENDING PHYSICIAN:Pritesh Ospina MD Order: [id number] Test Reason : PAFIB Test Date/Time Stamp: WedJul 02 2022 08:49:20 Blood Pressure : / mmHG Vent. Rate : 060 BPM Atrial Rate : 092 BPM P-R Int : 122 ms QRS Dur : 178 ms QT Int : 566 ms P-R-T Axes : 000 -76 136 degree s QTc Int : 566 ms AV dual-paced rhythm Abnormal ECG When compared with ECG of 10-AUG-2017 09:37, Electronic ventricular pacemaker has replaced Si nus rhythm Confirmed by KALI NGUYEN ([id number]) on 07/02/2022 4:50:00 PM Referred By: Willie Hollins Confirmed by:KALI KING at 1650 PATIENT NAME: ROM LYNN [id number] 2022-07-02 [id number] [facility] 08:46:00-00:[address] [place], [place] [address] PATIENT NAME: ROM LYNN ADMIT DATE: ACCOUNT NO: [id number] ROOM NO: Z.344 AGE: 87 REPORT TYPE: eTRANSESOPHAGEAL ECHO SEX: M ADMITTING PHYSICIAN:Pritesh Ospina MD ATTENDING PHYSICIAN:Pritesh Ospina MD *[facility]* [address] [place] [id number] Transesophageal Echocardiogram Patient: Rom Lynn Study Date: 07/01/2022 BP: 122 / 64 Location: [facility] URN: [id number] [birth year] : 1935 Age: 87 Height: / Gender: M Weight: / BMI/BSA: / *Ordering Physician: * Willie Hollins MD *Interpreting Physician: * Devan Batista MD *Cullet Washer: * Ekta Beck, RVT ; Tamiko Rdz [facility], [facility] Indications: Watchman. Study data: Consent: The risks, benefits, and al ternatives to the procedure were explained to the patient and info rmed consent was obtained. Procedure: Initial setup: The patient was brought to the laboratory in the fasting state.Intravenous acce ss was obtained. Surface ECG leads and pulse oximetric signals were monit ored. Sedation. Moderate sedation was administered by cardiology staff. T ransesophageal echocardiography was performed. Topical anesthes ia was obtained using viscous lidocaine. A transesophageal probe (SN: [id number]) was inserted by the attending mid wife without difficulty. I mages were obtained using a ThromboVision cardiac ultrasound machine. Image erin lity was adequate. 2D and spectral Doppler. Location: Catheterization laboratory. Patient status: Outpatient. Patient room number: 1. Stud y status: Routine. Study completion: The patient tolerated the proc edure well. There were no complications. Rhythm: Normal sinus rhythm. Findings PATIENT NAME: ROM LYNN [phone] [place] [address] PATIENT NAME: ROM LYNN ADMIT DATE: ACCOUNT NO: [id number] ROOM NO: Z.344 AGE: 87 REPORT TYPE: eTRANSESOPHAGEAL ECHO SEX: M ADMITTING PHYSICIAN:Pritesh Ospina MD ATTENDING PHYSICIAN:Pritesh Ospina MD Left ventricle: The cavity size is normal. Systo lic function is moderately reduced. Right ventricle: Pacer wire noted in the right v entricle. Left atrium: The atrium is mildly dilated. The a ppendage is of normal size. Emptying velocity is normal. Pre Watchman: At 0degrees the left atrial appendage ostium measures 2.5 mm (width) and 2.7 mm (depth). At 45degrees the left atrial appendage ostium measu res 2 mm (width) and 3.1 mm (depth). At 90degrees the left atrial appenda ge ostium measures 2.2 mm (width) and 3.5 mm (depth). At 135degrees the left atrial appendage ostium measures 2.1 mm (width) and 1.9 mm (depth ). Catheter and Watchman device were implanted under KRISTY guidance. Post W atchman: The 22 mm Watchman PAULINA occluder device is well seated. The re is no evidence of residual flow around the Watchman occluder devic e. There is no evidence of a thrombus in the atrial cavity or appendage. No spontaneous echo contrast is observed. Right atrium: Pacer wire noted in right atrium. Atrial septum: No defect or patent foramen ovale is identified. Aortic valve: The valve is trileaflet. The leafl ets are mildly calcified. There is no evidence of a vegetation. There is no evidence of stenosis. There is mild regurgitation. Mitral valve: There is a annuloplasty ring There is no evidence of a vegetation. There is moderate regurgitation. Tricuspid valve: The valve is structurally mimi l. There is no evidence of a vegetation. There is mild regurgit ation. Pulmonic valve: The valve is structurally normal . There is no evidence of a vegetation. There is no regurgitat ion. Pericardium: There is no pericardial effusion. Conclusions Summary: 1. Left ventricle: The cavity size is normal. Sy stolic function is moderately reduced. 2. Left atrium: The atrium is mildly dilated. Ca theter and Watchman device were implanted under KRISTY guidance. Post Watchman: The 22 mm Watchman PAULINA occluder device is well seated. Th ere is no evidence of residual flow around the Watchman occluder raina ce. There is no evidence of a thrombus in the atrial cavity or appendage. No spontaneous echo contrast is observed. 3. Mitral valve: There is a annuloplasty ring Th ere is moderate PATIENT NAME: ROM LYNN [phone] [place] [address] PATIENT NAME: ROM LYNN ADMIT DATE: ACCOUNT NO: [id number] ROOM NO: Z.344 AGE: 87 REPORT TYPE: eTRANSESOPHAGEAL ECHO SEX: M ADMITTING PHYSICIAN:Pritesh Ospina MD ATTENDING PHYSICIAN:Pritesh Ospina MD regurgitation. Impressions: 1. Markedly reduced left ventricle ejection frac tion of 20-30% 2. No left atrium appendage thrombus seen. 3. Succesful watchman implantation. Recommendations: 1. Post procedure protocol. 2. Recommend follow up transesophageal echocardi ogram at 45 days to assess any hunter-device leak. Prepared and electronically signed by Devan Batista MD 07/02/2022 08:46 Electronically Signed by Devan Batista MD on at 0846 PATIENT NAME: ROM LYNN [id number] 2022-07-02 [facility] 06:41:00-00:00 [facility] ([facility] Cardiology Progress Note REPORT#:[id number] REPORT STATUS: Signed DATE:07/02/22 TIME: 06 PATIENT: ROM LYNN UNIT #: [id number] ROOM/BED: [address] : [birth year] AGE: 87 SEX: M ATTEND: Stacy Ospina MD ADM AUTHOR: Willie Hollins MD * ALL edits or amendments must be made on the Deenty/computer document * Subjective Chief complaint: AFIB Patient reports: No: chest pain, palpitations, shortness of breat h. Objective General VS/I O: 24 hour I O ending at 0700: 07/02 0700 07/01 1900 Intake Total Output Total Balance Patient 63.6 kg Weight Weight Stated/Reported Measurement Method Vital Signs: Date Time Temp Pulse Resp B/P B/P Pulse O2 O2 F low FiO2 Mean Ox Delivery Rate 07/02 0416 98.2 07/02 0015 99.5 07/01 2300 60 27 127/57 82 96 07/01 2201 63 0 122/58 84 100 07/01 2100 59 17 143/65 95 97 07/01 2000 60 13 146/68 98 98 07/01 1937 60 16 98 07/01 1923 97.7 07/01 1916 60 16 100 PATIENT WEIGHT: Weight (lb): 140 Weight (oz): 3.42 Weight (kg): 63.600 Medications: Active Meds + DC'd Last 24 Hrs Sodium Chloride (SODIUM CHLORIDE 0.9%) 1,000 ML ONCE ONE IV (DC) Iopamidol (ISOVUE-300) 0 .STK-MED ONE .ROUTE (DC ) Heparin Sodium/Sodium Chloride (HEPARIN 1000 UNI TS/NS 500ML) 500 ML .STK-MED ONE IV (DC) Lidocaine (XYLOCAINE 1%) 0 .STK-MED ONE .ROUTE ( DC) Lidocaine HCl (Glydo 2% JELLY) 0 .STK-MED ONE .R OUTE (DC) Etomidate (AMIDATE) 0 .STK-MED ONE .ROUTE (DC) Fentanyl Citrate (SUBLIMAZE (C-II)) 0 .STK-MED O NE .ROUTE (DC) Propofol (DIPRIVAN) 0 .STK-MED ONE .ROUTE (DC) Nicardipine HCl (CARDENE I.V.) 0 .STK-MED ONE .R OUTE (DC) Sodium Chloride (SODIUM CHLORIDE 0.9%) 500 ML .S TK-MED ONE IV (DC) Heparin Sodium (HEPARIN SODIUM) 0 .STK-MED ONE . ROUTE (DC) Heparin Sodium (HEPARIN SODIUM) 0 .STK-MED ONE . ROUTE (DC) Rocuronium [place] (ZEMURON) 0 .STK-MED ONE .ROU TE (DC) Succinylcholine Chloride (Quelicin) 0 .STK-MED O NE .ROUTE (DC) Sodium Chloride (SODIUM CHLORIDE 0.9%) 500 ML .S TK-MED ONE IV (DC) Fentanyl Citrate (SUBLIMAZE (C-II)) 0 .STK-MED O NE .ROUTE (DC) Heparin Sodium (HEPARIN SODIUM) 0 .STK-MED ONE .ROUTE (DC) Phenylephrine HCl (ANA-SYNEPHRINE 1PC IJ.) 0 .ST K-MED ONE .ROUTE (DC) Propofol (DIPRIVAN) 0 .STK-MED ONE .ROUTE (DC) Protamine Sulfate (PROTAMINE SULFATE) 0 .STK-MED ONE .ROUTE (DC) Physical Exam General appearance: alert, awake, oriented Head/Eyes: atraumatic, normocephalic ENT: moist mucosal membranes Neck: no JVD Respiratory: clear to auscultation, no distress Lower extremity: LE assessment: no edema Musculoskeletal: full range of motion Neuro/RV REPAIRER: alert, oriented X 3, CN II-XII intact Skin: dry, intact Wound/incision: Site condition: dressing clean dry Psychiatry: normal affect, normal judgment/insig ht, normal mood Results Findings/Data: Laboratory Tests 07/01 0850 Chemistry Sodium (137 - 145 MMOL/L) 142 Potassium (3.5 - 5.1 MMOL/L) 4.3 Chloride (98 - 107 MMOL/L) 105 Carbon Dioxide (22 - 30 MMOL/L) 28 BUN (9 - 20 MG/DL) 18 Creatinine (0.66 - 1.25 MG/DL) 0.80 Glomerular Filtr Rate > 60 Glucose (74 - 106 MG/DL) 98 Calcium (8.4 - 10.2 MG/DL) 9.0 Magnesium (1.6 - 2.3 MG/DL) 2.3 Laboratory Tests 07/01 07/01 07/01 1728 1608 0850 Coagulation INR (0.86 - 1.14) 1.1 APTT (26.2 - 35.4 SECONDS) 33.0 PT Patient/Control Mix (9.4 - 12.7 SECONDS) 12. 9 H Activated Coag Time (74 - 137 SEC) 233 H 305 H Laboratory Tests 07/02 07/01 0417 0850 Hematology WBC (3.8 - 9.8 K/MM3) 6.3 6.2 RBC (3.95 - 5.67 M/MM3) 3.69 L 4.55 Hgb (12.4 - 16.7 G/DL) 11.6 L 14.0 Hct (35.9 - 49.5 %) 35.9 44.5 MCV (81.7 - 96.1 fL) 97 H 98 H MCH (27.6 - 33.2 pg) 31.4 30.8 MCHC (32.9 - 35.5 %) 32.3 L 31.5 L RDW (12.1 - 15.2 %) 14.1 14.5 Plt Count (129 - 368 K/MM3) 100 L 119 L MPV (7.4 - 10.4 fl) 9.4 9.1 Neut % (Auto) (43 - 75 %) 78.3 H 71.2 Lymph % (Auto) (14 - 44 %) 12.0 L 17.4 Bremer % (Auto) (4 - 13 %) 8.6 9.3 Eos % (Auto) (0 - 6 %) 0.6 1.5 Baso % (Auto) (0 - 2 %) 0.3 0.3 Neut # (Auto) (2.0 - 7.6 K/mm3) 4.90 4.39 Lymph # (Auto) (1.0 - 3.8 K/mm3) 0.75 L 1.07 Bremer # (Auto) (0.1 - 0.8 K/mm3) 0.54 0.57 Eos # (Auto) (0.0 - 0.2 K/mm3) 0.04 0.09 Baso # (Auto) (0.0 - 0.2 K/mm3) 0.02 0.02 Immature Gran % (0.0 - 2.0 %) 0.2 0.3 Nucleated RBC % (0 - 1.0 %) 0.0 0.0 Nucleated RBCs # (Man) (0.0 - 0.1 K/mm3) 0.00 0 .00 Laboratory Tests 07/01 0850 Chemistry Magnesium (1.6 - 2.3 MG/DL) 2.3 Laboratory Tests 07/01 0850 Coagulation APTT (26.2 - 35.4 SECONDS) 33.0 Diagnosis, Assessment Plan Free Text DxA P Notes Free Text DxA P Notes: IMP: PAF - s/p Watchman 07/01/22. GI Bleed Ischemic CMP PLAN: d/c home DAPT 6 weeks. KRISTY at 6 weeks. at 0959 RPT #:[id number] END OF REPORT 2022-07-01 [facility] 19:36:00-00:00 [facility] ([facility]) Hospitalist History Physical REPORT#:[id number] REPORT STATUS: Signed DATE:07/01/22 TIME: 1935 PATIENT: ROM LYNN UNIT #: [id number] ROOM/BED: [address] : [birth year] AGE: 87 SEX: M ATTEND: Winston Hollins MD ADM AUTHOR: Pritesh Ospina MD * ALL edits or amendments must be made on the Deenty/computer document * History of Present Illness HPI Chief complaint: Here for Watchman procedure. HPI: Patient is an 87-year-old male with known multip le medical problems including coronary artery disease, CHF, BPH, paroxysmal at rial fibrillation, and osteoarthritis who is here to undergo left atria l appendage closure device placement. Patient indicates that he had been on Xarelto 15 mg daily but he developed GI bleed. He was hospitalized at one of the hospitals in the [facility] where he underwent endoscopy and colonosc opy and the source of bleed could not be identified. Patient denies any active co mplaints except for occasional dyspnea on exertion. He reports generalized weakness and diff iculty with walking since after he was hospitalized for COVID infection last year. History Past Medical Surgical Hx Patient History: 1. Paroxysmal atrial fibrillation 2. Coronary artery disease 3. Congestive heart failure 4. Osteoarthritis, multiple sites 5. BPH (benign prostatic hyperplasia) 6. HLD (hyperlipidemia) 7. S/P implantation of automatic cardioverter/d efibrillator (AICD) 8. H/O two vessel coronary artery bypass graft 9. S/P TURP 10. S/P bilateral cataract extraction 11. Status post right hip replacement 12. S/P laparoscopic cholecystectomy Family History Additional family history: Father of AAA rupture; mother at the a ge of 103. Social History Alcohol use: Denies EtOH use Drug use: Denies recreational drugs Smoking status for patients 13 years old or olde r: Former Smoker Date last smoked: 08/16/63 Years smoked: 2 Other social history: Retired, Local resident, G ood social support Additional social history: ; lives with . Has 2 daughters. Medication/Allergy-Vaccine Hx Medications: Home Medications: CARVEDILOL (COREG) 6.25 MG PO BID MEALS AMIODARONE (PACERONE) 200 MG PO BID NIACIN ER 1,000 MG PO DAILY FEXOFENADINE (BRETT ALLERGY) 180 MG PO DAILY CYANOCOBALAMIN (VITAMIN B-12) 1,000 MCG PO DAILY LISINOPRIL (ZESTRIL) 2.5 MG PO DAILY SOLIFENACIN (VESICARE) 10 MG PO DAILY ASPIRIN 81 MG PO EVERY OTHER DAY VITAMIN E 1,000 UNITS PO DAILY ASCORBIC ACID (VITAMIN C) 500 MG PO DAILY CHOLECALCIFEROL (VITAMIN D3) (VITAMIN D3) 5,000 UNITS PO DAILY DOCUSATE SODIUM (COLACE) 100 MG PO DAILY PRN CON STIPATION MONTELUKAST (SINGULAIR) 10 MG PO DAILY cycloSPORINE (RESTASIS 0.05% OPHTH EMULSION) 1 D ROP EACH EYE Q12H MAGNESIUM OXIDE (MAG-OXIDE) 400 MG PO DAILY IPRATROPIUM (ATROVENT 0.06% NASAL) 2 SPRAY NASAL TID PRN ALLERGIES ROSUVASTATIN (CRESTOR) 10 MG PO BEDTIME MULTIVITAMIN (MULTIPLE VITAMIN) 1 TAB PO DAILY Allergies: Coded Allergies: Penicillins (Severe, facial 'tightening' with ge neralized whelps. 06/23/14) Review of Systems Constitutional: Denies: chills, fatigue, fev er, generalized weakness, lethargy, malaise, recent wt loss. Eyes: Denies: redness, discharge, visual loss/blurred, itching, diplopia, eye pain, photophobia, swelling. ENT: Denies: ear drainage, ear ringing, earache, hear ing loss, mouth pain, nasal congestion, nose bleeding, sinus problem, sore t hroat. Respiratory: Reports: MIR (dyspnea on exertion). Denies: hemo ptysis, pleuritic pain, productive cough (sputum), SOB, wheezing. Cardiovascular: Denies: chest pain, edema, orthopnea, palpitatio ns, parox nocturnal dyspnea. GI: Reports: constipation. Denies: abdominal pain, a norexia, diarrhea, dysphagia, GERD, hematemesis, hematochezia, hiatal hernia, melena, nausea, rectal pain, vomiting. : Reports: frequency. Denies: dysuria, fla nk pain, hematuria, nocturia, urgency, urinary retention. Musculoskeletal: Reports: arthritis, joint pain. Denies: extremit y pain, extremity swelling, joint swelling, lumbar pain, myalgias, neck pain , thoracic pain. Endocrine: Denies: cold intolerance, heat intolerance, poly dipsia, polyphagia, polyuria, weight gain, weight loss. Neuro: Reports: gait problem. Denies: bladder dysfuncti on, bowel dysfunction, confusion, dizziness, focal weakness, he adache, lightheaded, numbness, slurred speech. Psych: Denies: agitation, anxiety, delusional, depression, insomnia, stress, suicidal ideation. All systems rev neg: except as noted Physical Exam VS/I O: Vital Signs Date Temp Pulse Resp B/P B/P Mean Pulse Ox FiO2 07/01 97.7 60 16 98-100 Last Documented: Result Date Time Pulse Ox 98 07/01 1937 Pulse 60 07/01 1937 Resp 16 07/01 1937 Temp 97.7 07/01 1923 Patient Weight and BMI Weight (kg): BMI: General appearance: awake, no acute distress, pl easant, conversational Head/Eyes: atraumatic, clear cornea, nor mal conjunctiva/sclera, normocephalic, PERRL ENT: moist mucosal membranes, normal ear left, n ormal ear right Cardiovascular: normal heart sounds, regular rat e rhythm Respiratory: aerating well, clear to auscultatio n, symmetric expansion, no distress Abdomen: non-tender, normal bowel sounds, soft, no distention, no guarding Extremities: moves all, no calf tenderne ss, no clubbing, no cyanosis, no edema Musculoskeletal: normal inspection, no muscle sp asm Neuro/RV REPAIRER: alert, oriented X 3, normal speech, n o motor deficits Psychiatry: normal affect, normal judgment/insig ht, normal mood Results Findings/Data: Laboratory Tests: 07/01 07/01 07/01 1728 1608 0850 Chemistry Sodium (137 - 145 MMOL/L) 142 Potassium (3.5 - 5.1 MMOL/L) 4.3 Chloride (98 - 107 MMOL/L) 105 Carbon Dioxide (22 - 30 MMOL/L) 28 BUN (9 - 20 MG/DL) 18 Creatinine (0.66 - 1.25 MG/DL) 0.80 Glomerular Filtr Rate > 60 Glucose (74 - 106 MG/DL) 98 Calcium (8.4 - 10.2 MG/DL) 9.0 Magnesium (1.6 - 2.3 MG/DL) 2.3 Coagulation INR (0.86 - 1.14) 1.1 APTT (26.2 - 35.4 SECONDS) 33.0 PT Patient/Control Mix (9.4 - 12.7 SECONDS) 12. 9 H Activated Coag Time (74 - 137 SEC) 233 H 305 H Hematology WBC (3.8 - 9.8 K/MM3) 6.2 RBC (3.95 - 5.67 M/MM3) 4.55 Hgb (12.4 - 16.7 G/DL) 14.0 Hct (35.9 - 49.5 %) 44.5 MCV (81.7 - 96.1 fL) 98 H MCH (27.6 - 33.2 pg) 30.8 MCHC (32.9 - 35.5 %) 31.5 L RDW (12.1 - 15.2 %) 14.5 Plt Count (129 - 368 K/MM3) 119 L MPV (7.4 - 10.4 fl) 9.1 Neut % (Auto) (43 - 75 %) 71.2 Lymph % (Auto) (14 - 44 %) 17.4 Bremer % (Auto) (4 - 13 %) 9.3 Eos % (Auto) (0 - 6 %) 1.5 Baso % (Auto) (0 - 2 %) 0.3 Neut # (Auto) (2.0 - 7.6 K/mm3) 4.39 Lymph # (Auto) (1.0 - 3.8 K/mm3) 1.07 Bremer # (Auto) (0.1 - 0.8 K/mm3) 0.57 Eos # (Auto) (0.0 - 0.2 K/mm3) 0.09 Baso # (Auto) (0.0 - 0.2 K/mm3) 0.02 Immature Gran % (0.0 - 2.0 %) 0.3 Nucleated RBC % (0 - 1.0 %) 0.0 Nucleated RBCs # (Man) (0.0 - 0.1 K/mm3) 0.00 Laboratory Tests 07/01/22 0850: [Embedded Image Not Available] Results: labs reviewed, vital signs reviewed, EK G personally reviewed, rhythm personally rev'd, current med profile rev'd Free Text PE Notes Free Text PE Notes: EKG: Paced rhythm Diagnosis, Assessment Plan Problem List/A P: 1. Paroxysmal atrial fibrillation 2. H/O: GI bleed 3. Chronic systolic heart failure 4. Coronary artery disease 5. HLD (hyperlipidemia) 6. Osteoarthritis, multiple sites 7. BPH (benign prostatic hyperplasia) Free Text A P: - Admit to [facility] for overnight observation after the PAULINA closure device placement. - Resume home meds. - Pain meds prn. - Repeat CBC in am. I reviewed patient's history in detail; he has p aroxysmal atrial fibrillation with [id number] score of 4. Because of the his tory of GI bleed with no identifiable source, and risk of falls he is not a candidate for long-term anticoagulation and is an appropriate candidate for left atrial appendage closure device placement. I reviewed that with [facility] patient and family and completed the appropriate paperwork required. Quality: Gen [facility] Crit Care VTE Prophylaxis VTE prophylaxis initiated: yes Current Medications Current medication review: I attest that the foregoing medication list in t he medical record is true, accurate, and complete to the best of my knowled ge. Advanced Care Plan 65 or Older Discussed with: patient Discussion included: code status (full code) Electronically Signed by Pritesh Ospina MD on 07/01 at 1955 [facility] #:[id number] END OF REPORT 2022-07-01 [id number] [facility] 17:55:00-00:00 [address] [place] [address] PATIENT NAME: ROM LYNN ADMIT DATE: ACCOUNT NO: [id number] ROOM NO: Z[facility] AGE: 87 REPORT TYPE: CARDIAC CATHETERIZATION REPORT SEX : M ADMITTING PHYSICIAN:Pritesh Ospina MD ATTENDING PHYSICIAN:Pritesh Ospina MD PROCEDURE DATE: 07/01/2022 PROCEDURES: 1. Intracardiac echocardiography. 2. Left atrial appendage closure with Watchman d evice. PREOPERATIVE DIAGNOSES: 1. Ischemic cardiomyopathy. 2. Hypertension. 3. Paroxysmal atrial fibrillation -- CHADS-VASc of 4. 4. Gastrointestinal bleed. POSTOPERATIVE DIAGNOSES: 1. Ischemic cardiomyopathy. 2. Hypertension. 3. Paroxysmal atrial fibrillation -- CHADS-VASc of 4. 4. Gastrointestinal bleed. POLY OPERATOR: Willie Hollins MD HEAD LIBRARIAN: None. ANESTHESIA: General endotracheal anesthesia. PROCEDURE IN DETAILS: After informed consent was obtained explaining to the patient risks, benefits, and alternatives, the geraldo oshea was brought to the cardiac catheterization lab in the fasting postabsorptive state. He was prepped and draped in sterile fashio n. Following induction of general anesthesia, local anesthesia was applied over the right and left femoral veins with 1% lidocaine. Access to the veins was obtained using modified Seldinger technique with a micropuncture kit and ultrasound guidance. A 16- Malian sheath was placed over an Amplatz wire into the right femoral vein. A 9 -Malian sheath was placed in the left femoral vein. All sheaths were aspirated and flushed and connected to heparinized saline infusion. An intracardiac ech ocardiography catheter was advanced via the 9-Malian sheath into the right atrium. Intracardiac echocardiography was performed to visualize the interatrial septum. A VersaCross sheath was preppe d and the VersaCross pigtail wire was advanced into the 16-Malian sheath and into the high right atr ium. A reverse VersaCross sheath was then advanced over the wire into the right atrium. The wire and sheath were withdrawn to the posterior septal re gion. After appropriate placement on the septum, a transseptal p uncture was performed utilizing the RF wire. The wire was advanced into the atrium and into the left superior PATIENT NAME: ROM LYNN 199[address] pulmonary vein. The VersaCross sheath crossed th e interatrial septum and was withdrawn. A double curved W atchman access sheath was then prepped and advanced over the wire into the left atrium. The wire was removed. The sheath was aspirated and flushed and connected to hepariniz ed saline infusion. A pigtail catheter was then advanced through the Watchman access sheath and initially placed in the left superior pulmonary ve in. The pigtail was then withdrawn and manipulated into the left atrial appendage. A le ft atrial appendage angiogram was obtained. The Watchman access sheath was the n advanced into an anterior lobe of the left atrial appendage. The pigtail c atheter was removed. The hemostasis valve was closed. After sizing measur ements were made, a 31 mm Watchman device was then prepped and adv anced via the sheath and deployed into the left atrium. Stability was evaluated with a tug test. Seal was evaluated with contrast as well as color Doppler. Appropriate compression was confirmed. The device was then released. The Watchm an access sheath and delivery catheter was then withdrawn from the 16-Malian sheath. Th e sheath was aspirated and flushed. Two Preclose sutures had bee n placed and were then attempted to be closed on the vein. One suture failed and was cut and removed. Hemostasis was then obtained with a beybbo-kf-abaam suture. The intracardiac echocardiography catheter was then removed. The 9-Malian sheath was aspirated and removed. Hemostasis was achieved with a higipr-wj-ckbuj suture. The henry ent tolerated the procedure well with no complications. CONCLUSION: Successful left atrial appendage marisa sure with a Watchman device. ESTIMATED BLOOD LOSS: 10 mL, No complications. Dictated By: Willie Hollins MD Date Dictated: 07/01/2022 17:55:38 Date Transcribed: 07/01/2022 20:22:50 NEHA/CHEO Receipt ID: [id number] CC: Kali Nguyen MD (F) Authenticated by Willie Hollins MD On 07/05/20 09:57:46 AM at 0957 PATIENT NAME: ROM LYNN [address] 2022-07-01 [id number] [facility] 10:23:00-00:00 [address] [place] [address] PATIENT NAME: ROM LYNN ADMIT DATE: ACCOUNT NO: [id number] ROOM NO: [facility] AGE: 87 REPORT TYPE: ELECTROCARDIOGRAM SEX: M ADMITTING PHYSICIAN:Pritesh Ospina MD ATTENDING PHYSICIAN:Pritesh Ospina MD Order: [id number] Test Reason : PRE PROCEDURE Test Date/Time Stamp: WedJul 01 2022 10:23:58 Blood Pressure : / mmHG Vent. Rate : 062 BPM Atrial Rate : 038 BPM P-R Int : 000 ms QRS Dur : 188 ms QT Int : 536 ms P-R-T Axes : 000 -75 117 degree s QTc Int : 544 ms AV sequential or dual chamber electronic pacemak er When compared with ECG of 10-AUG-2017 09:37, Electronic ventricular pacemaker has replaced Si nus rhythm Confirmed by KALI NGUYEN ([id number]) on 07/02/2022 4:49:49 PM Referred By: Willie Hollins Confirmed by:KALI KING at 1649 PATIENT NAME: ROM LYNN [id number] ROQUE ROBERSON [facility] 07:32:52-00:00 PROGRESS NOTE ROM LYNN FACILITY: [facility] Billing #: [id number] Room: [address] [place] [address] MR #: [id number] : 1935 PHYSICIAN: Roque Roberson MD ADMISSION DATE: 02/04/2022 DATE: SUBJECTIVE: No significant overnight events. The patient remains in droplet precautions due to COVID-19 i nfection. However, from a GI standpoint, he has not had an y abdominal pain, nausea/vomiting, or fever/chills. He is cu rrently on a low-fat diet. PHYSICAL EXAMINATION: VITAL SIGNS: Temperature 97 degrees, pulse 57, r espiratory rate 18, blood pressure 127/64, and O2 saturatio n 97%. GENERAL: The patient is awake, alert, and orient ed x3. No acute distress. HEENT: Sclerae icteric, conjunctivae pale, oroph arynx clear. CARDIOVASCULAR: Regular rate and rhythm without murmurs, gallops, rubs. LUNGS: Clear to auscultation bilaterally. ABDOMEN: Soft, nontender, nondistended. Bowel so unds are normal. EXTREMITIES: No cyanosis, clubbing, or edema. LABORATORY DATA: No new labs. 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 Less likely etiologies include amioda arsenio, COVID-19 infection, or CBD stone. RECOMMENDATION: LFTs continue to improve, althou gh none have been drawn in the last couple of days. I will re check LFTs tomorrow, but I fully suspect he is to continue to improve. Most likely, the patient had ischemic hepatitis and should improve. No plans of ERCP at this time. If LFTs do not improve over the next few days and consider stop ping amiodarone. From a GI standpoint, the patient is fairly stable and we will follow patient up on a p.r.n. basis as long as LFTs continue to improve. NBV/MODL /[id number] 2022-02-07 ROQUE ROBERSON [facility] 07:39:34-00:00 CONSULTATION CAMILA ROM FACILITY: [facility] Billing #: [id number] Room: [address] [place] [address] MR #: [id number] : 1935 DATE OF ADMISSION: 02/04/2022 DATE OF CONSULTATION: REQUESTING PHYSICIAN: Myla Varner MD MANAGER SYSTEM: Roque Roberson MD Gastroenterology Consultation REASON FOR CONSULTATION: Abnormal LFTs. HISTORY OF PRESENT ILLNESS: This is an 86-year-o ld male, who is status post colonoscopy in 2011, who initiall y presented from the outside hospital with shortness of samantha th and dyspnea. The patient has been diagnosed with COVID-19 in fection. GI has been consulted for abnormal LFTs. The patien t denies any abdominal pain. He is on amiodarone for chronic atrial fibrillation. No hepatitis risk factors. He does not drink alcohol. MRCP was ordered by primary team but co uld not be done due to pacemaker. The patient is currently in droplet precautions for COVID-19 infection. PAST MEDICAL HISTORY: 1. Chronic atrial fibrillation. 2. COPD. 3. Skin cancer. 4. Coronary artery disease. 5. Hypertension. PAST SURGICAL HISTORY: 1. Gastrectomy for gastric adenocarcinoma. 2. Cholecystectomy. 3. Endoscopic ultrasound. ALLERGIES: PENICILLIN. SOCIAL HISTORY: The patient does not smoke, drin k, or do drugs. FAMILY HISTORY: Negative for colon cancer, liver disease, or inflammatory bowel disease. MEDICATIONS: See MAR. REVIEW OF SYSTEMS: CARDIOVASCULAR: Positive shortness of breath. The rest of 10-point review of systems noncontri butory. PHYSICAL EXAMINATION: VITAL SIGNS: Temperature 98 degrees, pulse 76, r espiratory rate 18, blood pressure 128/65, O2 saturation 97 %. GENERAL: The patient is awake, alert, in droplet precautions, appears comfortable. HEENT: Sclerae slightly icteric, conjunctivae pa le, oropharynx clear. CARDIOVASCULAR: Regular rate and rhythm without murmurs, gallops, or rubs. LUNGS: Clear to auscultation bilaterally. ABDOMEN: Soft, nontender, nondistended. Bowel so unds are normal. EXTREMITIES: No cyanosis, clubbing, or edema. LABORATORY DATA: AST 99, ALT 304, total bilirubi n 1.2. IMAGING: Abdominal ultrasound shows dilated comm on bile duct, but no visualized choledocholithiasis. IMPRESSION: 1. Abnormal LFTs. 2. Dilated bile duct. 3. COVID-19 infection. 4. Atrial fibrillation, on amiodarone. RECOMMENDATIONS: The patient's LFTs have improve d dramatically over the last few days and this is consistent wi th hepatic ischemia. Continue optimization of cardiopulmona ry status and monitor LFTs daily. There is evidence of dilated bile duct, but this is not uncommon in an elderly person wh o has had a cholecystectomy, so this does not imply obstruct ing lesion. I would also be careful with the amiodarone and st op this if LFTs do not eventually normalize. We will continue to follow this patient with the primary service. SHEILA/CLAUDIA /[id number]
[2023-03-29 05:14] LABS: Absolute Lymphocytes (CBC) 1.2 K/uL (0.7-4.9); Hematocrit 29.6 % (39.6-49.0); Lymphocytes % 13.6 % (15.3-44.8); MCV 96.9 fL (80-100); MPV 6.9 fL (7.6-11.3); Platelets 145 thou/uL (152-406); RBC Red Blood Cell Count 3.05 M/uL (4.33-5.43)
[2023-03-29 05:19] LABS: Protime INR 1.09
[2023-03-29] MEDS ORDERED: NA CHLORIDE 0.9% 1,000 ML ONE (05:20)
[2023-03-29] MEDS ORDERED: PANTOPRAZOLE 40 MG INJ ONE (05:20)
[2023-03-29 05:27] LABS: Bilirubin Total 0.6 mg/dL (0.2-1.0); Potassium 3.9 mEq/L (3.5-5.1)
--- NOTE | 2023-03-29 08:31 | EDPHYS ---
Physician Documentation [facility] Name: Colby Lynn Age: 87 yrs Sex: Male : 1935 Arrival Date: 03/29/2023 Time: 04:39 Bed 5 Private MD: ED Physician Jluis Gutierrez HPI: 03/29 05:32 This 87 yrs old Unknown Male presents to ER via Wheelchair with complaints of Rectal rt bleeding. 05:32 Patient presents to the ED with concerns for rectal bleeding. States that over the past rt 2 days, he has had a small amount of blood in his stools. States that overnight, the symptoms have significantly worsened. The patient reports taking aspirin Plavix, no other anticoagulants. Denies dizziness, chest pain. States that the blood was dark red, not melanic. Symptoms are moderate in severity, no other aggravating or alleviating factors. Historical: - Allergies: 04:51 PENICILLINS; lg3 - Home Meds: 04:54 omeprazole 40 mg Oral capsule,delayed release (e.c.) daily [Active]; carvedilol oral lg3 [Active]; clopidogrel 75 mg oral tablet [Active]; lisinopril 2.5 mg Oral tablet [Active]; amiodarone 200 mg Oral tablet [Active]; sertraline 50 mg oral tablet [Active]; montelukast 10 mg oral tablet [Active]; fluticasone propionate 50 mcg/actuation inhalation Blister, With Inhalation Device 2 times per day [Active]; rosuvastatin 10 mg oral tablet [Active]; niacin 1,000 mg Oral tablet, extended release [Active]; fexofenadine 180 mg Oral tablet [Active]; aspirin 81 mg Oral capsule [Active]; finasteride 5 mg oral tablet [Active]; pantoprazole 20 mg oral tablet, delayed release (enteric coated) [Active]; mirtazapine 7.5 mg Oral tablet [Active]; - PMHx: 04:54 GERD; Afib; HTN; Congestive heart failure; OK; COPD; CVA; lg3 - PSHx: 04:51 heart; watchman; pacemaker/defib; Cholecystectomy; abdominal hernia repair; trigger lg3 finger; right hip replacement; - Immunization history:: Adult Immunizations up to date, Client reports receiving the 2nd dose of the Covid vaccine, Pneumococcal vaccine is up to date, Flu vaccine is up to date. - Social history:: Smoking status: Patient denies any tobacco usage or history of. Patient/guardian denies using alcohol, street drugs. - Family history:: not pertinent, pertinent for. ROS: 05:32 Abdomen/GI: Positive for Positive for rectal bleeding, negative for abdominal pain, rt nausea, vomiting. 05:48 Constitutional: Negative for fever, chills, and weight loss, Cardiovascular: Negative rt for chest pain, palpitations, and edema, Respiratory: Negative for shortness of breath, cough, wheezing, and pleuritic chest pain, MS/Extremity: Negative for injury and deformity, Skin: Negative for injury, rash, and discoloration, Neuro: Negative for headache, weakness, numbness, tingling, and seizure, Psych: Negative for depression, anxiety, suicide ideation, homicidal ideation, and hallucinations. Exam: 05:48 Constitutional: This is a well developed, well nourished patient who is awake, alert, rt and in no acute distress. Head/Face: Normocephalic, atraumatic. Chest/axilla: Normal chest wall appearance and motion. Nontender with no deformity. No lesions are appreciated. Cardiovascular: Regular rate and rhythm with a normal S1 and S2. No gallops, murmurs, or rubs. Normal PMI, no JVD. No pulse deficits. Respiratory: Lungs have equal breath sounds bilaterally, clear to auscultation and percussion. No rales, rhonchi or wheezes noted. No increased work of breathing, no retractions or nasal flaring. Abdomen/GI: Soft, non-tender, with normal bowel sounds. No distension or tympany. No guarding or rebound. No evidence of tenderness throughout. Skin: Warm, dry with normal turgor. Normal color with no rashes, no lesions, and no evidence of cellulitis. MS/ Extremity: Pulses equal, no cyanosis. Neurovascular intact. Full, normal range of motion. Neuro: Awake and alert, GCS 15, oriented to person, place, time, and situation. Cranial nerves II-XII grossly intact. Motor strength 5/5 in all extremities. Sensory grossly intact. Cerebellar exam normal. Normal gait. Psych: Awake, alert, with orientation to person, place and time. Behavior, mood, and affect are within normal limits. Vital Signs: 04:49 BP 120 / 53; Pulse 62; Resp 17 S; Temp 98.8(O); Pulse Ox 100% on R/A; Weight 60.33 kg lg3 (R); Height 6 ft. 1 in. (R); 05:28 BP 112 / 54; Pulse 60; Resp 19; Pulse Ox 100% on R/A; kd3 07:06 BP 130 / 57; Pulse 60; Pulse Ox 100% on R/A; kd3 08:04 BP 138 / 61; Pulse 60; Resp 18; Pulse Ox 100% on R/A; ph 09:15 BP 127 / 59; Pulse 60; Resp 16 S; Pulse Ox 100% on R/A; aa5 10:31 BP 127 / 59; Pulse 60; Resp 18; Pulse Ox 100% on R/A; ld1 04:49 Body Mass Index 17.55 (60.33 kg, 185.42 cm) lg3 MDM: 04:50 Patient medically screened. rt 07:29 Transition of care: Care assumed from Abram Meehan MD. ms3 09:01 Differential Diagnosis GI Bleed vs Anemia vs Diverticulitis. ms3 09:04 ED course: Patient's requests patient be transferred to [facility] as ms3 BENNY Gonzalez does not have salon sales consultant GI services.. 09:05 Data reviewed: vital signs, nurses notes, lab test result(s), radiologic studies, CT ms3 scan, and as a result, I will will transfer. Consideration of Admission/Observation Will transfer patient. I considered the following discharge prescriptions or medication management in the emergency department Medications were administered in the Emergency Department. See MAR. Independent interpretation of the following test(s) in the Emergency Department CT Scan: My interpretation is CT scan images reviewed do not show free air or obstruction.. 09:21 Management of patient was discussed with the following: Hospitalist: Dr Evans- dede ms3 accepts patient.. Historians other than the Patient: Spouse/Significant Other: Patient's . Care significantly affected by the following chronic conditions: Hypertension. Counseling: I had a detailed discussion with the patient and/or guardian regarding: the historical points, exam findings, and any diagnostic results supporting the discharge/admit diagnosis, lab results, radiology results, the need to transfer to another facility. Response to treatment: There is no appreciated change of the patient's symptoms at this time, and as a result, I will transfer. ED course: . 03/29 04:51 Order name: CBC with Diff; Complete Time: 05:44 rt 03/29 04:51 Order name: CMP; Complete Time: 05:44 rt 03/29 04:51 Order name: PT-INR; Complete Time: 05:44 rt 03/29 04:51 Order name: Ptt, Activated; Complete Time: 05:44 rt 03/29 04:51 Order name: Type And Screen; Complete Time: 05:44 rt 03/29 04:51 Order name: CT Abd/Pelvis - IV Contrast Only rt Administered Medications: 05:15 Drug: NS 0.9% IV 1000 ml Route: IV; Rate: 1 bolus; Site: right forearm; jb4 05:15 Drug: Pantoprazole IVP 80 mg Route: IVP; Site: right forearm; jb4 Disposition Summary: 03/29/23 08:40 Transfer Ordered Transfer Location: Other Acute Care Facility ms3 Reason: Higher level of care ms3 Condition: Stable(03/29/23 08:40) ms3 Problem: new(03/29/23 08:40) ms3 Symptoms: are unchanged(03/29/23 08:40) ms3 Accepting Physician: Dr Evans(03/29/23 11:51) aa5 Diagnosis - GI Bleed/ Gastrointestinal hemorrhage, unspecified(03/29/23 08:40) ms3 - Anemia, unspecified(03/29/23 08:40) ms3 Forms: - Medication Reconciliation Form ms3 - SBAR form ms3 Critical care time excluding procedures: :23 Critical care time: Bedside Care: 20 minutes, Consultation: 5 minutes, Family ms3 Intervention: 10 minutes. Total time: 35 minutes Signatures: Dispatcher [employer] EDAngela Navarro RN RN aa5 Maximiliano Vieyra RN RN jb4 Rajwinder Joseph RN RN lg3 Jluis Gutierrez DO DO ms3 Abram Meehan MD MD rt Corrections: (The following items were deleted from the chart) 08:40 08:31 Inpatient Admission ms3 ms3 08:40 08:31 Jamal Crawford ms3 ms3 08:40 08:31 Telemetry/MedSurg (Inpatient) ms3 ms3 08:40 08:31 Stable ms3 ms3 08:40 08:31 new ms3 ms3 08:40 08:31 are unchanged ms3 ms3 08:40 08:31 Standard ms3 ms3 08:40 08:31 ms3 ms3 08:40 08:31 GI Bleed/ Gastrointestinal hemorrhage, unspecified ms3 ms3 08:40 08:31 Anemia, unspecified ms3 ms3 09:23 08:40 ms3 ms3 11:51 09:23 Dr Evans ms3 aa5
--- NOTE | 2023-03-29 08:31 | ER ---
Nurse's Notes [facility] Name: Colby Lynn Age: 87 yrs Sex: Male : 1935 Arrival Date: 03/29/2023 Time: 04:39 Bed 5 Private MD: Diagnosis: GI Bleed/ Gastrointestinal hemorrhage, unspecified;Anemia, unspecified Presentation: 03/29 04:49 Chief complaint: Spouse and/or significant other states: rectal bleeding X3 days and lg3 worsening. Coronavirus screen: Client denies travel out of the [place] in the last 14 days. At this time, the client does not indicate any symptoms associated with coronavirus-19. Ebola Screen: No symptoms or risks identified at this time. Initial Sepsis Screen: Does the patient meet any 2 criteria? No. Patient's initial sepsis screen is negative. Does the patient have a suspected source of infection? No. Patient's initial sepsis screen is negative. Risk Assessment: Do you want to hurt yourself or someone else? Patient reports no desire to harm self or others. Onset of symptoms was March 25, 2023. 04:49 Method Of Arrival: Wheelchair lg3 04:49 Acuity: SANTY 3 lg3 Triage Assessment: 04:54 General: Appears in no apparent distress. comfortable, Behavior is calm, cooperative. lg3 Pain: Denies pain. EENT: No deficits noted. No signs and/or symptoms were reported regarding the EENT system. Neuro: No deficits noted. Zaldivar Agitation-Sedation Scale (RASS): 0 - Alert and Calm Level of Consciousness is awake, alert, obeys commands, Oriented to person, place, time, situation. Cardiovascular: No deficits noted. Denies chest pain, shortness of breath, Capillary refill < 3 seconds. Respiratory: No deficits noted. Airway is patent Respiratory effort is even, unlabored, Respiratory pattern is regular, symmetrical. GI: Abdomen is flat, non-distended, Reports bloody stool. : No signs and/or symptoms were reported regarding the genitourinary system. Derm: Skin is fragile, is thin, Skin is dry, Skin is normal, Skin temperature is warm. Musculoskeletal: Reports generalized weakness. Historical: - Allergies: 04:51 PENICILLINS; lg3 - Home Meds: 04:54 omeprazole 40 mg Oral capsule,delayed release (e.c.) daily [Active]; carvedilol oral lg3 [Active]; clopidogrel 75 mg oral tablet [Active]; lisinopril 2.5 mg Oral tablet [Active]; amiodarone 200 mg Oral tablet [Active]; sertraline 50 mg oral tablet [Active]; montelukast 10 mg oral tablet [Active]; fluticasone propionate 50 mcg/actuation inhalation Blister, With Inhalation Device 2 times per day [Active]; rosuvastatin 10 mg oral tablet [Active]; niacin 1,000 mg Oral tablet, extended release [Active]; fexofenadine 180 mg Oral tablet [Active]; aspirin 81 mg Oral capsule [Active]; finasteride 5 mg oral tablet [Active]; pantoprazole 20 mg oral tablet, delayed release (enteric coated) [Active]; mirtazapine 7.5 mg Oral tablet [Active]; - PMHx: 04:54 GERD; Afib; HTN; Congestive heart failure; NM; COPD; CVA; lg3 - PSHx: 04:51 heart; watchman; pacemaker/defib; Cholecystectomy; abdominal hernia repair; trigger lg3 finger; right hip replacement; - Immunization history:: Adult Immunizations up to date, Client reports receiving the 2nd dose of the Covid vaccine, Pneumococcal vaccine is up to date, Flu vaccine is up to date. - Social history:: Smoking status: Patient denies any tobacco usage or history of. Patient/guardian denies using alcohol, street drugs. - Family history:: not pertinent, pertinent for. Screenin:28 Abuse screen: Denies threats or abuse. Denies injuries from another. Nutritional kd3 screening: No deficits noted. 08:05 [facility] ED Fall Risk Assessment (Adult) History of falling in the last 3 months, ph including since admission No falls in past 3 months (0 pts) Confusion or Disorientation No (0 pts) Intoxicated or Sedated No (0 pts) Impaired Gait No (0 pts) Mobility Assist Device Used No (0 pt) Altered Elimination No (0 pt) Score/Fall Risk Level 0 - 2 = Low Risk Oriented to surroundings, Maintained a safe environment, Hourly rounding (assess needs \T\ fall precautionary measures) done, Used ambulatory aids as needed (educated on \T\ assisted with). Tuberculosis screening: No symptoms or risk factors identified. Assessment: 05:38 Reassessment: Patient appears in no apparent distress at this time. Patient and/or jb4 family updated on plan of care and expected duration. Pain level reassessed. Patient is alert, oriented x 3, equal unlabored respirations, skin warm/dry/pink. 07:08 Reassessment: Patient appears in no apparent distress at this time. Patient and/or jb4 family updated on plan of care and expected duration. Pain level reassessed. Patient is alert, oriented x 3, equal unlabored respirations, skin warm/dry/pink. 09:10 Neuro: Level of Consciousness is awake, alert, obeys commands, Oriented to person, aa5 place, time, situation. Respiratory: Airway is patent Respiratory effort is even, unlabored, Respiratory pattern is regular, symmetrical. Derm: Skin is dry, Skin is pale, Skin temperature is warm. 09:10 Reassessment: Large amount of dark blood noted to brief, pt cleaned and new brief aa5 applied. Pt and aware of attempts being made to transfer to another hospital. . 10:25 Reassessment: Pt cleaned of urine, large amount of urine noted, clean brief applied, aa5 dark blood noted to rectum only with wiping at this time. . 10:36 Reassessment: Attempted to call report to nurse at [facility], nurse aa5 unavailable at this time. . 11:30 Neuro: Level of Consciousness is awake, alert, obeys commands, Oriented to person, aa5 place, time, situation. Respiratory: Airway is patent Respiratory effort is even, unlabored, Respiratory pattern is regular, symmetrical. Derm: Skin is dry, Skin is pale, Skin temperature is warm. Vital Signs: 04:49 BP 120 / 53; Pulse 62; Resp 17 S; Temp 98.8(O); Pulse Ox 100% on R/A; Weight 60.33 kg lg3 (R); Height 6 ft. 1 in. (R); 05:28 BP 112 / 54; Pulse 60; Resp 19; Pulse Ox 100% on R/A; kd3 07:06 BP 130 / 57; Pulse 60; Pulse Ox 100% on R/A; kd3 08:04 BP 138 / 61; Pulse 60; Resp 18; Pulse Ox 100% on R/A; ph 09:15 BP 127 / 59; Pulse 60; Resp 16 S; Pulse Ox 100% on R/A; aa5 10:31 BP 127 / 59; Pulse 60; Resp 18; Pulse Ox 100% on R/A; ld1 04:49 Body Mass Index 17.55 (60.33 kg, 185.42 cm) lg3 ED Course: 04:46 Patient arrived in ED. vc1 04:50 Abram Meehan MD is Attending Physician. rt 04:50 Triage completed. lg3 04:52 Fara Mcelroy RN is Primary Nurse. vc1 04:54 Arm band placed on right wrist. lg3 05:03 Inserted saline lock: 20 gauge in right forearm, using aseptic technique. Blood oe collected. 06:23 CT Abd/Pelvis - IV Contrast Only In Process Unspecified. EDMS 07:29 Attending Physician role handed off by Abram Meehan MD ms3 07:29 Jluis Gutierrez DO is Attending Physician. ms3 08:05 Patient has correct armband on for positive identification. Bed in low position. Call ph light in reach. Side rails up X 1. Client placed on continuous cardiac and pulse oximetry monitoring. NIBP monitoring applied. 08:30 Jamal Crawford is Hospitalizing Provider. ms3 09:05 Report received from Rylie Stephens RN. aa5 10:32 Cleaned of incontinence. Linen changed. ld1 11:30 No provider procedures requiring assistance completed. Patient transferred, IV remains aa5 in place. Administered Medications: 05:15 Drug: NS 0.9% IV 1000 ml Route: IV; Rate: 1 bolus; Site: right forearm; jb4 05:15 Drug: Pantoprazole IVP 80 mg Route: IVP; Site: right forearm; jb4 Medication: 08:04 VIS not applicable for this client. ph Outcome: 08:31 Decision to Hospitalize by Provider. ms3 08:40 ER care complete, transfer ordered by . ms3 11:30 Transferred by ground EMS Transfer form completed. X-rays sent w/ patient. Note: To aa5 Heather Avalos. Report given to [facility] 11:30 Condition: stable aa5 11:30 Instructed on the need for transfer, Demonstrated understanding of instructions. 11:40 Patient left the ED. aa5 Signatures: Dispatcher [employer] Angela Grimaldo RN RN aaRylie James RN Maximiliano Mota ph, RN RN jb4 Mike Levine Lacie, RN RN lg3 Jluis Gutierrez DO DO ms3 Evelia Gutierrez, RN RN ld1 Carrie Curry, RN RN kd3 Fara Mcelroy, RN RN vc1 Abram Meehan MD MD rt Corrections: (The following items were deleted from the chart) 11:53 11:51 Patient left the ED. aa5 aa5
[2023-03-29 12:29] VITALS: TEMP 98.8; O2SAT 100
[2023-03-29 12:38] VITALS: BP 127/59
--- NOTE | 2023-03-29 13:16 | RAD REPORT ---
EXAM DESCRIPTION: CT - Abdomen Pelvis W Contrast - 03/29/2023 7:09 am CLINICAL HISTORY: 87 years Male GI BLEED TECHNIQUE: Axial CT imaging of the abdomen and pelvis was performed following the administration of intravenous contrast.. Oral contrast was not administered. Sagittal and coronal reconstructed image s were then performed. The CT study is performed according to ALARA (as low as reasonably achievabl e) or ALARA/IMAGE GENTLY, with automatic adjustment of mA and/or kV according to patient size. Performed on: 03/29/2023 at 6:14 AM. COMPARISON: CT abdomen and pelvis performed on 02/02/2022 FINDINGS: Lung bases: There are small bilateral pleural effusions with mild bibasilar atelectasis. T here are remote postsurgical changes of the mediastinum. The heart is enlarged. 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 Liver: The liver is normal in size and configuration. No focal hepatic abnormalities are identified. Liver attenuation is within normal limits. The portal veins are patent. There are multiple calcified hepatic granulomas. There is persistent marked intrahepatic and extrahepatic biliary ductal dilatatio n. Spleen: The spleen is normal in size, configuration and attenuation. There are multiple calcified spl enic granulomas. Gallbladder and bile duct: The gallbladder is surgically absent. There is no biliary ductal dilatat ion. Pancreas: The pancreas is grossly normal in size and configuration. Adrenal Glands: The adrenal glands are normal in size and configuration. Kidneys: The kidneys are normal in size and configuration. There is no evidence of hydronephrosis. Th ere is no evidence of nephrolithiasis. No definite solid or cystic renal mass lesions are identified. Stomach: The stomach is grossly normal. There appears to be a small hiatal hernia. Bowel: The bowel gas pattern is non specific and non obstructive. There is moderate fecal residue sca ttered throughout the colon. No definite abnormal blush of contrast is identified along the course of the bowel. However, this study was not optimized for evaluation of GI bleeding. Appendix: The appendix is normal. Free air: There is no evidence of free air. Free fluid: There is no evidence of free fluid. Vasculature: The aorta is normal in caliber and contour. There are moderate atherosclerotic calcifica tions along the abdominal aorta. The celiac artery, superior mesenteric artery, inferior mesenteric a rtery and bilateral renal arteries are patent. There are heavy atherosclerotic calcifications at the origins of both renal arteries as well as the visceral branches. There are moderate atherosclerotic c alcifications along the iliofemoral arteries which are also patent and are grossly normal in caliber. The inferior vena cava is grossly unremarkable. Lymphadenopathy: No pathologic lymphadenopathy is identified. Bladder: The bladder is well distended and smooth in contour. Some portions of the pelvis are obscure d by streak artifact secondary to the patient's total right hip arthroplasty. Reproductive: The prostate gland appears mildly enlarged. There are some chronic coarse calcification s within the prostate gland. Again, imaging of the pelvis is limited secondary to streak artifact. Bones: There are chronic degenerative changes of the thoracolumbar spine with scoliosis of the thorac olumbar spine. There has been progressive mild to moderate compression of the L3 vertebral body when compared to the prior study. There is a chronic mild superior endplate compression fracture of L1. Th ere is advanced degenerative disc disease most pronounced at L4-L5 and L5-S1. Soft tissues: No acute soft tissue abnormalities are identified. IMPRESSION: 1. No definite abnormal blush of contrast is identified along the course of the bowel. However, this study was not optimized for evaluation of GI bleeding. 2. Small bilateral pleural effusions with mild bibasilar atelectasis. 3. Cardiomegaly. 4. Status post cholecystectomy with persistent marked intrahepatic and extrahepatic biliary ductal dilatation. 5. Evidence of prior granulomatous disease. 6. Suspect small hiatal hernia. 7. Progressive mild to moderate compression of the L3 vertebral body when compared to the prior major dy. Chronic mild superior endplate compression fracture of L1. 8. There is moderate fecal residue scattered throughout the colon. 9. There is streak artifact in the region of the pelvis related to a total right hip arthroplasty w hich does result in degradation of image quality. Electronically signed by: Lourdes Lyn DO 03/29/2023 7:03 AM CDT Due to temporary technical issues with the PACS/Fluency reporting system, reports are being signed by the in house radiologist without review as a courtesy to ensure prompt reporting. The interpreting r adiologist is fully responsible for the content of the report.
== END 2023-03-29 11:51 ==
LOC: ER 04:39
DX: D64.9 Anemia, unspecified (principal); I10 Essential (primary) hypertension; I50.9 Heart failure, unspecified; Z79.82 Long term (current) use of aspirin; Z95.810 Presence of automatic (implantable) cardiac defibrillator; Z88.0 Allergy status to penicillin
CPT/HCPCS: 85025; 36415; 86900; 86850; 85610; 86901; 85730; 80053; 74177; 96374; 99285; Q9967; C9113; J7030